=== PATIENT | female | born 1940 | race Caucasian/White ===

== ENCOUNTER → 2017-02-10 | Outpatient (CLI) | payer MEDICARE ==
--- NOTE | 2017-02-10 10:02 | ECHOF ---
Referral Reason:R53.83 MEASUREMENTS -------- HEIGHT: 160.0 cm WEIGHT: 108.9 kg BP: 130/50 RVIDd: 2.8 cm (< 3.3) IVSd: 1.3 cm (0.6 - 1.1) LVIDd: 4.1 cm (3.9 - 5.3) LVPWd: 1.6 cm (0.6 - 1.1) IVSs: 1.4 cm LVIDs: 4.5 cm LVPWs: 1.3 cm LA Diam: 4.2 cm (2.7 - 3.8) LAESV Index (A-L): 18.93 ml/m Ao Diam: 3.3 cm (2.0 - 3.7) AV Cusp: 1.7 cm (1.5 - 2.6) LA Diam: 3.9 cm (2.7 - 3.8) MV EXCURSION: 16.399 mm (> 18.000) MV EF SLOPE: 88 mm/s (70 - 150) EPSS: 0.5 cm MV E Jacobo: 0.39 m/s MV DecT: 232 ms MV A Jacobo: 0.96 m/s MV E/A Ratio: 0.41 RAP: 5.00 mmHg RVSP: 25.72 mmHg FINDINGS -------- Sinus rhythm. This was a technically adequate study. There is moderate concentric left ventricular hypertrophy. Overall left ventricular systolic function is low-normal with, an EF between 50 - 55 %. The right ventricle is normal in size. Normal LA size by volume 22+/-6 ml/m2. The right atrial size is normal. There is mild aortic valve sclerosis. There is no evidence of aortic regurgitation. Mild mitral annular calcification present. Mild mitral regurgitation is present. Mild tricuspid regurgitation present. There is no evidence of pulmonary hypertension. The right ventricular systolic pressure, as measured by Doppler, is 25.72mmHg. There is no pulmonic regurgitation present. The aortic root size is normal. Echo free space may represent effusion or a pericardial fat pad. CONCLUSIONS -------- 1. There is moderate concentric left ventricular hypertrophy. 2. Echo free space may represent effusion or a pericardial fat pad. 3. Overall left ventricular systolic function is low-normal with, an EF between 50 - 55 %. 4. There is mild aortic valve sclerosis. 5. Mild mitral annular calcification present. 6. Mild mitral regurgitation is present. 7. Mild tricuspid regurgitation present. 8. There is no evidence of pulmonary hypertension. 9. The right ventricular systolic pressure, as measured by Doppler, is 25.72mmHg. 10. There is no pulmonic regurgitation present. MARKETING PRODUCTION MANAGER: Keyanna Campbell RDCS
== END | disposition home or self-care (01) ==
LOC: RADECHMAIN 08:19
PROVIDERS: ATTEND Family Medicine
DX: I08.1 Rheumatic disorders of both mitral and tricuspid valves (principal)
CPT/HCPCS: 93306

== ENCOUNTER 2017-03-17 09:37 | Emergency (ER) | payer MEDICARE ==
[2017-03-17] MEDS ORDERED: methylPREDNISolone SOD SUCCI 125 MG/2 ML VIAL IV STA (09:59)
[2017-03-17] MEDS ORDERED: IPRATROPIUM-ALBUTEROL 3 ML NEB INHALATION STA ×2 (09:59→11:08)
--- NOTE | 2017-03-17 10:01 | ED ---
General Adult HPI - General Chief complaint: Shortness of Breath Stated complaint: Difficulty Breathing Time Seen by Provider: 03/17/17 09:40 Source: patient, RN notes reviewed Mode of arrival: wheelchair Limitations: no limitations - History of Present Illness Initial comments: This is a 76-year-old female with a past medical history significant for COPD. Patient states she started coughing approximate 4 days ago. Patient states the cough got significantly worse over the last 2 days. Patient states she's been taking her inhaler but has not been helping. Patient states she is coughing up some clear sputum and it with occasional slight color to it but mostly clear sputum. Patient denies any fever chills. Patient states her voice is now hoarse because of all the coughing. Patient denies any chest pain difficulty breathing shortness of breath. Patient states she had a clot in her lung in the past she does know why. Patient states she was on blood thinners but she no longer is. Patient denies any abdominal pain patient denies nausea vomiting diarrhea. Patient denies any headache patient denies numbness weakness. Patient denies lightheadedness dizziness or near syncopal episode. - Related Data Home Medications Medication Instructions Recorded Confirmed Citalopram Hydrobromide [CeleXA] 20 mg PO DAILY 02/10/14 03/17/17 Simvastatin [Zocor] 10 mg PO DAILY 02/10/14 03/17/17 Aspirin 81 mg PO BID 03/17/17 03/17/17 Levothyroxine Sodium [Synthroid] 75 mcg PO DAILY 03/17/17 03/17/17 Mirtazapine [Remeron] 15 mg PO HS 03/17/17 03/17/17 Previous Rx's Medication Instructions Recorded Levofloxacin [Levaquin] 750 mg PO DAILY #10 tab 03/17/17 predniSONE 40 mg PO DAILY #8 tab 03/17/17 Allergies Allergy/AdvReac Type Severity Reaction Status Date / Time Penicillins Allergy Rash/Hives Verified 03/17/17 10:44 Review of Systems ROS Statement: Those systems with pertinent positive or pertinent negative responses have been documented in the HPI. ROS Other: All systems not noted in ROS Statement are negative. Past Medical History Past Medical History: Coronary Artery Disease (CAD), COPD, Osteoarthritis (OA), Rheumatoid Arthritis (RA) Additional Past Medical History / Comment(s): EMPHYSEMA OSTEOPOROSIS HISTORY OF SHINGLES UPPER AND LOWER DENTURES History of Any Multi-Drug Resistant Organisms: None Reported Past Surgical History: Cholecystectomy, Heart Catheterization, Tonsillectomy Additional Past Surgical History / Comment(s): MANDIBULAR OSTEOTOMY BREAST BIOPSY RIGHT Past Anesthesia/Blood Transfusion Reactions: No Reported Reaction Past Psychological History: Depression Smoking Status: Never smoker Past Alcohol Use History: None Reported Past Drug Use History: None Reported General Exam - General Exam Comments Initial Comments: GENERAL: Patient is well-developed and well-nourished. Patient is nontoxic and well- hydrated and is in mild distress. ENT: Neck is soft and supple. No significant lymphadenopathy is noted. Oropharynx is clear. Moist mucous membranes. Neck has full range of motion without eliciting any pain. EYES: The sclera were anicteric and conjunctiva were pink and moist. Extraocular movements were intact and pupils were equal round and reactive to light. Eyelids were unremarkable. PULMONARY: Expiratory wheezing diffusely CARDIOVASCULAR: There is a regular rate and rhythm without any murmurs gallops or rubs. ABDOMEN: Soft and nontender with normal bowel sounds. No palpable organomegaly was noted. There is no palpable pulsatile mass. SKIN: Skin is clear with no lesions or rashes and otherwise unremarkable. NEUROLOGIC: Patient is alert and oriented x3. Cranial nerves II through XII are grossly intact. Motor and sensory are also intact. Normal speech, volume and content. Symmetrical smile. MUSCULOSKELETAL: Normal extremities with adequate strength and full range of motion. No lower extremity swelling or edema. No calf tenderness. LYMPHATICS: No significant lymphadenopathy is noted PSYCHIATRIC: Normal psychiatric evaluation. Normal interpersonal interactions appears functionally intact in deals appropriately with others. No signs of depression. No signs of anxiety. Limitations: no limitations Course Vital Signs 03/17/17 03/17/17 03/17/17 09:39 10:40 10:50 Temperature 97.3 F L Pulse Rate 92 90 90 Respiratory 22 Rate Blood Pressure 136/72 O2 Sat by Pulse 95 Oximetry Medical Decision Making - Medical Decision Making EKG shows normal sinus rhythm at 84 bpm OH interval is 152 QRS is 80 QT interval 372 QTC is 439 per patient's EKG shows no ST segment elevation or depression or T wave abnormalities are noted. Chest x-ray shows no acute abnormality. Patient was much improved after first breathing treatment but still continued to have a little bit of a wheeze slightly very second albuterol treatment. Patient also got Rocephin IV. - Lab Data Result diagrams: 03/17/17 09:57 03/17/17 09:57 Lab Results 03/17/17 03/17/17 03/17/17 Range/Units 09:57 09:57 09:57 WBC 8.4 (3.8-10.6) k/uL RBC 5.15 (3.80-5.40) m/uL Hgb 14.9 (11.4-16.0) gm/dL Hct 44.0 (34.0-46.0) % MCV 85.5 (80.0-100.0) fL MCH 29.0 (25.0-35.0) pg MCHC 33.9 (31.0-37.0) g/dL RDW 13.8 (11.5-15.5) % Plt Count 312 (150-450) k/uL Neutrophils % 65 % Lymphocytes % 19 % Monocytes % 7 % Eosinophils % 6 % Basophils % 1 % Neutrophils # 5.5 (1.3-7.7) k/uL Lymphocytes # 1.6 (1.0-4.8) k/uL Monocytes # 0.6 (0-1.0) k/uL Eosinophils # 0.5 (0-0.7) k/uL Basophils # 0.1 (0-0.2) k/uL PT (9.0-12.0) sec INR (<1.1) APTT (22.0-30.0) sec D-Dimer (<0.60) mg/L FEU Sodium 143 (137-145) mmol/L Potassium 5.0 (3.5-5.1) mmol/L Chloride 106 (98-107) mmol/L Carbon Dioxide 28 (22-30) mmol/L Anion Gap 9 mmol/L BUN 14 (7-17) mg/dL Creatinine 0.82 (0.52-1.04) mg/dL Est GFR (MDRD) Af Amer >60 (>60 ml/min/1.73 sqM) Est GFR (MDRD) Non-Af >60 (>60 ml/min/1.73 sqM) Glucose 102 H (74-99) mg/dL Calcium 8.8 (8.4-10.2) mg/dL Magnesium 2.0 (1.6-2.3) mg/dL Total Bilirubin 0.8 (0.2-1.3) mg/dL AST 20 (14-36) U/L ALT 30 (9-52) U/L Alkaline Phosphatase 72 (38-126) U/L Total Creatine Kinase 29 L (30-135) U/L CK-MB (CK-2) 0.5 (0.0-2.4) ng/mL CK-MB (CK-2) Rel Index 1.7 Troponin I <0.012 (0.000-0.034) ng/mL NT-Pro-B Natriuret Pep pg/mL Total Protein 6.7 (6.3-8.2) g/dL Albumin 3.8 (3.5-5.0) g/dL 03/17/17 03/17/17 Range/Units 09:57 09:57 WBC (3.8-10.6) k/uL RBC (3.80-5.40) m/uL Hgb (11.4-16.0) gm/dL Hct (34.0-46.0) % MCV (80.0-100.0) fL MCH (25.0-35.0) pg MCHC (31.0-37.0) g/dL RDW (11.5-15.5) % Plt Count (150-450) k/uL Neutrophils % % Lymphocytes % % Monocytes % % Eosinophils % % Basophils % % Neutrophils # (1.3-7.7) k/uL Lymphocytes # (1.0-4.8) k/uL Monocytes # (0-1.0) k/uL Eosinophils # (0-0.7) k/uL Basophils # (0-0.2) k/uL PT 10.0 (9.0-12.0) sec INR 1.0 (<1.1) APTT 23.1 (22.0-30.0) sec D-Dimer 0.55 (<0.60) mg/L FEU Sodium (137-145) mmol/L Potassium (3.5-5.1) mmol/L Chloride (98-107) mmol/L Carbon Dioxide (22-30) mmol/L Anion Gap mmol/L BUN (7-17) mg/dL Creatinine (0.52-1.04) mg/dL Est GFR (MDRD) Af Amer (>60 ml/min/1.73 sqM) Est GFR (MDRD) Non-Af (>60 ml/min/1.73 sqM) Glucose (74-99) mg/dL Calcium (8.4-10.2) mg/dL Magnesium (1.6-2.3) mg/dL Total Bilirubin (0.2-1.3) mg/dL AST (14-36) U/L ALT (9-52) U/L Alkaline Phosphatase (38-126) U/L Total Creatine Kinase (30-135) U/L CK-MB (CK-2) (0.0-2.4) ng/mL CK-MB (CK-2) Rel Index Troponin I (0.000-0.034) ng/mL NT-Pro-B Natriuret Pep 193 pg/mL Total Protein (6.3-8.2) g/dL Albumin (3.5-5.0) g/dL Disposition Clinical Impression: COPD with acute bronchitis Disposition: HOME SELF-CARE Instructions: Acute Bronchitis (ED) Prescriptions: Levofloxacin [Levaquin] 750 mg PO DAILY #10 tab predniSONE 40 mg PO DAILY #8 tab Referrals: Niko Dickson MD [Primary Care Provider] - 1-2 days Time of Disposition: 11:09
[2017-03-17 10:07] LABS: Basophils # (A) 0.1 k/uL (0-0.2); Basophils % (A) 1 %; CH 28.4; CHCM 33.5; Eosinophils # (A) 0.5 k/uL (0-0.7); Eosinophils % (A) 6 %; HDW 2.52; HGB 14.9 gm/dL (11.4-16.0); Luc # (Auto) 0.14; Luc % (Auto) 2; Lymphocytes # (A) 1.6 k/uL (1.0-4.8); Lymphocytes % (A) 19 %; MCHC 33.9 g/dL (31.0-37.0); MCV 85.5 fL (80.0-100.0); Mean Platelet Volume 7.6; Monocytes # (A) 0.6 k/uL (0-1.0); Monocytes % (A) 7 %; Neutrophils # (A) 5.5 k/uL (1.3-7.7); Neutrophils % (A) 65 %; RBC 5.15 m/uL (3.80-5.40); RDW 13.8 % (11.5-15.5); WBC 8.4 k/uL (3.8-10.6); WBC (Perox) 8.09
[2017-03-17 10:19] LABS: ALT 30 U/L (9-52); AST 20 U/L (14-36); Alkaline Phosphatase 72 U/L (38-126); Anion Gap 9 mmol/L; Blood Urea Nitrogen 14 mg/dL (7-17); Calcium 8.8 mg/dL (8.4-10.2); Carbon Dioxide 28 mmol/L (22-30); Chloride 106 mmol/L (98-107); Glucose 102 mg/dL (74-99); Non-African American GFR(MDRD) >60 (>60 ml/min/1.73 sqM); Sodium 143 mmol/L (137-145); Total Bilirubin 0.8 mg/dL (0.2-1.3); Total Protein 6.7 g/dL (6.3-8.2)
[2017-03-17 10:27] LABS: Creatine Kinase 29 U/L (30-135)
[2017-03-17 10:35] LABS: Partial Thromboplastin Time 23.1 sec (22.0-30.0)
[2017-03-17 10:40] LABS: Creatine Kinase MB 0.5 ng/mL (0.0-2.4); Troponin I <0.012 ng/mL (0.000-0.034)
--- NOTE | 2017-03-17 11:05 | XR ---
EXAMINATION TYPE: XR chest 2V DATE OF EXAM: 03/17/2017 COMPARISON: 12/25/2016 HISTORY: Short of breath TECHNIQUE: Frontal and lateral views of the chest are obtained. FINDINGS: There is coarsening of interstitial markings. There is no pleural effusion. There are ches t leads. Costophrenic angles are clear. There is a poor respiration. IMPRESSION: Pulmonary interstitial infiltrates are increased compared to last exam. No gross heart f ailure.
[2017-03-17] MEDS ORDERED: LEVOFLOXACIN 750 MG TAB PO STA (11:11)
[2017-03-17 11:58] VITALS: BP 120/57; PULSE 87; RESP 20; TEMP 98
== END 2017-03-17 11:57 | disposition home or self-care (01) ==
LOC: EC 09:37
DX: J44.0 Chronic obstructive pulmonary disease with (acute) lower respiratory infection (principal); J20.9 Acute bronchitis, unspecified; F32.9 Major depressive disorder, single episode, unspecified; I25.10 Atherosclerotic heart disease of native coronary artery without angina pectoris; Z79.82 Long term (current) use of aspirin; Z79.899 Other long term (current) drug therapy; Z88.0 Allergy status to penicillin; Z53.8 Procedure and treatment not carried out for other reasons
CPT/HCPCS: 36415; 94640 ×2; 93005; 85379; 83880; 80053; 82550; 82553; 83735; 84484; 85025; 85610; 85730; 87040; 71020; 99285; 96374; J2930

== ENCOUNTER 2018-06-30 12:08 | Inpatient (IN) | payer MEDICARE ==
--- NOTE | 2018-06-30 12:42 | ED ---
General Adult HPI - General Chief complaint: Neuro Symptoms/Deficit Stated complaint: lt arm tight, facial numbness Time Seen by Provider: 06/30/18 12:33 Source: patient, RN notes reviewed Mode of arrival: wheelchair Limitations: no limitations - History of Present Illness Initial comments: Patient is a pleasant 77-year-old female presenting to the emergency Department with complaints of her left side feeling funny. Patient went to bed around 11: 30 or 12 last night and that was last known well time. Patient woke up this morning with her left patient shoulder and arm feeling funny. Patient states her left arm does feel somewhat heavy. No difficulty with walking. No speech problem as per no confusion. Patient did have a mild amount of chest discomfort with lying down while in the emergency department that is essentially resolved at this point. No history of similar symptoms previously. - Related Data Home Medications Medication Instructions Recorded Confirmed Citalopram Hydrobromide [CeleXA] 20 mg PO DAILY 02/10/14 06/30/18 Simvastatin [Zocor] 10 mg PO DAILY 02/10/14 06/30/18 Aspirin 81 mg PO BID 03/17/17 06/30/18 Mirtazapine [Remeron] 15 mg PO HS 03/17/17 06/30/18 Albuterol Inhaler [Ventolin Hfa 1 puff INHALATION Q6HR 06/30/18 06/30/18 Inhaler] Allergies Allergy/AdvReac Type Severity Reaction Status Date / Time Penicillins Allergy Rash/Hives Verified 06/30/18 12:43 Review of Systems ROS Statement: Those systems with pertinent positive or pertinent negative responses have been documented in the HPI. ROS Other: All systems not noted in ROS Statement are negative. Constitutional: Denies: fever Eyes: Denies: eye pain ENT: Denies: ear pain Respiratory: Denies: cough, dyspnea Cardiovascular: Denies: palpitations Endocrine: Denies: fatigue Gastrointestinal: Denies: abdominal pain Genitourinary: Denies: dysuria Musculoskeletal: Denies: back pain Skin: Denies: rash Neurological: Reports: weakness. Denies: headache, confusion Past Medical History Past Medical History: Coronary Artery Disease (CAD), COPD, Osteoarthritis (OA), Rheumatoid Arthritis (RA) Additional Past Medical History / Comment(s): EMPHYSEMA OSTEOPOROSIS HISTORY OF SHINGLES UPPER AND LOWER DENTURES History of Any Multi-Drug Resistant Organisms: None Reported Past Surgical History: Cholecystectomy, Heart Catheterization, Tonsillectomy Additional Past Surgical History / Comment(s): MANDIBULAR OSTEOTOMY BREAST BIOPSY RIGHT Past Anesthesia/Blood Transfusion Reactions: No Reported Reaction Past Psychological History: Depression Smoking Status: Never smoker Past Alcohol Use History: None Reported Past Drug Use History: None Reported General Exam Limitations: no limitations General appearance: alert, in no apparent distress Head exam: Present: atraumatic Eye exam: Present: normal appearance, PERRL, EOMI. Absent: nystagmus ENT exam: Present: normal oropharynx Neck exam: Present: normal inspection Respiratory exam: Present: normal lung sounds bilaterally Cardiovascular Exam: Present: regular rate, normal rhythm Expanded Peripheral pulses: 2+: Radial (R), Radial (L), Dorsalis Pedis (R), Dorsalis Pedis (L) GI/Abdominal exam: Present: soft. Absent: distended, tenderness Extremities exam: Present: normal inspection. Absent: pedal edema, calf tenderness Neurological exam: Present: alert, oriented X3, CN II-XII intact Expanded Neurological exam: Present: protecting the airway Speech: Present: fluid speech, expressive aphasia, anomia Cranial nerves: EOM's Intact: Normal, Facial Sensation: Normal Sensory exam: Upper Extremity Light Touch: Normal, Lower Extremity Light Touch: Normal Motor strength exam: RUE: 5, LUE: 4, RLE: 5, LLE: 4 Eye Response: (4) open spontaneously Motor Response: (6) obeys commands Verbal Response: (5) oriented Psychiatric exam: Present: normal affect, normal mood Skin exam: Present: normal color Course Vital Signs 06/30/18 12:24 Temperature 97.7 F Pulse Rate 84 Respiratory 16 Rate Blood Pressure 150/88 O2 Sat by Pulse 98 Oximetry EKG Findings - EKG Comments: EKG Findings:: Normal sinus rhythm 79. DE 158. QRS 90. QT 386. QTc 442. Left axis. LVH criteria. Nonspecific T waves. Medical Decision Making - Medical Decision Making Patient reevaluated and resting comfortably in bed. Patient and family updated on results and plan. Case was discussed in detail with Dr. Briones, who will admit for Dr. huffman - Lab Data Result diagrams: 06/30/18 12:56 06/30/18 12:56 Lab Results 06/30/18 06/30/1818 Range/Units 12:56 12:56 12:56 WBC 7.5 (3.8-10.6) k/uL RBC 5.43 H (3.80-5.40) m/uL Hgb 14.9 (11.4-16.0) gm/dL Hct 47.3 H (34.0-46.0) % MCV 87.2 (80.0-100.0) fL MCH 27.5 (25.0-35.0) pg MCHC 31.5 (31.0-37.0) g/dL RDW 13.8 (11.5-15.5) % Plt Count 305 (150-450) k/uL Neutrophils % 65 % Lymphocytes % 22 % Monocytes % 8 % Eosinophils % 3 % Basophils % 0 % Neutrophils # 4.9 (1.3-7.7) k/uL Lymphocytes # 1.7 (1.0-4.8) k/uL Monocytes # 0.6 (0-1.0) k/uL Eosinophils # 0.3 (0-0.7) k/uL Basophils # 0.0 (0-0.2) k/uL PT (9.0-12.0) sec INR (<1.2) APTT (22.0-30.0) sec Sodium 143 (137-145) mmol/L Potassium 4.4 (3.5-5.1) mmol/L Chloride 111 H (98-107) mmol/L Carbon Dioxide 26 (22-30) mmol/L Anion Gap 6 mmol/L BUN 19 H (7-17) mg/dL Creatinine 0.71 (0.52-1.04) mg/dL Est GFR (CKD-EPI)AfAm >90 (>60 ml/min/1.73 sqM) Est GFR (CKD-EPI)NonAf 83 (>60 ml/min/1.73 sqM) Glucose 98 (74-99) mg/dL Calcium 8.7 (8.4-10.2) mg/dL Total Bilirubin 0.7 (0.2-1.3) mg/dL AST 29 (14-36) U/L ALT 31 (9-52) U/L Alkaline Phosphatase 50 (38-126) U/L Total Creatine Kinase 28 L (30-135) U/L CK-MB (CK-2) 0.8 (0.0-2.4) ng/mL CK-MB (CK-2) Rel Index 2.9 Troponin I <0.012 (0.000-0.034) ng/mL Total Protein 6.8 (6.3-8.2) g/dL Albumin 3.7 (3.5-5.0) g/dL 06/30/18 Range/Units 12:56 WBC (3.8-10.6) k/uL RBC (3.80-5.40) m/uL Hgb (11.4-16.0) gm/dL Hct (34.0-46.0) % MCV (80.0-100.0) fL MCH (25.0-35.0) pg MCHC (31.0-37.0) g/dL RDW (11.5-15.5) % Plt Count (150-450) k/uL Neutrophils % % Lymphocytes % % Monocytes % % Eosinophils % % Basophils % % Neutrophils # (1.3-7.7) k/uL Lymphocytes # (1.0-4.8) k/uL Monocytes # (0-1.0) k/uL Eosinophils # (0-0.7) k/uL Basophils # (0-0.2) k/uL PT 9.7 (9.0-12.0) sec INR 1.0 (<1.2) APTT 23.5 (22.0-30.0) sec Sodium (137-145) mmol/L Potassium (3.5-5.1) mmol/L Chloride (98-107) mmol/L Carbon Dioxide (22-30) mmol/L Anion Gap mmol/L BUN (7-17) mg/dL Creatinine (0.52-1.04) mg/dL Est GFR (CKD-EPI)AfAm (>60 ml/min/1.73 sqM) Est GFR (CKD-EPI)NonAf (>60 ml/min/1.73 sqM) Glucose (74-99) mg/dL Calcium (8.4-10.2) mg/dL Total Bilirubin (0.2-1.3) mg/dL AST (14-36) U/L ALT (9-52) U/L Alkaline Phosphatase (38-126) U/L Total Creatine Kinase (30-135) U/L CK-MB (CK-2) (0.0-2.4) ng/mL CK-MB (CK-2) Rel Index Troponin I (0.000-0.034) ng/mL Total Protein (6.3-8.2) g/dL Albumin (3.5-5.0) g/dL - Radiology Data Radiology results: report reviewed (CTA shows moderate stenosis right carotid bulb. Computed tomography scan of the brain shows atrophy.), image reviewed Disposition Clinical Impression: Cerebrovascular accident Disposition: ADMITTED IP TO THIS HOSP Is patient prescribed a controlled substance at d/c from ED?: No Referrals: Belinda Sorto MD [Primary Care Provider] - 1-2 days Decision Time: 14:18
[2018-06-30 13:09] LABS: Basophils % (A) 0 %; Eosinophils # (A) 0.3 k/uL (0-0.7); Eosinophils % (A) 3 %; HCT 47.3 % (34.0-46.0); HGB 14.9 gm/dL (11.4-16.0); Lymphocytes # (A) 1.7 k/uL (1.0-4.8); Lymphocytes % (A) 22 %; MCH 27.5 pg (25.0-35.0); MCHC 31.5 g/dL (31.0-37.0); MCV 87.2 fL (80.0-100.0); Mean Platelet Volume 7.6; Monocytes # (A) 0.6 k/uL (0-1.0); Monocytes % (A) 8 %; Neutrophils # (A) 4.9 k/uL (1.3-7.7); Neutrophils % (A) 65 %; Platelet Count 305 k/uL (150-450); RBC 5.43 m/uL (3.80-5.40); RDW 13.8 % (11.5-15.5); WBC 7.5 k/uL (3.8-10.6)
[2018-06-30 13:17] LABS: ALT 31 U/L (9-52); AST 29 U/L (14-36); Albumin 3.7 g/dL (3.5-5.0); Alkaline Phosphatase 50 U/L (38-126); Anion Gap 6 mmol/L; Blood Urea Nitrogen 19 mg/dL (7-17); Calcium 8.7 mg/dL (8.4-10.2); Carbon Dioxide 26 mmol/L (22-30); Chloride 111 mmol/L (98-107); Glucose 98 mg/dL (74-99); Potassium 4.4 mmol/L (3.5-5.1); Sodium 143 mmol/L (137-145); Total Bilirubin 0.7 mg/dL (0.2-1.3); Total Protein 6.8 g/dL (6.3-8.2)
[2018-06-30 13:19] LABS: Partial Thromboplastin Time 23.5 sec (22.0-30.0); Prothrombin Time 9.7 sec (9.0-12.0)
[2018-06-30 13:29] LABS: Creatine Kinase 28 U/L (30-135)
[2018-06-30 13:42] LABS: Creatine Kinase MB 0.8 ng/mL (0.0-2.4); Troponin I <0.012 ng/mL (0.000-0.034)
--- NOTE | 2018-06-30 13:45 | CT ---
EXAMINATION TYPE: CT brain wo con DATE OF EXAM: 06/30/2018 COMPARISON: None HISTORY: Left sided weakness. CT DLP: 1161.6 mGycm Automated exposure control for dose reduction was used. Helical acquisition through the brain. FINDINGS: Cerebral vascular calcifications are present. No hemorrhage or hydrocephalus. Periventricular white m atter shows patchy low attenuation. There is cortical atrophy. Calvarium is intact. Paranasal sinuses and mastoid air cells as visualized are normal. There is some artifact present. Cortical atrophy is noted. IMPRESSION: AGE-RELATED CHANGES OF ATROPHY AND PROBABLE CHRONIC SMALL VESSEL ISCHEMIA. FOLLOW-UP INDICATED.
--- NOTE | 2018-06-30 14:16 | CT ---
EXAMINATION TYPE: CT angio head neck DATE OF EXAM: 06/30/2018 COMPARISON: Correlation CT brain same day HISTORY: 77-year-old female Left sided weakness. TECHNIQUE: Contiguous axial scanning of the head and neck performed with IV Contrast, patient injecte d with 65 mL of Isovue 370. Coronal/sagittal MIP reconstructions performed. 3-D reconstructions gener ated on a dedicated independent workstation. CT DLP: 559.8 mGycm Automated exposure control for dose reduction was used. FINDINGS: Head: Mild atelectatic calcifications within the carotid siphons. No significant stenosis or arterial occlu marip[place] seen of the internal carotid, vertebral, or basilar arteries. The left vertebral artery is domin ant. No aneurysmal change identified. Dural venous sinuses are patent. 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 Motion artifact affecting the mid and lower right common carotid artery. The right common carotid art lashanda is tortuous with mild atherosclerotic calcifications at the bifurcation and borderline moderate, 50% stenosis at the carotid bulb. Refer to measurements on cross-sectional reconstructions of the rig ht internal carotid artery. Additional bovine configuration to the aortic arch. The left common carotid artery is mildly tortuous with mild active cardiac calcifications at the bifurcation. The left common and internal carotid art eries are otherwise widely patent. Left vertebral artery is dominant. Both vertebral arteries are patent throughout the course. IMPRESSION: 1. HEAD: NO LARGE VESSEL INTRACRANIAL ARTERIAL OCCLUSION OR SIGNIFICANT STENOSIS. 2. NECK: ATHEROSCLEROTIC CALCIFICATION RESULTING IN A BORDERLINE MODERATE (50%) STENOSIS AT THE RIGHT CAROTID BULB. 3. SOME VARIANT ANATOMY INCLUDES ABERRANT RIGHT SUBCLAVIAN ARTERY WHICH TAKES A RETROESOPHAGEAL COURS E AND DOMINANT LEFT VERTEBRAL ARTERY.
[2018-06-30] MEDS ORDERED: ASPIRIN 325 MG TAB PO STA (14:19)
--- NOTE | 2018-06-30 14:26 | XR ---
EXAMINATION TYPE: XR chest 2V DATE OF EXAM: 06/30/2018 COMPARISON: Chest x-ray March 17, 2017 HISTORY: Altered mental status and weakness. TECHNIQUE: Frontal and lateral views of the chest are obtained. FINDINGS: There is elevated right hemidiaphragm with eventration of the anterior aspect. There is no focal air space opacity, pleural effusion, or pneumothorax seen. The cardiac silhouette size is stab le and mildly enlarged. The osseous structures are intact. IMPRESSION: Mild cardiomegaly without acute pulmonary process currently.
--- NOTE | 2018-06-30 15:42 | P.HPIM ---
History of Present Illness H&P Date: 06/30/18 Chief Complaint: Left-sided weakness (77-year-old female patient of Dr. muñiz. Patient presents to the emergency room with complaints of left-sided weakness and numbness. Patient states she went to bed last night and felt moment and woke up this morning with left shoulder pain and the feeling of numbness and heaviness in her left face and left upper extremity. Patient denies confusion or problems with speech. Patient also complaining of chest heaviness. Patient has no past medical history of COPD, osteoporosis, rheumatoid arthritis, emphysema and pulmonary embolism and patient states she has completed treatment 2 years prior with Coumadin. Has not been on anticoagulation since. D-dimer and cardiac profile will be ordered. CT of the brain completed showing age-related changes of atrophy and probable chronic small vessel ischemia. Follow-up as indicated. CTA completed showing no large vessel intracranial arterial occlusion or significant stenosis. Atherosclerotic calcification resulting in borderline moderate 50% stenosis of the right carotid bulb. Some variant anatomy includes variant right subclavian artery which takes retroesophageal course in dominant left vertebral artery. Chest x-ray completed showing mild cardiomegaly without acute pulmonary process currently. EKG completed showing normal sinus rhythm. Left axis deviation moderate voltage criteria for LVH. Initial troponin negative. Patient currently has complaints of heaviness to left side of face. No signs of facial droop. Speech is clear. Memory intact. Strength 3/5 to upper and lower extremity on left side. Dr. Hahn consulted for neurology. 2 -D echo has been ordered. At this time patient denies chest pain or shortness breath. Patient denies nausea vomiting or diarrhea. Patient denies urinary burning or frequency Review of Systems Please refer to HPI otherwise unremarkable Past Medical History Past Medical History: Coronary Artery Disease (CAD), Chest Pain / Angina, COPD, CVA/TIA, Hyperlipidemia, Pulmonary Embolus (PE) Additional Past Medical History / Comment(s): Past shingelles History of Any Multi-Drug Resistant Organisms: None Reported Past Surgical History: Cholecystectomy, Heart Catheterization, Tonsillectomy Additional Past Surgical History / Comment(s): LOWER MANDIBULAR OSTEOTOMY BENIGN BREAST BIOPSY RIGHT, BILATERAL CATARACT REMOVAL/LENS IMPLANTS Past Anesthesia/Blood Transfusion Reactions: No Reported Reaction Past Psychological History: Depression Additional Psychological History / Comment(s): Pt resides with her daughter. She is independent. Smoking Status: Former smoker Past Alcohol Use History: None Reported Additional Past Alcohol Use History / Comment(s): Pt started smoking in 1958 and quit in 1982 Past Drug Use History: None Reported - Past Family History Father History Unknown: Yes Mother Family Medical History: Myocardial Infarction ([place]) Additional Family Medical History / Comment(s): Mother of a [place] in her 80s. Medications and Allergies Home Medications Medication Instructions Recorded Confirmed Type Citalopram Hydrobromide [CeleXA] 20 mg PO DAILY 02/10/14 06/30/18 History Simvastatin [Zocor] 10 mg PO DAILY 02/10/14 06/30/18 History Aspirin 81 mg PO BID 03/17/17 06/30/18 History Mirtazapine [Remeron] 15 mg PO HS 03/17/17 06/30/18 History Albuterol Inhaler [Ventolin Hfa 1 puff INHALATION Q6HR 06/30/18 06/30/18 History Inhaler] Allergies Allergy/AdvReac Type Severity Reaction Status Date / Time Penicillins Allergy Rash/Hives Verified 06/30/18 12:43 Physical Exam Vitals: Vital Signs Temp Pulse Resp BP Pulse Ox 06/30/18 15:06 75 18 139/73 95 06/30/18 12:24 97.7 F 84 16 150/88 98 Intake and Output 06/30/18 06/30/18 06/30/18 06:59 14:59 22:59 Other: Weight 108.862 kg Head normocephalic Neck supple Lungs diminished bilaterally Heart regular rate and rhythm S1-S2, no rub or gallop Abdomen is soft nontender nondistended positive bowel sounds no hepatosplenomegaly Extremities no edema Neuro alert and orientated to 3. No signs of facial droop memory appears intact. Strength 3/5 to left upper and lower extremity. Results CBC & Chem 7: 06/30/18 12:56 06/30/18 12:56 Labs: Abnormal Lab Results - Last 24 Hours (Table) 06/30/18 06/30/18 06/30/18 Range/Units 12:56 12:56 12:56 RBC 5.43 H (3.80-5.40) m/uL Hct 47.3 H (34.0-46.0) % Chloride 111 H (98-107) mmol/L BUN 19 H (7-17) mg/dL Total Creatine Kinase 28 L (30-135) U/L Thrombosis Risk Factor Assmnt - Choose All That Apply Any of the Below Risk Factors Present?: Yes Each Factor Represents 1 point: Abnormal pulmonary function (COPD), Obesity ( BMI >25) Other Risk Factors: Yes Each Risk Factor Represents 3 Points: Age 75 years or older Other congenital or acquired thrombophilia - If yes, enter type in comment: No Thrombosis Risk Factor Assessment Total Risk Factor Score: 5 Thrombosis Risk Factor Assessment Level: High Risk Assessment and Plan Assessment: 1. Left-sided weakness and numbness. CTA completed showing no large vessel intracranial arterial occlusion or significant stenosis. Atherosclerotic calcification resulting in borderline moderate 50% stenosis of the right carotid bulb. Some variant anatomy includes variant right subclavian artery which takes retroesophageal course in dominant left vertebral artery. CT of head completed showing age-related changes of atrophy and probable chronic small vessel ischemia. Dr. Juarez consulted for neurology. Patient started on aspirin 325 daily. 2-D echo has been ordered. PT and OT services consulted 2. Complaints of chest heaviness. D-dimer has been ordered. Cardiac profile ordered. EKG completed showing normal sinus rhythm left axis deviation. Initial troponin negative 3. History of pulmonary embolism. Patient states she completed treatment 2 years prior with Coumadin. Patient currently not on any anticoagulation 4. History of COPD 5. History of emphysema 6. History of osteoarthritis 7. History of rheumatoid arthritis DVT prophylaxis heparin. GI prophylaxis Pepcid Time with Patient: Greater than 30 (Greater than 60% of the total time spent in counseling and coordination of care. I performed an examination of the patient and discussed their management with the Nurse Practitioner. I have reviewed the Nurse Practitioner's notes and agree with the documented findings and plan of care)
[2018-06-30 19:46] LABS: Creatine Kinase MB 0.5 ng/mL (0.0-2.4)
[2018-06-30] MEDS ORDERED: ALBUTEROL NEBULIZED 2.5 MG/3 ML INHALATION SCH (20:00)
[2018-06-30] MEDS: SODIUM CHLORIDE 0.9% 1,000 ML IV SCH (20:41)
[2018-06-30] MEDS ORDERED: HEPARIN SODIUM,PORCINE 5,000 UNIT/ML 1 ML VIAL SQ SCH (21:00)
[2018-06-30] MEDS ORDERED: ALBUTEROL NEBULIZED 2.5 MG/3 ML INHALATION PRN (21:10)
[2018-06-30] MEDS: MIRTAZAPINE 15 MG TAB PO SCH (23:04)
[2018-07-01] MEDS: ENOXAPARIN 100 MG/ML SYRINGE SQ SCH ×3 (00:01→20:46)
[2018-07-01] MEDS: SODIUM CHLORIDE 0.9% 1,000 ML IV SCH ×2 (01:38→11:44)
[2018-07-01 02:04] LABS: Creatine Kinase 87 U/L (30-135)
[2018-07-01 02:18] LABS: Creatine Kinase MB 0.5 ng/mL (0.0-2.4); Troponin I <0.012 ng/mL (0.000-0.034)
[2018-07-01 06:31] LABS: Basophils # (A) 0.1 k/uL (0-0.2); Basophils % (A) 1 %; Eosinophils # (A) 0.3 k/uL (0-0.7); Eosinophils % (A) 4 %; HCT 42.3 % (34.0-46.0); HGB 13.5 gm/dL (11.4-16.0); Lymphocytes # (A) 1.6 k/uL (1.0-4.8); Lymphocytes % (A) 22 %; MCV 87.4 fL (80.0-100.0); Monocytes # (A) 0.7 k/uL (0-1.0); Monocytes % (A) 10 %; Neutrophils # (A) 4.4 k/uL (1.3-7.7); Neutrophils % (A) 62 %; Platelet Count 232 k/uL (150-450); RBC 4.84 m/uL (3.80-5.40); WBC 7.1 k/uL (3.8-10.6)
[2018-07-01 06:50] LABS: ALT 24 U/L (9-52); AST 27 U/L (14-36); Albumin 3.3 g/dL (3.5-5.0); Alkaline Phosphatase 47 U/L (38-126); Anion Gap 6 mmol/L; Blood Urea Nitrogen 17 mg/dL (7-17); Calcium 8.4 mg/dL (8.4-10.2); Carbon Dioxide 29 mmol/L (22-30); Chloride 109 mmol/L (98-107); Cholesterol 132 mg/dL (<200); Glucose 90 mg/dL (74-99); HDL Cholesterol 40 mg/dL (40-60); LDL Cholesterol,Calculated 75 mg/dL (0-99); Potassium 4.4 mmol/L (3.5-5.1); Sodium 144 mmol/L (137-145); Total Bilirubin 0.8 mg/dL (0.2-1.3); Total Protein 6.1 g/dL (6.3-8.2); Triglycerides 86 mg/dL (<150)
[2018-07-01] MEDS: ATORVASTATIN 10 MG TAB PO SCH (07:53)
[2018-07-01] MEDS: CLOPIDOGREL 75 MG TAB PO SCH (07:53)
[2018-07-01] MEDS: CITALOPRAM HYDROBROMIDE 20 MG TAB PO SCH (07:53)
[2018-07-01] MEDS: FAMOTIDINE 20 MG TAB PO SCH (07:53)
--- NOTE | 2018-07-01 08:30 | CONS ---
CONSULTATION DATE OF CONSULTATION: 06/30/2018 CHIEF COMPLAINT: Stroke. HISTORY OF PRESENT ILLNESS: Mrs. Mccord is a pleasant 77-year-old, female, who is being evaluated today on 06/30/2018 by the neurology service per the request of Dr. Briones for a stroke. The patient states that she woke up this morning with symptoms of deep aching pain involving the left arm and left face. She then developed numbness and tingling involving the left arm and face. She did not notice any symptoms in the left lower extremity. She then noticed that her left arm is slightly weaker than her right arm and was then brought into [facility] Emergency Room for further workup and management. The patient does take aspirin 81 mg daily at home. She was recently on Coumadin for history of pulmonary embolism, but this was discontinued earlier this year after appropriate treatment. A CT scan of the brain was done on this admission which showed generalized atrophy and small-vessel ischemic changes. Her CT angiogram of the brain was normal. CT angiogram of the neck showed 50% stenosis on the right bulb and was otherwise showing no significant stenosis. Her CBC, comprehensive metabolic profile, and cardiac enzymes were reviewed and were normal. At the time of my evaluation, the patient was lying in her bed and appears to be in no acute distress. She reports mild improvement in the intensity of her symptoms. PAST MEDICAL HISTORY: Pulmonary embolism, coronary artery disease, angina, chronic obstructive pulmonary disease, history of transient ischemic attack, dyslipidemia, history of shingles, depression, history of cholecystectomy, tonsillectomy, cataract surgery, lens implant. SOCIAL HISTORY: The patient is a former smoker. She denies any alcohol or drug use. FAMILY HISTORY: Positive for heart disease. HOME MEDICATIONS: Reviewed in the chart. ALLERGIES: PENICILLIN. REVIEW OF SYSTEMS: CONSTITUTIONAL: Negative. EYES: Negative. ENT: Negative. CARDIOVASCULAR: As mentioned above. RESPIRATORY: Negative. GASTROINTESTINAL: Positive for occasional heartburn. GENITOURINARY: Negative. PSYCHIATRIC: Positive for history of depression. NEUROLOGICAL: As mentioned above. DERMATOLOGICAL: Negative. MUSCULOSKELETAL: Positive for occasional joint pain and low back pain. PHYSICAL EXAM: Vital signs show a temperature of 97.7, pulse 75, respiration 18, blood pressure 139/73. GENERAL APPEARANCE: The patient is a mildly obese, elderly female who appears to be in no acute distress. HEENT: Normocephalic, atraumatic. No facial asymmetry is seen. Extraocular muscles are intact. Neck is supple with no masses felt. CARDIOVASCULAR: Regular rate and rhythm. ABDOMEN: Nontender, nondistended. Extremities showed no edema or clubbing. NEUROLOGICAL EXAM: The patient is awake and oriented x3. Speech and language are normal. Strength is 5 minus out of 5 in the left upper extremity and 5/5 elsewhere. Sensory exam showed slightly diminished light touch sensation on the left upper extremity compared to the right. Mild left pronator drift is seen. Mild dysdiadochokinesia is noticed on the left compared to the right. Cranial nerve testing showed slightly reduced light touch sensation on the left face compared to the right with no facial weakness noticed. IMPRESSION: 1. Acute ischemic stroke, likely right middle cerebral artery distribution. 2. Left-sided weakness. 3. Left-sided sensory deficit. 4. History of dyslipidemia. 5. Moderate right carotid stenosis. RECOMMENDATION: The patient does appear to have suffered an acute ischemic stroke. and continues to have mild left-sided weakness and sensory deficit. The patient was on aspirin at home. I will discontinue aspirin and start her on Plavix 75 mg daily. I will order a fasting lipid panel, EEG, and serum homocysteine level. I reviewed with her the results of her CT angiograms and CT scan of the brain and she was reassured from this standpoint. The patient will need further angiograms done on an annual basis given her moderate right sided stenosis. Continue neuro checks and IV hydration as tolerated. I will continue to follow with you. Further recommendations to follow. Thank you for allowing me to participate in the care of your patient. If you have any questions, please feel free to contact me. DON / RASHIDN: [id number] /
[2018-07-01] MEDS ORDERED: ASPIRIN 325 MG TAB PO SCH (09:00)
--- NOTE | 2018-07-01 09:45 | CONS ---
CONSULTATION Opal Mccord is a 77-year-old, pleasant female. Patient has been admitted to [facility] with history of left-sided weakness and numbness. She also noted some heaviness feeling in her left face and left upper extremity. No history of seizure. Patient had a CT of the brain which showed age-related changes and atrophy. No evidence of intracranial hemorrhage or bleed. The patient had a carotid CT of the both carotids, the right carotid 50%, left carotid is normal and patient has a right subclavian artery which takes esophageal course. SURGICAL HISTORY: Patient had a cholecystectomy, heart catheterization and tonsillectomy in the past. PERSONAL HISTORY: Former smoker. PHYSICAL EXAMINATION: Patient was seen in her room. Her vital signs were stable. Lying comfortably in bed. NECK: Supple. No bruit appreciated. CHEST: Clear to auscultation. ABDOMEN: Soft, brachial radial femoral pulses are present. Patient has a very strong hand ldr rn on the right side. Slight weakness on the left side, but she can move the arm up and she can squeeze my hand without any discomfort. Patient has normal motor function of the lower extremity. CTA showed 50% of the right carotid bulb. At this point, patient is scheduled to have a 2D echo with 50% stenosis. My recommendation is to be treated with antiplatelet therapy and if she she gets recurrent symptoms, we can discuss about surgical intervention. We will wait for 2D echo report and follow with you. DON / JUAN A: [id number] /
--- NOTE | 2018-07-01 10:03 | P.CRDCN ---
History of Present Illness Consult date: 07/01/18 Chief complaint: Chest pain History of present illness: This is a pleasant 77-year-old female patient with a past medical history significant for hypertension and dyslipidemia who was admitted to the hospital for possible TIA/stroke. The patient was in her usual state of health until yesterday morning when she woke up from sleep complaining of aching pain involving the left arm and left face and subsequently she developed numbness and tingling sensation in the left arm and left face. No symptoms of slurred speech. No dizziness or lightheadedness. No syncope. Beside that she developed some chest heaviness as well as. The patient underwent CT and CTA of the brain and neck. The computed tomography scan of the brain did not show any acute abnormalities beside atrophic changes. The CTA of the brain revealed intermediate disease about 50% involving the right carotid pulse. Subsequently Dr. Villanueva was consulted to see the patient. Also the patient was seen and evaluated by the neurologist. Currently the patient is on dual antiplatelet therapy with aspirin and Plavix. She is also on statin. The EKG revealed sinus rhythm with nonspecific changes in the inferior leads. 3 sets of cardiac enzymes were checked and came in to be unremarkable. Past Medical History Past Medical History: Coronary Artery Disease (CAD), Chest Pain / Angina, COPD, CVA/TIA, Hyperlipidemia, Pulmonary Embolus (PE) Additional Past Medical History / Comment(s): Past shingelles History of Any Multi-Drug Resistant Organisms: None Reported Past Surgical History: Cholecystectomy, Heart Catheterization, Tonsillectomy Additional Past Surgical History / Comment(s): LOWER MANDIBULAR OSTEOTOMY BENIGN BREAST BIOPSY RIGHT, BILATERAL CATARACT REMOVAL/LENS IMPLANTS Past Anesthesia/Blood Transfusion Reactions: No Reported Reaction Past Psychological History: Depression Additional Psychological History / Comment(s): Pt resides with her daughter. She is independent. Smoking Status: Former smoker Past Alcohol Use History: None Reported Additional Past Alcohol Use History / Comment(s): Pt started smoking in 1958 and quit in 1982 Past Drug Use History: None Reported - Past Family History Father History Unknown: Yes Mother Family Medical History: Myocardial Infarction ([place]) Additional Family Medical History / Comment(s): Mother of a [place] in her 80s. Medications and Allergies Home Medications Medication Instructions Recorded Confirmed Type Citalopram Hydrobromide [CeleXA] 20 mg PO DAILY 02/10/14 06/30/18 History Simvastatin [Zocor] 10 mg PO DAILY 02/10/14 06/30/18 History Aspirin 81 mg PO BID 03/17/17 06/30/18 History Mirtazapine [Remeron] 15 mg PO HS 03/17/17 06/30/18 History Albuterol Inhaler [Ventolin Hfa 1 puff INHALATION Q6HR 06/30/18 06/30/18 History Inhaler] Levothyroxine Sodium [Synthroid] 88 mcg PO DAILY 06/30/18 06/30/18 History Allergies Allergy/AdvReac Type Severity Reaction Status Date / Time Penicillins Allergy Rash/Hives Verified 06/30/18 12:43 Physical Exam Vitals: Vital Signs Temp Pulse Pulse Resp BP BP Pulse Ox 07/01/18 07:45 97.7 F 72 16 179/82 96 07/01/18 04:00 97.5 F L 81 16 149/70 95 07/01/18 00:00 85 17 161/71 93 L 06/30/18 21:15 84 06/30/18 21:07 84 06/30/18 20:00 97.8 F 71 15 182/79 96 06/30/18 15:06 75 18 139/73 95 06/30/18 12:24 97.7 F 84 16 150/88 98 Intake and Output 06/30/18 07/01/18 07/01/18 22:59 06:59 14:59 Intake Total 20 280 1230 Output Total 100 Balance 20 180 1230 Intake: IV 20 30 10 Invasive Line 1 20 30 10 Intake, IV Titration 250 Amount Sodium Chloride 0.9% 1, 250 000 ml @ 100 mls/hr IV . Q10H [facility] Rx#:[id number] Oral 1220 Output: Urine 100 Other: Voiding Method Toilet Toilet Toilet # Voids 2 Weight 104.4 kg - Constitutional General appearance: no acute distress - Respiratory Respiratory: bilateral: CTA - Cardiovascular Rhythm: regular Heart sounds: normal: S1, S2 Results 07/01/18 05:40 07/01/18 05:40 Cardiac Enzymes 06/30/18 06/30/18 06/30/18 Range/Units 12:56 12:56 18:49 AST 29 (14-36) U/L CK-MB (CK-2) 0.8 0.5 (0.0-2.4) ng/mL Troponin I <0.012 (0.000-0.034) ng/mL 07/01/18 07/01/18 Range/Units 01:26 05:40 AST 27 (14-36) U/L CK-MB (CK-2) 0.5 (0.0-2.4) ng/mL Troponin I <0.012 (0.000-0.034) ng/mL Coagulation 06/30/18 Range/Units 12:56 PT 9.7 (9.0-12.0) sec APTT 23.5 (22.0-30.0) sec Lipids 07/01/18 Range/Units 05:40 Triglycerides 86 (<150) mg/dL Cholesterol 132 (<200) mg/dL HDL Cholesterol 40 (40-60) mg/dL CBC 06/30/18 07/01/18 Range/Units 12:56 05:40 WBC 7.5 7.1 (3.8-10.6) k/uL RBC 5.43 H 4.84 (3.80-5.40) m/uL Hgb 14.9 13.5 (11.4-16.0) gm/dL Hct 47.3 H 42.3 (34.0-46.0) % Plt Count 305 232 (150-450) k/uL Comprehensive Metabolic Panel 06/30/18 07/01/18 Range/Units 12:56 05:40 Sodium 143 144 (137-145) mmol/L Potassium 4.4 4.4 (3.5-5.1) mmol/L Chloride 111 H 109 H (98-107) mmol/L Carbon Dioxide 26 29 (22-30) mmol/L BUN 19 H 17 (7-17) mg/dL Creatinine 0.71 0.74 (0.52-1.04) mg/dL Glucose 98 90 (74-99) mg/dL Calcium 8.7 8.4 (8.4-10.2) mg/dL AST 29 27 (14-36) U/L ALT 31 24 (9-52) U/L Alkaline Phosphatase 50 47 (38-126) U/L Total Protein 6.8 6.1 L (6.3-8.2) g/dL Albumin 3.7 3.3 L (3.5-5.0) g/dL Current Medications Generic Name Dose Route Start Last Admin Trade Name Freq PRN Reason Stop Dose Admin Albuterol Sulfate 2.5 mg 06/30/18 21:10 Ventolin Nebulized INHALATION RT-Q4H PRN Shortness Of Breath Or Wheezing Atorvastatin Calcium 10 mg 07/01/18 09:00 07/01/18 07:53 Lipitor PO 10 mg DAILY [facility] Administration Citalopram Hydrobromide 20 mg 07/01/18 09:00 07/01/18 07:53 Celexa PO 20 mg DAILY [facility] Administration Clopidogrel Bisulfate 75 mg 07/01/18 09:00 07/01/18 07:53 Plavix PO 75 mg DAILY [facility] Administration Enoxaparin Sodium 100 mg 06/30/18 21:00 07/01/18 00:01 Lovenox SQ 100 mg Q12HR [facility] Administration Famotidine 20 mg 07/01/18 09:00 07/01/18 07:53 Pepcid PO 20 mg DAILY [facility] Administration Sodium Chloride 1,000 mls @ 100 mls/hr 06/30/18 14:30 07/01/18 01:38 Saline 0.9% IV Not Given .Q10H [facility] Mirtazapine 15 mg 06/30/18 21:00 06/30/18 23:04 Remeron PO 15 mg HS [facility] Administration Intake and Output 06/30/18 07/01/18 07/01/18 22:59 06:59 14:59 Intake Total 20 280 1230 Output Total 100 Balance 20 180 1230 Intake: IV 20 30 10 Invasive Line 1 20 30 10 Intake, IV Titration 250 Amount Sodium Chloride 0.9% 1, 250 000 ml @ 100 mls/hr IV . Q10H [facility] Rx#:[id number] Oral 1220 Output: Urine 100 Other: Voiding Method Toilet Toilet Toilet # Voids 2 Weight 104.4 kg 07/01/18 05:40 07/01/18 05:40 Assessment and Plan Assessment: Assessment #1 TIA/CVA #2 chest heaviness #3 right carotid disease #4 hypertension #5 dyslipidemia Plan #1 the patient was ruled out for acute coronary event #2 severe underlying coronary artery disease to be ruled out, giving her risk factors including hypertension and dyslipidemia and the process of carotid disease #3 I would consider conservative approach at this point in view of the acute phase of the stroke and the absence of chest pain or discomfort #4 as an outpatient, she is to have a stress test to rule out any severe underlying coronary artery disease #5 continue dual antiplatelet therapy along with a statin #6 add a small dose of metoprolol once is okay from the neurology standpoint of view #7 obtain an echocardiogram was Doppler #8 follow-up with the patient
--- NOTE | 2018-07-01 10:47 | ECHOF ---
Referral Reason:Thrombus MEASUREMENTS -------- HEIGHT: 152.4 cm WEIGHT: 108.9 kg BP: RVIDd: 2.6 cm (< 3.3) IVSd: 1.4 cm (0.6 - 1.1) LVIDd: 4.3 cm (3.9 - 5.3) LVPWd: 1.4 cm (0.6 - 1.1) IVSs: 1.6 cm LVIDs: 4.1 cm LVPWs: 1.5 cm LA Diam: 3.9 cm (2.7 - 3.8) Ao Diam: 3.4 cm (2.0 - 3.7) AV Cusp: 1.6 cm (1.5 - 2.6) LA Diam: 3.2 cm (2.7 - 3.8) MV EXCURSION: 19.436 mm (> 18.000) MV EF SLOPE: 68 mm/s (70 - 150) EPSS: 0.4 cm MV E Jacobo: 0.47 m/s MV DecT: 330 ms MV A Jacobo: 0.74 m/s MV E/A Ratio: 0.64 RAP: 5.00 mmHg RVSP: 22.27 mmHg FINDINGS -------- Sinus rhythm. This was a technically adequate study. The left ventricular size is normal. There is moderate concentric left ventricular hypertrophy. O verall left ventricular systolic function is normal with, an EF between 55 - 60 %. The right ventricle is normal in size. The left atrial size is normal. The right atrial size is normal. The aortic valve is trileaflet, and appears structurally normal. No aortic stenosis or regurgitation. Mild mitral annular calcification present. Mild mitral regurgitation is present. Mild tricuspid regurgitation present. There is no evidence of pulmonary hypertension. The right v entricular systolic pressure, as measured by Doppler, is 22.27mmHg. The pulmonic valve was not well visualized. The aortic root size is normal. There is no pericardial effusion. CONCLUSIONS -------- 1. The left ventricular size is normal. 2. There is moderate concentric left ventricular hypertrophy. 3. Overall left ventricular systolic function is normal with, an EF between 55 - 60 %. 4. The right ventricle is normal in size. 5. The left atrial size is normal. 6. The right atrial size is normal. 7. The aortic valve is trileaflet, and appears structurally normal. No aortic stenosis or regurgitati on. 8. Mild mitral annular calcification present. 9. Mild mitral regurgitation is present. 10. Mild tricuspid regurgitation present. 11. There is no evidence of pulmonary hypertension. 12. The right ventricular systolic pressure, as measured by Doppler, is 22.27mmHg. 13. The pulmonic valve was not well visualized. 14. The aortic root size is normal. 15. There is no pericardial effusion. MAINTENANCE AND ENGINEERING MANAGER: Keyanna Campbell RDCS
[2018-07-01] MEDS ORDERED: INFLUENZA VACCINE (6 MOS+) 60 MCG/0.5 ML SYRINGE IM ONE (11:42)
--- NOTE | 2018-07-01 12:44 | P.PN ---
Subjective Progress Note Date: 07/01/18 This is a 77-year-old female patient of Dr. muñiz. Patient presents to the emergency room with complaints of left-sided weakness and numbness. Patient states she went to bed last night and felt moment and woke up this morning with left shoulder pain and the feeling of numbness and heaviness in her left face and left upper extremity. Patient denies confusion or problems with speech. Patient also complaining of chest heaviness. Patient has no past medical history of COPD, osteoporosis, rheumatoid arthritis, emphysema and pulmonary embolism and patient states she has completed treatment 2 years prior with Coumadin. Has not been on anticoagulation since. D-dimer and cardiac profile will be ordered. CT of the brain completed showing age-related changes of atrophy and probable chronic small vessel ischemia. Follow-up as indicated. CTA completed showing no large vessel intracranial arterial occlusion or significant stenosis. Atherosclerotic calcification resulting in borderline moderate 50% stenosis of the right carotid bulb. Some variant anatomy includes variant right subclavian artery which takes retroesophageal course in dominant left vertebral artery. Chest x-ray completed showing mild cardiomegaly without acute pulmonary process currently. EKG completed showing normal sinus rhythm. Left axis deviation moderate voltage criteria for LVH. Initial troponin negative. Patient currently has complaints of heaviness to left side of face. No signs of facial droop. Speech is clear. Memory intact. Strength 3/5 to upper and lower extremity on left side. Dr. Hahn consulted for neurology. 2 -D echo has been ordered. At this time patient denies chest pain or shortness breath. Patient denies nausea vomiting or diarrhea. Patient denies urinary burning or frequency 07/01/2018 patient still having some left-sided weakness and numbness on the left side of her body. She is able to work with physical therapy. Neurology has placed her on Plavix. CTA of the chest not able to be performed because of recent CTA of the head and neck concerned about patient receiving too much contrast. Patient did have elevated d-dimer 0.71. At this time she denies any chest pain. Troponins negative. Patient seen evaluated by cardiology. Objective - Vital Signs Vital signs: Vital Signs Temp 98.2 F 07/01/18 11:45 Pulse 79 07/01/18 11:46 Resp 18 07/01/18 11:46 BP 180/82 07/01/18 11:45 Pulse Ox 95 07/01/18 11:45 Intake & Output 06/30/18 07/01/18 07/01/18 18:59 06:59 18:59 Intake Total 300 1240 Output Total 100 Balance 200 1240 Weight 108.862 kg 104.4 kg Intake: IV 50 20 Invasive Line 1 50 20 Intake, IV Titration 250 Amount Sodium Chloride 0.9% 1, 250 000 ml @ 100 mls/hr IV . Q10H [facility] Rx#:[id number] Oral 1220 Output: Urine 100 Other: Voiding Method Toilet Toilet # Voids 2 # Bowel Movements 1 - Exam Head normocephalic Neck supple Lungs clear to auscultation bilaterally no wheezing or crackles Heart regular rate and rhythm S1-S2, no rub or gallop Abdomen is soft nontender nondistended positive bowel sounds no hepatosplenomegaly Extremities no edema Neuro alert and orientated to 3. Patient does have decreased handgrip on the left and lower extremity strength is decreased on the left. - Labs CBC & Chem 7: 07/01/18 05:40 07/01/18 05:40 Labs: Abnormal Lab Results - Last 24 Hours (Table) 06/30/18 06/30/18 06/30/18 Range/Units 12:56 12:56 12:56 RBC 5.43 H (3.80-5.40) m/uL Hct 47.3 H (34.0-46.0) % D-Dimer (<0.60) mg/L FEU Chloride 111 H (98-107) mmol/L BUN 19 H (7-17) mg/dL Total Creatine Kinase 28 L (30-135) U/L Total Protein (6.3-8.2) g/dL Albumin (3.5-5.0) g/dL 06/30/18 07/01/18 Range/Units 12:56 05:40 RBC (3.80-5.40) m/uL Hct (34.0-46.0) % D-Dimer 0.71 H (<0.60) mg/L FEU Chloride 109 H (98-107) mmol/L BUN (7-17) mg/dL Total Creatine Kinase (30-135) U/L Total Protein 6.1 L (6.3-8.2) g/dL Albumin 3.3 L (3.5-5.0) g/dL Assessment and Plan Assessment: 1. Acute ischemic stroke, likely right middle cerebral artery distribution. With Left-sided weakness and numbness. CTA completed showing no large vessel intracranial arterial occlusion or significant stenosis. Atherosclerotic calcification resulting in borderline moderate 50% stenosis of the right carotid bulb. Some variant anatomy includes variant right subclavian artery which takes retroesophageal course in dominant left vertebral artery. CT of head completed showing age-related changes of atrophy and probable chronic small vessel ischemia. Patient seen by neurology. They discontinue the aspirin and place patient on Plavix 75 mg daily. 2. Complaints of chest heaviness. Acute coronary syndrome ruled out. Patient seen by cardiology. EKG completed showing normal sinus rhythm left axis deviation. Troponins negative. Cardiology planning stress test outpatient 3. History of pulmonary embolism. Patient states she completed treatment 2 years prior with Coumadin. Patient currently not on any anticoagulation 4. History of COPD 5. History of emphysema 6. History of osteoarthritis 7. History of rheumatoid arthritis 8. Elevated d-dimer unable to have a CTA of the chest at this time due to recent CTA of the neck and head. We'll continue to cover for possible PE with Lovenox 100 mg subcu every 12 hours. Consult pulmonary service for further evaluation 9. 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 Patient evaluated by vascular surgery they're recommending to continue antiplatelet and treatment and if strokelike symptoms reoccur then possible surgical intervention will be needed. DVT prophylaxis Lovenox. GI prophylaxis Pepcid I performed an examination of the patient and discussed their management with the physician Chemist [employer]ation. I have reviewed the Physician Chemist [employer]'s notes and agree with the documented findings and plan of care
[2018-07-01] MEDS ORDERED: IPRATROPIUM-ALBUTEROL 3 ML NEB INHALATION PRN (13:28)
--- NOTE | 2018-07-01 14:14 | P.CNPUL ---
History of Present Illness Consult date: 07/01/18 Requesting physician: Michael Briones Reason for consult: dyspnea Chief complaint: Left arm heaviness, facial numbness History of present illness: This is a very pleasant 77-year-old female patient who follows with Dr. Sorto as her primary care physician. She has a history of hyperlipidemia, hypothyroidism, coronary artery disease, osteoarthritis, rheumatoid arthritis, chronic obstructive pulmonary disease. She follows with Dr. Dickson in our office. She is currently on Breo and Ventolin. She presented here to the emergency room yesterday with complaints of her left side feeling funny. She went to bed feeling normal in the local but had left shoulder pain and left arm was feeling heavy and weak. Some tingling on her left side of her face. CT angiogram of the head revealed no large vessel intracranial arterial occlusion or significant stenosis. There is 50% stenosis of the right carotid bulb. Some variant anatomy includes apparent right subclavian artery which takes retroesophageal course and dominant left vertebral artery. Computed tomography scan of the brain revealed age-related changes of atrophy and probable chronic small vessel ischemia. EKG revealed nonspecific T wave abnormalities. Echocardiogram revealed moderate LVH. Preserved left ventricular systolic function with ejection fraction 55-60%. No evidence of pulmonary hypertension. She has been seen by neurology who felt the patient had an acute ischemic stroke, likely right middle lobe cerebral artery distribution. Left-sided weakness and left-sided sensory deficit. She has been initiated on Plavix. She did have some symptoms of occasional shortness of breath with exertion. We' re consulted for the same. Chest x-ray shows no acute cardiopulmonary process. She is maintaining good O2 saturations in the 90s on room air. Afebrile. No leukocytosis. Hemoglobin 13.5. Creatinine 0.74. Review of Systems Constitutional: Reports weakness Eyes: denies blurred vision, denies decreased vision Ears: deny: decreased hearing Ears, nose, mouth and throat: Denies headache, Denies sore throat Cardiovascular: Reports dyspnea on exertion, Reports shortness of breath Respiratory: Reports dyspnea Gastrointestinal: Denies abdominal pain, Denies diarrhea, Denies nausea, Denies vomiting Genitourinary: Denies dysuria, Denies hematuria Musculoskeletal: Denies myalgias Musculoskeletal: left: hand stiffness, shoulder stiffness Integumentary: Denies pruritus, Denies rash Neurological: Reports sensory deficit, Reports tingling, Reports weakness Psychiatric: Denies anxiety, Denies depression Endocrine: Denies fatigue, Denies weight change Hematologic/Lymphatic: Reports as per HPI Allergic/Immunologic: Reports as per HPI Past Medical History Past Medical History: Coronary Artery Disease (CAD), Chest Pain / Angina, COPD, CVA/TIA, Hyperlipidemia, Pulmonary Embolus (PE) Additional Past Medical History / Comment(s): Past shingelles History of Any Multi-Drug Resistant Organisms: None Reported Past Surgical History: Cholecystectomy, Heart Catheterization, Tonsillectomy Additional Past Surgical History / Comment(s): LOWER MANDIBULAR OSTEOTOMY BENIGN BREAST BIOPSY RIGHT, BILATERAL CATARACT REMOVAL/LENS IMPLANTS Past Anesthesia/Blood Transfusion Reactions: No Reported Reaction Past Psychological History: Depression Additional Psychological History / Comment(s): Pt resides with her daughter. She is independent. Smoking Status: Former smoker Past Alcohol Use History: None Reported Additional Past Alcohol Use History / Comment(s): Pt started smoking in 1957 and quit in 1982 Past Drug Use History: None Reported - Past Family History Father History Unknown: Yes Mother Family Medical History: Myocardial Infarction ([place]) Additional Family Medical History / Comment(s): Mother of a [place] in her 80s. Medications and Allergies Home Medications Medication Instructions Recorded Confirmed Type Citalopram Hydrobromide [CeleXA] 20 mg PO DAILY 02/10/14 06/30/18 History Simvastatin [Zocor] 10 mg PO DAILY 02/10/14 06/30/18 History Aspirin 81 mg PO BID 03/17/17 06/30/18 History Mirtazapine [Remeron] 15 mg PO HS 03/17/17 06/30/18 History Albuterol Inhaler [Ventolin Hfa 1 puff INHALATION Q6HR 06/30/18 06/30/18 History Inhaler] Levothyroxine Sodium [Synthroid] 88 mcg PO DAILY 06/30/18 06/30/18 History Allergies Allergy/AdvReac Type Severity Reaction Status Date / Time Penicillins Allergy Rash/Hives Verified 06/30/18 12:43 Physical Exam Vitals: Vital Signs Temp Pulse Pulse Resp BP BP Pulse Ox 07/01/18 11:46 79 18 07/01/18 11:45 98.2 F 79 18 180/82 95 07/01/18 07:45 97.7 F 72 16 179/82 96 07/01/18 04:00 97.5 F L 81 16 149/70 95 07/01/18 00:00 85 17 161/71 93 L 06/30/18 21:15 84 06/30/18 21:07 84 06/30/18 20:00 97.8 F 71 15 182/79 96 06/30/18 15:06 75 18 139/73 95 Intake and Output 06/30/18 07/01/18 07/01/18 22:59 06:59 14:59 Intake Total 20 280 1240 Output Total 100 Balance 20 180 1240 Intake: IV 20 30 20 Invasive Line 1 20 30 20 Intake, IV Titration 250 Amount Sodium Chloride 0.9% 1, 250 000 ml @ 100 mls/hr IV . Q10H [facility] Rx#:[id number] Oral 1220 Output: Urine 100 Other: Voiding Method Toilet Toilet Toilet # Voids 2 # Bowel Movements 1 Weight 104.4 kg - Constitutional General appearance: morbidly obese - EENT Eyes: EOMI, PERRLA ENT: hearing grossly normal Ears: bilateral: normal - Neck Neck: normal ROM Carotids: bilateral: upstroke normal Thyroid: bilateral: normal size - Respiratory Respiratory: bilateral: CTA - Cardiovascular Rhythm: regular Heart sounds: normal: S1, S2 - Gastrointestinal General gastrointestinal: normal bowel sounds - Integumentary Integumentary: normal turgor - Neurologic Neurologic: focal deficits - Musculoskeletal Musculoskeletal: left sided weakness - Psychiatric Psychiatric: A&O x's 3, appropriate affect, intact judgment & insight Results - Laboratory Findings CBC and BMP: 07/01/18 05:40 07/01/18 05:40 PT/INR, D-dimer PT 9.7 sec (9.0-12.0) 06/30/18 12:56 INR 1.0 (<1.2) 06/30/18 12:56 D-Dimer 0.71 mg/L FEU (<0.60) H 06/30/18 12:56 Abnormal lab findings: Abnormal Labs 06/30/18 06/30/18 06/30/18 12:56 12:56 12:56 RBC 5.43 H Hct 47.3 H D-Dimer Chloride 111 H BUN 19 H Total Creatine Kinase 28 L Total Protein Albumin 06/30/18 07/01/18 12:56 05:40 RBC Hct D-Dimer 0.71 H Chloride 109 H BUN Total Creatine Kinase Total Protein 6.1 L Albumin 3.3 L - Diagnostic Findings Chest x-ray: image reviewed Assessment and Plan Assessment: Impression: #1 Acute ischemic stroke, likely right middle cerebral artery distribution with left-sided weakness and left-sided sensory deficit. #2 Moderate right-sided carotid stenosis. #3 Hyperlipidemia. #4 Hypothyroidism. #5 Obesity. #6 Chronic obstructive pulmonary disease, currently inactive and stable. #7 Arthritis. Plan: The patient was seen and evaluated by Dr. Todd. We'll go ahead and order her DuoNeb inhalations 3 times a day and when necessary. No current pulmonary complaints. Maintaining good O2 saturations in the 90s on room air. She's been seen by neurology who initiated Plavix. EEG pending. Currently on Lovenox. Pepcid. GI prophylaxis. We will continue to follow and make further recommendations based on her clinical status. I, the cosigning physician, performed a history & physical examination of the patient. Lungs sounds are clear. Maintaining good O2 saturations in the 90s on room air. I discussed the assessment and plan of care with my nurse practitioner, Margarita Harris. I attest to the above note as dictated by her. Time with Patient: Greater than 30
--- NOTE | 2018-07-01 15:11 | P.PN ---
Subjective Progress Note Date: 07/01/18 Principal diagnosis: Stroke Was a pleasant 77 female continuing be evaluated by the neurology service for stroke. She had woken up in the morning with symptoms of aching pain in the left arm and face. This progressed to numbness and tingling of the left arm and face. She was on a 1 mg of aspirin at home. This was discontinued and she has now been started on Plavix 75 mg daily. An EEG has just been performed. Her lipid profile shows a triglyceride of 86 total cholesterol 132 and LDL of 75 and HDL 40. She is on Lipitor 10 mg daily. She is being followed by cardiovascular for finding of 50% stenosis in the right carotid bulb. Since her admission her symptoms are resolving but she continues to have some left arm numbness and mild weakness. His goal therapy is working with her and she is up walking unassisted. She has no problems with speech or swallowing. At this time my exam she is resting comfortably in bed in no acute distress. Objective - Vital Signs Vital signs: Vital Signs Temp 98.2 F 07/01/18 11:45 Pulse 79 07/01/18 11:46 Resp 18 07/01/18 11:46 BP 180/82 07/01/18 11:45 Pulse Ox 95 07/01/18 11:45 Intake & Output 06/30/18 07/01/18 07/01/18 18:59 06:59 18:59 Intake Total 300 1240 Output Total 100 Balance 200 1240 Weight 108.862 kg 104.4 kg Intake: IV 50 20 Invasive Line 1 50 20 Intake, IV Titration 250 Amount Sodium Chloride 0.9% 1, 250 000 ml @ 100 mls/hr IV . Q10H [facility] Rx#:[id number] Oral 1220 Output: Urine 100 Other: Voiding Method Toilet Toilet # Voids 2 # Bowel Movements 1 - Constitutional General appearance: Present: cooperative, no acute distress - EENT Eyes: Present: EOMI, PERRLA. Absent: abnormal pupil, ptosis ENT: Present: hearing grossly normal - Neck Neck: Present: normal ROM. Absent: rigidity - Respiratory Respiratory: negative: prolonged expiration, prolonged inspiration - Cardiovascular Rhythm: regular - Gastrointestinal General gastrointestinal: Absent: distended, tenderness - Neurologic Neurologic Comment(s): She is awake alert and oriented 3. Speech-language are normal. Strength is 5 minus out of 5 and left upper extremity and 5 out of 5 in other extremities. She has slightly diminished sensation to light touch in the left upper extremity. There is no facial asymmetry. No tremors or seizure-like activities are seen. - Labs CBC & Chem 7: 07/01/18 05:40 07/01/18 05:40 Labs: Abnormal Lab Results - Last 24 Hours (Table) 06/30/18 07/01/18 Range/Units 12:56 05:40 D-Dimer 0.71 H (<0.60) mg/L FEU Chloride 109 H (98-107) mmol/L Total Protein 6.1 L (6.3-8.2) g/dL Albumin 3.3 L (3.5-5.0) g/dL Assessment and Plan (1) Left hand weakness Current Visit: Yes Status: Acute Code(s): R29.898 - OTH SYMPTOMS AND SIGNS INVOLVING THE MUSCULOSKELETAL SYSTEM SNOMED Code(s): 56530490525185273 (2) Left arm numbness Current Visit: Yes Status: Acute Code(s): R20.0 - ANESTHESIA OF SKIN SNOMED Code(s): 349450718 (3) Carotid stenosis, right Current Visit: Yes Status: Chronic Code(s): I65.21 - OCCLUSION AND STENOSIS OF RIGHT CAROTID ARTERY SNOMED Code(s): 072530456832921 (4) Dyslipidemia Current Visit: Yes Status: Chronic Code(s): E78.5 - HYPERLIPIDEMIA, UNSPECIFIED SNOMED Code(s): 933873309 (5) Cerebrovascular accident Current Visit: Yes Status: Acute Code(s): I63.9 - CEREBRAL INFARCTION, UNSPECIFIED SNOMED Code(s): 754569337 Plan: The patient is a. 13 suffered an acute ischemic stroke with residual left upper extremity weakness and sensory deficit. She will continue Plavix 75 mg daily and Lipitor at 10 mg daily. Continue to work with physical therapy. Continue to follow with cardiovascular for her carotid stenosis. Barring any of her seen abnormalities on her EEG she is cleared from a neurological standpoint. I have performed a history and physical on the above patient. I have reviewed the above note, and agree.
--- NOTE | 2018-07-01 15:21 | EEG ---
ELECTROENCEPHALOGRAM REPORT DATE OF SERVICE: 07/01/2018 REASON FOR TESTING: Stroke. DESCRIPTION OF THE PROCEDURE: This EEG was performed using a 21 channel digital electroencephalograph, following international 10-20 system. DESCRIPTION OF THE RECORDING: From the beginning of the tracing, and with patient's eyes closed, the background rhythm was mostly consisting of 9 Hz alpha frequency in the posterior occipital leads. No obvious asymmetry is seen. Occasional movement artifact and muscle artifacts are seen. Photic stimulation was performed with a minimal driving response seen. No pathological waves were elicited. Hyperventilation was not performed. The patient does reach stage II of sleep during the tracing and occasional sleep spindles are seen. No epileptiform discharges were seen. Her EKG lead showed a regular rate and rhythm. INTERPRETATION: This asleep and awake EEG can be considered within normal limits. There was no asymmetry seen. No epileptiform discharges were noticed. The absence of epileptiform discharges does not rule out the diagnosis of epilepsy; therefore clinical correlation is recommended. MMPRANAV / JUAN A: [id number] /
[2018-07-01] MEDS: LEVOTHYROXINE 88 MCG TAB PO SCH (15:37)
[2018-07-01] MEDS: amLODIPine 5 MG TAB PO SCH (15:37)
[2018-07-01] MEDS ORDERED: IPRATROPIUM-ALBUTEROL 3 ML NEB INHALATION SCH (16:00)
[2018-07-01] MEDS: MIRTAZAPINE 15 MG TAB PO SCH (20:46)
[2018-07-01] MEDS: IPRATROPIUM-ALBUTEROL 3 ML NEB INHALATION SCH (20:53)
[2018-07-02] MEDS: LEVOTHYROXINE 88 MCG TAB PO SCH (06:23)
[2018-07-02 06:41] LABS: Basophils # (A) 0.1 k/uL (0-0.2); Basophils % (A) 1 %; Eosinophils # (A) 0.3 k/uL (0-0.7); Eosinophils % (A) 5 %; HCT 41.2 % (34.0-46.0); Lymphocytes # (A) 1.7 k/uL (1.0-4.8); Lymphocytes % (A) 26 %; MCH 27.3 pg (25.0-35.0); MCHC 31.6 g/dL (31.0-37.0); MCV 86.5 fL (80.0-100.0); Monocytes # (A) 0.6 k/uL (0-1.0); Monocytes % (A) 10 %; Neutrophils # (A) 3.8 k/uL (1.3-7.7); Neutrophils % (A) 57 %; Platelet Count 230 k/uL (150-450); RBC 4.77 m/uL (3.80-5.40); RDW 13.9 % (11.5-15.5); WBC 6.6 k/uL (3.8-10.6)
[2018-07-02 06:48] LABS: Albumin 3.3 g/dL (3.5-5.0); Calcium 8.6 mg/dL (8.4-10.2); Potassium 4.3 mmol/L (3.5-5.1); Total Bilirubin 0.7 mg/dL (0.2-1.3); Total Protein 5.9 g/dL (6.3-8.2)
[2018-07-02] MEDS: ENOXAPARIN 100 MG/ML SYRINGE SQ SCH (07:36)
[2018-07-02] MEDS: ATORVASTATIN 10 MG TAB PO SCH (07:37)
[2018-07-02] MEDS: CLOPIDOGREL 75 MG TAB PO SCH (07:37)
[2018-07-02] MEDS: FAMOTIDINE 20 MG TAB PO SCH (07:37)
[2018-07-02] MEDS: CITALOPRAM HYDROBROMIDE 20 MG TAB PO SCH (07:37)
[2018-07-02] MEDS: amLODIPine 5 MG TAB PO SCH (07:37)
[2018-07-02] MEDS: IPRATROPIUM-ALBUTEROL 3 ML NEB INHALATION SCH ×2 (08:03→13:24)
[2018-07-02 08:04] VITALS: RESP 16
--- NOTE | 2018-07-02 08:58 | PN ---
PROGRESS NOTE This is a 77-year-old female. She came with history of TIA affecting left side with complete recovery. CTA showed 50% stenosis the right carotid artery. The patient has been stable during stay in the hospital. No evidence of further weakness of the left arm or leg and patient had a 2D echo of the heart, which was found to be normal. is normal. The patient is on Plavix, which will be continued. If the patient goes home, I will follow her in my office in 2 weeks. MMODL / IJN: [id number] /
--- NOTE | 2018-07-02 11:40 | P.PN ---
Subjective Progress Note Date: 07/02/18 Principal diagnosis: Acute ischemic stroke, likely right middle cerebral artery distribution with left-sided weakness and left-sided sensory deficit, recovered This is a very pleasant 77-year-old female patient who follows with Dr. Sorto as her primary care physician. She has a history of hyperlipidemia, hypothyroidism, coronary artery disease, osteoarthritis, rheumatoid arthritis, chronic obstructive pulmonary disease. She follows with Dr. Dickson in our office. She is currently on Breo and Ventolin. She presented here to the emergency room yesterday with complaints of her left side feeling funny. She went to bed feeling normal in the local but had left shoulder pain and left arm was feeling heavy and weak. Some tingling on her left side of her face. CT angiogram of the head revealed no large vessel intracranial arterial occlusion or significant stenosis. There is 50% stenosis of the right carotid bulb. Some variant anatomy includes apparent right subclavian artery which takes retroesophageal course and dominant left vertebral artery. Computed tomography scan of the brain revealed age-related changes of atrophy and probable chronic small vessel ischemia. EKG revealed nonspecific T wave abnormalities. Echocardiogram revealed moderate LVH. Preserved left ventricular systolic function with ejection fraction 55-60%. No evidence of pulmonary hypertension. She has been seen by neurology who felt the patient had an acute ischemic stroke, likely right middle lobe cerebral artery distribution. Left-sided weakness and left-sided sensory deficit. She has been initiated on Plavix. She did have some symptoms of occasional shortness of breath with exertion. We' re consulted for the same. Chest x-ray shows no acute cardiopulmonary process. She is maintaining good O2 saturations in the 90s on room air. Afebrile. No leukocytosis. Hemoglobin 13.5. Creatinine 0.74. The patient is seen again today 07/02/2018 in follow-up on the selective care unit. She is awake and alert in no acute distress. She's been up ambulating in the room without any distress. No residual left-sided weakness. Her EEG was considered within normal limits. She is maintaining good O2 saturations in the 90s on room air. She's been afebrile. Hemodynamically stable. White count 6.6. Hemoglobin 13.0. Creatinine 0.89. Objective - Vital Signs Vital signs: Vital Signs Temp 97.5 F L 07/02/18 07:29 Pulse 103 H 07/02/18 08:13 Resp 16 07/02/18 08:13 BP 150/71 07/02/18 07:29 Pulse Ox 94 L 07/02/18 07:29 Intake & Output 07/01/18 07/02/18 07/02/18 18:59 06:59 18:59 Intake Total 1770 246 Output Total 500 Balance 1270 246 Weight 104.6 kg Intake: IV 30 10 Invasive Line 1 30 10 Oral 1740 236 Output: Urine 500 Other: Voiding Method Toilet Toilet Toilet # Voids 2 1 500 # Bowel Movements 1 - Exam - Constitutional General appearance: morbidly obese - EENT Eyes: EOMI, PERRLA ENT: hearing grossly normal Ears: bilateral: normal - Neck Neck: normal ROM Carotids: bilateral: upstroke normal Thyroid: bilateral: normal size - Respiratory Respiratory: bilateral: CTA - Cardiovascular Rhythm: regular Heart sounds: normal: S1, S2 - Gastrointestinal General gastrointestinal: normal bowel sounds - Integumentary Integumentary: normal turgor - Neurologic Neurologic: focal deficits - Musculoskeletal Musculoskeletal: no left sided weakness - Psychiatric Psychiatric: A&O x's 3, appropriate affect, intact judgment & insight - Labs CBC & Chem 7: 07/02/18 06:06 07/02/18 06:06 Labs: Abnormal Lab Results - Last 24 Hours (Table) 07/02/18 Range/Units 06:06 Chloride 109 H (98-107) mmol/L Glucose 100 H (74-99) mg/dL Total Protein 5.9 L (6.3-8.2) g/dL Albumin 3.3 L (3.5-5.0) g/dL Assessment and Plan Assessment: Impression: #1 Acute ischemic stroke, likely right middle cerebral artery distribution with left-sided weakness and left-sided sensory deficit. Recovered. EEG showed no abnormalities. #2 Moderate right-sided 50% carotid stenosis. #3 Hyperlipidemia. #4 Hypothyroidism. #5 Obesity. #6 Chronic obstructive pulmonary disease, currently inactive and stable. #7 Arthritis. Plan: The patient was seen and evaluated by Dr. Todd. No current pulmonary complaints. Maintaining good O2 saturations in the 90s on room air. She is cleared for discharge from the pulmonary standpoint. I, the cosigning physician, performed a history & physical examination of the patient. Lungs sounds are clear. Maintaining good O2 saturations in the 90s on room air. I discussed the assessment and plan of care with my nurse practitioner, Margarita Harris. I attest to the above note as dictated by her.
--- NOTE | 2018-07-02 14:12 | P.DS ---
Providers Date of admission: 06/30/18 14:19 Expected date of discharge: 07/02/18 Attending physician: Michael Briones Consults: 06/30/18 14:19 Consult Physician Urgent Consulting Provider: Kasia Rivera Consult Reason/Comments: cva Do you want consulting provider notified?: Yes 06/30/18 16:11 Consult Physician Routine Consulting Provider: Juan Persaud Consult Reason/Comments: CTA result Do you want consulting provider notified?: Yes 06/30/18 16:12 Consult Physician Routine Consulting Provider: Suki Vivar Consult Reason/Comments: chest pain Do you want consulting provider notified?: Yes 07/01/18 12:06 Consult Physician Routine Consulting Provider: Migue Todd Consult Reason/Comments: elevated d-dimer Do you want consulting provider notified?: Yes Primary care physician: Belinda Sorto Hospital Course: Discharge diagnosis 1. Acute ischemic stroke, likely right middle cerebral artery distribution. With Left-sided weakness and numbness. CTA completed showing no large vessel intracranial arterial occlusion or significant stenosis. Atherosclerotic calcification resulting in borderline moderate 50% stenosis of the right carotid bulb. Some variant anatomy includes variant right subclavian artery which takes retroesophageal course in dominant left vertebral artery. CT of head completed showing age-related changes of atrophy and probable chronic small vessel ischemia. Patient seen by neurology. They discontinue the aspirin and place patient on Plavix 75 mg daily. 2. Complaints of chest heaviness. Acute coronary syndrome ruled out. Patient seen by cardiology. EKG completed showing normal sinus rhythm left axis deviation. Troponins negative. Cardiology planning stress test outpatient 3. History of pulmonary embolism. Patient states she completed treatment 2 years prior with Coumadin. Patient currently not on any anticoagulation 4. History of COPD 5. History of emphysema 6. History of osteoarthritis 7. History of rheumatoid arthritis 8. Elevated d-dimer unable to have a CTA of the chest at this time due to recent CTA of the neck and head. Patient was seen evaluated by pulmonary service. They felt that PE was unlikely and no further workup was required. Patient's symptoms resolved. 9. 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 Patient evaluated by vascular surgery they're recommending to continue antiplatelet. Patient will follow-up with Dr. Persaud in 2 weeks Hospital course This is a 77-year-old female patient of Dr. laming. Patient presents to the emergency room with complaints of left-sided weakness and numbness. Patient states she went to bed last night and felt moment and woke up this morning with left shoulder pain and the feeling of numbness and heaviness in her left face and left upper extremity. Patient denies confusion or problems with speech. Patient also complaining of chest heaviness. Patient has no past medical history of COPD, osteoporosis, rheumatoid arthritis, emphysema and pulmonary embolism and patient states she has completed treatment 2 years prior with Coumadin. Has not been on anticoagulation since. D-dimer and cardiac profile will be ordered. CT of the brain completed showing age-related changes of atrophy and probable chronic small vessel ischemia. Follow-up as indicated. CTA completed showing no large vessel intracranial arterial occlusion or significant stenosis. Atherosclerotic calcification resulting in borderline moderate 50% stenosis of the right carotid bulb. Some variant anatomy includes variant right subclavian artery which takes retroesophageal course in dominant left vertebral artery. Chest x-ray completed showing mild cardiomegaly without acute pulmonary process currently. EKG completed showing normal sinus rhythm. Left axis deviation moderate voltage criteria for LVH. Initial troponin negative. Patient currently has complaints of heaviness to left side of face. No signs of facial droop. Speech is clear. Memory intact. Strength 3/5 to upper and lower extremity on left side. Dr. Hahn consulted for neurology. 2 -D echo has been ordered. At this time patient denies chest pain or shortness breath. Patient denies nausea vomiting or diarrhea. Patient denies urinary burning or frequency 07/01/2018 patient still having some left-sided weakness and numbness on the left side of her body. She is able to work with physical therapy. Neurology has placed her on Plavix. CTA of the chest not able to be performed because of recent CTA of the head and neck concerned about patient receiving too much contrast. Patient did have elevated d-dimer 0.71. At this time she denies any chest pain. Troponins negative. Patient seen evaluated by cardiology. Patient is medically stable for discharge on 07/02/2018. Her left-sided weakness continues to improve. She has been up and ambulating in the hallway without difficulty. Neurology has discontinued aspirin during this admission and place her on Plavix 75 mg daily. She will be following up with Dr. Persaud and regards to the right carotid bulb stenosis. Patient is eager for discharge home. She was fine up with neurology and cardiology as well. Also note that during this admission patient's blood pressure was elevated. Norvasc was added. Blood pressures have shown better controlled. Will follow-up with her PCP for blood pressure check and further adjustment blood pressure medications if needed. Patient is medically stable for discharge. She has been cleared by consulting physicians for discharge. I performed an examination of the patient and discussed their management with the physician Foot Orthopedist. I have reviewed the Physician Foot Orthopedist's notes and agree with the documented findings and plan of care Patient Condition at Discharge: Stable Plan - Discharge Summary Discharge Rx Participant: No New Discharge Prescriptions: New amLODIPine [Norvasc] 5 mg PO DAILY #30 tab Clopidogrel [Plavix] 75 mg PO DAILY #30 tab Continue Citalopram Hydrobromide [CeleXA] 20 mg PO DAILY Simvastatin [Zocor] 10 mg PO DAILY Mirtazapine [Remeron] 15 mg PO HS Albuterol Inhaler [Ventolin Hfa Inhaler] 1 puff INHALATION Q6HR Levothyroxine Sodium [Synthroid] 88 mcg PO DAILY Discontinued Aspirin 81 mg PO BID Discharge Medication List Citalopram Hydrobromide [CeleXA] 20 mg PO DAILY 02/10/14 [History] Simvastatin [Zocor] 10 mg PO DAILY 02/10/14 [History] Mirtazapine [Remeron] 15 mg PO HS 03/17/17 [History] Albuterol Inhaler [Ventolin Hfa Inhaler] 1 puff INHALATION Q6HR 06/30/18 [ History] Levothyroxine Sodium [Synthroid] 88 mcg PO DAILY 06/30/18 [History] Clopidogrel [Plavix] 75 mg PO DAILY #30 tab 07/02/18 [Rx] amLODIPine [Norvasc] 5 mg PO DAILY #30 tab 07/02/18 [Rx] Follow up Appointment(s)/Referral(s): Kasia Rivera MD [STAFF PHYSICIAN] - 3 Weeks Juan Persaud MD [STAFF PHYSICIAN] - 2 Weeks Belinda Sorto MD [Primary Care Provider] - 1 Week Activity/Diet/Wound Care/Special Instructions: Diet: cardiac Activity: as tolerated Discharge Disposition: HOME WITH HOME HEALTH SERVICES
--- NOTE | 2018-07-02 14:42 | P.PN ---
Subjective Progress Note Date: 07/02/18 This is a pleasant 77-year-old female patient with a past medical history significant for hypertension and dyslipidemia who was admitted to the hospital for possible TIA/stroke.The patient underwent CT and CTA of the brain and neck. The computed tomography scan of the brain did not show any acute abnormalities beside atrophic changes. The CTA of the brain revealed intermediate disease about 50% involving the right carotid pulse. Subsequently Dr. Villanueva was consulted to see the patient. Also the patient was seen and evaluated by the neurologist.Currently the patient is on dual antiplatelet therapy with aspirin and Plavix. She is also on statin.The EKG revealed sinus rhythm with nonspecific changes in the inferior leads. 3 sets of cardiac enzymes were checked and came in to be unremarkable. echocardiogram with Doppler study was performed which revealed a normal left ventricular systolic function. was seen and examined this morning, she's been up ambulating in the hallway without any difficulty. Eager to be discharged home today. Objective - Vital Signs Vital signs: Vital Signs Temp 97.2 F L 07/02/18 12:00 Pulse 84 07/02/18 12:00 Resp 16 07/02/18 12:00 BP 159/76 07/02/18 12:00 Pulse Ox 96 07/02/18 12:00 Intake & Output 07/01/18 07/02/18 07/02/18 18:59 06:59 18:59 Intake Total 1770 506 Output Total 500 Balance 1270 506 Weight 104.6 kg Intake: IV 30 10 Invasive Line 1 30 10 Oral 1740 496 Output: Urine 500 Other: Voiding Method Toilet Toilet Toilet # Voids 2 1 500 # Bowel Movements 1 - Exam PHYSICAL EXAMINATION: GENERAL:77-year-old female in no acute distress at the time of my examination HEENT: Head is atraumatic, normocephalic. Pupils equal, round. Sclera anicteric. Conjunctiva are clear. Mucous membranes of the mouth are moist. Neck is supple. There is no elevated jugular venous pressure.no carotid bruit is heard. HEART EXAMINATION:heart S1 and S2 systolic murmur is heard. CHEST EXAMINATION:[ Lungs are clear to auscultation and precussion. No chest wall tenderness is noted on palpation or with deep breathing.] ABDOMEN: [ Soft, nontender. Bowel sounds are heard. No organomegaly noted]. EXTREMITIES:[ 2+ peripheral pulses with no evidence of peripheral edema and no calf tenderness noted]. NEUROLOGIC [patient is awake, alert and oriented X3.] . - Labs CBC & Chem 7: 07/02/18 06:06 07/02/18 06:06 Labs: Abnormal Lab Results - Last 24 Hours (Table) 07/02/18 Range/Units 06:06 Chloride 109 H (98-107) mmol/L Glucose 100 H (74-99) mg/dL Total Protein 5.9 L (6.3-8.2) g/dL Albumin 3.3 L (3.5-5.0) g/dL Assessment and Plan Plan: Assessment #1 TIA/CVA #2 chest heaviness #3 right carotid disease #4 hypertension #5 dyslipidemia Plan Echocardiogram with Doppler study revealed normal left ventricular systolic function. At this time we will continue current conservative approach. Continue dual antiplatelet therapy along with statin. Follow-up appointment in the office with Dr. Crawford post discharge. DNP note has been reviewed, I agree with a documented findings and plan of care. Patient was seen and examined.
[2018-07-02 15:25] VITALS: BP 129/73; PULSE 69; TEMP 97.7
== END 2018-07-02 16:50 | disposition home health service (06) | DRG 65 ==
LOC: EC 12:08 → 3SCARD 14:19
PROVIDERS: ADMIT Internal Medicine; ATTEND Internal Medicine
DX: I63.511 Cerebral infarction due to unspecified occlusion or stenosis of right middle cerebral artery (principal); Z68.41 Body mass index [BMI] 40.0-44.9, adult; G81.94 Hemiplegia, unspecified affecting left nondominant side; E03.9 Hypothyroidism, unspecified; E66.9 Obesity, unspecified; E78.5 Hyperlipidemia, unspecified; F32.9 Major depressive disorder, single episode, unspecified; I11.9 Hypertensive heart disease without heart failure; I25.10 Atherosclerotic heart disease of native coronary artery without angina pectoris; I65.21 Occlusion and stenosis of right carotid artery; J43.9 Emphysema, unspecified; M06.9 Rheumatoid arthritis, unspecified; M19.90 Unspecified osteoarthritis, unspecified site; M81.0 Age-related osteoporosis without current pathological fracture; R79.1 Abnormal coagulation profile; Z96.1 Presence of intraocular lens; R29.700 NIHSS score 0; Z79.02 Long term (current) use of antithrombotics/antiplatelets; Z79.82 Long term (current) use of aspirin; Z79.899 Other long term (current) drug therapy; Z82.49 Family history of ischemic heart disease and other diseases of the circulatory system; Z86.19 Personal history of other infectious and parasitic diseases; Z86.711 Personal history of pulmonary embolism; Z87.891 Personal history of nicotine dependence; Z90.49 Acquired absence of other specified parts of digestive tract; Z98.42 Cataract extraction status, left eye; Z98.41 Cataract extraction status, right eye; Z88.0 Allergy status to penicillin
CPT/HCPCS: 36415; 70450; 70496; 70498; 71046; 80053; 80061; 82550; 82553; 83090; 84484; 85025; 85379; 85610; 85730; 90686; 93005; 93306; 94640; 95819; 99285

== ENCOUNTER 2019-01-07 20:33 | Observation (INO) | payer MEDICARE ==
--- NOTE | 2019-01-07 21:14 | ED ---
General Adult HPI - General Chief complaint: Chest Pain Stated complaint: chest pain Time Seen by Provider: 01/07/19 20:44 Source: patient Mode of arrival: EMS - History of Present Illness Initial comments: Dictation was produced using [employer] dictation software. please excuse any grammatical, word or spelling errors. Chief Complaint: 78-year-old female past nuchal history of coronary artery disease and stroke presents with chest pain. History of Present Illness: 78-year-old female past medical history of coronary artery disease, multiple stents, COPD and stroke presents with chest pain. Patient states that she was shopping today when she got home and had a meal. While she was eating she began feeling some chest pressure. She denies any radiation to the shoulders however did radiate to the jaws. EMS was called she was given nitroglycerin and aspirin. She reports that after the nitro her chest symptoms improved. Patient is currently asymptomatic. Denies any cough, constitutional symptoms. Patient otherwise has been feeling well. She currently takes Plavix. Her customer support agent is Dr. Crawford The ROS documented in this emergency department record has been reviewed and confirmed by me. Those systems with pertinent positive or negative responses have been documented in the HPI. All other systems are other negative and/or noncontributory. PHYSICAL EXAM: General Impression: Alert and oriented x3, not in acute distress HEENT: Normocephalic atraumatic, extra-ocular movements intact, pupils equal and reactive to light bilaterally, mucous membranes moist. Cardiovascular: Heart regular rate and rhythm, S1&S2 audible, no murmurs, rubs or gallops Chest: Lungs clear to auscultation bilaterally, no rhonchi, no wheeze, no rales Abdomen: Bowel sounds present, abdomen soft, non-tender, non-distended, no organomegaly Musculoskeletal: Pulses present and equal in all extremities, no peripheral edema Motor: no focal deficits noted Neurological: CN II-XII grossly intact, no focal motor or sensory deficits noted Skin: Intact with no visualized rashes Psych: Normal affect and mood ED course: 78-year-old female presents with chest pain. Vital signs upon arrival are within acceptable limits. Patient is asymptomatic currently. CBC, coag panel, metabolic panel, cardiac enzymes are negative. Chest x-ray is nonacute. Patient was reevaluated after 2 hours in the emergency department with with no repeat chest symptoms. Given degree of symptoms, medical history and history of present illness we will place patient in observation for serial troponins. Cardiology consult it. Patient already received aspirin by EMS. EKG interpretation: Ventricular rate 75, AR interval 148, sinus rhythm, QS 88, QTc 439. No AR prolongation, no QTC prolongation, no ST or T-wave changes noted. EKG compared to 06/30/2018 showing no changes. Overall, this EKG is unremarkable - Related Data Home Medications Medication Instructions Recorded Confirmed Citalopram Hydrobromide [CeleXA] 20 mg PO DAILY 02/10/14 01/07/19 Simvastatin [Zocor] 10 mg PO DAILY 02/10/14 01/07/19 Mirtazapine [Remeron] 15 mg PO HS 03/17/17 01/07/19 Albuterol Inhaler [Ventolin Hfa 2 puff INHALATION RT-QID PRN 06/30/18 01/07/19 Inhaler] Levothyroxine Sodium [Synthroid] 88 mcg PO DAILY 06/30/18 01/07/19 Budesonide/Formoterol Fumarate 2 puff INHALATION RT-BID 01/07/19 01/07/19 [Symbicort 80-4.5 Mcg Inhaler] Previous Rx's Medication Instructions Recorded Clopidogrel [Plavix] 75 mg PO DAILY #30 tab 07/02/18 amLODIPine [Norvasc] 5 mg PO DAILY #30 tab 07/02/18 Allergies Allergy/AdvReac Type Severity Reaction Status Date / Time Penicillins Allergy Rash/Hives Verified 01/07/19 21:33 Review of Systems ROS Statement: Those systems with pertinent positive or pertinent negative responses have been documented in the HPI. ROS Other: All systems not noted in ROS Statement are negative. Past Medical History Past Medical History: Coronary Artery Disease (CAD), Chest Pain / Angina, COPD, CVA/TIA, Hyperlipidemia, Pulmonary Embolus (PE) Additional Past Medical History / Comment(s): Past shingelles History of Any Multi-Drug Resistant Organisms: None Reported Past Surgical History: Cholecystectomy, Heart Catheterization, Tonsillectomy Additional Past Surgical History / Comment(s): LOWER MANDIBULAR OSTEOTOMY BENIGN BREAST BIOPSY RIGHT, BILATERAL CATARACT REMOVAL/LENS IMPLANTS Past Anesthesia/Blood Transfusion Reactions: No Reported Reaction Past Psychological History: Depression Smoking Status: Former smoker Past Alcohol Use History: None Reported Past Drug Use History: None Reported - Past Family History Father History Unknown: Yes Mother Family Medical History: Myocardial Infarction (VT) Additional Family Medical History / Comment(s): Mother of a VT in her 80s. Course Vital Signs 01/07/19 20:42 Temperature 98.3 F Pulse Rate 79 Respiratory 16 Rate Blood Pressure 136/70 O2 Sat by Pulse 95 Oximetry Medical Decision Making - Lab Data Result diagrams: 01/07/19 21:11 01/07/19 21:11 Lab Results 01/07/19 01/07/19 01/07/19 Range/Units 21:11 21:11 21:11 WBC 8.0 (3.8-10.6) k/uL RBC 4.94 (3.80-5.40) m/uL Hgb 13.9 (11.4-16.0) gm/dL Hct 42.4 (34.0-46.0) % MCV 85.8 (80.0-100.0) fL MCH 28.1 (25.0-35.0) pg MCHC 32.7 (31.0-37.0) g/dL RDW 14.2 (11.5-15.5) % Plt Count 294 (150-450) k/uL Neutrophils % 69 % Lymphocytes % 16 % Monocytes % 8 % Eosinophils % 4 % Basophils % 1 % Neutrophils # 5.5 (1.3-7.7) k/uL Lymphocytes # 1.3 (1.0-4.8) k/uL Monocytes # 0.7 (0-1.0) k/uL Eosinophils # 0.3 (0-0.7) k/uL Basophils # 0.1 (0-0.2) k/uL PT (9.0-12.0) sec INR (<1.2) APTT (22.0-30.0) sec Sodium 141 (137-145) mmol/L Potassium 4.1 (3.5-5.1) mmol/L Chloride 107 (98-107) mmol/L Carbon Dioxide 28 (22-30) mmol/L Anion Gap 6 mmol/L BUN 16 (7-17) mg/dL Creatinine 0.79 (0.52-1.04) mg/dL Est GFR (CKD-EPI)AfAm 84 (>60 ml/min/1.73 sqM) Est GFR (CKD-EPI)NonAf 73 (>60 ml/min/1.73 sqM) Glucose 118 H (74-99) mg/dL Calcium 8.7 (8.4-10.2) mg/dL Magnesium 2.1 (1.6-2.3) mg/dL Total Bilirubin 0.4 (0.2-1.3) mg/dL AST 27 (14-36) U/L ALT 33 (9-52) U/L Alkaline Phosphatase 65 (38-126) U/L Troponin I (0.000-0.034) ng/mL NT-Pro-B Natriuret Pep 189 pg/mL Total Protein 6.2 L (6.3-8.2) g/dL Albumin 3.6 (3.5-5.0) g/dL 01/07/19 01/07/19 Range/Units 21:11 21:11 WBC (3.8-10.6) k/uL RBC (3.80-5.40) m/uL Hgb (11.4-16.0) gm/dL Hct (34.0-46.0) % MCV (80.0-100.0) fL MCH (25.0-35.0) pg MCHC (31.0-37.0) g/dL RDW (11.5-15.5) % Plt Count (150-450) k/uL Neutrophils % % Lymphocytes % % Monocytes % % Eosinophils % % Basophils % % Neutrophils # (1.3-7.7) k/uL Lymphocytes # (1.0-4.8) k/uL Monocytes # (0-1.0) k/uL Eosinophils # (0-0.7) k/uL Basophils # (0-0.2) k/uL PT 9.7 (9.0-12.0) sec INR 0.9 (<1.2) APTT 23.1 (22.0-30.0) sec Sodium (137-145) mmol/L Potassium (3.5-5.1) mmol/L Chloride (98-107) mmol/L Carbon Dioxide (22-30) mmol/L Anion Gap mmol/L BUN (7-17) mg/dL Creatinine (0.52-1.04) mg/dL Est GFR (CKD-EPI)AfAm (>60 ml/min/1.73 sqM) Est GFR (CKD-EPI)NonAf (>60 ml/min/1.73 sqM) Glucose (74-99) mg/dL Calcium (8.4-10.2) mg/dL Magnesium (1.6-2.3) mg/dL Total Bilirubin (0.2-1.3) mg/dL AST (14-36) U/L ALT (9-52) U/L Alkaline Phosphatase (38-126) U/L Troponin I <0.012 (0.000-0.034) ng/mL NT-Pro-B Natriuret Pep pg/mL Total Protein (6.3-8.2) g/dL Albumin (3.5-5.0) g/dL Disposition Clinical Impression: Chest pain Disposition: ADMITTED IP TO THIS HOSP Condition: Fair Referrals: Belinda Sorto MD [Primary Care Provider] - 1-2 days Decision Time: 22:45
[2019-01-07 21:24] LABS: Basophils # (A) 0.1 k/uL (0-0.2); Basophils % (A) 1 %; Eosinophils # (A) 0.3 k/uL (0-0.7); Eosinophils % (A) 4 %; HCT 42.4 % (34.0-46.0); HGB 13.9 gm/dL (11.4-16.0); Lymphocytes # (A) 1.3 k/uL (1.0-4.8); Lymphocytes % (A) 16 %; MCH 28.1 pg (25.0-35.0); MCHC 32.7 g/dL (31.0-37.0); MCV 85.8 fL (80.0-100.0); Mean Platelet Volume 7.2; Monocytes # (A) 0.7 k/uL (0-1.0); Monocytes % (A) 8 %; Neutrophils # (A) 5.5 k/uL (1.3-7.7); Neutrophils % (A) 69 %; Platelet Count 294 k/uL (150-450); RBC 4.94 m/uL (3.80-5.40); RDW 14.2 % (11.5-15.5)
[2019-01-07 21:34] LABS: Albumin 3.6 g/dL (3.5-5.0); Calcium 8.7 mg/dL (8.4-10.2); Magnesium 2.1 mg/dL (1.6-2.3); Potassium 4.1 mmol/L (3.5-5.1); Total Bilirubin 0.4 mg/dL (0.2-1.3); Total Protein 6.2 g/dL (6.3-8.2)
[2019-01-07 21:36] LABS: INR 0.9 (<1.2); Partial Thromboplastin Time 23.1 sec (22.0-30.0); Prothrombin Time 9.7 sec (9.0-12.0)
--- NOTE | 2019-01-07 21:55 | XR ---
EXAMINATION TYPE: XR chest 2V DATE OF EXAM: 01/07/2019 COMPARISON: 06/30/2018 HISTORY: Chest pain TECHNIQUE: Frontal and lateral views of the chest are obtained. FINDINGS: There is no heart failure nor confluent pneumonic infiltrate. Heart is normal. There is no pleural effusion. Bony thorax is intact. IMPRESSION: No active cardiopulmonary disease. No change.
[2019-01-07] MEDS ORDERED: NITROGLYCERIN SL TABS 0.4 MG TAB SUBLINGUAL PRN (22:39)
[2019-01-07] MEDS ORDERED: ALBUTEROL NEBULIZED 2.5 MG/3 ML INHALATION PRN (22:43)
[2019-01-08 03:28] LABS: Cholesterol 102 mg/dL (<200); HDL Cholesterol 40 mg/dL (40-60); LDL Cholesterol,Calculated 51 mg/dL (0-99); Triglycerides 56 mg/dL (<150)
[2019-01-08] MEDS ORDERED: LEVOTHYROXINE 88 MCG TAB PO SCH (06:30)
[2019-01-08] MEDS ORDERED: SYMBICORT 80-4.5 MCG INHALER INHALATION SCH (08:00)
--- NOTE | 2019-01-08 08:55 | CONS ---
CONSULTATION ATTENDING PHYSICIAN: Dr. Sorto and Dr. Briones HISTORY OF PRESENT ILLNESS: Mrs. Mccord is a 78-year-old female with known history of hypertension, hyperlipidemia, history of TIA and a remote history of smoking, who presented with an episode of chest discomfort. Her discomfort occurred after she finished dinner, lasted for about 4 minutes and not associated with any other symptoms. Because of that, she came into the emergency room and subsequently admitted. The patient is followed on a regular basis by Dr. Carrillo and has underwent according to her, a stress test recently that was unremarkable. She was admitted to the hospital in June with a TIA and at that time, her echocardiogram revealed a preserved ventricular size and systolic function. The patient denies any exertional chest pain. She has no history of PND, orthopnea, or peripheral edema. No syncope. No history of malignant arrhythmia. She has no prior similar symptoms. Her coronary risk factors are positive for hypertension, hyperlipidemia. She has stopped smoking over 30 years ago. MEDICATION: Include amlodipine 5 mg daily, simvastatin 20 mg daily, Remeron, levothyroxine, Plavix 75 mg daily, citalopram, Symbicort, and Ventolin. REVIEW OF SYSTEMS: RESPIRATORY SYSTEM: She has history of obstructive lung disease, but no recent wheezing or cough. GI SYSTEM: No recent GI bleeding. No peptic ulcer disease. SYSTEM: No dysuria or hematuria. NERVOUS SYSTEM: No stroke or seizure. PHYSICAL EXAMINATION: She is a 78-year-old female, alert, oriented, in no apparent distress. Blood pressure 103/60 with a heart rate in the 80s. HEAD: Normocephalic. Eyes sclerae anicteric. NECK: Good upstroke. No bruit. No jugular venous distention. LUNGS: Clear to auscultation. HEART: Regular rate and rhythm, S1, S2. No S3. No rub. ABDOMEN: Soft nontender. Positive bowel sounds. No organomegaly. EXTREMITIES: No edema. Intact distal pulses. LAB DATA: EKG revealed sinus mechanism, rate 75, left axis deviation, left ventricular hypertrophy with minor nonspecific ST-T wave changes. Troponin less than 0.012. Cholesterol 102, LDL of 51, BUN and creatinine 16 and 0.79. Potassium 3.9. IMPRESSION: 1. Chest discomfort, atypical for ischemic heart disease probably noncardiac. 2. Hypertension. 3. Hyperlipidemia. 4. History of transient ischemic attack. 5. History of chronic obstructive lung disease. RECOMMENDATIONS: From the cardiac standpoint, patient can be discharged home today and followed as an outpatient with Dr. Carrillo. Thank you for this consult. We will follow with you. DON / RASHIDN: [id number] /
[2019-01-08] MEDS ORDERED: ATORVASTATIN 10 MG TAB PO SCH (09:00)
[2019-01-08] MEDS ORDERED: CLOPIDOGREL 75 MG TAB PO SCH (09:00)
[2019-01-08] MEDS ORDERED: amLODIPine 5 MG TAB PO SCH (09:00)
[2019-01-08] MEDS ORDERED: ASPIRIN 325 MG TAB PO SCH (09:00)
--- NOTE | 2019-01-08 10:49 | P.HPIM ---
History of Present Illness H&P Date: 01/08/19 This is a 78-year-old female patient of Dr. Sorto. Patient presents with complaints of chest pain. Patient states she was out shopping when she experienced chest pressure that radiated to her jaw lasting possibly 5 minutes. Patient reports that she had 3 intermittent episodes yesterday. Patient has not had any episodes today. Patient does have a past medical history of CAD, angina, COPD, CVA, hyperlipidemia and pulmonary embolism approximate 4 years ago which was treated on Coumadin. Patient also reports she follows with Dr. Crawford per cardiology. Patient reports that she had recent stress test in June and was unremarkable. Troponins negative 3. Chest x-ray completed showing no active cardiopulmonary disease. No change. EKG showing sinus rhythm with fusion complexes left axis deviation. D-dimer 0.53. At this time patient is resting comfortably in bed. Patient denies chest pain or shortness of breath. Patient denies any recent illness. Patient denies nausea vomiting or diarrhea. Patient denies any urinary burning or frequency. Review of Systems Please refer to HPI otherwise unremarkable Past Medical History Past Medical History: Coronary Artery Disease (CAD), Chest Pain / Angina, COPD, CVA/TIA, Hyperlipidemia, Pulmonary Embolus (PE) Additional Past Medical History / Comment(s): Past shingelles, TIA 06/2018, [facility] History of Any Multi-Drug Resistant Organisms: None Reported Past Surgical History: Cholecystectomy, Heart Catheterization, Tonsillectomy Additional Past Surgical History / Comment(s): LOWER MANDIBULAR OSTEOTOMY BENIGN BREAST BIOPSY RIGHT, BILATERAL CATARACT REMOVAL/LENS IMPLANTS, THYROIDECTOMY AT AGE 18 Past Anesthesia/Blood Transfusion Reactions: No Reported Reaction Past Psychological History: Depression Additional Psychological History / Comment(s): Pt resides with her daughter. She is independent. Smoking Status: Former smoker Past Alcohol Use History: None Reported Past Drug Use History: None Reported - Past Family History Father History Unknown: Yes Mother Family Medical History: Myocardial Infarction ([place]) Additional Family Medical History / Comment(s): Mother of a [place] in her 80s. Medications and Allergies Home Medications Medication Instructions Recorded Confirmed Type Citalopram Hydrobromide [CeleXA] 20 mg PO DAILY 02/10/14 01/07/19 History Simvastatin [Zocor] 20 mg PO DAILY 02/10/14 01/07/19 History Mirtazapine [Remeron] 15 mg PO HS 07/04/17 04/26/19 History Albuterol Inhaler [Ventolin Hfa 2 puff INHALATION RT-QID PRN 06/30/18 01/07/19 History Inhaler] Levothyroxine Sodium [Synthroid] 88 mcg PO DAILY 06/30/18 01/07/19 History Clopidogrel [Plavix] 75 mg PO DAILY #30 tab 07/02/18 01/07/19 Rx amLODIPine [Norvasc] 5 mg PO DAILY #30 tab 07/02/18 01/07/19 Rx Budesonide/Formoterol Fumarate 2 puff INHALATION RT-BID 01/07/19 01/07/19 History [Symbicort 80-4.5 Mcg Inhaler] Allergies Allergy/AdvReac Type Severity Reaction Status Date / Time Penicillins Allergy Rash/Hives Verified 01/07/19 23:53 Physical Exam Vitals: Vital Signs Temp Pulse Pulse Resp BP BP Pulse Ox 01/08/19 06:17 98.2 F 74 17 90/53 92 L 01/08/19 04:00 16 01/08/19 03:31 97.8 F 80 16 103/64 95 01/08/19 00:00 17 01/07/19 23:44 97.9 F 69 17 129/76 94 L 01/07/19 23:21 98.7 F 01/07/19 23:01 71 5 L 139/72 92 L 01/07/19 22:50 75 139/72 93 L 01/07/19 22:40 74 134/75 93 L 01/07/19 22:20 71 18 129/73 96 01/07/19 22:10 72 16 126/66 93 L 01/07/19 21:50 72 9 L 110/65 95 01/07/19 21:40 73 14 119/67 93 L 01/07/19 21:20 73 16 127/63 93 L 01/07/19 21:10 75 34 H 130/67 93 L 01/07/19 20:50 75 15 140/64 92 L 01/07/19 20:42 98.3 F 79 16 136/70 95 01/07/19 20:40 20 136/70 94 L 01/07/19 20:37 95 Intake and Output 01/07/19 01/08/19 01/08/19 22:59 06:59 14:59 Other: Voiding Method Toilet Weight 200 kg Head normocephalic Neck supple Lungs clear to auscultation bilaterally no wheezing or crackles Heart regular rate and rhythm S1-S2, no rub or gallop Abdomen is soft nontender nondistended positive bowel sounds no hepatosple nomegaly Extremities no edema Neuro alert and orientated to 3 Results CBC & Chem 7: 01/07/19 21:11 01/07/19 21:11 Labs: Abnormal Lab Results - Last 24 Hours (Table) 01/07/19 Range/Units 21:11 Glucose 118 H (74-99) mg/dL Total Protein 6.2 L (6.3-8.2) g/dL Thrombosis Risk Factor Assmnt - Choose All That Apply Any of the Below Risk Factors Present?: Yes Each Factor Represents 1 point: Abnormal pulmonary function (COPD), Obesity (BMI >25) Other Risk Factors: Yes Each Risk Factor Represents 3 Points: Age 75 years or older, History of DVT/PE Other congenital or acquired thrombophilia - If yes, enter type in comment: No Thrombosis Risk Factor Assessment Total Risk Factor Score: 8 Thrombosis Risk Factor Assessment Level: High Risk Assessment and Plan Assessment: 1. Chest pain. Troponins negative 3. Chest x-ray negative. D-dimer 0.53. 2-D echo completed in June 2018 showing EF of 55-60%. Patient does follow with cardiology services. Per cardiology chest pain atypical for ischemic heart disease probably noncardiac. Patient can be discharged home today and followed as outpatient with Dr. Crawford. 2. History of TIA in June 2018. 3. 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 Patient currently on aspirin and Plavix. Follows with Dr. Persaud 4. History of PE back in 2016 which she was treated with Coumadin. Patient has completed treatment no further anticoagulation at this time. D-dimer negative 5. History of essential hypertension 6. History of COPD 7. History of emphysema 8. History of osteoporosis 9. History of rheumatoid arthritis 10. Hypothyroidism Time with Patient: Greater than 30 (Greater than 60% of the total time spent in counseling and coordination of care. I performed an examination of the patient and discussed their management with the Nurse Practitioner. I have reviewed the Nurse Practitioner's notes and agree with the documented findings and plan of care)
--- NOTE | 2019-01-08 11:52 | P.DS ---
Providers Date of admission: 01/07/19 22:39 Expected date of discharge: 01/08/19 Attending physician: Michael Briones Consults: 01/07/19 22:39 Consult Physician Urgent Consulting Provider: Wilman Carrillo Consult Reason/Comments: chest pain Do you want consulting provider notified?: Yes Primary care physician: Belinda Sorto Hospital Course: Discharge diag 1. Chest pain. Troponins negative 3. Chest x-ray negative. D-dimer 0.53. 2-D echo completed in June 2018 showing EF of 55-60%. Patient does follow with cardiology services. Per cardiology chest pain atypical for ischemic heart disease probably noncardiac. Patient can be discharged home today and followed as outpatient with Dr. Crawford. D-dimer 0.53. 2. History of TIA in June 2018. 3. 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 Patient currently on aspirin and Plavix. Follows with Dr. Persaud 4. History of PE back in 2015 which she was treated with Coumadin. Patient has completed treatment no further anticoagulation at this time. D-dimer negative 5. History of essential hypertension 6. History of COPD 7. History of emphysema 8. History of osteoporosis 9. History of rheumatoid arthritis 10. Hypothyroidism TSH 2.600. Hospital course This is a 78-year-old female patient of Dr. Sorto. Patient presents with complaints of chest pain. Patient states she was out shopping when she experienced chest pressure that radiated to her jaw lasting possibly 5 minutes. Patient reports that she had 3 intermittent episodes yesterday. Patient has not had any episodes today. Patient does have a past medical history of CAD, angina, COPD, CVA, hyperlipidemia and pulmonary embolism approximate 4 years ago which was treated on Coumadin. Patient also reports she follows with Dr. Crawford per cardiology. Patient reports that she had recent stress test in June and was unremarkable. Troponins negative 3. Chest x-ray completed showing no active cardiopulmonary disease. No change. EKG showing sinus rhythm with fusion complexes left axis deviation. D-dimer 0.53. At this time patient is resting comfortably in bed. Patient denies chest pain or shortness of breath. Patient denies any recent illness. Patient denies nausea vomiting or diarrhea. Patient denies any urinary burning or frequency. Patient has been cleared for discharge from cardiology standpoint. Patient follow-up with Dr. Crawford for further workup. D-dimer -0.53. TSH 2.60. Patient denies chest pain. Patient expresses that she feels ready and eager to go home. Patient advised to follow-up closely with her PCP along with cardiology services. Patient denies chest pain or shortness of breath. Patient denies nausea vomiting or diarrhea. Patient denies any urinary burning or frequency I performed an examination of the patient and discussed their management with the Nurse Practitioner. I have reviewed the Nurse Practitioner's notes and agree with the documented findings and plan of care Patient Condition at Discharge: Stable Plan - Discharge Summary Discharge Rx Participant: No New Discharge Prescriptions: Continue Citalopram Hydrobromide [CeleXA] 20 mg PO DAILY Simvastatin [Zocor] 20 mg PO DAILY Mirtazapine [Remeron] 15 mg PO HS Albuterol Inhaler [Ventolin Hfa Inhaler] 2 puff INHALATION RT-QID PRN PRN Reason: Shortness Of Breath Levothyroxine Sodium [Synthroid] 88 mcg PO DAILY amLODIPine [Norvasc] 5 mg PO DAILY #30 tab Clopidogrel [Plavix] 75 mg PO DAILY #30 tab Budesonide/Formoterol Fumarate [Symbicort 80-4.5 Mcg Inhaler] 2 puff INHALATION RT-BID Discharge Medication List Citalopram Hydrobromide [CeleXA] 20 mg PO DAILY 02/10/14 [History] Simvastatin [Zocor] 20 mg PO DAILY 02/10/14 [History] Mirtazapine [Remeron] 15 mg PO HS 03/17/17 [History] Albuterol Inhaler [Ventolin Hfa Inhaler] 2 puff INHALATION RT-QID PRN 06/30/18 [History] Levothyroxine Sodium [Synthroid] 88 mcg PO DAILY 06/30/18 [History] Clopidogrel [Plavix] 75 mg PO DAILY #30 tab 07/02/18 [Rx] amLODIPine [Norvasc] 5 mg PO DAILY #30 tab 07/02/18 [Rx] Budesonide/Formoterol Fumarate [Symbicort 80-4.5 Mcg Inhaler] 2 puff INHALATION RT-BID 01/07/19 [History] Follow up Appointment(s)/Referral(s): Belinda Sorto MD [Primary Care Provider] - 1-2 days Wilman Carrillo MD [STAFF PHYSICIAN] - 2 Weeks Activity/Diet/Wound Care/Special Instructions: Activity as tolerated Diet heart healthy Discharge Disposition: HOME SELF-CARE
[2019-01-08 12:47] VITALS: BP 147/50; PULSE 72; RESP 18; TEMP 97.9
== END 2019-01-08 13:02 | disposition home or self-care (01) ==
LOC: EC 20:33 → 1SOBS 22:39
PROVIDERS: ADMIT Internal Medicine; ATTEND Internal Medicine
DX: R07.89 Other chest pain (principal); I25.10 Atherosclerotic heart disease of native coronary artery without angina pectoris; I10 Essential (primary) hypertension; E78.5 Hyperlipidemia, unspecified; I65.21 Occlusion and stenosis of right carotid artery; F32.9 Major depressive disorder, single episode, unspecified; M81.0 Age-related osteoporosis without current pathological fracture; J43.9 Emphysema, unspecified; M06.9 Rheumatoid arthritis, unspecified; E03.9 Hypothyroidism, unspecified; E66.9 Obesity, unspecified; Z68.45 Body mass index [BMI] 70 or greater, adult; Z86.73 Personal history of transient ischemic attack (TIA), and cerebral infarction without residual deficits; Z86.711 Personal history of pulmonary embolism; Z87.891 Personal history of nicotine dependence; Z86.718 Personal history of other venous thrombosis and embolism; Z95.5 Presence of coronary angioplasty implant and graft; Z90.49 Acquired absence of other specified parts of digestive tract; Z79.02 Long term (current) use of antithrombotics/antiplatelets; Z79.82 Long term (current) use of aspirin; Z79.899 Other long term (current) drug therapy; Z79.51 Long term (current) use of inhaled steroids; Z79.890 Hormone replacement therapy; Z88.0 Allergy status to penicillin; Z82.49 Family history of ischemic heart disease and other diseases of the circulatory system
CPT/HCPCS: 99285; 36415; 94640 ×2; 93005; 85379; 83880; 80061; 80053; 84443; 83735; 84484 ×2; 85025; 85610; 85730; 71046; G0378 ×2

== ENCOUNTER 2019-08-19 13:35 | Emergency (ER) | payer MEDICARE ==
[2019-08-19] MEDS ORDERED: SODIUM CHLORIDE 0.9% 1,000 ML IV STA (14:18)
[2019-08-19] MEDS ORDERED: ONDANSETRON 4 MG/2 ML VIAL IVP STA (14:20)
--- NOTE | 2019-08-19 14:29 | ED ---
General Adult HPI - General Stated complaint: Sob Time Seen by Provider: 08/19/19 14:06 - History of Present Illness Initial comments: Patient is a 78-year-old female, Past medical history of heart disease, unstable angina, COPD, stroke, PE, presenting to the emergency department via EMS with complaints of shortness of breath and nausea since this morning. Patient states she woke up this morning feeling nauseous. Patient denies vomiting. Patient st ates she has been coughing lately and today she feels more short of breath. Patient did go to her doctor, Dr. Sorto, today around noon and they sent her to the ER for her symptoms. She denies any pain anywhere including chest pain or headache. She does not require oxygen at home. Patient denies any blurry vision. Patient denies any recent fever, chills, diarrhea, urinary complaints. Denies any recent travel or new prescriptions. Patient does admit to sleeping a lot more in the past few days. Patient has no other complaints at this time. Upon arrival to the ER, patient is satting 95% on 2 L, rest of vitals are normal. - Related Data Home Medications Medication Instructions Recorded Confirmed Citalopram Hydrobromide [CeleXA] 20 mg PO DAILY 02/10/14 01/07/19 Simvastatin [Zocor] 20 mg PO DAILY 02/10/14 01/07/19 Mirtazapine [Remeron] 15 mg PO HS 03/17/17 01/07/19 Albuterol Inhaler [Ventolin Hfa 2 puff INHALATION RT-QID PRN 06/30/18 01/07/19 Inhaler] Levothyroxine Sodium [Synthroid] 88 mcg PO DAILY 06/30/18 01/07/19 Budesonide/Formoterol Fumarate 2 puff INHALATION RT-BID 01/07/19 01/07/19 [Symbicort 80-4.5 Mcg Inhaler] Previous Rx's Medication Instructions Recorded Clopidogrel [Plavix] 75 mg PO DAILY #30 tab 07/02/18 amLODIPine [Norvasc] 5 mg PO DAILY #30 tab 07/02/18 predniSONE 10 mg PO BID 3 Days #6 tab 08/19/19 Allergies Allergy/AdvReac Type Severity Reaction Status Date / Time Penicillins Allergy Rash/Hives Verified 08/19/19 14:57 Review of Systems ROS Statement: Those systems with pertinent positive or pertinent negative responses have been documented in the HPI. ROS Other: All systems not noted in ROS Statement are negative. Past Medical History Past Medical History: Coronary Artery Disease (CAD), Chest Pain / Angina, COPD, CVA/TIA, Hyperlipidemia, Pulmonary Embolus (PE) Additional Past Medical History / Comment(s): Past shingelles, TIA 06/2018, [facility] History of Any Multi-Drug Resistant Organisms: None Reported Past Surgical History: Cholecystectomy, Heart Catheterization, Tonsillectomy Additional Past Surgical History / Comment(s): LOWER MANDIBULAR OSTEOTOMY BENIGN BREAST BIOPSY RIGHT, BILATERAL CATARACT REMOVAL/LENS IMPLANTS, THYROIDECTOMY AT AGE 18 Past Anesthesia/Blood Transfusion Reactions: No Reported Reaction Past Psychological History: Depression Additional Psychological History / Comment(s): Pt resides with her daughter. She is independent. Smoking Status: Former smoker Past Alcohol Use History: None Reported Past Drug Use History: None Reported - Past Family History Father History Unknown: Yes Mother Family Medical History: Myocardial Infarction ([place]) Additional Family Medical History / Comment(s): Mother of a [place] in her 80s. General Exam - General Exam Comments Initial Comments: GENERAL: Patient appears fatigued, slightly disheveled. HEAD: Atraumatic, normocephalic. EYES: Pupils equal round and reactive to light, extraocular movements intact, sclera anicteric, conjunctiva are normal. ENT: TMs normal, nares patent, oropharynx clear without exudates. Moist mucous membranes. NECK: Normal range of motion, supple without lymphadenopathy or JVD. LUNGS: Breath sounds clear to auscultation bilaterally and equal. No wheezes rales or rhonchi. HEART: Regular rate and rhythm without murmurs, rubs or gallops. ABDOMEN: Soft, nontender, normoactive bowel sounds. No guarding, no rebound. No masses appreciated. : Deferred EXTREMITIES: Normal range of motion, no pitting or edema. No clubbing or cyanosis. Strength is 5 out of 5 upper and lower extremities. Sensation is equal and bilateral. NEUROLOGICAL: Cranial nerves II through XII grossly intact. Normal speech, normal gait. No pronator drift PSYCH: Normal mood, normal affect. SKIN: Warm, Dry, normal turgor, no rashes or lesions noted. Course Vital Signs 08/19/19 08/19/19 08/19/19 13:50 14:57 15:59 Temperature 97.7 F Pulse Rate 78 73 79 Respiratory 18 18 Rate Blood Pressure 144/86 131/97 O2 Sat by Pulse 95 94 L Oximetry 08/19/19 16:05 Temperature Pulse Rate 81 Respiratory 18 Rate Blood Pressure 126/78 O2 Sat by Pulse 95 Oximetry EKG Findings - EKG Comments: EKG Findings:: Fidgeted rate 74, DE interval 150, QTC 428. Normal sinus rhythm, left axis deviation, minimal voltage criteria for LVH. Comparable to last EKG on 01/07/2019. Medical Decision Making - Medical Decision Making Patient is a 78-year-old female presenting with nausea and dyspnea since this morning. Patient is 95% on 2 L. Rest of vitals normal. Afebrile. Lab work shows no acute findings. Troponin is normal. BNP is normal. UA shows 13 wbc's, otherwise unremarkable. Urine will be cultured and is pending at this time. EKG shows no acute findings, comparable to her last EKG. Chest x-ray low lung volumes and mild cardiomegaly without suspicious acute pulmonary process. Patient was given fluids, Zofran, breathing treatment and reports improvement in her symptoms. I recommended to patient to be admitted for observation for serial troponin and possible additional breathing treatments however patient refused. Patient is requesting to go home. Patient will follow up with her doctor on Thursday for symptoms persist. Strict return parameters were discussed with the patient and she verbalized understanding. Case discussed with Dr. Rosales. - Lab Data Result diagrams: 08/19/19 14:30 08/19/19 14:30 Lab Results 08/19/19 08/19/19 08/19/19 Range/Units 14:30 14:30 14:30 WBC 10.1 (3.8-10.6) k/uL RBC 5.43 H (3.80-5.40) m/uL Hgb 15.2 (11.4-16.0) gm/dL Hct 46.8 H (34.0-46.0) % MCV 86.2 (80.0-100.0) fL MCH 27.9 (25.0-35.0) pg MCHC 32.4 (31.0-37.0) g/dL RDW 13.2 (11.5-15.5) % Plt Count 390 (150-450) k/uL Neutrophils % 80 % Lymphocytes % 10 % Monocytes % 6 % Eosinophils % 2 % Basophils % 1 % Neutrophils # 8.1 H (1.3-7.7) k/uL Lymphocytes # 1.0 (1.0-4.8) k/uL Monocytes # 0.6 (0-1.0) k/uL Eosinophils # 0.2 (0-0.7) k/uL Basophils # 0.1 (0-0.2) k/uL PT (9.0-12.0) sec INR (<1.2) APTT (22.0-30.0) sec Sodium 140 (137-145) mmol/L Potassium 4.9 (3.5-5.1) mmol/L Chloride 107 (98-107) mmol/L Carbon Dioxide 25 (22-30) mmol/L Anion Gap 8 mmol/L BUN 16 (7-17) mg/dL Creatinine 0.75 (0.52-1.04) mg/dL Est GFR (CKD-EPI)AfAm 89 (>60 ml/min/1.73 sqM) Est GFR (CKD-EPI)NonAf 77 (>60 ml/min/1.73 sqM) Glucose 129 H (74-99) mg/dL Calcium 9.0 (8.4-10.2) mg/dL Magnesium 2.1 (1.6-2.3) mg/dL Total Bilirubin 0.8 (0.2-1.3) mg/dL AST 26 (14-36) U/L ALT 24 (9-52) U/L Alkaline Phosphatase 61 (38-126) U/L Troponin I (0.000-0.034) ng/mL NT-Pro-B Natriuret Pep 129 pg/mL Total Protein 7.0 (6.3-8.2) g/dL Albumin 4.0 (3.5-5.0) g/dL Urine Color Urine Appearance (Clear) Urine pH (5.0-8.0) Ur Specific Colbert (1.001-1.035) Urine Protein (Negative) Urine Glucose (UA) (Negative) Urine Ketones (Negative) Urine Blood (Negative) Urine Nitrite (Negative) Urine Bilirubin (Negative) Urine Urobilinogen (<2.0) mg/dL Ur Leukocyte Esterase (Negative) Urine RBC (0-5) /hpf Urine WBC (0-5) /hpf Ur Squamous Epith Cells (0-4) /hpf Urine Bacteria (None) /hpf Urine Mucus (None) /hpf 08/19/19 08/19/19 08/19/19 Range/Units 14:30 14:30 15:30 WBC (3.8-10.6) k/uL RBC (3.80-5.40) m/uL Hgb (11.4-16.0) gm/dL Hct (34.0-46.0) % MCV (80.0-100.0) fL MCH (25.0-35.0) pg MCHC (31.0-37.0) g/dL RDW (11.5-15.5) % Plt Count (150-450) k/uL Neutrophils % % Lymphocytes % % Monocytes % % Eosinophils % % Basophils % % Neutrophils # (1.3-7.7) k/uL Lymphocytes # (1.0-4.8) k/uL Monocytes # (0-1.0) k/uL Eosinophils # (0-0.7) k/uL Basophils # (0-0.2) k/uL PT 9.6 (9.0-12.0) sec INR 0.9 (<1.2) APTT 23.3 (22.0-30.0) sec Sodium (137-145) mmol/L Potassium (3.5-5.1) mmol/L Chloride (98-107) mmol/L Carbon Dioxide (22-30) mmol/L Anion Gap mmol/L BUN (7-17) mg/dL Creatinine (0.52-1.04) mg/dL Est GFR (CKD-EPI)AfAm (>60 ml/min/1.73 sqM) Est GFR (CKD-EPI)NonAf (>60 ml/min/1.73 sqM) Glucose (74-99) mg/dL Calcium (8.4-10.2) mg/dL Magnesium (1.6-2.3) mg/dL Total Bilirubin (0.2-1.3) mg/dL AST (14-36) U/L ALT (9-52) U/L Alkaline Phosphatase (38-126) U/L Troponin I <0.012 (0.000-0.034) ng/mL NT-Pro-B Natriuret Pep pg/mL Total Protein (6.3-8.2) g/dL Albumin (3.5-5.0) g/dL Urine Color Yellow Urine Appearance Cloudy H (Clear) Urine pH 6.0 (5.0-8.0) Ur Specific Colbert 1.026 (1.001-1.035) Urine Protein Trace H (Negative) Urine Glucose (UA) Negative (Negative) Urine Ketones Negative (Negative) Urine Blood Negative (Negative) Urine Nitrite Negative (Negative) Urine Bilirubin Negative (Negative) Urine Urobilinogen <2.0 (<2.0) mg/dL Ur Leukocyte Esterase Large H (Negative) Urine RBC 6 H (0-5) /hpf Urine WBC 13 H (0-5) /hpf Ur Squamous Epith Cells 1 (0-4) /hpf Urine Bacteria Rare H (None) /hpf Urine Mucus Few H (None) /hpf Disposition Clinical Impression: COPD exacerbation, Nausea Disposition: HOME SELF-CARE Condition: Stable Instructions (If sedation given, give patient instructions): COPD (Chronic Obs tructive Pulmonary Disease) (ED) Additional Instructions: Please return to the Emergency Department if symptoms worsen or any other concerns. Follow-up with PCP in 1- 3 days. Prescriptions: predniSONE 10 mg PO BID 3 Days #6 tab Is patient prescribed a controlled substance at d/c from ED?: No Referrals: Belinda Sorto MD [Primary Care Provider] - 1-2 days
[2019-08-19 14:55] LABS: Basophils # (A) 0.1 k/uL (0-0.2); Basophils % (A) 1 %; Eosinophils # (A) 0.2 k/uL (0-0.7); Eosinophils % (A) 2 %; HCT 46.8 % (34.0-46.0); HGB 15.2 gm/dL (11.4-16.0); Lymphocytes % (A) 10 %; MCH 27.9 pg (25.0-35.0); MCHC 32.4 g/dL (31.0-37.0); MCV 86.2 fL (80.0-100.0); Mean Platelet Volume 7.5; Monocytes # (A) 0.6 k/uL (0-1.0); Monocytes % (A) 6 %; Neutrophils # (A) 8.1 k/uL (1.3-7.7); Neutrophils % (A) 80 %; Platelet Count 390 k/uL (150-450); RBC 5.43 m/uL (3.80-5.40); RDW 13.2 % (11.5-15.5); WBC 10.1 k/uL (3.8-10.6)
[2019-08-19 14:57] VITALS: RESP 18; TEMP 97.7
[2019-08-19 15:10] LABS: INR 0.9 (<1.2); Magnesium 2.1 mg/dL (1.6-2.3); Partial Thromboplastin Time 23.3 sec (22.0-30.0); Potassium 4.9 mmol/L (3.5-5.1); Prothrombin Time 9.6 sec (9.0-12.0); Total Bilirubin 0.8 mg/dL (0.2-1.3)
[2019-08-19] MEDS ORDERED: IPRATROPIUM-ALBUTEROL 3 ML NEB INHALATION STA (15:12)
--- NOTE | 2019-08-19 15:47 | XR ---
EXAMINATION TYPE: XR chest 2V DATE OF EXAM: 08/19/2019 COMPARISON: Chest x-ray 01/07/2019 HISTORY: Dizziness and weakness. Shortness of breath. TECHNIQUE: Frontal and lateral views of the chest are obtained. FINDINGS: Low lung volumes with elevation eventration anterior aspect right hemidiaphragm redemonstra sherman. There is no focal air space opacity, pleural effusion, or pneumothorax seen. The cardiac silhou ette size is stable and mildly enlarged with atherosclerotic aorta. The osseous structures are inta ct. IMPRESSION: Overall stable findings, low lung volumes and mild cardiomegaly without suspicious acute pulmonary process.
[2019-08-19 15:59] LABS: Appearance,Urine Cloudy (Clear); Bacteria,Urine Rare /hpf; Bilirubin,Urine Negative (Negative); Blood,Urine Negative (Negative); Color,Urine Yellow; Glucose,Urine (UA) Negative (Negative); Ketones,Urine Negative (Negative); Leukocyte Esterase,Urine Large (Negative); Mucus,Urine Few /hpf; Nitrite,Urine Negative (Negative); Protein,Urine Trace (Negative); RBC,Urine 6 /hpf (0-5); Specific Gravity,Urine 1.026 (1.001-1.035); Squamous Epithelial Cell,Urine 1 /hpf (0-4); Urobilinogen,Urine <2.0 mg/dL (<2.0)
[2019-08-19 16:06] VITALS: BP 126/78; PULSE 81
== END 2019-08-19 17:04 | disposition home or self-care (01) ==
LOC: EC 13:35
DX: J44.1 Chronic obstructive pulmonary disease with (acute) exacerbation (principal); R11.0 Nausea; I51.7 Cardiomegaly; I25.119 Atherosclerotic heart disease of native coronary artery with unspecified angina pectoris; E78.5 Hyperlipidemia, unspecified; F32.9 Major depressive disorder, single episode, unspecified; Z79.890 Hormone replacement therapy; Z79.51 Long term (current) use of inhaled steroids; Z79.899 Other long term (current) drug therapy; Z88.0 Allergy status to penicillin; Z87.891 Personal history of nicotine dependence; Z86.711 Personal history of pulmonary embolism; Z86.73 Personal history of transient ischemic attack (TIA), and cerebral infarction without residual deficits
CPT/HCPCS: 36415; 94640; 93005; 83880; 80053; 83735; 84484; 85025; 85610; 85730; 81001; 87086; 71046; 99285; 96374; 96361 ×2; J2405

== ENCOUNTER → 2021-05-24 | Outpatient (CLI) | payer MEDICARE ==
--- NOTE | 2021-05-24 10:36 | XR ---
EXAMINATION TYPE: XR Hip Complete RT DATE OF EXAM: 05/24/2021 CLINICAL HISTORY: pain TECHNIQUE: AP and frogleg views of the right hip are obtained. COMPARISON: None. FINDINGS: There is no acute fracture/dislocation evident. The joint space appears within normal li mits. The overlying soft tissue appears unremarkable. IMPRESSION: 1. There is no acute fracture or dislocation. ICD 10 NO FRACTURE, INITIAL EVALUATION
== END | disposition home or self-care (01) ==
LOC: RADXRMAIN 10:00
PROVIDERS: ATTEND Nurse Practitioner Family
DX: M25.551 Pain in right hip (principal)
CPT/HCPCS: 73502

== ENCOUNTER 2021-10-08 09:27 | Emergency (ER) | payer MEDICARE ==
[2021-10-08] MEDS ORDERED: SODIUM CHLORIDE 0.9% 500 ML 500 ML IV STA (10:06)
[2021-10-08] MEDS ORDERED: ACETAMINOPHEN TAB 500 MG TAB PO STA (10:07)
[2021-10-08] MEDS ORDERED: ALBUTEROL HFA INHALER INHALATION STA (10:07)
--- NOTE | 2021-10-08 10:12 | ED ---
General Adult HPI - General Chief complaint: Upper Respiratory Infection Stated complaint: Covid exposure/symptoms Time Seen by Provider: 10/08/21 09:41 Source: patient Mode of arrival: ambulatory Limitations: no limitations - History of Present Illness Initial comments: 81-year-old female with a past medical history of CAD, COPD, CVA, hyperlipidemia, PE presents to the emergency room for a chief complaint of cough. Patient states she was exposed to COVID-19 a couple days ago. States she has had a cough and felt feverish. Patient denies any significant shortness of breath. Denies any chest pain. Patient has no other complaints at this time including shortness of breath, chest pain, abdominal pain, nausea or vomiting, headache, or visual changes. - Related Data Home Medications Medication Instructions Recorded Confirmed Citalopram Hydrobromide [CeleXA] 20 mg PO DAILY 02/10/14 01/07/19 Simvastatin [Zocor] 20 mg PO DAILY 02/10/14 01/07/19 Mirtazapine [Remeron] 15 mg PO HS 03/17/17 01/07/19 Albuterol Inhaler (Mhu) [Ventolin 2 puff INHALATION RT-QID PRN 06/30/18 01/07/19 Hfa Inhaler (Mhu)] Levothyroxine Sodium [Synthroid] 88 mcg PO DAILY 06/30/18 01/07/19 Budesonide/Formoterol Fumarate 2 puff INHALATION RT-BID 01/07/19 01/07/19 [Symbicort 80-4.5 Mcg Inhaler] Previous Rx's Medication Instructions Recorded Clopidogrel [Plavix] 75 mg PO DAILY #30 tab 07/02/18 amLODIPine [Norvasc] 5 mg PO DAILY #30 tab 07/02/18 predniSONE 10 mg PO BID 3 Days #6 tab 08/19/19 Dexamethasone [Decadron] 6 mg PO DAILY #6 tablet 10/08/21 Allergies Allergy/AdvReac Type Severity Reaction Status Date / Time Penicillins Allergy Rash/Hives Verified 10/08/21 09:34 Review of Systems ROS Statement: Those systems with pertinent positive or pertinent negative responses have been documented in the HPI. ROS Other: All systems not noted in ROS Statement are negative. Past Medical History Past Medical History: Coronary Artery Disease (CAD), Chest Pain / Angina, COPD, CVA/TIA, Hyperlipidemia, Pulmonary Embolus (PE) Additional Past Medical History / Comment(s): Past shingelles, TIA 06/2018, [facility] History of Any Multi-Drug Resistant Organisms: None Reported Past Surgical History: Cholecystectomy, Heart Catheterization, Tonsillectomy Additional Past Surgical History / Comment(s): LOWER MANDIBULAR OSTEOTOMY BENIGN BREAST BIOPSY RIGHT, BILATERAL CATARACT REMOVAL/LENS IMPLANTS, THYROIDECTOMY AT AGE 18 Past Anesthesia/Blood Transfusion Reactions: No Reported Reaction Past Psychological History: Depression Smoking Status: Never smoker Past Alcohol Use History: None Reported Past Drug Use History: None Reported - Past Family History Father History Unknown: Yes Mother Family Medical History: Myocardial Infarction ([place]) Additional Family Medical History / Comment(s): Mother of a [place] in her 80s. General Exam Limitations: no limitations General appearance: alert, in no apparent distress Head exam: Present: atraumatic Eye exam: Present: normal appearance, PERRL, EOMI. Absent: scleral icterus, conjunctival injection ENT exam: Present: normal exam, mucous membranes moist Neck exam: Present: normal inspection, full ROM. Absent: tenderness Respiratory exam: Present: decreased breath sounds. Absent: respiratory distress, wheezes Cardiovascular Exam: Present: regular rate, normal rhythm, normal heart sounds GI/Abdominal exam: Present: soft, normal bowel sounds. Absent: distended, tenderness Neurological exam: Present: alert Course Vital Signs 10/08/21 10/08/21 09:34 11:35 Temperature 99.9 F H 98.9 F Pulse Rate 98 85 Respiratory 22 20 Rate Blood Pressure 124/75 117/58 O2 Sat by Pulse 94 L 94 L Oximetry Medical Decision Making - Medical Decision Making Vitals are stable. Patient is 94% on room air at the lowest. HPI and physical exam as documented. COVID-19 is positive. Chest x-ray showed interstitial prominence that could reflect vascular markings, bronchitis, asthma, atypical pneumonias, or mild vascular congestion. Recommended to correlate clinically. Clinically this is consistent with a COVID-19 pneumonia. Patient will be given Decadron. Patient given antibody infusion as she had not yet received her booster. She will be discharged home to follow up with primary care. Will return here for any worsening symptoms. - Lab Data Lab Results 10/08/21 Range/Units 09:39 Coronavirus (PCR) Detected A (Not Detectd) Disposition Clinical Impression: COVID-19, Pneumonia due to COVID-19 virus Disposition: HOME SELF-CARE Condition: Good Instructions (If sedation given, give patient instructions): Coronavirus Disease 2019 (COVID-19) Additional Instructions: You were prescribed steroid, it will be at the pharmacy. Start this tomorrow. Continue your breathing treatments for your COPD. Take [id number]-apbkssd vitamin C, D, and zinc. Please follow-up with your doctor in one to 2 days. Return to the emergency room for any worsening symptoms. Prescriptions: Dexamethasone [Decadron] 6 mg PO DAILY #6 tablet Is patient prescribed a controlled substance at d/c from ED?: No Referrals: Belinda Sorto MD [Primary Care Provider] - 1-2 days Time of Disposition: 12:00
[2021-10-08] MEDS ORDERED: SODIUM CHLORIDE 0.9% 50 ML IVPB ONE (11:15)
[2021-10-08] MEDS ORDERED: SOTROVIMAB (EUA) 500 MG in SODIUM CHLORIDE 0.9% 100 ML IVPB ONE (11:15)
--- NOTE | 2021-10-08 11:27 | XR ---
EXAMINATION TYPE: XR chest 1V portable DATE OF EXAM: 10/08/2021 Comparison: 08/19/2019 Clinical History: 81-year-old female with cough Findings: Very low lung volumes. Asymmetric elevation right hemidiaphragm. Heart upper limits of normal in size . Interstitial prominence could reflect crowded vascular markings. No sizable pleural effusion or fra nk consolidation. Impression: Limitations due to marked hypoventilatory changes. Interstitial prominence could reflect crowded vasc ular markings, bronchitis, asthma, atypical pneumonias, or mild pulmonary vascular congestion. Clinic ally correlate.
[2021-10-08 11:36] VITALS: RESP 20; TEMP 98.9
[2021-10-08] MEDS ORDERED: DEXAMETHASONE SOD PHOSPHATE 10 MG/ML 1 ML VIAL IVP STA (11:59)
[2021-10-08 14:30] VITALS: BP 120/61; PULSE 80
== END 2021-10-08 13:25 | disposition home or self-care (01) ==
LOC: EC 09:27
DX: U07.1 COVID-19 (principal); J12.82 Pneumonia due to coronavirus disease 2019; I25.10 Atherosclerotic heart disease of native coronary artery without angina pectoris; J44.9 Chronic obstructive pulmonary disease, unspecified; E78.5 Hyperlipidemia, unspecified; F32.A Depression, unspecified; Z79.890 Hormone replacement therapy; Z79.51 Long term (current) use of inhaled steroids; Z79.52 Long term (current) use of systemic steroids; Z79.02 Long term (current) use of antithrombotics/antiplatelets; Z79.899 Other long term (current) drug therapy; Z86.711 Personal history of pulmonary embolism
CPT/HCPCS: 94640; 87635; 71045; 99284; 96374; 96361; J1100; Q0247

== ENCOUNTER → 2022-09-09 | Outpatient (CLI) | payer MEDICARE ==
--- NOTE | 2022-09-09 17:48 | BD ---
EXAMINATION TYPE: Axial Bone Density DATE OF EXAM: 09/09/2022 CLINICAL HISTORY: 81 years year old Female. ICD-10 CODE: M89.9 DISORDER OF BONE Height: 5 FT 2 IN Weight: 222 FRAX RISK QUESTIONS: Alcohol (3 or more units per day): NO Family History (Parent hip fracture): NO Glucocorticoids (More than 3mos): NO (Ex: prednisone, prednisolone, methylprednisolone, dexamethasone, and hydrocortisone). History of Fracture in Adulthood: YES Secondary Osteoporosis: 1. Type 1 Diabetes: NO 2. Hyperthyroidism: NO 3. Menopause before 45: UNSURE 4. Malnutrition: NO 5. Chronic liver disease: NO Rheumatoid Arthritis: NO Current Tobacco Use: NO RISK FACTORS HISTORY OF: Surgery to Spine/Hip(right/left)/Wrist (right/left): NO Family History of Osteoporosis: NO Active: SOMEWHAT Diet low in dairy products/other sources of calcium: NO Postmenopausal woman: YES Take estrogen and/or progesterone medications: NO Lost more than 2 inches in height since high school: YES Frequent falls: NO Poor Health: FAIR Hyperparathyroidism: NO Adrenal Insufficiency: NO MEDICATIONS: Thyroid Medications: YES Which medication: UNSURE WHICH ONE How Long: CLOSE TO 60 YEARS Additional Medications: THYROID MEDS, VITAMINS, DOESN'T HAVE HER MED LIST Additional History: EXAM MEASUREMENTS: Bone mineral densitometry was performed using the [employer] System. Bone mineral density as measured about the Lumbar spine is: ----- L1-L4(G/cm2): 1.015 T Score Values are as follows: ----- L1: -2.7 ----- L2: -0.7 ----- L3: -0.6 ----- L4: -1.6 ----- L1-L4: -1.4 Bone mineral density has: INCREASED 2.9 % since study of: 2010 Bone mineral density about the R hip (g/cm2): 0.771 Bone mineral density about the L hip (g/cm2): 0.687 T Score values are as follows: -----R Neck: -1.9 -----L Neck: -2.5 -----R Total: -1.6 -----L Total: -2.0 Bone mineral density has: DECREASED -12.1 % since study of: 2010 FRAX%s: The graph provided illustrates a 24.3 % chance for a major osteoporotic fx and a 7.6 % chance for the hips probability for fx in 10 years time. IMPRESSION: Osteoporosis (T Score less than -2.5). There is increased fracture risk and therapy is usually indicated based on age. Re-Screen 1-2 years. NOTE: T-SCORE=SD OF THE YOUNG ADULT MEAN.
--- NOTE | 2022-09-10 10:57 | MM ---
Reason for Exam: Screening (asymptomatic). Last mammogram was performed 8 year(s) and 10 month(s) ago. Patient History: Menarche at age 13. First Full-Term at age 23. Postmenopausal. MG pre op needle loc RT on the Right side. Risk Values: Elizabeth 5 year model risk: 1.7%. NCI Lifetime model risk: 2.7%. Prior Study Comparison: 07/30/2011 Bilateral Screening Mammogram, [facility]. 10/31/2013 Bilateral Screening Mammogram, [facility]. Tissue Density: There are scattered fibroglandular densities. Findings: Analyzed By CAD. Scar marker is on the right breast. No suspicious groups of microcalcifications, spiculated or lobular masses, architectural distortion or other secondary signs of malignancy are mammographically apparent. Overall Assessment: Benign, BI-RAD 2 Management: Screening Mammogram of both breasts in 1 year. A negative mammogram report should not preclude additional follow up of suspicious palpable abnormalities. Patient should continue monthly self breast exam. A clinical breast exam by your physician is recommended on an annual basis and results should be correlated with mammographic findings. Electronically signed and approved by: Randy Lan D.O. Radiologis
== END | disposition home or self-care (01) ==
LOC: RADBDWWP 12:44
PROVIDERS: ATTEND Family Medicine
DX: Z12.31 Encounter for screening mammogram for malignant neoplasm of breast (principal); M81.0 Age-related osteoporosis without current pathological fracture; Z78.0 Asymptomatic menopausal state
CPT/HCPCS: 77063; 77067; 77080

== ENCOUNTER → 2023-01-23 | Outpatient (CLI) | payer MEDICARE ==
[~2023-01-23] MED LIST: SODIUM CHLORIDE 0.9% 500 ML 500 ML in EMPTY BAG 1 BAG IV PRN; ZOLEDRONIC ACID 5 MG in SODIUM CHLORIDE 0.9% 100 ML IV NR
[2023-01-23 09:11] VITALS: BP 125/79; PULSE 89; RESP 18; TEMP 97.6
== END ==
LOC: PROCWHC3 08:58
PROVIDERS: ATTEND Family Medicine
DX: M81.0 Age-related osteoporosis without current pathological fracture (principal)
CPT/HCPCS: 96365; J3489

== ENCOUNTER → 2023-08-20 | Outpatient (CLI) | payer MEDICARE ==
--- NOTE | 2023-08-20 11:48 | US ---
EXAMINATION TYPE: US carotid duplex BILAT DATE OF EXAM: 08/20/2023 COMPARISON: CTA 06/30/2018 CLINICAL INDICATION: Female, 82 years old with history of I65.21 OCCLUSION AND STENOSIS OF RIGHT [place] TID ART; stenosis rt bulb TECHNIQUE: Carotid duplex ultrasound examination. Indirect Doppler criteria was utilized. 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 Criteria for Assigning % of Stenosis / Diameter reduction (Estimation based on the indirect measurements of the internal carotid artery velocities (ICA PSV). 1. Normal (no stenosis)=ICA PSV < 125 cm/s: ratio < 2.0: ICA EDV<40 cm/s. 2. Less than 50% stenosis=ICA PSV < 125 cm/s: ratio < 2.0: ICA EDV<40 cm/s. 3. 50 to 69% stenosis=ICA PSV of 125 to 230 cm/s: ration 2.0 ? 4.0: ICA EDV 40-100 cm/s. 4. Greater than 70% stenosis to near occlusion= ICA PSV > 230 cm/s: ratio > 4.0: ICA EDV > 100 cm/s. 5. Near occlusion= ICA PSV velocities may be low or undetectable: variable ratio and ICA EDV. 6. Total occlusion=unable to detect flow.
== END | disposition home or self-care (01) ==
LOC: RADUSWWP 10:58
PROVIDERS: ATTEND Family Medicine
DX: I65.23 Occlusion and stenosis of bilateral carotid arteries (principal)
CPT/HCPCS: 93880

== ENCOUNTER 2023-09-24 12:52 | Emergency (ER) | payer MEDICARE ==
[2023-09-24] MEDS ORDERED: KETOROLAC 15 MG/ML 1 ML VIAL IM STA (13:38)
--- NOTE | 2023-09-24 13:41 | ED ---
Back Pain HPI - General Chief Complaint: Back Pain/Injury Stated Complaint: Rt hip pain Time Seen by Provider: 09/24/23 13:14 Source: patient, RN notes reviewed Limitations: no limitations - History of Present Illness Initial Comments: Patient is an 82-year-old female presented ER with chief complaint of back pain. Daughter is providing most of the HPI. Daughter reports that about 3-4 weeks ago patient had a fall. Patient reports that she was reaching and lost her balance. Patient denies any lightheadedness, dizziness, head injury, loss of consciousness or blood thinner use. Patient fell landing on her bottom. Patient now is endorsing lumbar back pain with radiation down the right thigh. Patient is able to walk but states that it is painful. Daughter reports that patient's lower back is extremely swollen. Patient was treated by PCP, Dr. Sorto, and prescribed lidocaine patches. Lidocaine patches has not been helping. Patient denies any bowel or bladder incontinence, fevers, IV drug use, saddle paresthesias, weakness. - Related Data Home Medications Medication Instructions Recorded Confirmed Citalopram Hydrobromide [CeleXA] 20 mg PO DAILY 02/10/14 01/23/23 Simvastatin [Zocor] 20 mg PO DAILY 02/10/14 01/23/23 Mirtazapine [Remeron] 15 mg PO HS 03/17/17 01/23/23 Albuterol Inhaler [Ventolin Hfa 2 puff INHALATION RT-QID PRN 06/30/18 01/23/23 Inhaler] Levothyroxine Sodium [Synthroid] 88 mcg PO DAILY 06/30/18 01/23/23 Budesonide/Formoterol Fumarate 2 puff INHALATION RT-BID 01/07/19 01/23/23 [Symbicort 80-4.5 Mcg Inhaler] Previous Rx's Medication Instructions Recorded Clopidogrel [Plavix] 75 mg PO DAILY #30 tab 07/02/18 amLODIPine [Norvasc] 5 mg PO DAILY #30 tab 07/02/18 predniSONE 10 mg PO BID 3 Days #6 tab 08/19/19 dexAMETHasone [Decadron] 6 mg PO DAILY #6 tablet 10/08/21 Cyclobenzaprine [Flexeril] 5 mg PO TID PRN #15 tablet 09/24/23 dexAMETHasone [Decadron] 4 mg PO DAILY #6 tablet 09/24/23 Allergies Allergy/AdvReac Type Severity Reaction Status Date / Time Penicillins Allergy Rash/Hives Verified 01/23/23 09:02 Review of Systems ROS Statement: Those systems with pertinent positive or pertinent negative responses have been documented in the HPI. ROS Other: All systems not noted in ROS Statement are negative. Past Medical History Past Medical History: Coronary Artery Disease (CAD), Chest Pain / Angina, COPD, CVA/TIA, Hyperlipidemia, Pulmonary Embolus (PE) Additional Past Medical History / Comment(s): Past shing[place] TIA 06/2018, [facility] History of Any Multi-Drug Resistant Organisms: None Reported Past Surgical History: Cholecystectomy, Heart Catheterization, Tonsillectomy Additional Past Surgical History / Comment(s): LOWER MANDIBULAR OSTEOTOMY BENIGN BREAST BIOPSY RIGHT, BILATERAL CATARACT REMOVAL/LENS IMPLANTS, THYROIDECTOMY AT AGE 18 Past Anesthesia/Blood Transfusion Reactions: No Reported Reaction Past Psychological History: Depression Smoking Status: Former smoker - Past Family History Father History Unknown: Yes Mother Family Medical History: Myocardial Infarction ([place]) Additional Family Medical History / Comment(s): Mother of a [place] in her 80s. General Exam Limitations: no limitations General appearance: alert, in no apparent distress Head exam: Present: atraumatic, normocephalic, normal inspection Respiratory exam: Present: normal lung sounds bilaterally. Absent: respiratory distress, wheezes, rales, rhonchi, stridor Cardiovascular Exam: Present: regular rate, normal rhythm, normal heart sounds. Absent: systolic murmur, diastolic murmur, rubs, gallop, clicks Extremities exam: Present: normal inspection, full ROM, normal capillary refill. Absent: tenderness, pedal edema, joint swelling, calf tenderness Back exam: Present: tenderness (Lumbar spine and right pelvic girdle. ), other (Minimal edema to mid lower back. Straight leg raisie right does elicit pain in the lumbar spine. 2+ dorsalis pedis pulse bilaterally. Sensation intact. Equal strength bilaterally) Neurological exam: Present: alert, oriented X3, CN II-XII intact Psychiatric exam: Present: normal affect, normal mood Skin exam: Present: warm, dry, intact, normal color. Absent: rash Course Vital Signs 09/24/23 09/24/23 09/24/23 12:56 15:15 16:39 Temperature 97.8 F 98 F 98 F Pulse Rate 80 82 65 Respiratory 16 18 16 Rate Blood Pressure 146/86 130/84 122/84 O2 Sat by Pulse 96 97 98 Oximetry Medical Decision Making - Medical Decision Making Was pt. sent in by a medical professional or institution (TIAN Hirsch, [employer], urgent care, hospital, or alf...) When possible be specific @ -No Did you speak to anyone other than the patient for history (EMS, parent, family, police, friend...)? What history was obtained from this source @ -Daughter providing most of the HPI Did you review nursing and triage notes (agree or disagree)? Why? @ -I reviewed and agree with nursing and triage notes Were old charts reviewed (outside hosp., previous admission, EMS record, old EKG, old radiological studies, urgent care reports/EKG's, alf records)? Report findings @ -No old charts were reviewed Differential Diagnosis (chest pain, altered mental status, abdominal pain women, abdominal pain men, vaginal bleeding, weakness, fever, dyspnea, syncope, headache, dizziness, GI bleed, back pain, seizure, CVA, palpatations, mental health, musculoskeletal)? @ -Differential Back Pain: Strain, zoster, cauda equina syndrome, epidural abscess, vertebral osteomyelitis, discitis, fracture, subluxation, disc herniation, DJD, spinal stenosis, dissection, AAA, pancreatitis, peptic ulcer disease, pyelonephritis, kidney stone, this is not meant to be an all-inclusive list. EKG interpreted by me (3pts min.). @ -None X-rays interpreted by me (1pt min.). @ -None done CT interpreted by me (1pt min.). @ -CT of lumbar spine shows no acute fractures or dislocations. There is chronic degenerative changes present. U/S interpreted by me (1pt. min.). @ -None done What testing was considered but not performed or refused? (CT, X-rays, U/S, labs)? Why? @ -None What meds were considered but not given or refused? Why? @ -None Did you discuss the management of the patient with other professionals (professionals i.e. TIAN Hirsch, [employer], lab, RT, psych nurse, 7th grade social studies teacher, air conditioning installer supervisor, teacher, radiation officer, case supervisor)? Give summary @ -No Was smoking cessation discussed for >3mins.? @ -No Was critical care preformed (if so, how long)? @ -No Were there social determinants of health that impacted care today? How? (Homelessness, low income, unemployed, alcoholism, drug addiction, transportation, low edu. Level, literacy, decrease access to med. care, long-term, rehab)? @ -No Was there de-escalation of care discussed even if they declined (Discuss DNR or withdrawal of care, Hospice)? DNR status @ -No What co-morbidities impacted this encounter? (DM, HTN, Smoking, COPD, CAD, Cancer, CVA, ARF, Chemo, Hep., AIDS, mental health diagnosis, sleep apnea, morbid obesity)? @ -Obese Was patient admitted / discharged? Hospital course, mention meds given and route, prescriptions, significant lab abnormalities, going to OR and other pertinent info. @ -Discharge. Patient is an 82 female presented ER with chief complaint back pain. Vitals stable. Physical exam and history was completed. Patient received IM Toradol and Zofran for symptom control. CT of lumbar spine shows no acute fractures or dislocations. There is chronic degenerative changes present. I discussed imaging findings with patient and daughter. All questions answered. Patient will be prescribed flexeril and steroids for symptoms control. I advised patient to follow-up with PCP in the next 1-2 days. Return parameters were discussed. Patient will be discharged in stable condition with follow-up to PCP. Patient and daughter expressed understanding and agreement with care plan. Undiagnosed new problem with uncertain prognosis? @ -No Drug Therapy requiring intensive monitoring for toxicity (Heparin, Nitro, Ins ulin, Cardizem)? @ -No Were any procedures done? @ -No Diagnosis/symptom? @ -Muscle spasm/back pain Acute, or Chronic, or Acute on Chronic? @ -Acute Uncomplicated (without systemic symptoms) or Complicated (systemic symptoms)? @ -Uncomplicated Side effects of treatment? @ -No Exacerbation, Progression, or Severe Exacerbation? @ -No Poses a threat to life or bodily function? How? (Chest pain, [place], [place], pneumonia, PE, COPD, DKA, ARF, appy, cholecystitis, CVA, Diverticulitis, Homicidal, Suicidal, threat to staff... and all critical care pts) @ -No - Radiology Data Radiology results: report reviewed, image reviewed Disposition Clinical Impression: Muscle spasm, Back pain Disposition: HOME SELF-CARE Condition: Stable Instructions (If sedation given, give patient instructions): Acute Low Back Pain (ED) Additional Instructions: Please use [id number] Tylenol for pain control. Be aware that Flexeril may make you drowsy. Follow-up with PCP in the next 1-2 days. Please return to the ER for any new or worsening symptoms. Prescriptions: dexAMETHasone [Decadron] 4 mg PO DAILY #6 tablet Cyclobenzaprine [Flexeril] 5 mg PO TID PRN #15 tablet PRN Reason: Muscle Spasm Is patient prescribed a controlled substance at d/c from ED?: No Referrals: Belinda Sorto MD [Primary Care Provider] - 1-2 days Time of Disposition: 16:24
[2023-09-24] MEDS ORDERED: ONDANSETRON ODT 4 MG TAB PO STA (13:43)
[2023-09-24 15:45] VITALS: TEMP 98
--- NOTE | 2023-09-24 15:52 | CT ---
EXAMINATION TYPE: CT lumbar spine wo con CT DLP: 1408.6 mGycm, Automated exposure control for dose reduction was used. DATE OF EXAM: 09/24/2023 2:19 PM COMPARISON: . CLINICAL INDICATION:Female, 82 years old with history of pain; PHH, Back pain, recent fall TECHNIQUE: Multiple axial images were obtained from the midportion of T11 through the sacroiliac kiley nts. Soft tissue and bone windows in coronal and sagittal planes were obtained and reviewed. 3-D ref ormats of the bones were created on a separate workstation and submitted for review. Contrast used: mL of , none. Oral contrast used: none. FINDINGS: Osseous mineralization appears mildly reduced.. No evidence of lytic/blastic lesion. There are 5 nonr ib-bearing lumbar-type vertebral bodies. No evidence of acute fracture. There is moderate multilevel degenerative disc changes and facet arthrosis with mild to moderate upper lumbar levoscoliosis and pr eserved AP alignment. Degenerative changes appear most significant at the L2-L3 level, where there is moderate to severe de generative disc disease with loss of disc space vacuum disc and marginal osteophytes, which along wit h facet arthrosis causes moderate to severe right and moderate left neural foraminal stenosis and mil d canal stenosis. Soft tissues demonstrate no immediate paraspinous soft tissue abnormality. There is moderate to heavy calcification of the abdominal aorta and branches, there are areas of ectasia of the aorta but no fr ank aneurysm. Low-density nodules partially seen in the right kidney are most suggestive of cysts. Mi ld thickening of the adrenals without visualized mass. IMPRESSIONS: 1. No acute bony abnormality of the lumbar spine. 2. Moderate multilevel spondylosis.
[2023-09-24 17:02] VITALS: BP 122/84; PULSE 65; RESP 16
== END 2023-09-24 16:41 | disposition home or self-care (01) ==
LOC: EC 12:52
DX: M62.830 Muscle spasm of back (principal); M48.36 Traumatic spondylopathy, lumbar region; E66.9 Obesity, unspecified; J44.9 Chronic obstructive pulmonary disease, unspecified; I25.10 Atherosclerotic heart disease of native coronary artery without angina pectoris; E78.5 Hyperlipidemia, unspecified; F32.A Depression, unspecified; Z79.51 Long term (current) use of inhaled steroids; Z79.899 Other long term (current) drug therapy; Z88.0 Allergy status to penicillin; Z68.34 Body mass index [BMI] 34.0-34.9, adult; Z86.73 Personal history of transient ischemic attack (TIA), and cerebral infarction without residual deficits; Z87.891 Personal history of nicotine dependence; Z86.711 Personal history of pulmonary embolism; W01.0XXA Fall on same level from slipping, tripping and stumbling without subsequent striking against object, initial encounter
CPT/HCPCS: 99284 ×2; 96372 ×2; 72131; J1885

== ENCOUNTER 2024-02-20 15:19 | Emergency (ER) | payer MEDICARE ==
[2024-02-20 15:40] VITALS: TEMP 97.7
[2024-02-20] MEDS: LIDOCAINE 4% PATCH TOPICAL ONE (16:12)
[2024-02-20] MEDS: ACETAMINOPHEN TAB 500 MG TAB PO STA (16:12)
--- NOTE | 2024-02-20 16:42 | ED ---
General Adult HPI - General Chief complaint: Fall Stated complaint: fell L rib pain and R hand injury Time Seen by Provider: 02/20/24 15:55 Source: patient, family, RN notes reviewed, old records reviewed Mode of arrival: ambulatory Limitations: no limitations - History of Present Illness Initial comments: Patient is an 83-year-old female with past medical history remarkable for CAD, COPD, hyperlipidemia on Plavix who presents emergency department with mechanical fall. Mechanical fall occurred 2 days ago. She was lifting up something when she tripped or lost her balance and fell onto her left side inside of her house striking something with her left ribs. Complaining of right thumb pain anteriorly as well as left rib pain. States rib pain is worse with deep inspiration. Has point tenderness. Denies any other injuries. Did not lose consciousness. Did not hit her head. Has no back pain. Able to ambulate without difficulty. Fall occurred 2 days ago. Presents for further evaluation at this time. Denies abdominal pain, chest pain, shortness of breath. - Related Data Home Medications Medication Instructions Recorded Confirmed Citalopram Hydrobromide [CeleXA] 20 mg PO DAILY 02/10/14 01/23/23 Simvastatin [Zocor] 20 mg PO DAILY 02/10/14 01/23/23 Mirtazapine [Remeron] 15 mg PO HS 03/17/17 01/23/23 Albuterol Inhaler [Ventolin Hfa 2 puff INHALATION RT-QID PRN 06/30/18 01/23/23 Inhaler] Levothyroxine Sodium [Synthroid] 88 mcg PO DAILY 06/30/18 01/23/23 Budesonide/Formoterol Fumarate 2 puff INHALATION RT-BID 01/07/19 01/23/23 [Symbicort 80-4.5 Mcg Inhaler] Previous Rx's Medication Instructions Recorded Clopidogrel [Plavix] 75 mg PO DAILY #30 tab 07/02/18 amLODIPine [Norvasc] 5 mg PO DAILY #30 tab 07/02/18 predniSONE 10 mg PO BID 3 Days #6 tab 08/19/19 dexAMETHasone [Decadron] 6 mg PO DAILY #6 tablet 10/08/21 Cyclobenzaprine [Flexeril] 5 mg PO TID PRN #15 tablet 09/24/23 dexAMETHasone [Decadron] 4 mg PO DAILY #6 tablet 09/24/23 Cyclobenzaprine [Flexeril] 5 mg PO BID 5 Days #10 tablet 02/20/24 Allergies Allergy/AdvReac Type Severity Reaction Status Date / Time Penicillins Allergy Rash/Hives Verified 01/23/23 09:02 Review of Systems ROS Statement: Those systems with pertinent positive or pertinent negative responses have been documented in the HPI. Review of Systems: CONST: Denies fever EYES: Denies blurry vision ENT: Denies nasal congestion C/V: Denies Chest pain RESP: Denies shortness of breath GI: Denies abdominal pain : Denies dysuria SKIN: Denies rash. MSK: Endorses rib pain on the left, right thumb pain NEURO: Denies headache ROS Other: All systems not noted in ROS Statement are negative. Past Medical History Past Medical History: Coronary Artery Disease (CAD), Chest Pain / Angina, COPD, CVA/TIA, Hyperlipidemia, Pulmonary Embolus (PE) Additional Past Medical History / Comment(s): Past [place], TIA 06/2018, [facility] History of Any Multi-Drug Resistant Organisms: None Reported Past Surgical History: Cholecystectomy, Heart Catheterization, Tonsillectomy Additional Past Surgical History / Comment(s): LOWER MANDIBULAR OSTEOTOMY BENIGN BREAST BIOPSY RIGHT, BILATERAL CATARACT REMOVAL/LENS IMPLANTS, THYROIDECTOMY AT AGE 18 Past Anesthesia/Blood Transfusion Reactions: No Reported Reaction Past Psychological History: Depression Smoking Status: Former smoker - Past Family History Father History Unknown: Yes Mother Family Medical History: Myocardial Infarction (MO) Additional Family Medical History / Comment(s): Mother of a MO in her 80s. General Exam - General Exam Comments Initial Comments: General: Appears in no acute distress. HEAD: Normal with no signs of head trauma. Negative Pelayo sign. Negative raccoon eyes. EYES: PERRLA, EOMI, conjunctiva normal, no discharge. ENT: Hearing grossly intact, normal oropharynx. RESPIRATORY: Clear breath sounds bilaterally. No wheezes, rales, or rhonchi. No evidence of flail chest. Hypoxia. No increased work of breathing. C/V: Regular rate and rhythm. S1 and S2 auscultated, peripheral pulses 2+ and intact throughout ABD: Abd is soft, nontender, nondistended EXT: Normal range of motion of all 4 extremities without any obvious deformity. Normal range of motion of the right thumb with tenderness to palpation at the base on the palmar aspect of the right thumb. No snuffbox tenderness. Normal approximation of the thumb with all fingers. No sensory deficits distally. No midline cervical, lumbar, thoracic spine tenderness to palpation. Pelvis is stable. Patient does have point tenderness over the left anterior axillary line of the inferior to ribs. No evidence of obvious low chest. No obvious of obvious deformity. SKIN: No rashes or lesions observed on exposed skin. NEURO: Alert and oriented x 4. GCS of 15. Limitations: no limitations Course Vital Signs 02/20/24 02/20/24 02/20/24 15:36 15:40 18:08 Temperature 97.7 F Pulse Rate 84 82 79 Respiratory 16 17 18 Rate Blood Pressure 122/74 117/65 143/79 O2 Sat by Pulse 96 98 97 Oximetry Medical Decision Making - Medical Decision Making Was pt. sent in by a medical professional or institution (, PA, PRECISION OPTICS TECHNICIAN, urgent care, hospital, or penitentiary...) When possible be specific @ -No Did you speak to anyone other than the patient for history (EMS, parent, family, police, friend...)? What history was obtained from this source @ -No Did you review nursing and triage notes (agree or disagree)? Why? @ -I reviewed and agree with nursing and triage notes Were old charts reviewed (outside hosp., previous admission, EMS record, old EKG, old radiological studies, urgent care reports/EKG's, penitentiary records)? Report findings @ -No old charts were reviewed Differential Diagnosis (chest pain, altered mental status, abdominal pain women, abdominal pain men, vaginal bleeding, weakness, fever, dyspnea, syncope, headache, dizziness, GI bleed, back pain, seizure, CVA, palpatations, mental health, musculoskeletal)? @ -Differential Musculoskeletal Muscular strain, contusion, ligament sprain, fracture, arthritis, septic arthritis, bursitis, cellulitis, muscle spasm, nerve compression, DVT, arterial occlusion, herpes zoster, electrolyte abnormality, tumor.... This is not meant to be in all inclusive list EKG interpreted by me (3pts min.). @ -None done X-rays interpreted by me (1pt min.). @ -Right hand x-ray showed no evidence of acute thumb injury or fracture. Chest x-ray revealed no evidence of rib fracture or injury. No pneumothorax. CT interpreted by me (1pt min.). @ -None done U/S interpreted by me (1pt. min.). @ -None done What testing was considered but not performed or refused? (CT, X-rays, U/S, labs)? Why? @ -None What meds were considered but not given or refused? Why? @ -None Did you discuss the management of the patient with other professionals (professionals i.e. , PA, PRECISION OPTICS TECHNICIAN, lab, RT, psych nurse, social work case manager, louver mortiser operator, teacher, geological technical officer, correctional case manager)? Give summary @ -No Was smoking cessation discussed for >3mins.? @ -No Was critical care preformed (if so, how long)? @ -No Were there social determinants of health that impacted care today? How? (Homelessness, low income, unemployed, alcoholism, drug addiction, transportation, low edu. Level, literacy, decrease access to med. care, senior living, rehab)? @ -No Was there de-escalation of care discussed even if they declined (Discuss DNR or withdrawal of care, Hospice)? DNR status @ -No What co-morbidities impacted this encounter? (DM, HTN, Smoking, COPD, CAD, Cancer, CVA, ARF, Chemo, Hep., AIDS, mental health diagnosis, sleep apnea, morbi d obesity)? @ -None Was patient admitted / discharged? Hospital course, mention meds given and route, prescriptions, significant lab abnormalities, going to OR and other pertinent info. @ -Patient presents emergency department with a mechanical fall. Appears to have rib contusion versus isolated fracture as as well as possible right thumb injury. No evidence of flail chest on exam. Will obtain x-rays of the right thumb as well as left ribs. Patient be given lidocaine patch, as well as Tylenol for analgesia. Patient was in agreement this plan. Vital signs within acceptable limits. Does not meet trauma activation criteria. Vital signs are within acceptable limits. Imaging returned unremarkable. I discussed results with the patient. Discussed she likely has a thumb sprain as well as a rib contusion. Patient will be placed on analgesia medications. I did offer lidocaine patch prescription but patient declines that she does have these at home already. I will send a prescription for a muscle relaxer. She also received an incentive spirometer. She expressed understanding of her diagnosis. Strict return precautions discussed. I will provide the patient with a prescription for Flexeril. I instructed the patient to follow up with their PCP in the next 1-3 days.. I explained that the patient should return to the emergency department if they experience any worsening symptoms. Strict return precautions were discussed with the patient. The patient expressed understanding of these instructions. I answered all questions that the patient had. The patient was discharged home in good condition with their prescriptions and follow up information. Undiagnosed new problem with uncertain prognosis? @ -No Drug Therapy requiring intensive monitoring for toxicity (Heparin, Nitro, Insulin, Cardizem)? @ -No Were any procedures done? @ -No Diagnosis/symptom? @ -Fall, thumb sprain, contusion of rib Acute, or Chronic, or Acute on Chronic? @ -Acute Uncomplicated (without systemic symptoms) or Complicated (systemic symptoms)? @ -Uncomplicated Side effects of treatment? @ -None Exacerbation, Progression, or Severe Exacerbation] @ -No Poses a threat to life or bodily function? @ -Unlikely Disposition Clinical Impression: Fall, Thumb sprain, Contusion of rib Disposition: HOME SELF-CARE Condition: Good Instructions (If sedation given, give patient instructions): How to Use an Incentive Spirometer (ED), Fall Prevention for Older Adults (ED), Finger Sprain (ED), Rib Contusion (ED) Prescriptions: Cyclobenzaprine [Flexeril] 5 mg PO BID 5 Days #10 tablet Is patient prescribed a controlled substance at d/c from ED?: No Referrals: Belinda Sorto MD [Primary Care Provider] - 1-2 days Time of Disposition: 18:04
--- NOTE | 2024-02-20 17:42 | XR ---
EXAMINATION TYPE: XR hand complete RT DATE OF EXAM: 02/20/2024 5:01 PM CLINICAL INDICATION:Female, 83 years old with history of thumb pain; [facility] COMPARISON: None TECHNIQUE: 3 views FINDINGS: There is generalized osteopenia. Mild diffuse osteoarthritic changes. No acute fracture or dislocatio n. Unremarkable soft tissues without radiopaque foreign body seen. IMPRESSION: No acute fracture or dislocation seen.
--- NOTE | 2024-02-20 17:52 | XR ---
EXAMINATION TYPE: XR ribs LT w pa chest xray DATE OF EXAM: 02/20/2024 5:02 PM CLINICAL INDICATION:Female, 83 years old with history of left rib pain, fall; [facility] COMPARISON: TECHNIQUE: Frontal chest x-ray with multiple views left ribs. FINDINGS: Generalized osteopenia. There are cartilaginous calcifications of the rib cage. There is no clearly a cute displaced or deforming rib fracture identified. Cardiomediastinal silhouette appears within normal limits. Heart size upper normal. Mildly tortuous p artially calcified aorta. Mildly coarsened appearance of the lung markings likely chronic changes. There is no focal consolidat ion, pleural effusion, or pneumothorax demonstrated. Mild degenerative changes in the shoulders and spine. Surgical clips right upper quadrant likely from cholecystectomy. If there is persistent concern, CT may be obtained for greater sensitivity. IMPRESSION: 1. No definite displaced or deforming rib fracture. 2. No acute intrathoracic abnormality.
[2024-02-20 18:12] VITALS: BP 143/79; PULSE 79; RESP 18
== END 2024-02-20 18:12 | disposition home or self-care (01) ==
LOC: EC 15:19
DX: S63.601A Unspecified sprain of right thumb, initial encounter (principal); S20.212A Contusion of left front wall of thorax, initial encounter; Z87.891 Personal history of nicotine dependence; Z88.0 Allergy status to penicillin; W01.198A Fall on same level from slipping, tripping and stumbling with subsequent striking against other object, initial encounter
CPT/HCPCS: 99283; 99284; 99285

== ENCOUNTER 2025-02-19 23:49 | Inpatient (IN) | payer MEDICARE ==
[2025-02-20] MEDS: HEPARIN SODIUM 1,000 UN/ML (10ML VL) IV ONE ×2 (00:10→00:54)
[2025-02-20] MEDS: MORPHINE SULFATE 2 MG/ML SYRINGE IVP STA (00:12)
[2025-02-20] MEDS: ONDANSETRON 4 MG/2 ML VIAL IVP STA (00:13)
[2025-02-20] MEDS: NITROGLYCERIN OINT 1 INCH/GM PACKET TOPICAL STA (00:13)
[2025-02-20] MEDS: SODIUM CHLORIDE 0.9% 500 ML 500 ML IV STA (00:15)
[2025-02-20 00:17] LABS: Basophils % (A) 0.8 %; Eosinophils # (A) 0.49 10*3/uL (0.04-0.35); HCT 42.1 % (37.2-46.3); HGB 13.7 g/dL (12.0-15.0); Lymphocytes # (A) 3.01 10*3/uL (0.90-5.00); Lymphocytes % (A) 24.4 %; MCH 27.8 pg (27.0-32.0); MCHC 32.5 g/dL (32.0-37.0); MCV 85.6 fL (80.0-97.0); Monocytes # (A) 1.48 10*3/uL (0.20-1.00); Neutrophils # (A) 7.22 10*3/uL (1.80-7.70); Neutrophils % (A) 58.5 %; Platelet Count 359 10*3/uL (140-440); RBC 4.92 10*6/uL (4.10-5.20); RDW 13.8 % (11.5-14.5); WBC 12.34 10*3/uL (4.50-10.00)
--- NOTE | 2025-02-20 00:19 | ED ---
General Adult HPI - General Chief complaint: Chest Pain Stated complaint: chest pain Time Seen by Provider: 02/19/25 23:55 Source: patient, EMS Mode of arrival: EMS - History of Present Illness Initial comments: Patient is an 84-year-old female past medical history of CAD, prior CVA, hyperlipidemia, PE presenting today for chest pressure. History is limited by acuity of condition. Patient reports chest discomfort throughout the day but this evening worsening chest pressure like someone "hit her in the chest with a hammer". Denies radiation to the back, jaw or down her arms. EMS provided patient with sublingual nitro, 324 aspirin and Zofran was 50 mcg fentanyl. Patient endorsed improvement of pain with nitro however states pain is currently 9 out of 10. Of note paramedics report that patient's pulse ox did decrease into the 80s after providing her with nitro so they placed her on 2 L oxygen nasal cannula. Patient herself denies known medical history and states has not had heart attack in the past. She is a non-smoker. Denies history of diabetes, hypertension or hyperlipidemia. - Related Data Home Medications Medication Instructions Recorded Confirmed Citalopram Hydrobromide [CeleXA] 20 mg PO DAILY 02/10/14 02/20/25 Mirtazapine [Remeron] 15 mg PO HS 03/17/17 02/20/25 Previous Rx's Medication Instructions Recorded Ticagrelor [Brilinta] 90 mg PO BID 90 Days #180 tablet 02/20/25 Aspirin 81 mg PO DAILY tab 02/22/25 Isosorbide Mononitrate ER [Imdur] 30 mg PO DAILY 2 Days #90 tab 02/22/25 Levothyroxine Sodium [Synthroid] 100 mcg PO DAILY@30 30 Days #30 02/22/25 tab Metoprolol Tartrate [Lopressor] 25 mg PO BID #180 tab 02/22/25 Nitroglycerin Sl Tabs [Nitrostat] 0.4 mg SUBLINGUAL Q5M PRN 30 Days 02/22/25 #25 tab Nystatin 100,000 Unit/gm Powd 1 applic TOPICAL BID 10 Days #100 02/22/25 [Mycostatin Powder] each amLODIPine [Norvasc] 5 mg PO DAILY 30 Days #30 tab 02/22/25 Apixaban [Eliquis] 5 mg PO BID 30 Days #60 tab 02/23/25 Ciprofloxacin HCl [Cipro] 500 mg PO BID 7 Days #14 tab 02/23/25 Allergies Allergy/AdvReac Type Severity Reaction Status Date / Time Penicillins Allergy Rash/Hives Verified 02/19/25 23:57 Review of Systems ROS Statement: Those systems with pertinent positive or pertinent negative responses have been documented in the HPI. ROS Other: All systems not noted in ROS Statement are negative. Past Medical History Past Medical History: Coronary Artery Disease (CAD), Chest Pain / Angina, COPD, CVA/TIA, Hyperlipidemia, Pulmonary Embolus (PE) Additional Past Medical History / Comment(s): Past shing[place] TIA 06/2018, [facility] History of Any Multi-Drug Resistant Organisms: None Reported Past Surgical History: Cholecystectomy, Heart Catheterization, Tonsillectomy Additional Past Surgical History / Comment(s): LOWER MANDIBULAR OSTEOTOMY BENIGN BREAST BIOPSY RIGHT, BILATERAL CATARACT REMOVAL/LENS IMPLANTS, THYROIDECTOMY AT AGE 18 Past Anesthesia/Blood Transfusion Reactions: No Reported Reaction Past Psychological History: Depression Smoking Status: Former smoker - Past Family History Father History Unknown: Yes Mother Family Medical History: Myocardial Infarction ([place]) Additional Family Medical History / Comment(s): Mother of a MA in her 80s. General Exam - General Exam Comments Initial Comments: PE: CONSTITUTIONAL: Ill-appearing, mildly tachypneic SKIN: Cool, dry, no jaundice, hives or petechiae EYES: Pupils are equally round, extraocular movements intact without nystagmus, clear conjunctiva, non-icteric sclera HENT: Normocephalic, atraumatic, moist mucus membranes, oropharynx clear without exudates NECK: , Full range of motion, normal appearance PULMONARY: Clear to auscultation without wheezes, rhonchi, or rales, decreased excursion, no accessory muscle use and no stridor CARDIOVASCULAR: Regular rate, rhythm, normal S1 and S2. +S3, No appreciated murmurs, or rubs Strong and equal 2+ radial and DP pulses with intact distal perfusion. No lower extremity edema GASTROINTESTINAL: Soft, active bowel sounds throughout, non-tender, non- distended, no palpable masses, no rebound or guarding. No hepatosplenomegaly MUSCULOSKELETAL: Extremities have no gross deformity, no edema, redness, or swelling. No calf swelling NEUROLOGIC:_a/o x 3, GCS 15, normal mentation and speech. Moves all extremities x 4 without motor or sensory deficit PSYCHIATRIC:_normal mood and affect, thought process is clear and linear Course Vital Signs 02/19/25 02/20/25 02/20/25 23:51 00:00 00:05 Temperature 98.2 F Pulse Rate 67 81 80 Respiratory 18 18 18 Rate Blood Pressure 106/77 96/83 114/74 O2 Sat by Pulse 95 96 Oximetry 02/20/25 02/20/25 02/20/25 00:10 00:15 00:20 Temperature Pulse Rate 81 78 79 Respiratory 16 16 18 Rate Blood Pressure 103/66 108/73 103/73 O2 Sat by Pulse 92 L 94 L 94 L Oximetry 02/20/25 02/20/25 02/20/25 00:25 00:30 00:35 Temperature Pulse Rate 80 78 79 Respiratory 16 16 18 Rate Blood Pressure 108/72 105/70 119/71 O2 Sat by Pulse 95 94 L 95 Oximetry EKG Findings - EKG Comments: EKG Findings:: Sinus rhythm, rate 82 bpm HI interval 138 ms QT/QTc 367/405, left axis deviation, [address] elevation in lead III, questionable half millimeter lead aVF, T wave inversions lead I and aVL Medical Decision Making - Medical Decision Making Was pt. sent in by a medical professional or institution (, PA, ELECT[employer] BEAM WELDER, urgent care, hospital, or long term...) When possible be specific @ -No Did you speak to anyone other than the patient for history (EMS, parent, family, police, friend...)? What history was obtained from this source Spoke with paramedics, state they noted possible STEMI on their rhythm strip in the field, ST elevation in lead III, provided patient with sublingual nitro, 324 mg aspirin and Zofran as well as 50 mcg of fentanyl Did you review nursing and triage notes (agree or disagree)? Why? @ -I reviewed nursing and triage notes Were old charts reviewed (outside hosp., previous admission, EMS record, old EKG, old radiological studies, urgent care reports/EKG's, long term records)? Report findings @ -Medical records reviewed-reviewed patient's prior EKG from 2019, patient's ST elevations and T wave inversions are new from prior EKG Differential Diagnosis (chest pain, altered mental status, abdominal pain women, abdominal pain men, vaginal bleeding, weakness, fever, dyspnea, syncope, headache, dizziness, GI bleed, back pain, seizure, CVA, palpatations, mental health, musculoskeletal)? Differential Chest Pain: Stable Angina, Unstable Angina, STEMI, NSTEMI Aortic Dissection, pericarditis, pleurisy, chostochondirits, Pneumothorax, Musculoskeletal, Esophageal Spasm GERD, Cholecystitis, Pancreatitis, Zoster, this is not meant to be an all- inclusive list. EKG interpreted by me (3pts min.). @ -As above X-rays interpreted by me (1pt min.). @ -Personally reviewed chest x-ray, significant for cardiomegaly, no widened mediastinum, elevated right-sided diaphragm CT interpreted by me (1pt min.). @ -None done U/S interpreted by me (1pt. min.). @ -None done What testing was considered but not performed or refused? (CT, X-rays, U/S, labs)? Why? @ -None What meds were considered but not given or refused? Why? @Additional sublingual nitro was ordered however patient's blood pressure was borderline on arrival, so additional sublingual nitroglycerin was avoided in order to avoid precipitating hypotension Did you discuss the management of the patient with other professionals (professionals i.e. , PA, ELECT[employer] BE[employer] WELDER, lab, RT, psych nurse, social service liaison, waiter/waitress tavern, teacher, chairman & chief executive officer, field nurse case manager)? Give summary @Case was discussed with Dr. Chiang, cardiology, agreed with Needle Grinder activation Was smoking cessation discussed for >3mins.? @ -No Was critical care preformed (if so, how long)? Yes 30 minutes Were there social determinants of health that impacted care today? How? (Homelessness, low income, unemployed, alcoholism, drug addiction, transportation, low edu. Level, literacy, decrease access to med. care, alf, rehab)? @ -No Was there de-escalation of care discussed even if they declined (Discuss DNR or withdrawal of care, Hospice)? @ -No What co-morbidities impacted this encounter? (DM, HTN, Smoking, COPD, CAD, Ca ncer, CVA, ARF, Chemo, Hep., AIDS, mental health diagnosis, sleep apnea, morbid obesity)? Hyperlipidemia, CAD, prior CVA Was patient admitted / discharged? Hospital course, mention meds given and rout e, prescriptions, significant lab abnormalities, going to OR and other pertinent info. @Admission- this is an 84-year-old female presenting today for chest pressure- like chest pain. Patient evaluated on arrival. STEMI alert was activated due to ST elevation in lead III with reciprocal T wave inversions. Patient having ongoing chest pain that is concerning for anginal symptoms. Case was discussed with Dr. Chiang who reviewed patient's EKG and agreed with plan for activation of Needle Grinder. Heparin, Nitropaste, morphine and IV fluids were ordered. I updated patient to plan of care, to which she is agreeable. Case discussed with Dr. Briones who kindly accepted pt for admission. Undiagnosed new problem with uncertain prognosis? @ -No Drug Therapy requiring intensive monitoring for toxicity (Heparin, Nitro, Insulin, Cardizem)? @ -No Were any procedures done? @ -No Diagnosis/symptom? @STEMI Acute, or Chronic, or Acute on Chronic? Acute Uncomplicated (without systemic symptoms) or Complicated (systemic symptoms)? @ complicated Side effects of treatment? @ -No Exacerbation, Progression, or Severe Exacerbation? @ -No Poses a threat to life or bodily function? How? (Chest pain, [place], [place], pneumonia, PE, COPD, DKA, ARF, appy, cholecystitis, CVA, Diverticulitis, Homicidal, Suicidal, threat to staff... and all critical care pts) @yes - Lab Data Result diagrams: 02/22/25 05:37 02/22/25 05:37 Lab Results 02/20/25 02/20/25 02/20/25 Range/Units 00:01 00:01 00:01 WBC 12.34 H (4.50-10.00) 10*3/uL RBC 4.92 (4.10-5.20) 10*6/uL Hgb 13.7 (12.0-15.0) g/dL Hct 42.1 (37.2-46.3) % MCV 85.6 (80.0-97.0) fL MCH 27.8 (27.0-32.0) pg MCHC 32.5 (32.0-37.0) g/dL Plt Count 359 (140-440) 10*3/uL MPV 10.0 (9.5-12.2) fL Immature Gran % (Auto) 0.3 % Neutrophils % 58.5 % Lymphocytes % 24.4 % Monocytes % 12.0 % Eosinophils % 4.0 % Basophils % 0.8 % Immature Gran # 0.04 (0.00-0.04) 10*3/uL Neutrophils # 7.22 (1.80-7.70) 10*3/uL Lymphocytes # 3.01 (0.90-5.00) 10*3/uL Monocytes # 1.48 H (0.20-1.00) 10*3/uL Eosinophils # 0.49 H (0.04-0.35) 10*3/uL Basophils # 0.10 (0.00-0.10) 10*3/uL PT 10.6 (10.0-12.5) sec INR 1.0 (<1.2) APTT 22.3 (22.0-30.0) sec D-Dimer 0.40 (<0.60) mg/L FEU Sodium 137 (137-145) mmol/L Potassium 4.0 (3.5-5.1) mmol/L Chloride 104 (98-107) mmol/L Carbon Dioxide 23 (22-30) mmol/L Anion Gap 10 mmol/L BUN 18 H (7-17) mg/dL Creatinine 0.78 (0.52-1.04) mg/dL Est GFR (CKD-EPI)AfAm 82 (>60 ml/min/1.73 sqM) Est GFR (CKD-EPI)NonAf 71 (>60 ml/min/1.73 sqM) Glucose 139 H (74-99) mg/dL Calcium 8.6 (8.4-10.2) mg/dL Magnesium (1.6-2.3) mg/dL Total Bilirubin 0.7 (0.2-1.3) mg/dL AST 23 (14-36) U/L ALT 11 (4-34) U/L Alkaline Phosphatase 58 (38-126) U/L Troponin I (0.000-0.034) ng/mL NT-Pro-B Natriuret Pep pg/mL Total Protein 6.1 L (6.3-8.2) g/dL Albumin 3.5 (3.5-5.0) g/dL Triglycerides (0.00-149.00) mg/dL Cholesterol (0.00-200.00) mg/dL LDL Cholesterol, Calc (0.0-131.0) mg/dL VLDL Cholesterol, Calc (5.00-40.00) mg/dL HDL Cholesterol (40.00-60.00) mg/dL Cholesterol/HDL Ratio Ratio TSH (0.465-4.680) mIU/L Free T4 02/20/25 02/20/25 02/20/25 Range/Units 00:01 00:01 00:01 WBC (4.50-10.00) 10*3/uL RBC (4.10-5.20) 10*6/uL Hgb (12.0-15.0) g/dL Hct (37.2-46.3) % MCV (80.0-97.0) fL MCH (27.0-32.0) pg MCHC (32.0-37.0) g/dL Plt Count (140-440) 10*3/uL MPV (9.5-12.2) fL Immature Gran % (Auto) % Neutrophils % % Lymphocytes % % Monocytes % % Eosinophils % % Basophils % % Immature Gran # (0.00-0.04) 10*3/uL Neutrophils # (1.80-7.70) 10*3/uL Lymphocytes # (0.90-5.00) 10*3/uL Monocytes # (0.20-1.00) 10*3/uL Eosinophils # (0.04-0.35) 10*3/uL Basophils # (0.00-0.10) 10*3/uL PT (10.0-12.5) sec INR (<1.2) APTT (22.0-30.0) sec D-Dimer (<0.60) mg/L FEU Sodium (137-145) mmol/L Potassium (3.5-5.1) mmol/L Chloride (98-107) mmol/L Carbon Dioxide (22-30) mmol/L Anion Gap mmol/L BUN (7-17) mg/dL Creatinine (0.52-1.04) mg/dL Est GFR (CKD-EPI)AfAm (>60 ml/min/1.73 sqM) Est GFR (CKD-EPI)NonAf (>60 ml/min/1.73 sqM) Glucose (74-99) mg/dL Calcium (8.4-10.2) mg/dL Magnesium 1.9 (1.6-2.3) mg/dL Total Bilirubin (0.2-1.3) mg/dL AST (14-36) U/L ALT (4-34) U/L Alkaline Phosphatase (38-126) U/L Troponin I 0.046 H* (0.000-0.034) ng/mL NT-Pro-B Natriuret Pep 496 pg/mL Total Protein (6.3-8.2) g/dL Albumin (3.5-5.0) g/dL Triglycerides 111.00 (0.00-149.00) mg/dL Cholesterol 159.00 (0.00-200.00) mg/dL LDL Cholesterol, Calc 99.3 (0.0-131.0) mg/dL VLDL Cholesterol, Calc 22.20 (5.00-40.00) mg/dL HDL Cholesterol 37.50 L (40.00-60.00) mg/dL Cholesterol/HDL Ratio 4.24 Ratio TSH 6.880 H (0.465-4.680) mIU/L Free T4 Cancelled 1.60 Disposition Clinical Impression: ST elevation myocardial infarction (STEMI) Disposition: ADMITTED IP TO THIS HOSP Condition: Stable
[2025-02-20] MEDS ORDERED: Potassium Replacement Protocol 1 EACH MISC MISCELLANE PRN (00:23)
[2025-02-20] MEDS ORDERED: Phosphorus Replacement Protoco 1 EACH MISC MISCELLANE PRN (00:23)
[2025-02-20] MEDS ORDERED: NALOXONE 0.4 MG/ML 1 ML VIAL IV PRN (00:23)
[2025-02-20] MEDS ORDERED: Magnesium Replacement Protocol 1 EACH MISC MISCELLANE PRN (00:23)
[2025-02-20] MEDS ORDERED: MORPHINE SULFATE 4 MG/ML SYRINGE IV PRN (00:23)
[2025-02-20] MEDS ORDERED: NITROGLYCERIN SL TABS 0.4 MG TAB SUBLINGUAL PRN (00:26)
[2025-02-20] MEDS: ATORVASTATIN 80 MG TAB PO STA (00:28)
[2025-02-20 00:33] LABS: ALT 11 U/L (4-34); AST 23 U/L (14-36); African American GFR (CKD) 82 (>60 ml/min/1.73 sqM); Albumin 3.5 g/dL (3.5-5.0); Alkaline Phosphatase 58 U/L (38-126); Anion Gap 10 mmol/L; Blood Urea Nitrogen 18 mg/dL (7-17); Calcium 8.6 mg/dL (8.4-10.2); Carbon Dioxide 23 mmol/L (22-30); Chloride 104 mmol/L (98-107); Glucose 139 mg/dL (74-99); Non-African American GFR(CKD) 71 (>60 ml/min/1.73 sqM); Sodium 137 mmol/L (137-145); Total Bilirubin 0.7 mg/dL (0.2-1.3); Total Protein 6.1 g/dL (6.3-8.2)
[2025-02-20] MEDS: IV FLUID CONTINUATION 1,000 ML IV ONE (00:37)
[2025-02-20 00:39] LABS: Partial Thromboplastin Time 22.3 sec (22.0-30.0); Prothrombin Time 10.6 sec (10.0-12.5)
--- NOTE | 2025-02-20 00:42 | P.CRDCN ---
History of Present Illness Consult date: 02/20/25 History of present illness: HISTORY OF PRESENTING ILLNESS: 84-year-old female presented to the [facility] because of substernal chest pressure that started at the rest. This started around 10 PM today. She took some aspirin at home but had upset stomach and with no resolution of chest pain symptoms therefore they presented to the ER. On admission to the ER there was concern of possible ST elevations inferior lead involving 2 3 aVF with some reciprocal changes in 1 and aVL. For the STEMI was activated Patient denies any cancers bleeding diathesis She does have a prior history of TIA/CVA She does have history of emphysema Denies any prior cardiovascular history Denies any smoking drug use recreational use or worn use at this time. Vitals are stable No signs of cardiogenic shock at this time Bedside echo showed preserved LVEF of around 50 to 55% moderate LVH REVIEW OF SYSTEMS: 14 point review of system is negative except what is mentioned above in HPI. PHYSICAL EXAMINATION: Neck: Brisk carotid upstroke, no jugular venous distention. Lungs: Clear to auscultation. Heart: Regular rate and rhythm, S1-S2, , no murmur or rub. Abdomen: Soft nontender, positive bowel sounds. Extremities: No edema, intact distal pulses. Neuro: Alert, oritented, no focal deficits. Detailed neuro exam was not performed. ASSESSMENT: # Inferior STEMI # Morbid obesity # History of TIA/ CVA # COPD with emphysema PLAN: Plan for emergent cardiac catheterization Further recommendations to follow Mahad Chiang MD, FACC, RPVI Thank you for allowing [facility] to participate in this patient's care. Feel free to reach out in case of any followup questions. Past Medical History Past Medical History: Coronary Artery Disease (CAD), Chest Pain / Angina, COPD, CVA/TIA, Hyperlipidemia, Pulmonary Embolus (PE) Additional Past Medical History / Comment(s): Past shingelles, TIA 06/2018, [place] History of Any Multi-Drug Resistant Organisms: None Reported Past Surgical History: Cholecystectomy, Heart Catheterization, Tonsillectomy Additional Past Surgical History / Comment(s): LOWER MANDIBULAR OSTEOTOMY BE NIGN BREAST BIOPSY RIGHT, BILATERAL CATARACT REMOVAL/LENS IMPLANTS, THYROIDECTOMY AT AGE 18 Past Anesthesia/Blood Transfusion Reactions: No Reported Reaction Past Psychological History: Depression Smoking Status: Former smoker - Past Family History Father History Unknown: Yes Mother Family Medical History: Myocardial Infarction ([place]) Additional Family Medical History / Comment(s): Mother of a [place] in her 80s. Medications and Allergies Home Medications Medication Instructions Recorded Confirmed Type Citalopram Hydrobromide [CeleXA] 20 mg PO DAILY 02/10/14 01/23/23 History Simvastatin [Zocor] 20 mg PO DAILY 02/10/14 01/23/23 History Mirtazapine [Remeron] 15 mg PO HS 03/17/17 01/23/23 History Albuterol Inhaler [Ventolin Hfa 2 puff INHALATION RT-QID PRN 06/30/18 01/23/23 History Inhaler] Levothyroxine Sodium [Synthroid] 88 mcg PO DAILY 06/30/18 01/23/23 History Clopidogrel [Plavix] 75 mg PO DAILY #30 tab 07/02/18 01/23/23 Rx amLODIPine [Norvasc] 5 mg PO DAILY #30 tab 07/02/18 01/23/23 Rx Budesonide/Formoterol Fumarate 2 puff INHALATION RT-BID 01/07/19 01/23/23 History [Symbicort 80-4.5 Mcg Inhaler] predniSONE 10 mg PO BID 3 Days #6 tab 08/19/19 01/23/23 Rx dexAMETHasone [Decadron] 6 mg PO DAILY #6 tablet 10/08/21 01/23/23 Rx Cyclobenzaprine [Flexeril] 5 mg PO TID PRN #15 tablet 09/24/23 Rx dexAMETHasone [Decadron] 4 mg PO DAILY #6 tablet 09/24/23 Rx Cyclobenzaprine [Flexeril] 5 mg PO BID 5 Days #10 tablet 02/20/24 Rx Allergies Allergy/AdvReac Type Severity Reaction Status Date / Time Penicillins Allergy Rash/Hives Verified 02/19/25 23:57 Physical Exam Vitals: Vital Signs Temp Pulse Resp BP Pulse Ox 02/20/25 00:15 78 16 108/73 94 L 02/20/25 00:10 81 16 103/66 92 L 02/20/25 00:05 80 18 114/74 02/20/25 00:00 81 18 96/83 96 02/19/25 23:51 98.2 F 67 18 106/77 95 Intake and Output 02/19/25 02/19/25 02/20/25 14:59 22:59 06:59 Other: Weight 99.291 kg Results 02/20/25 00:01 02/20/25 00:01 Cardiac Enzymes 02/20/25 Range/Units 00:01 AST 23 (14-36) U/L CBC 02/20/25 Range/Units 00:01 WBC 12.34 H (4.50-10.00) 10*3/uL RBC 4.92 (4.10-5.20) 10*6/uL Hgb 13.7 (12.0-15.0) g/dL Hct 42.1 (37.2-46.3) % Plt Count 359 (140-440) 10*3/uL Comprehensive Metabolic Panel 02/20/25 Range/Units 00:01 Sodium 137 (137-145) mmol/L Potassium 4.0 (3.5-5.1) mmol/L Chloride 104 (98-107) mmol/L Carbon Dioxide 23 (22-30) mmol/L BUN 18 H (7-17) mg/dL Creatinine 0.78 (0.52-1.04) mg/dL Glucose 139 H (74-99) mg/dL Calcium 8.6 (8.4-10.2) mg/dL AST 23 (14-36) U/L ALT 11 (4-34) U/L Alkaline Phosphatase 58 (38-126) U/L Total Protein 6.1 L (6.3-8.2) g/dL Albumin 3.5 (3.5-5.0) g/dL Current Medications Generic Name Dose Route Start Last Admin Trade Name Freq PRN Reason Stop Dose Admin Acetaminophen 650 mg 02/20/25 00:23 Acetaminophen Tab 325 Mg Tab PO Q6HR PRN Fever and/or Mild Pain Alprazolam 0.25 mg 02/20/25 00:23 Alprazolam 0.25 Mg Tab PO Q8HR PRN Anxiety Aspirin 325 mg 02/21/25 09:00 Aspirin 325 Mg Tab PO DAILY [facility] Atorvastatin Calcium 80 mg 02/20/25 09:00 Atorvastatin 80 Mg Tab PO DAILY [facility] Docusate Sodium 100 mg 02/20/25 09:00 Docusate 100 Mg Cap PO BID [facility] Famotidine 20 mg 02/20/25 09:00 Famotidine 20 Mg Tab PO BID [facility] Heparin Sodium/Sodium Chloride 250 mls @ 9.929 mls/hr 02/20/25 00:15 25,000 unit/ Sodium Chloride IV .Q24H [facility] Protocol 10 UNITS/KG/HR Miscellaneous Information 1 each 02/20/25 00:23 Potassium Replacement Protocol 1 Each [facility] [place] DAILY PRN Per Protocol Miscellaneous Information 1 each 02/20/25 00:23 Magnesium Replacement Protocol 1 Each [facility] [place] DAILY PRN Per Protocol Protocol Miscellaneous Information 1 each 02/20/25 00:23 Phosphorus Replacement Protoco 1 Each [facility] [place] DAILY PRN Per Protocol Protocol Morphine Sulfate 2 mg 02/20/25 00:23 Morphine Sulfate 2 Mg/Ml Syringe IV Q2HR PRN Moderate Pain (Scale 4 to 6) Morphine Sulfate 4 mg 02/20/25 00:23 Morphine Sulfate 4 Mg/Ml Syringe IV Q3HR PRN Severe Pain (Scale 7 to 10) Naloxone HCl 0.2 mg 02/20/25 00:23 Naloxone 0.4 Mg/Ml 1 Ml Vial IV Q2M PRN Opioid Reversal Nitroglycerin 0.4 mg 02/20/25 00:26 Nitroglycerin Sl Tabs 0.4 Mg Tab SUBLINGUAL Q5M PRN Chest Pain Intake and Output 02/19/25 02/19/25 02/20/25 14:59 22:59 06:59 Other: Weight 99.291 kg Patient Weight 02/20/25 06:59 Weight 99.291 kg 02/20/25 00:01 02/20/25 00:01
[2025-02-20] MEDS: MIDAZOLAM HCL 10 MG/10 ML VIAL IVP ONE (00:45)
[2025-02-20] MEDS: fentaNYL (PF) 50 MCG/1 ML VIAL IVP ONE (00:45)
[2025-02-20] MEDS: LIDOCAINE 1% INJ 10MG/ML (20 ML MDV) SQ ONE (00:46)
[2025-02-20] MEDS: VERAPAMIL SYRINGE (5 MG/10 ML) INTRAARTER ONE (00:48)
[2025-02-20] MEDS: TICAGRELOR 90 MG TAB PO ONE (01:08)
--- NOTE | 2025-02-20 01:10 | P.CARDCATH ---
Date of Procedure: 02/20/25 Description of Procedure: DIAGNOSTIC CORONARY ANGIOGRAPHY and LEFT HEART CATH REPORT PROCEDURES PERFORMED: Left heart catheterization Selective coronary angiography Moderate conscious sedation 18 mins Right radial access INDICATION: Inferior STEMI BRIEF HPI: 84-year-old female present with report of substernal chest pressure. Admission EKG showed possible subtle ST elevations in inferior lead to 3 and aVF with reciprocal changes in 1 and aVL. For this she was taken to the [facility]. Her admission troponin was 0.04, BUN 18, creatinine 0.7, CONSENT: I have explained the procedural steps of above-mentioned procedures in layman's terms to the patient. I discussed the risks (including but not limited to stroke, emergent vascular or cardiac surgery or ), benefits and alternative therapies for the above-mentioned procedure. I discussed the risks of sedation/analgesia and blood product administration (if indicated). The patient has indicated understanding and acceptance of these risks. Conscious Sedation: Patient's ECG, heart rate, blood pressure, pulse oximetry were monitored throughout the duration of procedure under my direct supervision. [2] mg Versed and [50] mcg Fentanyl were used for induction of moderate conscious sedation. Total duration of moderate concious sedation [25] minutes. PROCEDURAL DETAILS: Patient was prepped and draped in sterile fashion. 1% lidocaine was infiltrated over the right radial artery. Right radial access was obtained via modified seldinger technique. [Ultrasound was used for radial access]. Medications: 5mg of verapamil was administed in the radial sheet. [ ] Units of Heparin was administed once the catheter reached the aortic root Wires and Catheter used: J wire was advanced under fluroscopy to get to aortic root. 5 saudi arabian JR 4 diagnostic catheter was utilized obtain left ventricular pressure and pressure gradint across aortic valve. 5 [place] JR 4 diagnostic catheter was used to selectively engage the right coronary ostium. 5 [place] JL 3.5 diagnostic catheter was utilized to selectively engage the left coronary ostium. Angiographic images were reviewed in detail. Catheter and wire were removed. Radial sheet was flushed. The right radial sheath plan for PCI of RCA TECHNICAL DETAILS Total radiation to 220 mGy Total fluoroscopy time 3.3 minutes Total contrast used: Isovue [60 ml] Complications: [none] Estimated Blood loss: less than 15 ml HEMODYNAMICS: Aortic Pressure: 115/60 mmHg. LV pressure: 118/5 mmHg. LVEDP 14 mmHg. There was no significant gradient across the aortic valve. SELECTIVE CORONARY ARTERIOGRAPHY: LEFT MAIN: The left main is short and large caliber vessel. It bifurcates into the LAD and circumflex. Left main appears angiographically normal. LEFT ANTERIOR DESCENDING CORONARY ARTERY: LAD is large caliber. Proximal LAD is patent with mild luminal regularities. Distal portion of proximal LAD gives rise to a large caliber diagonal branch which appears patent. LAD just at the bifurcation of diagonal 1 appears to have 50 to 60% bifurcation disease in Aguilar 0, 1, 1 fashion. Mid LAD appears angiographically patent with mild luminal irregularities. Mid LAD gives rise to small diagonal 2 branch. Diagonal 2 is patent. Distal LAD appears angiographically patent. LEFT CIRCUMFLEX CORONARY ARTERY: Codominant vessel. Large caliber. Proximal LCx has mild luminal irregularities. Mid LCx has 20 to 30% luminal disease. It gives rise to a large caliber OM 2 branch. Proximal portion of OM 2 has 30% central disease. It appears angiographically patent otherwise. After giving OM 2 mid LCx continues to become a large-caliber AV groove vessel which has mild luminal disease. Distal LCx gives small OM [address] They appear patent RIGHT CORONARY ARTERY: RCA appears to be the co-dominant vessel. Proximal RCA has mild luminal irregularities. Distal portion of proximal RCA has 100% thrombotic occlusion. RICARDO 0 flow IMPRESSION: 100% proximal RCA stenosis. RICARDO 0 flow 50% mid LAD artery diagonal 1 bifurcation, Aguilar 0, 1, 1 30% mid LCx and proximal OM 2 Normal LVEDP PLAN: PCI of RCA Further recommendations to follow Performing Physician Mahad Chiang MD, FACC, RPVI Thank you for allowing [facility] to participate in this patient's care. Feel free to reach out in case of any followup questions.
[2025-02-20] MEDS: PHENYLEPHRINE-0.9% NACL SYG 1,000 MCG/10 ML SYRINGE IVP ONE (01:22)
[2025-02-20] MEDS: DOPamine DRIP 800 MG in DEXTROSE/WATER 1 250ML.BAG IV ONE (01:22)
[2025-02-20] MEDS: ATROPINE SULFATE 0.1 MG/ML 10ML SYRINGE IV ONE (01:25)
[2025-02-20] MEDS: MORPHINE SULFATE 4 MG/ML SYRINGE IVP ONE (01:30)
[2025-02-20] MEDS: HYDROmorphone 0.5 MG/0.5 ML SYRINGE IVP ONE (01:34)
--- NOTE | 2025-02-20 01:34 | XR ---
EXAM: XR Chest, 1 View CLINICAL HISTORY: ITS.REASON XR Reason: STEMI TECHNIQUE: Frontal view of the chest. COMPARISON: 10/08/2021 FINDINGS: Lungs: Low lung volumes. No consolidation. Pleural space: No significant pleural effusion. No pneumothorax. Heart: No cardiomegaly or pulmonary vascular congestion. Bones/joints: No acute fracture. No dislocation. IMPRESSION: No acute findings in the chest.
[2025-02-20] MEDS ORDERED: RX INFO: IV CONTRAST WAS GIVEN 1 EACH MISC MISCELLANE PRN (01:40)
[2025-02-20] MEDS: NOREPINEPHRINE 4 MG in SODIUM CHLORIDE 0.9% 250 ML IV ONE (01:40)
[2025-02-20] MEDS ORDERED: ATROPINE SULFATE 0.1 MG/ML 10ML SYRINGE IV PRN (01:40)
[2025-02-20] MEDS ORDERED: MAG HYDROX/AL HYDROX/SIMETH 30 ML CUP PO PRN (01:40)
[2025-02-20] MEDS ORDERED: ZOLPIDEM 5 MG TAB PO PRN (01:40)
--- NOTE | 2025-02-20 01:46 | P.PCN ---
Date of Procedure: 02/20/25 Operative Findings: PERCUTANEOUS CORONARY INTERVENTION Performing physician Wilman Carrillo M.D. Procedure Performed: 1. Successful stenting of the mid RCA using 3.0 x 28 mm Xience drug-eluting stent which was postdilated using 4.0 mm NC balloon with an excellent angiographic results. 2. Adjunctive use of IVUS Indication: Acute inferior ST elevation myocardial infarction Approach: Right radial artery Complications: None Level of Sedation: Moderate with a sedation length of 33 minutes Procedure Discussion: Please refer to diagnostic heart catheterization was performed earlier today by Dr. Chiang. Anticoagulation was initiated using heparin with continuous ACT monitoring. Subsequently I did engage the RCA using JR4 guiding catheter. I did wired using a run-through wire. Predilatation was performed using 2.5 mm balloon before I did IVUS which showed a diameter in the mid RCA about 3 mm and proximally around 4 mm. I did deploy a 3.0 x 28 mm stent which was postdilated using 4 mm NC balloon with IVUS after that was performed showed good results. The procedure was completed with no complication technically but the patient was hypotensive. Fluid was open. After the stent we pinched an animal adventist of conus branch and the stent was across an acute marginal branch. The patient did not respond to dopamine but she response to norepinephrine and [place]- Synephrine. The procedure was performed and completed with no complication. The patient was having some discomfort during the procedure and she was given morphine and Dilaudid with improvement in the chest pain Postprocedure Management: 1. Dual antiplatelet therapy using aspirin and Brilinta for at least 12-month 2. Aggressive cholesterol control 3. Risk factors modification
[2025-02-20] MEDS: IOPAMIDOL-370 100ML BTL INJ ONE ×2 (01:49)
[2025-02-20] MEDS: SODIUM CHLORIDE 0.9% 1,000 ML IV ONE (01:50)
[2025-02-20] MEDS: NOREPINEPHRINE 4 MG in SODIUM CHLORIDE 0.9% 250 ML IV SCH (02:11)
[2025-02-20] MEDS: SODIUM CHLORIDE 0.9% 1,000 ML in EMPTY BAG 1 BAG IV SCH (02:14)
[2025-02-20 02:17] LABS: Glucose,Whole Blood 172 mg/dL (70-110)
[2025-02-20 03:02] LABS: Magnesium 1.9 mg/dL (1.6-2.3)
[2025-02-20 03:12] LABS: NT-Pro-B-Type Natriuretic Pept 496 pg/mL
[2025-02-20] MEDS: HEPARIN SOD,PORK IN 0.45% NACL 25,000 UNIT in 0.45% NACL 1 250ML.BAG IV SCH (03:54)
[2025-02-20 08:08] LABS: Chol/HDL Ratio 4.24 Ratio; LDL Cholesterol,Calculated 99.3 mg/dL (0.0-131.0)
[2025-02-20] MEDS: DOCUSATE 100 MG CAP PO SCH (09:22)
[2025-02-20] MEDS: TICAGRELOR 90 MG TAB PO SCH (09:23)
[2025-02-20] MEDS: FAMOTIDINE 20 MG TAB PO SCH (09:23)
[2025-02-20] MEDS: ATORVASTATIN 80 MG TAB PO SCH (09:23)
[2025-02-20] MEDS: METOPROLOL TARTRATE 12.5 MG TAB PO SCH (09:24)
[2025-02-20 10:58] VITALS: BMI 37.5
--- NOTE | 2025-02-20 11:46 | CA ---
Transthoracic Echo Report Name: Opal Mccord Age: 84 Gender: F : 1940 Exam Date: 02/20/2025 07:49 Exam Location: [facility] Ht (in): 64 Wt (lb): 218 Ordering Physician: Wilman Carrillo MD ([id number]) Attending/Referring Phys: Vascular Physician BRITTNI Procedure CPT: Indications: stemi Cardiac Hx: Stent placed to RCA Technical Quality: Good, Technically difficult study Contrast 1: Definity Total Dose (mL): 3 Contrast 2: Total Dose (mL): MEASUREMENTS (Male / Female) Normal Values 2D ECHO LV Diastolic Diameter PLAX 4.0 cm 4.2 - 5.9 / 3.9 - 5.3 cm LV Systolic Diameter PLAX 2.9 cm IVS Diastolic Thickness 1.1 cm 0.6 - 1.0 / 0.6 - 0.9 cm LVPW Diastolic Thickness 0.7 cm 0.6 - 1.0 / 0.6 - 0.9 cm LV Relative Wall Thickness 0.5 LVOT Diameter 2.1 cm LV Diastolic Volume MOD BP 70.9 cm??? 67 - 155 / 56 - 104 cm??? LV Systolic Volume MOD BP 25.0 cm??? 22 - 58 / 19 - 49 cm??? LV Ejection Fraction MOD BP 64.8 % >= 55 % LV Cardiac Index MOD BP 1574.8 cm???/min???m??? LV Diastolic Volume MOD 4C 62.8 cm??? LV Systolic Volume MOD 4C 22.9 cm??? LV Ejection Fraction MOD 4C 63.5 % LV Cardiac Index MOD 4C 1365.8 cm???/min???m??? LV Diastolic Length 4C 6.8 cm LV Systolic Length 4C 5.4 cm LV Diastolic Volume MOD 2C 78.5 cm??? LV Systolic Volume MOD 2C 27.9 cm??? LV Ejection Fraction MOD 2C 64.4 % LV Cardiac Index MOD 2C 1733.0 cm???/min???m??? LV Diastolic Length 2C 7.0 cm LV Systolic Length 2C 5.4 cm LA Volume 45.3 cm??? 18 - 58 / 22 - 52 cm??? LA Volume Index 21.0 cm???/m??? 16 - 28 cm???/m??? DOPPLER AV Peak Velocity 130.0 cm/s AV Peak Gradient 6.8 mmHg AV Mean Velocity 91.3 cm/s AV Mean Gradient 3.6 mmHg AV Velocity Time Integral 22.6 cm LVOT Peak Velocity 101.7 cm/s LVOT Peak Gradient 4.1 mmHg LVOT Velocity Time Integral 17.4 cm LVOT Stroke Volume 61.2 cm??? LVOT Stroke Volume Index 30.1 ml/m??? LVOT Cardiac Index 2095.3 cm???/min???m??? AV Area Cont Eq vti 2.7 cm??? AV Area Cont Eq pk 2.7 cm??? MV Area PHT 3.6 cm??? Mitral E Point Velocity 73.3 cm/s Mitral A Point Velocity 98.1 cm/s Mitral E to A Ratio 0.7 MV Deceleration Time 211.3 ms TR Peak Velocity 204.6 cm/s TR Peak Gradient 16.7 mmHg Right Atrial Pressure 5.0 mmHg Pulmonary Artery Systolic Pressu 21.7 mmHg Right Ventricular Systolic Press 21.7 mmHg PV Peak Velocity 83.9 cm/s PV Peak Gradient 2.8 mmHg FINDINGS Left Ventricle Left ventricular ejection fraction is estimated at 50-55 %. Mildly increased septal wall thickness. Mild inferior and inferoseptal hypokinesis.left ventricular cavity size normal. Right Ventricle Right ventricle not well visualized. Right ventricular systolic pressure within normal limits. Right Atrium Right atrium not well visualized. Left Atrium Normal left atrial size. Mitral Valve Structurally normal mitral valve. No mitral stenosis. No evidence for mitral valve prolapse. Mild mitral regurgitation. Aortic Valve Trileaflet aortic valve. Aortic valve sclerosis. No aortic stenosis. No aortic regurgitation. Tricuspid Valve Structurally normal tricuspid valve. No tricuspid stenosis. Mild tricuspid regurgitation. Pulmonic Valve Structurally normal pulmonic valve. No pulmonic regurgitation. No pulmonic stenosis. Pericardium No pericardial effusion. Prominent epicardial fat. Aorta Normal size aortic root and proximal ascending aorta. CONCLUSIONS Technically difficult study. Definity ECHO contrast used for improved visualization of the endocardial borders (inadequate visualization of two or more contiguous segments). Left ventricular systolic function borderline normal with mild inferior wall hypokinesis Mild mitral and tricuspid regurgitation. Previewed by: Dr. Suki Vivar MD (Electronically Signed) Final Date: 20 February 2025 11:46
[2025-02-20 14:57] LABS: ALT 71 U/L (4-34); AST 112 U/L (14-36); African American GFR (CKD) >90 (>60 ml/min/1.73 sqM); Albumin 3.6 g/dL (3.5-5.0); Alkaline Phosphatase 70 U/L (38-126); Anion Gap 9 mmol/L; Blood Urea Nitrogen 19 mg/dL (7-17); Calcium 8.5 mg/dL (8.4-10.2); Carbon Dioxide 23 mmol/L (22-30); Chloride 105 mmol/L (98-107); Glucose 87 mg/dL (74-99); Non-African American GFR(CKD) 80 (>60 ml/min/1.73 sqM); Potassium 4.2 mmol/L (3.5-5.1); Sodium 137 mmol/L (137-145); Total Protein 6.3 g/dL (6.3-8.2)
--- NOTE | 2025-02-20 16:53 | P.PN ---
Subjective Progress Note Date: 02/20/25 HPI: This lady early this morning presented with chest pain inferior ST elevation underwent stenting of RCA by Dr. Carrillo. She was seen by Dr. Chiang who performed coronary angiogram, RCA was stented result was good patient feels well there is also 50% mid LAD disease and normal LVEDP echo revealed fair systolic function with inferoseptal hypokinesia plan is to continue current medications and I will add a small dose of beta-zachariah and see how she does. Cath site is clean and dry with good pulse.. PHYSICIAL EXAM: Vitals are stable no JVD S1-S2 heard normally distant heart sounds no significant murmurs lungs reveal decent air entry abdomen is soft lower extremities reveal diminished pulses right radial site is clean and dry. IMPRESSION: 1. Status post inferior ST elevation MN with PCI of RCA doing well. 2. Benign hypertension. 3. Hypercholesterolemia. 4. Hypothyroidism. 5.. RECOMMENDATIONS: Continue current medications add small dose of metoprolol and see how she does. Possible transfer to telemetry tomorrow. Objective - Vital Signs Vital signs: Vital Signs Temp 97.7 F 02/20/25 16:00 Pulse 56 L 02/20/25 16:00 Resp 18 02/20/25 16:00 BP 122/60 02/20/25 16:00 Pulse Ox 92 L 02/20/25 16:00 FiO2 Intake & Output 02/19/25 02/20/25 02/20/25 18:59 06:59 18:59 Intake Total 1157.503 750 Output Total 0 150 Balance 1157.503 600 Weight 99.291 kg 99.291 kg Intake: IV 1150 750 Sodium Chloride 0.9% 1, 300 750 000 ml In Empty Bag 1 bag @ 75 mls/hr IV .[id number] [facility] Rx#:[id number] Intake, IV Titration 7.503 Amount Norepinephrine 4 mg In 7.503 Sodium Chloride 0.9% 250 ml @ 0.03 MCG/KG/MIN 11. 349 mls/hr IV .[id number] [facility] Rx#:[id number] Output: Urine 0 150 Other: Voiding Method External Catheter Bedside Commode # Bowel Movements 1 - Labs CBC & Chem 7: 02/20/25 00:01 02/20/25 14:22 Labs: Abnormal Lab Results - Last 24 Hours (Table) 06/06/0802/20/25 02/20/25 Range/Units 00:01 00:01 00:01 WBC 12.34 H (4.50-10.00) 10*3/uL Monocytes # 1.48 H (0.20-1.00) 10*3/uL Eosinophils # 0.49 H (0.04-0.35) 10*3/uL BUN 18 H (7-17) mg/dL Glucose 139 H (74-99) mg/dL POC Glucose (mg/dL) (70-110) mg/dL AST (14-36) U/L ALT (4-34) U/L Troponin I 0.046 H* (0.000-0.034) ng/mL Total Protein 6.1 L (6.3-8.2) g/dL HDL Cholesterol (40.00-60.00) mg/dL TSH (0.465-4.680) mIU/L 02/20/25 02/20/25 02/20/25 Range/Units 00:01 02:15 05:12 WBC (4.50-10.00) 10*3/uL Monocytes # (0.20-1.00) 10*3/uL Eosinophils # (0.04-0.35) 10*3/uL BUN (7-17) mg/dL Glucose (74-99) mg/dL POC Glucose (mg/dL) 172 H (70-110) mg/dL AST (14-36) U/L ALT (4-34) U/L Troponin I 1.530 H* (0.000-0.034) ng/mL Total Protein (6.3-8.2) g/dL HDL Cholesterol 37.50 L (40.00-60.00) mg/dL TSH 6.880 H (0.465-4.680) mIU/L 02/20/25 Range/Units 14:22 WBC (4.50-10.00) 10*3/uL Monocytes # (0.20-1.00) 10*3/uL Eosinophils # (0.04-0.35) 10*3/uL BUN 19 H (7-17) mg/dL Glucose (74-99) mg/dL POC Glucose (mg/dL) (70-110) mg/dL AST 112 H (14-36) U/L ALT 71 H (4-34) U/L Troponin I (0.000-0.034) ng/mL Total Protein (6.3-8.2) g/dL HDL Cholesterol (40.00-60.00) mg/dL TSH (0.465-4.680) mIU/L
--- NOTE | 2025-02-20 18:19 | P.HPIM ---
History of Present Illness H&P Date: 02/20/25 Opal Mccord, is an 84-year-old female, presented to [facility] emergency room with a chief complaint of chest pain She was evaluated in the emergency room vital examination on presentation revealed temperature of 98.2 pulse 67 respiration 18 blood pressure 106/77 pulse ox 95% on 2 L nasal cannula Laboratory data revealed white blood count 12.34 hemoglobin 13.7 platelet count 359 BUN 18 creatinine 0.78 troponin level 0.046 Testing in the emergency room revealed EKG revealed sinus rhythm with ST elevation in lead III. Patient was evaluated by cardiology and taken immediate ly from the emergency room to the [facility], she underwent cardiac catheterization with angioplasty and stent placement to the RCA. Patient was admitted to intensive care unit for further evaluation and treatment Past Medical History Past Medical History: Coronary Artery Disease (CAD), Chest Pain / Angina, COPD, CVA/TIA, Hyperlipidemia, Myocardial Infarction ([place]), Pulmonary Embolus (PE) Additional Past Medical History / Comment(s): Hx shingles, TIA 06/2018, hx PE Last Myocardial Infarction Date:: 02/19/2025 History of Any Multi-Drug Resistant Organisms: None Reported Past Surgical History: Cholecystectomy, Heart Catheterization, Heart Catheterization With Stent, Tonsillectomy Additional Past Surgical History / Comment(s): LOWER MANDIBULAR OSTEOTOMY, BENIGN BREAST BIOPSY RIGHT, BILATERAL CATARACT REMOVAL/LENS IMPLANTS, THYROID ECTOMY AT AGE 18 Past Anesthesia/Blood Transfusion Reactions: No Reported Reaction Date of Last Stent Placement:: 02/20/2025 Past Psychological History: Depression Additional Psychological History / Comment(s): Pt resides with her daughter. She is independent. Smoking Status: Former smoker Past Alcohol Use History: None Reported Additional Past Alcohol Use History / Comment(s): Pt started smoking in 9 and quit in 1982 Past Drug Use History: None Reported - Past Family History Father History Unknown: Yes Mother Family Medical History: Myocardial Infarction (WA) Additional Family Medical History / Comment(s): Mother of a [place] in her 80s. Medications and Allergies Home Medications Medication Instructions Recorded Confirmed Type Citalopram Hydrobromide [CeleXA] 20 mg PO DAILY 02/10/14 02/20/25 History Simvastatin [Zocor] 20 mg PO DAILY 02/10/14 02/20/25 History Mirtazapine [Remeron] 15 mg PO HS 03/17/17 02/20/25 History Levothyroxine Sodium [Synthroid] 88 mcg PO DAILY 06/30/18 02/20/25 History Clopidogrel [Plavix] 75 mg PO DAILY #30 tab 07/02/18 02/20/25 Rx Ticagrelor [Brilinta] 90 mg PO BID 90 Days #180 tablet 02/20/25 Rx amLODIPine [Norvasc] 7.5 mg PO DAILY 02/20/25 02/20/25 History Allergies Allergy/AdvReac Type Severity Reaction Status Date / Time Penicillins Allergy Rash/Hives Verified 02/19/25 23:57 Physical Exam Vitals: Vital Signs Temp Pulse Resp BP Pulse Ox 02/20/25 17:00 71 20 100/57 94 L 02/20/25 16:00 97.7 F 56 L 18 122/60 92 L 02/20/25 15:00 62 22 123/90 94 L 02/20/25 14:00 65 19 109/66 94 L 02/20/25 13:00 56 L 17 98/60 96 02/20/25 12:00 97.5 F L 64 28 H 119/68 95 02/20/25 11:00 64 24 102/73 96 02/20/25 10:00 67 18 101/63 96 02/20/25 09:00 71 20 117/76 96 02/20/25 08:13 96 02/20/25 08:00 97.7 F 75 16 119/74 96 02/20/25 07:00 70 10 L 109/57 95 02/20/25 06:00 73 12 106/80 95 02/20/25 05:00 73 13 112/71 95 02/20/25 04:00 98.0 F 79 13 112/62 96 02/20/25 03:40 76 18 112/62 88 L 02/20/25 03:30 79 10 L 129/74 91 L 02/20/25 03:20 74 16 129/74 92 L 02/20/25 03:10 75 10 L 129/74 84 L 02/20/25 03:00 78 27 H 123/90 89 L 02/20/25 02:50 78 16 123/69 88 L 02/20/25 02:40 81 16 141/72 90 L 02/20/25 02:30 88 23 149/84 87 L 02/20/25 02:20 104 H 7 L 90 L 02/20/25 02:13 97.7 F 88 27 H 86 L 02/20/25 00:35 79 18 119/71 95 02/20/25 00:30 78 16 105/70 94 L 02/20/25 00:25 80 16 108/72 95 02/20/25 00:20 79 18 103/73 94 L 02/20/25 00:15 78 16 108/73 94 L 02/20/25 00:10 81 16 103/66 92 L 02/20/25 00:05 80 18 114/74 02/20/25 00:00 81 18 96/83 96 02/19/25 23:51 98.2 F 67 18 106/77 95 Intake and Output 02/20/25 02/20/25 02/20/25 06:59 14:59 22:59 Intake Total 1157.503 600 225 Output Total 0 150 0 Balance 1157.503 450 225 Intake: IV 1150 600 225 Sodium Chloride 0.9% 1, 300 600 225 000 ml In Empty Bag 1 bag @ 75 mls/hr IV .[id number] [facility] Rx#:[id number] Intake, IV Titration 7.503 Amount Norepinephrine 4 mg In 7.503 Sodium Chloride 0.9% 250 ml @ 0.03 MCG/KG/MIN 11. 349 mls/hr IV .[id number] [facility] Rx#:[id number] Output: Urine 0 150 0 Other: Voiding Method External Catheter Bedside Commode Bedside Commode # Bowel Movements 1 Weight 99.291 kg 99.291 kg In general patient is alert and oriented x 3 in no distress HEENT head normocephalic and atraumatic Neck is supple no JVD no goiter no lymphadenopathy no carotid bruit Chest examination is clear to auscultation no crackles no wheezing Cardiac exam reveals regular heart sounds S1 and S2 no gallops no murmurs Abdomen is soft nontender no organomegaly with normal bowel sounds Extremity exam reveals no edema no cyanosis or clubbing Neurological examination reveals no gross focal deficits Results CBC & Chem 7: 02/20/25 00:01 02/20/25 14:22 Labs: Abnormal Lab Results - Last 24 Hours (Table) 02/20/25 02/20/25 02/20/25 Range/Units 00:01 00:01 00:01 WBC 12.34 H (4.50-10.00) 10*3/uL Monocytes # 1.48 H (0.20-1.00) 10*3/uL Eosinophils # 0.49 H (0.04-0.35) 10*3/uL BUN 18 H (7-17) mg/dL Glucose 139 H (74-99) mg/dL POC Glucose (mg/dL) (70-110) mg/dL AST (14-36) U/L ALT (4-34) U/L Troponin I 0.046 H* (0.000-0.034) ng/mL Total Protein 6.1 L (6.3-8.2) g/dL HDL Cholesterol (40.00-60.00) mg/dL TSH (0.465-4.680) mIU/L 02/20/25 02/20/25 02/20/25 Range/Units 00:01 02:15 05:12 WBC (4.50-10.00) 10*3/uL Monocytes # (0.20-1.00) 10*3/uL Eosinophils # (0.04-0.35) 10*3/uL BUN (7-17) mg/dL Glucose (74-99) mg/dL POC Glucose (mg/dL) 172 H (70-110) mg/dL AST (14-36) U/L ALT (4-34) U/L Troponin I 1.530 H* (0.000-0.034) ng/mL Total Protein (6.3-8.2) g/dL HDL Cholesterol 37.50 L (40.00-60.00) mg/dL TSH 6.880 H (0.465-4.680) mIU/L 02/20/25 Range/Units 14:22 WBC (4.50-10.00) 10*3/uL Monocytes # (0.20-1.00) 10*3/uL Eosinophils # (0.04-0.35) 10*3/uL BUN 19 H (7-17) mg/dL Glucose (74-99) mg/dL POC Glucose (mg/dL) (70-110) mg/dL AST 112 H (14-36) U/L ALT 71 H (4-34) U/L Troponin I (0.000-0.034) ng/mL Total Protein (6.3-8.2) g/dL HDL Cholesterol (40.00-60.00) mg/dL TSH (0.465-4.680) mIU/L Thrombosis Risk Factor Assmnt - Choose All That Apply Any of the Below Risk Factors Present?: Yes Each Factor Represents 1 point: Abnormal pulmonary function (COPD), Acute [place] Other Risk Factors: Yes Each Risk Factor Represents 3 Points: Age 75 years or older, History of DVT/PE Other congenital or acquired thrombophilia - If yes, enter type in comment: No Thrombosis Risk Factor Assessment Total Risk Factor Score: 8 Thrombosis Risk Factor Assessment Level: High Risk Assessment and Plan Plan: Acute inferior ST elevation myocardial infarction Underlying history of hypertension Underlying history of hyperlipidemia Evidence of hypothyroidism with elevated TSH on presentation At this time patient was seen and examined Home medications reviewed and reordered Intervention by cardiology reviewed and discussed with the patient Will add low-dose of Synthroid Will follow closely
[2025-02-20] MEDS: SODIUM CHLORIDE 0.9% 1,000 ML IV SCH (18:54)
[2025-02-20] MEDS: MIRTAZAPINE 15 MG TAB PO SCH (20:38)
[2025-02-21] MEDS: HALOPERIDOL LACTATE 5 MG/ML 1 ML VIAL IM STA (02:38)
[2025-02-21 05:16] LABS: Appearance,Urine Clear (Clear); Bacteria,Urine Occasional /hpf; Bilirubin,Urine Negative (Negative); Blood,Urine Negative (Negative); Color,Urine Colorless; Glucose,Urine (UA) Negative (Negative); Ketones,Urine Negative (Negative); Leukocyte Esterase,Urine Small (Negative); Mucus,Urine Rare /hpf; Nitrite,Urine Positive (Negative); Protein,Urine Negative (Negative); RBC,Urine <1 /hpf (0-5); Specific Gravity,Urine 1.008 (1.001-1.035); Squamous Epithelial Cell,Urine <1 /hpf (0-4); Urobilinogen,Urine <2.0 mg/dL (<2.0); WBC,Urine 5 /hpf (0-5)
[2025-02-21 06:04] LABS: Basophils # (A) 0.09 10*3/uL (0.00-0.10); Basophils % (A) 0.7 %; Eosinophils # (A) 0.33 10*3/uL (0.04-0.35); Eosinophils % (A) 2.4 %; HCT 39.9 % (37.2-46.3); HGB 13.1 g/dL (12.0-15.0); Lymphocytes # (A) 0.93 10*3/uL (0.90-5.00); Lymphocytes % (A) 6.7 %; MCH 28.7 pg (27.0-32.0); MCHC 32.8 g/dL (32.0-37.0); MCV 87.5 fL (80.0-97.0); Mean Platelet Volume 10.3 fL (9.5-12.2); Monocytes # (A) 1.11 10*3/uL (0.20-1.00); Neutrophils # (A) 11.26 10*3/uL (1.80-7.70); Neutrophils % (A) 81.6 %; Platelet Count 334 10*3/uL (140-440); RBC 4.56 10*6/uL (4.10-5.20); RDW 14.1 % (11.5-14.5)
[2025-02-21] MEDS: LEVOTHYROXINE 100 MCG TAB PO SCH (06:12)
[2025-02-21 06:26] LABS: ALT 53 U/L (4-34); AST 65 U/L (14-36); African American GFR (CKD) 87 (>60 ml/min/1.73 sqM); Albumin 3.5 g/dL (3.5-5.0); Alkaline Phosphatase 72 U/L (38-126); Anion Gap 6 mmol/L; Blood Urea Nitrogen 16 mg/dL (7-17); Calcium 8.2 mg/dL (8.4-10.2); Carbon Dioxide 26 mmol/L (22-30); Chloride 108 mmol/L (98-107); Glucose 106 mg/dL (74-99); Magnesium 1.8 mg/dL (1.6-2.3); Non-African American GFR(CKD) 76 (>60 ml/min/1.73 sqM); Potassium 3.9 mmol/L (3.5-5.1); Sodium 140 mmol/L (137-145); Total Bilirubin 1.2 mg/dL (0.2-1.3); Total Protein 6.1 g/dL (6.3-8.2)
[2025-02-21] MEDS ORDERED: LEVOTHYROXINE 25 MCG TAB PO SCH (06:30)
[2025-02-21] MEDS ORDERED: Potassium Replacement Protocol 1 EACH MISC MISCELLANE PRN (06:33)
[2025-02-21] MEDS ORDERED: Magnesium Replacement Protocol 1 EACH MISC MISCELLANE PRN (06:34)
[2025-02-21] MEDS: MAGNESIUM SULFATE-D5W PMX 1 GM in DEXTROSE/WATER 1 100ML.BAG IVPB ONE (06:44)
[2025-02-21] MEDS: POTASSIUM CHLORIDE ER 20 MEQ TAB.ER PO SCH (06:51)
[2025-02-21] MEDS ORDERED: ASPIRIN 325 MG TAB PO SCH (09:00)
[2025-02-21] MEDS: CITALOPRAM HYDROBROMIDE 20 MG TAB PO SCH (09:32)
[2025-02-21] MEDS: ASPIRIN 81 MG PO SCH (09:35)
[2025-02-21] MEDS: amLODIPine 5 MG TAB PO SCH (09:35)
--- NOTE | 2025-02-21 10:29 | P.PN ---
Subjective Progress Note Date: 02/21/25 Principal diagnosis: HPI: This lady suffered from inferior [place] underwent stenting of RCA. She had a spell of confusion yesterday but this morning she is perfectly lucid no chest pain hemodynamically stable echo revealed fairly well-preserved ejection fraction with inferior inferoseptal hypokinesia. Doing well overall plan is to continue current medical regimen increase activity moving to telemetry possible discharge tomorrow. PHYSICIAL EXAM: Vitals are stable no JVD S1-S2 heard normally short systolic murmur lungs are clear abdomen and lower EXTR exam is unremarkable. IMPRESSION: 1. S/p inferior [place] and PCI of RCA. 2. Hypertension. 3. Hypercholesterolemia. 4.. 5.. RECOMMENDATIONS: Continue current therapy increase activity transfer to telemetry and discharge in a.m.. HPI: This lady early this morning presented with chest pain inferior ST elevation underwent stenting of RCA by Dr. Carrillo. She was seen by Dr. Chiang who performed coronary angiogram, RCA was stented result was good patient feels well there is also 50% mid LAD disease and normal LVEDP echo revealed fair systolic function with inferoseptal hypokinesia plan is to continue current medications and I will add a small dose of beta-zachariah and see how she does. Cath site is clean and dry with good pulse.. PHYSICIAL EXAM: Vitals are stable no JVD S1-S2 heard normally distant heart sounds no significant murmurs lungs reveal decent air entry abdomen is soft lower extremities reveal diminished pulses right radial site is clean and dry. IMPRESSION: 1. Status post inferior ST elevation [place] with PCI of RCA doing well. 2. Benign hypertension. 3. Hypercholesterolemia. 4. Hypothyroidism. 5.. RECOMMENDATIONS: Continue current medications add small dose of metoprolol and see how she does. Possible transfer to telemetry tomorrow. Objective - Vital Signs Vital signs: Vital Signs Temp 97.9 F 02/21/25 08:00 Pulse 65 02/21/25 10:00 Resp 24 02/21/25 10:00 BP 139/109 02/21/25 10:00 Pulse Ox 97 02/21/25 10:00 FiO2 Intake & Output 02/20/25 02/21/25 02/21/25 18:59 06:59 18:59 Intake Total 975 950 425 Output Total 250 330 100 Balance 725 620 325 Weight 99.291 kg 97.8 kg Intake: IV 975 150 Sodium Chloride 0.9% 1, 150 000 ml @ 75 mls/hr IV . [id number] [facility] Rx#:[id number] Sodium Chloride 0.9% 1, 975 000 ml In Empty Bag 1 bag @ 75 mls/hr IV .[id number] [facility] Rx#:[id number] Intake, IV Titration 750 175 Amount Magnesium Sulfate-D5w Pmx 100 1 gm In Dextrose/Water 1 100ml.bag @ 100 mls/hr IVPB ONCE ONE Rx#: [id number] Sodium Chloride 0.9% 1, 750 75 000 ml @ 75 mls/hr IV . [id number] [facility] Rx#:[id number] Oral 200 100 Output: Urine 250 330 100 Other: Voiding Method Bedside Commode Toilet Toilet # Voids 1 1 # Bowel Movements 1 1 - Labs CBC & Chem 7: 02/21/25 05:34 02/21/25 05:34 Labs: Abnormal Lab Results - Last 24 Hours (Table) 02/20/25 02/21/25 02/21/25 Range/Units 14:22 03:27 05:34 WBC (4.50-10.00) 10*3/uL Immature Gran # (0.00-0.04) 10*3/uL Neutrophils # (1.80-7.70) 10*3/uL Monocytes # (0.20-1.00) 10*3/uL Chloride 108 H (98-107) mmol/L BUN 19 H (7-17) mg/dL Glucose 106 H (74-99) mg/dL Calcium 8.2 L (8.4-10.2) mg/dL AST 112 H 65 H (14-36) U/L ALT 71 H 53 H (4-34) U/L Total Protein 6.1 L (6.3-8.2) g/dL Urine Nitrite Positive H (Negative) Ur Leukocyte Esterase Small H (Negative) Urine Bacteria Occasional H (None) /hpf Urine Mucus Rare H (None) /hpf 02/21/25 Range/Units 05:34 WBC 13.80 H (4.50-10.00) 10*3/uL Immature Gran # 0.08 H (0.00-0.04) 10*3/uL Neutrophils # 11.26 H (1.80-7.70) 10*3/uL Monocytes # 1.11 H (0.20-1.00) 10*3/uL Chloride (98-107) mmol/L BUN (7-17) mg/dL Glucose (74-99) mg/dL Calcium (8.4-10.2) mg/dL AST (14-36) U/L ALT (4-34) U/L Total Protein (6.3-8.2) g/dL Urine Nitrite (Negative) Ur Leukocyte Esterase (Negative) Urine Bacteria (None) /hpf Urine Mucus (None) /hpf
--- NOTE | 2025-02-21 10:30 | P.PN ---
Subjective Progress Note Date: 02/21/25 Opal Mccord, is an 84-year-old female, presented to [facility] emergency room with a chief complaint of chest pain She was evaluated in the emergency room vital examination on presentation revealed temperature of 98.2 pulse 67 respiration 18 blood pressure 106/77 pulse ox 95% on 2 L nasal cannula Laboratory data revealed white blood count 12.34 hemoglobin 13.7 platelet count 359 BUN 18 creatinine 0.78 troponin level 0.046 Testing in the emergency room revealed EKG revealed sinus rhythm with ST elevation in lead III. Patient was evaluated by cardiology and taken immediately from the emergency room to the [employer], she underwent cardiac catheterization with angioplasty and stent placement to the RCA. Patient was admitted to intensive care unit for further evaluation and treatment On 02/21/2025 patient remains in the intensive care unit. Patient had episode of increased confusion and agitation throughout the night requiring Haldol. Patient still is confused this a.m. Will order head CT. Per cardiology will continue to monitor patient for the next 24 hours. Will also order urine culture. Patient denies shortness of breath. Patient is reporting occasional chest pain. Patient denies nausea vomiting or diarrhea. Patient denies any urinary burning or frequency Objective - Vital Signs Vital signs: Vital Signs Temp 97.9 F 02/21/25 08:00 Pulse 65 02/21/25 10:00 Resp 24 02/21/25 10:00 BP 139/109 02/21/25 10:00 Pulse Ox 97 02/21/25 10:00 FiO2 Intake & Output 02/20/25 02/21/25 02/21/25 18:59 06:59 18:59 Intake Total 975 950 425 Output Total 250 330 100 Balance 725 620 325 Weight 99.291 kg 97.8 kg Intake: IV 975 150 Sodium Chloride 0.9% 1, 150 000 ml @ 75 mls/hr IV . [id number] [facility] Rx#:[id number] Sodium Chloride 0.9% 1, 975 000 ml In Empty Bag 1 bag @ 75 mls/hr IV .[id number] [facility] Rx#:[id number] Intake, IV Titration 750 175 Amount Magnesium Sulfate-D5w Pmx 100 1 gm In Dextrose/Water 1 100ml.bag @ 100 mls/hr IVPB ONCE ONE Rx#: [id number] Sodium Chloride 0.9% 1, 750 75 000 ml @ 75 mls/hr IV . [id number] [facility] Rx#:[id number] Oral 200 100 Output: Urine 250 330 100 Other: Voiding Method Bedside Commode Toilet Toilet # Voids 1 1 # Bowel Movements 1 1 - Exam In general patient is alert and oriented x 3 in no distress HEENT head normocephalic and atraumatic Neck is supple no JVD no goiter no lymphadenopathy no carotid bruit Chest examination is clear to auscultation no crackles no wheezing Cardiac exam reveals regular heart sounds S1 and S2 no gallops no murmurs Abdomen is soft nontender no organomegaly with normal bowel sounds Extremity exam reveals no edema no cyanosis or clubbing Neurological examination reveals no gross focal deficits - Labs CBC & Chem 7: 02/21/25 05:34 02/21/25 05:34 Labs: Abnormal Lab Results - Last 24 Hours (Table) 02/20/25 02/21/25 02/21/25 Range/Units 14:22 03:27 05:34 WBC (4.50-10.00) 10*3/uL Immature Gran # (0.00-0.04) 10*3/uL Neutrophils # (1.80-7.70) 10*3/uL Monocytes # (0.20-1.00) 10*3/uL Chloride 108 H (98-107) mmol/L BUN 19 H (7-17) mg/dL Glucose 106 H (74-99) mg/dL Calcium 8.2 L (8.4-10.2) mg/dL AST 112 H 65 H (14-36) U/L ALT 71 H 53 H (4-34) U/L Total Protein 6.1 L (6.3-8.2) g/dL Urine Nitrite Positive H (Negative) Ur Leukocyte Esterase Small H (Negative) Urine Bacteria Occasional H (None) /hpf Urine Mucus Rare H (None) /hpf 02/21/25 Range/Units 05:34 WBC 13.80 H (4.50-10.00) 10*3/uL Immature Gran # 0.08 H (0.00-0.04) 10*3/uL Neutrophils # 11.26 H (1.80-7.70) 10*3/uL Monocytes # 1.11 H (0.20-1.00) 10*3/uL Chloride (98-107) mmol/L BUN (7-17) mg/dL Glucose (74-99) mg/dL Calcium (8.4-10.2) mg/dL AST (14-36) U/L ALT (4-34) U/L Total Protein (6.3-8.2) g/dL Urine Nitrite (Negative) Ur Leukocyte Esterase (Negative) Urine Bacteria (None) /hpf Urine Mucus (None) /hpf Assessment and Plan Plan: Acute inferior ST elevation myocardial infarction status post stent to the RCA Underlying history of hypertension Underlying history of hyperlipidemia Evidence of hypothyroidism with elevated TSH on presentation Altered mental status changes and increased confusion and agitation will order head CT and urine culture At this time patient was seen and examined Home medications reviewed and reordered Intervention by cardiology reviewed and discussed with the patient Will add low-dose of Synthroid Will follow closely
[2025-02-21 10:41] LABS: Chol/HDL Ratio 3.62 Ratio; LDL Cholesterol,Calculated 88.8 mg/dL (0.0-131.0)
[2025-02-21] MEDS: ACETAMINOPHEN TAB 325 MG TAB PO PRN (13:16)
--- NOTE | 2025-02-21 15:51 | CT ---
EXAMINATION TYPE: CT brain wo con DATE OF EXAM: 02/21/2025 COMPARISON: 06/30/2018 CLINICAL INDICATION: Female, 84 years old with history of AMS; PHH, AMS, early dementia CT DLP: 1141.4 mGycm Automated exposure control for dose reduction was used. Findings: The ventricles, basal cisterns and sulci over the convexities are mildly enlarged. There is moderate decreased density in the periventricular white matter consistent with chronic ischemic white matter d emyelination. There is no mass effect or shift of the midline structures. There is no acute intra or extra-axial hemorrhage. The posterior fossa including the brainstem, fourth ventricle and cerebellar pontine angles appear no rmal. Intraorbital contents appear normal and symmetric. Visualized paranasal sinuses and mastoid air cells are well aerated. The calvarium is intact. IMPRESSION: 1. No acute bleed or mass effect. 2. Stable mild senescent atrophy and mild to moderate chronic ischemic white matter changes as descri bed above. [facility], , 02/21/2025 3:49 PM
[2025-02-21] MEDS: NYSTATIN 100,000 UNIT/GM POWD 15 GM TOPICAL SCH (18:59)
[2025-02-21] MEDS ORDERED: NYSTATIN 100,000 UNIT/GM POWD 15 GM TOPICAL SCH (21:00)
[2025-02-21] MEDS: NITROGLYCERIN SL TABS 0.4 MG TAB SUBLINGUAL PRN (21:11)
[2025-02-21] MEDS: MORPHINE SULFATE 2 MG/ML SYRINGE IV PRN (21:41)
[2025-02-21] MEDS: QUEtiapine 25 MG TAB PO SCH (21:43)
[2025-02-21] MEDS: ALPRAZolam 0.25 MG TAB PO PRN (21:43)
[2025-02-22 06:54] LABS: Basophils # (A) 0.07 10*3/uL (0.00-0.10); Basophils % (A) 0.6 %; Eosinophils # (A) 0.35 10*3/uL (0.04-0.35); Eosinophils % (A) 3.2 %; HCT 41.4 % (37.2-46.3); HGB 13.9 g/dL (12.0-15.0); Lymphocytes # (A) 1.13 10*3/uL (0.90-5.00); Lymphocytes % (A) 10.4 %; MCH 28.5 pg (27.0-32.0); MCHC 33.6 g/dL (32.0-37.0); Mean Platelet Volume 10.4 fL (9.5-12.2); Monocytes # (A) 1.41 10*3/uL (0.20-1.00); Neutrophils # (A) 7.79 10*3/uL (1.80-7.70); Neutrophils % (A) 72.2 %; Platelet Count 187 10*3/uL (140-440); RBC 4.87 10*6/uL (4.10-5.20); RDW 14.2 % (11.5-14.5); WBC 10.82 10*3/uL (4.50-10.00)
[2025-02-22 07:07] LABS: ALT 38 U/L (4-34); AST 53 U/L (14-36); African American GFR (CKD) >90 (>60 ml/min/1.73 sqM); Albumin 3.3 g/dL (3.5-5.0); Albumin/Globulin Ratio 1.3; Alkaline Phosphatase 67 U/L (38-126); Anion Gap 6 mmol/L; Blood Urea Nitrogen 10 mg/dL (7-17); Calcium 8.3 mg/dL (8.4-10.2); Carbon Dioxide 22 mmol/L (22-30); Chloride 110 mmol/L (98-107); Globulin 2.5 g/dL; Glucose 85 mg/dL (74-99); Non-African American GFR(CKD) 81 (>60 ml/min/1.73 sqM); Potassium 3.7 mmol/L (3.5-5.1); Sodium 138 mmol/L (137-145); Total Bilirubin 1.5 mg/dL (0.2-1.3); Total Protein 5.8 g/dL (6.3-8.2)
[2025-02-22] MEDS: amLODIPine 5 MG TAB PO SCH (10:24)
[2025-02-22] MEDS: METOPROLOL TARTRATE 25 MG TAB PO SCH (10:24)
[2025-02-22] MEDS: ISOSORBIDE MONONITRATE ER 30 MG TAB.ER.24H PO SCH (10:35)
--- NOTE | 2025-02-22 11:47 | P.PN ---
Subjective Progress Note Date: 02/22/25 INTERVAL HISTORY: The patient is a 84-year-old female who presented with acute inferior wall TN. She underwent stenting of the RCA. Echocardiogram revealed borderline normal LV systolic function with an ejection fraction of 50 to 55% with mild MR and mild TR. Overall she is feeling fairly well. She has been having episodes of confusion primarily at night. Currently denies any chest discomfort has had mild brief episodes according to nursing staff. On my exam patient is resting comfortably in bed with family at bedside PHYSICAL EXAMINATION: HEART: Regular rate and rhythm S1, S2 normal. Systolic murmur LUNGS: Clear to auscultation. NECK: Supple. ABDOMEN: Soft, nontender nondistended EXTREMITIES: 1+ peripheral pulses. Right radial puncture site soft without hematoma, positive ecchymosis FINAL IMPRESSION: 1. STEMI status post stenting of the RCA. 2. Hypertension. 3. Hyperlipidemia. PLAN: From cardiology's perspective patient may be discharged home continue beta-zachariah, aspirin, Brilinta. Discontinue home dose of simvastatin and discharged home on atorvastatin 80 mg p.o. nightly. Will add isosorbide. She will follow-up in the office in about a week with Dr. Chiang. PRINTING AGENT note has been reviewed, I agree with a documented findings and plan of care. Patient was seen and examined. Objective - Vital Signs Vital signs: Vital Signs Temp 98.3 F 02/22/25 07:22 Pulse 67 02/22/25 07:22 Resp 16 02/22/25 08:00 BP 130/73 02/22/25 07:22 Pulse Ox 95 02/22/25 07:22 FiO2 Intake & Output 02/21/25 02/22/25 02/22/25 18:59 06:59 18:59 Intake Total 783 240 Output Total 100 Balance 683 240 Weight 95.8 kg Intake: IV 150 Sodium Chloride 0.9% 1, 150 000 ml @ 75 mls/hr IV . [id number] [facility] Rx#:[id number] Intake, IV Titration 175 Amount Magnesium Sulfate-D5w Pmx 100 1 gm In Dextrose/Water 1 100ml.bag @ 100 mls/hr IVPB ONCE ONE Rx#: [id number] Sodium Chloride 0.9% 1, 75 000 ml @ 75 mls/hr IV . [id number] [facility] Rx#:[id number] Oral 458 240 Output: Urine 100 Other: Voiding Method Toilet Toilet Toilet # Voids 2 3 1 # Bowel Movements 1 - Labs CBC & Chem 7: 02/22/25 05:37 02/22/25 05:37 Labs: Abnormal Lab Results - Last 24 Hours (Table) 02/22/25 02/22/25 Range/Units 05:37 05:37 WBC 10.82 H (4.50-10.00) 10*3/uL Immature Gran # 0.07 H (0.00-0.04) 10*3/uL Neutrophils # 7.79 H (1.80-7.70) 10*3/uL Monocytes # 1.41 H (0.20-1.00) 10*3/uL Chloride 110 H (98-107) mmol/L Calcium 8.3 L (8.4-10.2) mg/dL Total Bilirubin 1.5 H (0.2-1.3) mg/dL AST 53 H (14-36) U/L ALT 38 H (4-34) U/L Total Protein 5.8 L (6.3-8.2) g/dL Albumin 3.3 L (3.5-5.0) g/dL
--- NOTE | 2025-02-22 14:29 | P.DS ---
Providers Date of admission: 02/20/25 00:23 Expected date of discharge: 02/22/25 Attending physician: Michael Briones Consults: 02/20/25 00:23 Consult Physician Urgent Consulting Provider: Mahad Chiang Consult Reason/Comments: STEMI Do you want consulting provider notified?: Already Contacted 02/20/25 01:40 Consult Physician Routine Consulting Provider: [facility] Consult Reason/Comments: Post Interventional patient Do you want consulting provider notified?: Already Contacted Primary care physician: Belinda Sorto Hospital Course: Diagnosis on discharge: Acute inferior ST elevation myocardial infarction status post stent to the RCA Underlying history of hypertension Underlying history of hyperlipidemia Evidence of hypothyroidism with elevated TSH on presentation Altered mental status changes and increased confusion and agitation will order head CT and urine culture Hospital course: Opal Mccord, is an 84-year-old female, presented to [facility] emergency room with a chief complaint of chest pain She was evaluated in the emergency room vital examination on presentation revealed temperature of 98.2 pulse 67 respiration 18 blood pressure 106/77 pulse ox 95% on 2 L nasal cannula Laboratory data revealed white blood count 12.34 hemoglobin 13.7 platelet count 359 BUN 18 creatinine 0.78 troponin level 0.046 Testing in the emergency room revealed EKG revealed sinus rhythm with ST elevation in lead III. Patient was evaluated by cardiology and taken immediately from the emergency room to the [employer], she underwent cardiac catheterization with angioplasty and stent placement to the RCA. Patient was admitted to intensive care unit for further evaluation and treatment On 02/21/2025 patient remains in the intensive care unit. Patient had episode of increased confusion and agitation throughout the night requiring Haldol. Patient still is confused this a.m. Will order head CT. Per cardiology will continue to monitor patient for the next 24 hours. Will also order urine culture. Patient denies shortness of breath. Patient is reporting occasional chest pain. Patient denies nausea vomiting or diarrhea. Patient denies any urinary burning or frequency 02/22/2025 patient was seen and examined on the telemetry floor she is alert and oriented x 3 in no apparent distress there is no fever or chills no headache or dizziness no new episodes of chest pain no shortness of breath no cough no nausea or vomiting no abdominal pain no diarrhea no urinary symptoms. Was evaluated by cardiology and was cleared for discharge. Will be discharged to home today follow-up with Dr. Chambers within 1 week Patient Condition at Discharge: Stable Plan - Discharge Summary Discharge Rx Participant: No New Discharge Prescriptions: New Ticagrelor [Brilinta] 90 mg PO BID 90 Days #180 tablet Aspirin 81 mg PO DAILY tab Metoprolol Tartrate [Lopressor] 25 mg PO BID #180 tab Levothyroxine Sodium [Synthroid] 100 mcg PO DAILY@0630 30 Days #30 tab Isosorbide Mononitrate ER [Imdur] 30 mg PO DAILY 2 Days #90 tab Atorvastatin [Lipitor] 80 mg PO DAILY #90 tab Nystatin 100,000 Unit/gm Powd [Mycostatin Powder] 1 applic TOPICAL BID 10 Days #100 each Nitroglycerin Sl Tabs [Nitrostat] 0.4 mg SUBLINGUAL Q5M PRN 30 Days #25 tab PRN Reason: Chest Pain amLODIPine [Norvasc] 5 mg PO DAILY 30 Days #30 tab Continue Citalopram Hydrobromide [CeleXA] 20 mg PO DAILY Mirtazapine [Remeron] 15 mg PO HS Discontinued Simvastatin [Zocor] 20 mg PO DAILY Levothyroxine Sodium [Synthroid] 88 mcg PO DAILY Clopidogrel [Plavix] 75 mg PO DAILY #30 tab amLODIPine [Norvasc] 7.5 mg PO DAILY Discharge Medication List Citalopram Hydrobromide [CeleXA] 20 mg PO DAILY 02/10/14 [History] Mirtazapine [Remeron] 15 mg PO HS 03/17/17 [History] Ticagrelor [Brilinta] 90 mg PO BID 90 Days #180 tablet 02/20/25 [Rx] Aspirin 81 mg PO DAILY tab 02/22/25 [Rx] Atorvastatin [Lipitor] 80 mg PO DAILY #90 tab 02/22/25 [Rx] Isosorbide Mononitrate ER [Imdur] 30 mg PO DAILY 2 Days #90 tab 02/22/25 [Rx] Levothyroxine Sodium [Synthroid] 100 mcg PO DAILY@30 30 Days #30 tab 02/22/25 [Rx] Metoprolol Tartrate [Lopressor] 25 mg PO BID #180 tab 02/22/25 [Rx] Nitroglycerin Sl Tabs [Nitrostat] 0.4 mg SUBLINGUAL Q5M PRN 30 Days #25 tab 02/22/25 [Rx] Nystatin 100,000 Unit/gm Powd [Mycostatin Powder] 1 applic TOPICAL BID 10 Days #100 each 02/22/25 [Rx] amLODIPine [Norvasc] 5 mg PO DAILY 30 Days #30 tab 02/22/25 [Rx] Follow up Appointment(s)/Referral(s): Mahad Chiang MD [Medical Doctor] - 1 Week Belinda Sorto MD [Primary Care Provider] - 1-2 days Patient Instructions/Handouts: Heart Catheterization (DC)
[2025-02-23] MEDS: APIXABAN 5 MG TAB PO SCH (01:34)
[2025-02-23 07:56] VITALS: BP 121/75; PULSE 79; RESP 16; TEMP 98.9
--- NOTE | 2025-02-23 08:03 | US ---
EXAMINATION TYPE: US abdomen limited DATE OF EXAM: 02/23/2025 COMPARISON: NONE CLINICAL INDICATION: Female, 84 years old with history of Fever, elevated liver enzyme; no symptom, c holecystectomy TECHNIQUE: Grayscale and color Doppler imaging of the right upper quadrant was performed. FINDINGS: EXAM MEASUREMENTS: Liver Length: 15.3 cm Gallbladder Wall: Surgically absent CBD: 0.7 cm Right Kidney: not seen SCHOOL BUS DRIVER/TEACHER ASSISTANT NOTES:bowel gas, habitus and lack of patient cooperation effected exam Pancreas: obscured by bowel gas Liver: very limited views Gallbladder: Surgically absent Evidence for sonographic Noble's sign: no CBD: wnl Right Kidney: not seen due to reasons stated above IMPRESSION: No evidence for acute process. [facility], , 02/23/2025 8:00 AM
[2025-02-23] MEDS ORDERED: ENOXAPARIN 40 MG/0.4 ML SYRINGE SQ SCH (09:00)
--- NOTE | 2025-02-23 10:27 | P.DS ---
Providers Date of admission: 02/20/25 00:23 Expected date of discharge: 02/23/25 Attending physician: Michael Briones Consults: 02/20/25 00:23 Consult Physician Urgent Consulting Provider: Mahad Chiang Consult Reason/Comments: STEMI Do you want consulting provider notified?: Already Contacted 02/20/25 01:40 Consult Physician Routine Consulting Provider: [facility] Consult Reason/Comments: Post Interventional patient Do you want consulting provider notified?: Already Contacted Primary care physician: Belinda Sorto [facility] Course: Discharge diagnosis Acute inferior ST elevation myocardial infarction status post stent to the RCA Underlying history of hypertension Underlying history of hyperlipidemia Evidence of hypothyroidism with elevated TSH on presentation Altered mental status changes and increased confusion and agitation will order head CT and urine culture Urinary tract infection positive for gram-negative bacilli patient will be DC'd on Cipro New onset atrial fibrillation patient started on Eliquis per cardiology services Hospital course Opal Mccord, is an 84-year-old female, presented to [facility] emergency room with a chief complaint of chest pain She was evaluated in the emergency room vital examination on presentation revealed temperature of 98.2 pulse 67 respiration 18 blood pressure 106/77 pulse ox 95% on 2 L nasal cannula Laboratory data revealed white blood count 12.34 hemoglobin 13.7 platelet count 359 BUN 18 creatinine 0.78 troponin level 0.046 Testing in the emergency room revealed EKG revealed sinus rhythm with ST elevation in lead III. Patient was evaluated by cardiology and taken immediately from the emergency room to the [facility], she underwent cardiac catheterization with angioplasty and stent placement to the RCA. Patient was admitted to intensive care unit for further evaluation and treatment On 02/21/2025 patient remains in the intensive care unit. Patient had episode of increased confusion and agitation throughout the night requiring Haldol. Patient still is confused this a.m. Will order head CT. Per cardiology will continue to monitor patient for the next 24 hours. Will also order urine culture. Patient denies shortness of breath. Patient is reporting occasional chest pain. Patient denies nausea vomiting or diarrhea. Patient denies any urinary burning or frequency 02/22/2025 patient was seen and examined on the telemetry floor she is alert and oriented x 3 in no apparent distress there is no fever or chills no headache or dizziness no new episodes of chest pain no shortness of breath no cough no nausea or vomiting no abdominal pain no diarrhea no urinary symptoms. Was evaluated by cardiology and was cleared for discharge. Will be discharged to home today follow-up with Dr. Chambers within 1 week On 02/23/2025 patient is alert and oriented x 3. Patient is eager to be DC'd home. Urine culture was positive for gram-negative bacilli patient will be DC'd on Cipro for 1 week. Patient also had controlled rate of atrial fibrillation for 6 hours last night patient was started on Eliquis per cardiology patient to follow-up with cardiology services and PCP for further management. Patient Condition at Discharge: Stable Plan - Discharge Summary Discharge Rx Participant: No New Discharge Prescriptions: New Ticagrelor [Brilinta] 90 mg PO BID 90 Days #180 tablet Aspirin 81 mg PO DAILY tab Metoprolol Tartrate [Lopressor] 25 mg PO BID #180 tab Levothyroxine Sodium [Synthroid] 100 mcg PO DAILY@0630 30 Days #30 tab Ciprofloxacin HCl [Cipro] 500 mg PO BID 7 Days #14 tab Apixaban [Eliquis] 5 mg PO BID 30 Days #60 tab Isosorbide Mononitrate ER [Imdur] 30 mg PO DAILY 2 Days #90 tab Nystatin 100,000 Unit/gm Powd [Mycostatin Powder] 1 applic TOPICAL BID 10 Days #100 each Nitroglycerin Sl Tabs [Nitrostat] 0.4 mg SUBLINGUAL Q5M PRN 30 Days #25 tab PRN Reason: Chest Pain amLODIPine [Norvasc] 5 mg PO DAILY 30 Days #30 tab Continue Citalopram Hydrobromide [CeleXA] 20 mg PO DAILY Mirtazapine [Remeron] 15 mg PO HS Discontinued Simvastatin [Zocor] 20 mg PO DAILY Levothyroxine Sodium [Synthroid] 88 mcg PO DAILY Clopidogrel [Plavix] 75 mg PO DAILY #30 tab amLODIPine [Norvasc] 7.5 mg PO DAILY Discharge Medication List Citalopram Hydrobromide [CeleXA] 20 mg PO DAILY 02/10/14 [History] Mirtazapine [Remeron] 15 mg PO HS 03/17/17 [History] Ticagrelor [Brilinta] 90 mg PO BID 90 Days #180 tablet 02/20/25 [Rx] Aspirin 81 mg PO DAILY tab 02/22/25 [Rx] Isosorbide Mononitrate ER [Imdur] 30 mg PO DAILY 2 Days #90 tab 02/22/25 [Rx] Levothyroxine Sodium [Synthroid] 100 mcg PO DAILY@0630 30 Days #30 tab 02/22/25 [Rx] Metoprolol Tartrate [Lopressor] 25 mg PO BID #180 tab 02/22/25 [Rx] Nitroglycerin Sl Tabs [Nitrostat] 0.4 mg SUBLINGUAL Q5M PRN 30 Days #25 tab 02/22/25 [Rx] Nystatin 100,000 Unit/gm Powd [Mycostatin Powder] 1 applic TOPICAL BID 10 Days #100 each 02/22/25 [Rx] amLODIPine [Norvasc] 5 mg PO DAILY 30 Days #30 tab 02/22/25 [Rx] Apixaban [Eliquis] 5 mg PO BID 30 Days #60 tab 02/23/25 [Rx] Ciprofloxacin HCl [Cipro] 500 mg PO BID 7 Days #14 tab 02/23/25 [Rx] Follow up Appointment(s)/Referral(s): Mahad Chiang MD [Medical Doctor] - 1 Week Belinda Sorto MD [Primary Care Provider] - 1-2 days Patient Instructions/Handouts: Heart Catheterization (DC) Discharge Disposition: HOME SELF-CARE
--- NOTE | 2025-02-23 13:34 | P.PN ---
Subjective Progress Note Date: 02/23/25 INTERVAL HISTORY: The patient is a 84-year-old female who presented with acute inferior wall KS. She underwent stenting of the RCA. Echocardiogram revealed borderline normal LV systolic function with an ejection fraction of 50 to 55% with mild MR and mild TR. Overall she is feeling fairly well. She has been having episodes of confusion primarily at night. Currently denies any chest discomfort has had mild brief episodes according to nursing staff. On my exam patient is resting comfortably in bed with family at bedside 02/23/2025 Patient seen and examined. Last evening, patient went into atrial fibrillation with a controlled rate. She was started on Eliquis. She has no previous history of atrial fibrillation. Patient will be on triple therapy until her follow-up appointment with Dr. Chiang. Blood pressure 121/75, heart rate 79, pulse ox 96% on room air. Patient denies chest pain chest pressure no chest tightness. No shortness of breath. PHYSICAL EXAMINATION: HEART: Regular rate and rhythm S1, S2 normal. Systolic murmur LUNGS: Clear to auscultation. NECK: Supple. ABDOMEN: Soft, nontender nondistended EXTREMITIES: 1+ peripheral pulses. Right radial puncture site soft without hematoma, positive ecchymosis FINAL IMPRESSION: 1. STEMI status post stenting of the RCA. 2. Hypertension. 3. Hyperlipidemia. PLAN: From cardiology's perspective patient may be discharged home continue beta- zachariah, aspirin, Brilinta and the addition of Eliquis. Continue patient on atorvastatin 80 mg p.o. nightly. Continue isosorbide. She will follow-up in the office in about a week with Dr. Chiang. Nurse practitioner note has been reviewed, I agree with documented findings and plan of care. Patient was seen and examined. Objective - Vital Signs Vital signs: Vital Signs Temp 98.9 F 02/23/25 07:30 Pulse 79 02/23/25 07:30 Resp 16 02/23/25 07:30 BP 121/75 02/23/25 07:30 Pulse Ox 96 02/23/25 07:30 FiO2 Intake & Output 02/22/25 02/23/25 02/23/25 18:59 06:59 18:59 Intake Total 358 240 Balance 358 240 Weight 95.8 kg 94.3 kg Intake: Oral 358 240 Other: Voiding Method Toilet Toilet # Voids 3 2 1 # Bowel Movements 1 - Labs CBC & Chem 7: 02/22/25 05:37 02/22/25 05:37 Labs: Microbiology - Last 24 Hours (Table) 02/21/25 13:06 Urine Culture - Preliminary Urine,Catheterized Gram Neg Bacilli
[2025-02-23] MEDS ORDERED: CIPROFLOXACIN HCL 500 MG TAB PO SCH (21:00)
== END 2025-02-23 11:40 | disposition home or self-care (01) | DRG 322 ==
LOC: EC 23:49 → 2SICU 02-20 00:23 → 6NMEDSUR 02-21 18:36
PROVIDERS: ADMIT Internal Medicine; ATTEND Internal Medicine
PROC: B2111ZZ Fluoroscopy of Multiple Coronary Arteries using Low Osmolar Contrast (ICD-10-PCS; 2025-02-20)
PROC: 027034Z Dilation of Coronary Artery, One Artery with Drug-eluting Intraluminal Device, Percutaneous Approach (ICD-10-PCS; principal; 2025-02-20 00:32)
PROC: B240ZZ3 Ultrasonography of Single Coronary Artery, Intravascular (ICD-10-PCS; 2025-02-20 00:32)
PROC: 4A023N7 Measurement of Cardiac Sampling and Pressure, Left Heart, Percutaneous Approach (ICD-10-PCS; 2025-02-20 00:32)
DX: I21.19 ST elevation (STEMI) myocardial infarction involving other coronary artery of inferior wall (principal); B96.89 Other specified bacterial agents as the cause of diseases classified elsewhere; J43.9 Emphysema, unspecified; E66.01 Morbid (severe) obesity due to excess calories; E89.0 Postprocedural hypothyroidism; I10 Essential (primary) hypertension; N39.0 Urinary tract infection, site not specified; I48.91 Unspecified atrial fibrillation; I25.10 Atherosclerotic heart disease of native coronary artery without angina pectoris; I95.9 Hypotension, unspecified; E78.00 Pure hypercholesterolemia, unspecified; Z68.35 Body mass index [BMI] 35.0-35.9, adult; Z86.711 Personal history of pulmonary embolism; I25.2 Old myocardial infarction; Z86.73 Personal history of transient ischemic attack (TIA), and cerebral infarction without residual deficits; Z87.891 Personal history of nicotine dependence; Z82.49 Family history of ischemic heart disease and other diseases of the circulatory system; Z79.02 Long term (current) use of antithrombotics/antiplatelets; Z79.890 Hormone replacement therapy; Z79.899 Other long term (current) drug therapy
CPT/HCPCS: 36415; 70450; 71045; 76705; 80053; 80061; 81001; 83036; 83735; 83880; 84439; 84443; 84484; 85025; 85379; 85610; 85730; 87040; 87077; 87086; 87186; 92978; 93005; 93306; 93458; 96361; 96374; 96375; 99285

== ENCOUNTER 2025-02-28 16:36 | Emergency (ER) | payer MEDICARE ==
--- NOTE | 2025-02-28 17:26 | XR ---
EXAMINATION TYPE: XR hand complete RT DATE OF EXAM: 02/28/2025 5:12 PM COMPARISON: 02/20/2024 CLINICAL INDICATION: Female, 84 years old with history of dog bite right hand, pain TECHNIQUE: 3 view(s) obtained. FINDINGS: No acute fracture evident. Joint spaces are preserved. Soft tissues appear normal. No radiopaque fore ign body is evident. Follow up exams can be performed 7-10 days from acute trauma for continued pain. IMPRESSION: 1. No acute osseous abnormality right hand [facility] Nomi Stoner, , 02/28/2025 5:24 PM
--- NOTE | 2025-02-28 17:40 | ED ---
Animal Bite HPI - General Chief Complaint: Animal Bite Stated Complaint: R hand issue Time Seen by Provider: 02/28/25 16:52 Source: patient, family, RN notes reviewed Mode of arrival: wheelchair Limitations: no limitations - History of Present Illness Initial Comments: This is an 84-year-old female presenting for dog bite to right hand x 24 hours ago. Patient states she was bitten by her medium size dog who was being hyperactive/playful at the time. Patient states dog is up-to-date with all rabies and other animal vaccinations. Endorses some pain with movement of her right thumb with a noted skin tear. Patient endorses use of blood thinners. Patient denies any other injuries at this time. MD Complaint: animal bite Onset/Timin -: days(s) Right: Hand Animal: dog Mechanism: bite Context: playing with animal Treatments Prior to Arrival: wound dressing(s) - Related Data Home Medications Medication Instructions Recorded Confirmed Citalopram Hydrobromide [CeleXA] 20 mg PO DAILY 02/10/14 03/02/25 Mirtazapine [Remeron] 15 mg PO HS 03/17/17 03/02/25 Previous Rx's Medication Instructions Recorded Ticagrelor [Brilinta] 90 mg PO BID 90 Days #180 tablet 02/20/25 Isosorbide Mononitrate ER [Imdur] 30 mg PO DAILY 2 Days #90 tab 02/22/25 Levothyroxine Sodium [Synthroid] 100 mcg PO DAILY@0630 30 Days #30 02/22/25 tab Metoprolol Tartrate [Lopressor] 25 mg PO BID #180 tab 02/22/25 Nitroglycerin Sl Tabs [Nitrostat] 0.4 mg SUBLINGUAL Q5M PRN 30 Days 02/22/25 #25 tab Nystatin 100,000 Unit/gm Powd 1 applic TOPICAL BID 10 Days #100 02/22/25 [Mycostatin Powder] each Bacitracin/Polymyx Oint 1 applic TOPICAL BID #22 gm 02/28/25 [Polysporin Oint] Apixaban [Eliquis] 2.5 mg PO BID 90 Days #180 tab 03/05/25 Atorvastatin [Lipitor] 80 mg PO HS 30 Days #30 tab 03/07/25 Cefuroxime [Ceftin] 250 mg PO BID 7 Days #14 tab 03/07/25 Sodium Bicarbonate Tab 650 mg PO DAILY 30 Days #30 tab 03/07/25 metroNIDAZOLE [Flagyl] 500 mg PO TID 7 Days #14 tab 03/07/25 Allergies Allergy/AdvReac Type Severity Reaction Status Date / Time Penicillins Allergy Rash/Hives Verified 03/02/25 14:20 Review of Systems ROS Statement: Those systems with pertinent positive or pertinent negative responses have been documented in the HPI. ROS Other: All systems not noted in ROS Statement are negative. Past Medical History Past Medical History: Coronary Artery Disease (CAD), Chest Pain / Angina, COPD, CVA/TIA, Hyperlipidemia, Pulmonary Embolus (PE) Additional Past Medical History / Comment(s): Past shingelles, TIA 06/2018, [facility] Last Myocardial Infarction Date:: 02/19/2025 History of Any Multi-Drug Resistant Organisms: None Reported Past Surgical History: Cholecystectomy, Heart Catheterization, Tonsillectomy Additional Past Surgical History / Comment(s): LOWER MANDIBULAR OSTEOTOMY BENIGN BREAST BIOPSY RIGHT, BILATERAL CATARACT REMOVAL/LENS IMPLANTS, THYROIDECTOMY AT AGE 18 Past Anesthesia/Blood Transfusion Reactions: No Reported Reaction Date of Last Stent Placement:: 02/20/2025 Past Psychological History: Depression Smoking Status: Former smoker - Past Family History Father History Unknown: Yes Mother Family Medical History: Myocardial Infarction ([place]) Additional Family Medical History / Comment(s): Mother of a [place] in her 80s. General Exam Limitations: no limitations General appearance: alert, in no apparent distress Head exam: Present: atraumatic, normocephalic, normal inspection Eye exam: Present: normal appearance, PERRL, EOMI. Absent: scleral icterus, conjunctival injection, periorbital swelling ENT exam: Present: normal exam, mucous membranes moist Neck exam: Present: normal inspection. Absent: tenderness, meningismus, lymphadenopathy Respiratory exam: Present: normal lung sounds bilaterally. Absent: respiratory distress, wheezes, rales, rhonchi, stridor Cardiovascular Exam: Present: regular rate, normal rhythm, normal heart sounds. Absent: systolic murmur, diastolic murmur, rubs, gallop, clicks GI/Abdominal exam: Present: soft, normal bowel sounds. Absent: distended, tenderness, guarding, rebound, rigid Extremities exam: Present: full ROM, tenderness, normal capillary refill, other (4 cm crescent-shaped skin tear noted on right thenar prominence with capillary bleeding. Negative obvious foreign body, deep laceration. Distal neurovascular and motor function intact. Radial pulse +2.). Absent: pedal edema, joint swelling, calf tenderness Back exam: Present: normal inspection Neurological exam: Present: alert, oriented X3, CN II-XII intact Psychiatric exam: Present: normal affect, normal mood Skin exam: Present: warm, dry, intact, normal color. Absent: rash Course Vital Signs 02/28/25 02/28/25 16:49 19:47 Temperature 97.6 F 98.0 F Pulse Rate 60 62 Respiratory 16 18 Rate Blood Pressure 110/66 110/65 O2 Sat by Pulse 94 L 99 Oximetry Medical Decision Making - Medical Decision Making Was pt. sent in by a medical professional or institution (TIAN Hirsch, CYTOMETRY TECHNOLOGIST, urgent care, hospital, or skilled nursing...) When possible be specific @ -No Did you speak to anyone other than the patient for history (EMS, parent, family, police, friend...)? What history was obtained from this source @ -No Did you review nursing and triage notes (agree or disagree)? Why? @ -I reviewed and agree with nursing and triage notes Were old charts reviewed (outside hosp., previous admission, EMS record, old EKG, old radiological studies, urgent care reports/EKG's, skilled nursing records)? Report findings @ -No old charts were reviewed Differential Diagnosis (chest pain, altered mental status, abdominal pain women, abdominal pain men, vaginal bleeding, weakness, fever, dyspnea, syncope, headache, dizziness, GI bleed, back pain, seizure, CVA, palpatations, mental health, musculoskeletal)? @ -Differential Musculoskeletal Muscular strain, contusion, ligament sprain, fracture, arthritis, septic arthritis, bursitis, cellulitis, muscle spasm, nerve compression, DVT, arterial occlusion, herpes zoster, electrolyte abnormality, tumor.... This is not meant to be in all inclusive list EKG interpreted by me (3pts min.). @ -Not done X-rays interpreted by me (1pt min.). @ -Right hand x-ray shows no acute fracture or obvious foreign body. CT interpreted by me (1pt min.). @ -None done U/S interpreted by me (1pt. min.). @ -None done What testing was considered but not performed or refused? (CT, X-rays, U/S, labs)? Why? @ -None What meds were considered but not given or refused? Why? @ -None Did you discuss the management of the patient with other professionals (professionals i.e. , PA, CYTOMETRY TECHNOLOGIST, lab, RT, psych nurse, rn social services, log loader, teacher, chief business officer, case hardener)? Give summary @ -No Was smoking cessation discussed for >3mins.? @ -No Was critical care preformed (if so, how long)? @ -No Were there social determinants of health that impacted care today? How? (Homelessness, low income, unemployed, alcoholism, drug addiction, transportation, low edu. Level, literacy, decrease access to med. care, [facility], rehab)? @ -No Was there de-escalation of care discussed even if they declined (Discuss DNR or withdrawal of care, Hospice)? DNR status @ -No What co-morbidities impacted this encounter? (DM, HTN, Smoking, COPD, CAD, Cancer, CVA, ARF, Chemo, Hep., AIDS, mental health diagnosis, sleep apnea, morbid obesity)? @ -None Was patient admitted / discharged? Hospital course, mention meds given and route, prescriptions, significant lab abnormalities, going to OR and other pertinent info. @ -Right hand x-ray shows no acute fracture or obvious foreign body. Patient provided IM tetanus. Wound flushed copiously with normal saline and bandaged. Advised clean wound with antibacterial soap and water at least twice daily along with dressing change. Follow-up with PCP in the next 24-48 hours. Discussed patient with Dr. Renae. Undiagnosed new problem with uncertain prognosis? @ -No Drug Therapy requiring intensive monitoring for toxicity (Heparin, Nitro, Insulin, Cardizem)? @ -No Were any procedures done? @ -Wound cleaned copiously with normal saline and bandaged with nonadhesive gauze and Kerlix roll. Diagnosis/symptom? @ -Dog bite, hand skin tear Acute, or Chronic, or Acute on Chronic? @ -Acute Uncomplicated (without systemic symptoms) or Complicated (systemic symptoms)? @ -Uncomplicated Side effects of treatment? @ -No Exacerbation, Progression, or Severe Exacerbation? @ -No Poses a threat to life or bodily function? How? (Chest pain, [place], [place], pneumonia, PE, COPD, DKA, ARF, appy, cholecystitis, CVA, Diverticulitis, Homicidal, Suicidal, threat to staff... and all critical care pts) @ -No Disposition Clinical Impression: Dog bite, Laceration of right hand Disposition: HOME SELF-CARE Condition: Fair Instructions (If sedation given, give patient instructions): Animal Bite (ED), Acute Wound Care (ED) Additional Instructions: Keep wound clean with antibacterial soap and water at least twice daily along with antibiotic ointment application and dressing change. Apply firm pressure and elevate extremity above heart for 10-15 minutes for any uncontrollable bleeding. Return to ER if bleeding still remains uncontrolled. Prescriptions: Bacitracin/Polymyx Oint [Polysporin Oint] 1 applic TOPICAL BID #22 gm Is patient prescribed a controlled substance at d/c from ED?: No Referrals: Belinda Sorto MD [Primary Care Provider] - 1-2 days Time of Disposition: 19:34
[2025-02-28] MEDS: DIPH,PERTUS(ACELL)TETVAC-LF 0.5 ML VIAL IM ONE (19:22)
[2025-02-28] MEDS: CLINDAMYCIN 150 MG CAP PO STA (19:22)
[2025-02-28 19:48] VITALS: BP 110/65; PULSE 62; RESP 18; TEMP 98
== END 2025-02-28 19:48 | disposition home or self-care (01) ==
LOC: EC 16:36
DX: S61.011A Laceration without foreign body of right thumb without damage to nail, initial encounter (principal); Z87.891 Personal history of nicotine dependence; Z88.0 Allergy status to penicillin; Z23 Encounter for immunization; W54.0XXA Bitten by dog, initial encounter
CPT/HCPCS: 90471; 90715; 99283

== ENCOUNTER 2025-03-02 11:45 | Inpatient (IN) | payer MEDICARE ==
--- NOTE | 2025-03-02 12:30 | ED ---
General Adult HPI - General Chief complaint: Recheck/Abnormal Lab/Rx Stated complaint: Lower Back Pain Time Seen by Provider: 03/02/25 12:03 Source: patient, family, RN notes reviewed Mode of arrival: wheelchair Limitations: no limitations - History of Present Illness Initial comments: This is an 84-year-old female with history including CAD, COPD, CVA, PE presenting for ongoing right hand bleeding from dog bite. Patient endorses ongoing bleeding from back of right hand despite use of compression. Endorses use of Eliquis and Brilinta. Patient otherwise denies any other concerning symptoms. Denies fever, chills, chest pain, dyspnea, dizziness, abdominal pain, N/V/D, urinary symptoms. Onset/Timin -: days(s) - Related Data Home Medications Medication Instructions Recorded Confirmed Citalopram Hydrobromide [CeleXA] 20 mg PO DAILY 02/10/14 03/02/25 Mirtazapine [Remeron] 15 mg PO HS 03/17/17 03/02/25 Previous Rx's Medication Instructions Recorded Ticagrelor [Brilinta] 90 mg PO BID 90 Days #180 tablet 02/20/25 Aspirin 81 mg PO DAILY tab 02/22/25 Isosorbide Mononitrate ER [Imdur] 30 mg PO DAILY 2 Days #90 tab 02/22/25 Levothyroxine Sodium [Synthroid] 100 mcg PO DAILY@0630 30 Days #30 02/22/25 tab Metoprolol Tartrate [Lopressor] 25 mg PO BID #180 tab 02/22/25 Nitroglycerin Sl Tabs [Nitrostat] 0.4 mg SUBLINGUAL Q5M PRN 30 Days 02/22/25 #25 tab Nystatin 100,000 Unit/gm Powd 1 applic TOPICAL BID 10 Days #100 02/22/25 [Mycostatin Powder] each amLODIPine [Norvasc] 5 mg PO DAILY 30 Days #30 tab 02/22/25 Apixaban [Eliquis] 5 mg PO BID 30 Days #60 tab 02/23/25 Bacitracin/Polymyx Oint 1 applic TOPICAL BID #22 gm 02/28/25 [Polysporin Oint] clindamycin HCL 300 mg PO TID #15 cap 02/28/25 Allergies Allergy/AdvReac Type Severity Reaction Status Date / Time Penicillins Allergy Rash/Hives Verified 03/02/25 14:20 Review of Systems ROS Statement: Those systems with pertinent positive or pertinent negative responses have been documented in the HPI. ROS Other: All systems not noted in ROS Statement are negative. Past Medical History Past Medical History: Coronary Artery Disease (CAD), Chest Pain / Angina, COPD, CVA/TIA, Hyperlipidemia, Pulmonary Embolus (PE) Additional Past Medical History / Comment(s): Past shingelles, TIA 06/2018, [facility] Last Myocardial Infarction Date:: 02/19/2025 History of Any Multi-Drug Resistant Organisms: None Reported Past Surgical History: Cholecystectomy, Heart Catheterization, Tonsillectomy Additional Past Surgical History / Comment(s): LOWER MANDIBULAR OSTEOTOMY BENIGN BREAST BIOPSY RIGHT, BILATERAL CATARACT REMOVAL/LENS IMPLANTS, THYROIDECTOMY AT AGE 18 Past Anesthesia/Blood Transfusion Reactions: No Reported Reaction Date of Last Stent Placement:: 02/20/2025 Past Psychological History: Depression Smoking Status: Former smoker Past Alcohol Use History: None Reported Past Drug Use History: None Reported - Past Family History Father History Unknown: Yes Mother Family Medical History: Myocardial Infarction ([place]) Additional Family Medical History / Comment(s): Mother of a [place] in her 80s. General Exam Limitations: no limitations General appearance: alert, in no apparent distress, obese Head exam: Present: atraumatic, normocephalic, normal inspection Eye exam: Present: normal appearance, PERRL, EOMI. Absent: scleral icterus, conjunctival injection, periorbital swelling ENT exam: Present: mucous membranes dry Neck exam: Present: normal inspection. Absent: tenderness, meningismus, lymphadenopathy Respiratory exam: Present: decreased breath sounds. Absent: respiratory distress, wheezes, rales, rhonchi, stridor, accessory muscle use, prolonged expiratory Cardiovascular Exam: Present: regular rate, normal rhythm, normal heart sounds. Absent: systolic murmur, diastolic murmur, rubs, gallop, clicks GI/Abdominal exam: Present: soft, normal bowel sounds. Absent: distended, tenderness, guarding, rebound, rigid Extremities exam: Present: full ROM, normal capillary refill, other (+2 x 1 cm skin tear noted at base of right dorsal thumb with oozing bleeding and no surrounding erythema, discharge. Radial pulse +2, capillary refill less than 2 seconds.). Absent: tenderness, pedal edema, joint swelling, calf tenderness Back exam: Present: normal inspection Neurological exam: Present: alert, oriented X3, CN II-XII intact Psychiatric exam: Present: normal affect, normal mood Skin exam: Present: warm, dry, intact, normal color. Absent: rash Course Vital Signs 03/02/25 03/02/25 03/02/25 11:47 11:52 12:00 Temperature 97.6 F Pulse Rate 72 61 Respiratory 20 17 Rate Blood Pressure 87/52 96/51 82/57 O2 Sat by Pulse 97 97 Oximetry 03/02/25 03/02/25 03/02/25 12:30 13:32 14:34 Temperature Pulse Rate 63 64 Respiratory 17 17 Rate Blood Pressure 81/42 77/41 77/41 O2 Sat by Pulse 93 L 95 Oximetry 03/02/25 03/02/25 03/02/25 14:55 15:31 17:08 Temperature Pulse Rate Respiratory Rate Blood Pressure 106/56 101/60 108/49 O2 Sat by Pulse Oximetry 03/02/25 18:00 Temperature Pulse Rate Respiratory Rate Blood Pressure 99/46 O2 Sat by Pulse Oximetry Medical Decision Making - Medical Decision Making Was pt. sent in by a medical professional or institution (, PA, FIELD PRODUCER, urgent care, hospital, or fci...) When possible be specific @ -No Did you speak to anyone other than the patient for history (EMS, parent, family, police, friend...)? What history was obtained from this source @ -No Did you review nursing and triage notes (agree or disagree)? Why? @ -I reviewed and agree with nursing and triage notes Were old charts reviewed (outside hosp., previous admission, EMS record, old EKG, old radiological studies, urgent care reports/EKG's, fci records)? Report findings @ -Chart on ER visit from 02/28/2025 reviewed, indicating patient receiving clindamycin following dog bite along with tetanus. Differential Diagnosis (chest pain, altered mental status, abdominal pain women, abdominal pain men, vaginal bleeding, weakness, fever, dyspnea, syncope, headache, dizziness, GI bleed, back pain, seizure, CVA, palpatations, mental health, musculoskeletal)? @ -Cellulitis, abscess, capillary bleeding, venous bleeding, arterial bleeding EKG interpreted by me (3pts min.). @ -Sinus rhythm with LAD and inferior, anteriolateral T wave inversion without ST deviation. Similar T wave inversion noted from EKG on 02/28/2025. Ventricular rate 61 bpm, TING 157 ms, QRS 90 ms, QTc 457 ms. X-rays interpreted by me (1pt min.). @ -None done CT interpreted by me (1pt min.). @ -None done U/S interpreted by me (1pt. min.). @ -None done What testing was considered but not performed or refused? (CT, X-rays, U/S, labs)? Why? @ -None What meds were considered but not given or refused? Why? @ -None Did you discuss the management of the patient with other professionals (nory watts i.e. , PA, FIELD PRODUCER, lab, RT, psych nurse, social staff worker, analysis or research safety inspector, teacher, police officer, case maker)? Give summary @ -Spoke to Dr. Briones regarding patient admission. Was smoking cessation discussed for >3mins.? @ -No Was critical care preformed (if so, how long)? @ -No Were there social determinants of health that impacted care today? How? (Homelessness, low income, unemployed, alcoholism, drug addiction, transportation, low edu. Level, literacy, decrease access to med. care, custodial, rehab)? @ -No Was there de-escalation of care discussed even if they declined (Discuss DNR or withdrawal of care, Hospice)? DNR status @ -No What co-morbidities impacted this encounter? (DM, HTN, Smoking, COPD, CAD, Cancer, CVA, ARF, Chemo, Hep., AIDS, mental health diagnosis, sleep apnea, morbid obesity)? @ -None Was patient admitted / discharged? Hospital course, mention meds given and route, prescriptions, significant lab abnormalities, going to OR and other pertinent info. @ -Bleeding controlled with nonadhesive gauze and Coban wrapped around patient's hand. Patient noted to be hypotensive with SBP dropping into the 80s. Patient initially provided IV normal saline. Initial lab work shows WBC 14.08, thrombocytosis 518 and VALERIA with BUN 39 and creatinine 3.18 from 0.68 on 02/22/2025. Lactic acid 1.9. Blood culture obtained and patient provided IV Rocephin. Spoke to Dr. Briones regarding patient admission. UA still pending upon patient admission. Discussed patient with Dr. Grewal. Undiagnosed new problem with uncertain prognosis? @ -VALERIA Drug Therapy requiring intensive monitoring for toxicity (Heparin, Nitro, Insulin, Cardizem)? @ -No Were any procedures done? @ -No Diagnosis/symptom? @ -VALERIA Acute, or Chronic, or Acute on Chronic? @ -Acute Uncomplicated (without systemic symptoms) or Complicated (systemic symptoms)? @ -Uncomplicated Side effects of treatment? @ -No Exacerbation, Progression, or Severe Exacerbation? @ -No Poses a threat to life or bodily function? How? (Chest pain, [place], [place], pneumonia, PE, COPD, DKA, ARF, appy, cholecystitis, CVA, Diverticulitis, Homicidal, Suicidal, threat to staff... and all critical care pts) @ -VALERIA - Lab Data Result diagrams: 03/02/25 13:01 03/02/25 13:01 Lab Results 03/02/25 03/02/25 03/02/25 Range/Units 13:01 13:01 13:01 WBC 14.08 H (4.50-10.00) 10*3/uL RBC 4.82 (4.10-5.20) 10*6/uL Hgb 13.6 (12.0-15.0) g/dL Hct 40.5 (37.2-46.3) % MCV 84.0 (80.0-97.0) fL MCH 28.2 (27.0-32.0) pg MCHC 33.6 (32.0-37.0) g/dL Plt Count 518 H D (140-440) 10*3/uL MPV 10.7 (9.5-12.2) fL Immature Gran % (Auto) 1.1 % Neutrophils % 77.6 % Lymphocytes % 7.1 % Monocytes % 9.7 % Eosinophils % 3.4 % Basophils % 1.1 % Immature Gran # 0.16 H (0.00-0.04) 10*3/uL Neutrophils # 10.92 H (1.80-7.70) 10*3/uL Lymphocytes # 1.00 (0.90-5.00) 10*3/uL Monocytes # 1.36 H (0.20-1.00) 10*3/uL Eosinophils # 0.48 H (0.04-0.35) 10*3/uL Basophils # 0.16 H (0.00-0.10) 10*3/uL PT 13.3 H (10.0-12.5) sec INR 1.3 H (<1.2) APTT 27.8 (22.0-30.0) sec Sodium 141 (137-145) mmol/L Potassium 4.1 (3.5-5.1) mmol/L Chloride 105 (98-107) mmol/L Carbon Dioxide 22 (22-30) mmol/L Anion Gap 14 mmol/L BUN 39 H (7-17) mg/dL Creatinine 3.18 H (0.52-1.04) mg/dL Est GFR (CKD-EPI)AfAm 15 (>60 ml/min/1.73 sqM) Est GFR (CKD-EPI)NonAf 13 (>60 ml/min/1.73 sqM) Glucose 125 H (74-99) mg/dL Calcium 9.1 (8.4-10.2) mg/dL Total Bilirubin 0.9 (0.2-1.3) mg/dL AST 23 (14-36) U/L ALT 12 (4-34) U/L Alkaline Phosphatase 54 (38-126) U/L Total Protein 6.3 (6.3-8.2) g/dL Albumin 3.6 (3.5-5.0) g/dL Disposition Clinical Impression: Bleeding from wound, VALERIA (acute kidney injury), Hypotension Disposition: ADMITTED IP TO THIS [facility] Condition: Fair Is patient prescribed a controlled substance at d/c from ED?: No Time of Disposition: 13:30 Decision Date: 03/02/25 Decision Time: 13:30
[2025-03-02 13:12] LABS: Basophils # (A) 0.16 10*3/uL (0.00-0.10); Basophils % (A) 1.1 %; Eosinophils # (A) 0.48 10*3/uL (0.04-0.35); Eosinophils % (A) 3.4 %; HCT 40.5 % (37.2-46.3); HGB 13.6 g/dL (12.0-15.0); Lymphocytes % (A) 7.1 %; MCH 28.2 pg (27.0-32.0); MCHC 33.6 g/dL (32.0-37.0); Mean Platelet Volume 10.7 fL (9.5-12.2); Monocytes # (A) 1.36 10*3/uL (0.20-1.00); Monocytes % (A) 9.7 %; Neutrophils # (A) 10.92 10*3/uL (1.80-7.70); Neutrophils % (A) 77.6 %; RBC 4.82 10*6/uL (4.10-5.20); RDW 13.7 % (11.5-14.5); WBC 14.08 10*3/uL (4.50-10.00)
[2025-03-02 13:13] LABS: Platelet Count 518 10*3/uL (140-440)
[2025-03-02 13:23] LABS: INR 1.3 (<1.2); Partial Thromboplastin Time 27.8 sec (22.0-30.0); Prothrombin Time 13.3 sec (10.0-12.5)
[2025-03-02 13:30] LABS: ALT 12 U/L (4-34); AST 23 U/L (14-36); African American GFR (CKD) 15 (>60 ml/min/1.73 sqM); Albumin 3.6 g/dL (3.5-5.0); Alkaline Phosphatase 54 U/L (38-126); Anion Gap 14 mmol/L; Blood Urea Nitrogen 39 mg/dL (7-17); Calcium 9.1 mg/dL (8.4-10.2); Carbon Dioxide 22 mmol/L (22-30); Chloride 105 mmol/L (98-107); Glucose 125 mg/dL (74-99); Non-African American GFR(CKD) 13 (>60 ml/min/1.73 sqM); Potassium 4.1 mmol/L (3.5-5.1); Sodium 141 mmol/L (137-145); Total Bilirubin 0.9 mg/dL (0.2-1.3); Total Protein 6.3 g/dL (6.3-8.2)
[2025-03-02] MEDS: cefTRIAXone IN SWFI 1,000 MG/10 ML SYRINGE IVP STA (14:27)
[2025-03-02] MEDS: SODIUM CHLORIDE 0.9% 1,000 ML IV STA (14:27)
[2025-03-02] MEDS: LACTATED RINGERS 1,000 ML IV ONE (14:29)
[2025-03-02] MEDS ORDERED: ONDANSETRON 4 MG/2 ML VIAL IVP PRN (14:37)
[2025-03-02] MEDS ORDERED: NALOXONE 0.4 MG/ML 1 ML VIAL IV PRN (14:37)
[2025-03-02] MEDS ORDERED: ACETAMINOPHEN TAB 325 MG TAB PO PRN (14:37)
[2025-03-02] MEDS ORDERED: NITROGLYCERIN SL TABS 0.4 MG TAB SUBLINGUAL PRN (15:17)
--- NOTE | 2025-03-02 15:27 | XR ---
EXAMINATION TYPE: XR chest 2V DATE OF EXAM: 03/02/2025 2:48 PM COMPARISON: Chest radiographs from 02/20/2025. CLINICAL INDICATION: Female, 84 years old with history of Hypotension; [facility] TECHNIQUE: XR chest 2V Frontal and lateral views of the chest. FINDINGS: Lungs/Pleura: No evidence of focal consolidation or pneumothorax. Blunting of the costophrenic angles is present. Pulmonary vascularity: Pulmonary vascular congestion. Heart/mediastinum: Cardiomediastinal silhouette is enlarged. Musculoskeletal: No acute osseous pathology. IMPRESSION: Cardiomegaly, pulmonary vascular congestion and bilateral pleural effusions. Correlate with BNP for c ongestive heart failure. [facility], , 03/02/2025 3:24 PM
[2025-03-02] MEDS: CLINDAMYCIN 150 MG CAP PO SCH (15:51)
[2025-03-02] MEDS: LACTATED RINGERS 1,000 ML IV SCH (15:55)
[2025-03-02] MEDS: TICAGRELOR 90 MG TAB PO SCH (20:41)
[2025-03-02] MEDS: MIRTAZAPINE 15 MG TAB PO SCH (20:41)
[2025-03-02] MEDS: APIXABAN 2.5 MG TABLET PO SCH (20:41)
[2025-03-02] MEDS: METOPROLOL TARTRATE 25 MG TAB PO SCH (20:42)
[2025-03-03] MEDS: LEVOTHYROXINE 100 MCG TAB PO SCH (06:53)
[2025-03-03 08:56] LABS: African American GFR (CKD) 16 (>60 ml/min/1.73 sqM); Anion Gap 11 mmol/L; Blood Urea Nitrogen 37 mg/dL (7-17); Calcium 8.2 mg/dL (8.4-10.2); Carbon Dioxide 18 mmol/L (22-30); Chloride 113 mmol/L (98-107); Glucose 110 mg/dL (74-99); Magnesium 2.1 mg/dL (1.6-2.3); Non-African American GFR(CKD) 13 (>60 ml/min/1.73 sqM); Potassium 3.6 mmol/L (3.5-5.1); Sodium 142 mmol/L (137-145)
[2025-03-03] MEDS: ISOSORBIDE MONONITRATE ER 30 MG TAB.ER.24H PO SCH (08:56)
[2025-03-03] MEDS: CITALOPRAM HYDROBROMIDE 20 MG TAB PO SCH (08:57)
[2025-03-03] MEDS: ASPIRIN 81 MG PO SCH (08:57)
--- NOTE | 2025-03-03 10:38 | P.NPCON ---
History of Present Illness - Reason for Consult acute renal failure - History of Present Illness Reason for consultation: Acute kidney injury History of present illness: Patient is a 84-year-old female seen in renal consultation for acute kidney injury. Patient's baseline creatinine is near 0.7 and elevated at 3.18 this admission. Fairly stable at 3.07 today. Patient came to the hospital due to a bleeding wound. Patient states a little over a week ago she had a cardiac stent placed. Subsequently after that she was playing with her dog and got bit. She has a wound on her right hand which is currently wrapped. Patient states she has been on antibiotics but the wound continued to bleed so she came to the hospital for further evaluation. Patient has been quite hypotensive with blood pressure in the systolic 70s to 80s on admission. It was improved to 102/49 this morning. According to the daughter, her oral intake has been poor. She denies use of nonsteroidals. Denies history of diabetes. No vomiting or diarrhea. Denies gross hematuria or dysuria. Vital signs are stable. General: No acute distress. HEENT: Head exam is unremarkable. LUNGS: No audible rhonchi or wheezes. HEART: Rate and Rhythm are regular. ABDOMEN: Nontender. EXTREMITITES: No edema. Right hand wrapped. Past Medical History Past Medical History: Coronary Artery Disease (CAD), Chest Pain / Angina, COPD, CVA/TIA, Hyperlipidemia, Pulmonary Embolus (PE) Additional Past Medical History / Comment(s): Past shingeldahiana, TIA 06/2018, [facility] Last Myocardial Infarction Date:: 02/19/2025 History of Any Multi-Drug Resistant Organisms: None Reported Past Surgical History: Cholecystectomy, Heart Catheterization, Tonsillectomy Additional Past Surgical History / Comment(s): LOWER MANDIBULAR OSTEOTOMY BENIGN BREAST BIOPSY RIGHT, BILATERAL CATARACT REMOVAL/LENS IMPLANTS, THYROIDECTOMY AT AGE 18 Past Anesthesia/Blood Transfusion Reactions: No Reported Reaction Date of Last Stent Placement:: 02/20/2025 Past Psychological History: Depression Smoking Status: Former smoker Past Alcohol Use History: None Reported Past Drug Use History: None Reported - Past Family History Father History Unknown: Yes Mother Family Medical History: Myocardial Infarction (MS) Additional Family Medical History / Comment(s): Mother of a MS in her 80s. Medications and Allergies Home Medications Medication Instructions Recorded Confirmed Type Citalopram Hydrobromide [CeleXA] 20 mg PO DAILY 02/10/14 03/02/25 History Mirtazapine [Remeron] 15 mg PO HS 03/17/17 03/02/25 History Ticagrelor [Brilinta] 90 mg PO BID 90 Days #180 tablet 02/20/25 03/02/25 Rx Aspirin 81 mg PO DAILY tab 02/22/25 03/02/25 Rx Isosorbide Mononitrate ER [Imdur] 30 mg PO DAILY 2 Days #90 tab 02/22/25 03/02/25 Rx Levothyroxine Sodium [Synthroid] 100 mcg PO DAILY@0630 30 Days #30 02/22/25 03/02/25 Rx tab Metoprolol Tartrate [Lopressor] 25 mg PO BID #180 tab 02/22/25 03/02/25 Rx Nitroglycerin Sl Tabs [Nitrostat] 0.4 mg SUBLINGUAL Q5M PRN 30 Days 02/22/25 03/02/25 Rx #25 tab Nystatin 100,000 Unit/gm Powd 1 applic TOPICAL BID 10 Days #100 02/22/25 03/02/25 Rx [Mycostatin Powder] each amLODIPine [Norvasc] 5 mg PO DAILY 30 Days #30 tab 02/22/25 03/02/25 Rx Apixaban [Eliquis] 5 mg PO BID 30 Days #60 tab 02/23/25 03/02/25 Rx Bacitracin/Polymyx Oint 1 applic TOPICAL BID #22 gm 02/28/25 03/02/25 Rx [Polysporin Oint] clindamycin HCL 300 mg PO TID #15 cap 02/28/25 03/02/25 Rx Allergies Allergy/AdvReac Type Severity Reaction Status Date / Time Penicillins Allergy Rash/Hives Verified 03/02/25 14:20 Physical Exam Vitals: Vital Signs Temp Pulse Resp BP Pulse Ox 03/03/25 04:50 97.7 F 75 22 102/49 97 03/02/25 23:49 74 22 116/66 96 03/02/25 21:51 76 22 134/69 96 03/02/25 20:40 98.6 F 71 18 109/70 96 03/02/25 18:00 99/46 03/02/25 17:08 108/49 03/02/25 15:31 101/60 03/02/25 14:55 106/56 03/02/25 14:34 64 17 77/41 95 03/02/25 13:32 63 17 77/41 93 L 03/02/25 12:30 81/42 03/02/25 12:00 82/57 03/02/25 11:52 61 17 96/51 97 03/02/25 11:47 97.6 F 72 20 87/52 97 Results - Lab Results Most recent lab results Calcium 8.2 mg/dL (8.4-10.2) L 03/03/25 07:24 Magnesium 2.1 mg/dL (1.6-2.3) 03/03/25 07:24 03/02/25 13:01 03/03/25 07:24 Assessment and Plan Plan: Assessment: 1. Acute kidney injury secondary to ATN secondary to hypotension. Creatinine 3.18 on admission and is stable at 3.07 today. Baseline creatinine 0.7-0.8. 2. Right hand wound on antibiotics. 3. Metabolic acidosis secondary to acute kidney injury and IV fluids. 4. Coronary disease with RCA stent placed February 20, 2025. Plan: Maintain IV fluids. Check renal ultrasound. Check UA. Avoid nephrotoxins. Continue to monitor renal function and urine output. Thank you for the consultation. I will continue to follow the patient with you during her hospital stay.
--- NOTE | 2025-03-03 11:20 | US ---
EXAMINATION TYPE: US kidneys/renal and bladder DATE OF EXAM: 03/03/2025 COMPARISON: NONE CLINICAL INDICATION: Female, 84 years old with history of valeria; VALERIA TECHNIQUE: Grayscale imaging of the bilateral kidneys and urinary bladder: FINDINGS: EXAM MEASUREMENTS: Right Kidney: 9.7 x 5.8 x 5.7 cm Left Kidney: 10.7 x 5.5 x 5.5 cm *Exam is limited due to gas. Right Kidney: Complex/septated area seen upper pole: 3.8 x 4.1 x 4.4 cm. *Hyperechoic focus seen upper pole: 0.5 x 0.5 x 0.4 cm. No evidence for hydronephrosis. Left Kidney: No hydronephrosis or masses seen Bladder: *Not fully distended. *Appears anechoic. Bilateral Jets seen: Yes IMPRESSION: 1. Complex right upper pole renal cyst. Further evaluation with MRI renal mass protocol recommended. 2. Nonobstructing right renal calculus suggested. 3. No evidence for hydronephrosis. [facility], , 03/03/2025 11:18 AM
--- NOTE | 2025-03-03 11:30 | P.HPIM ---
History of Present Illness H&P Date: 03/02/25 Opal Mccord, is an 84-year-old female who presented to [facility] emergency room with a chief complaint of bleeding on hand from dog bite site. Patient is on anticoagulation and reports that she is having trouble stopping the bleeding from bite He was evaluated in the emergency room vital examination on presentation revealed temp 98.6, heart rate 71, respiratory rate 18, blood pressure 109/70 with a pulse ox of 96% on room air Laboratory data reveals white blood cell 14.08, hemoglobin 13.6 creatinine 3.18 bun 39 Testing in the emergency room revealed chest x-ray showing cardiomegaly pulmonary vascular congestion and bilateral pleural effusions correlate with BNP for CHF Patient was admitted to medical floor for further evaluation and treatment for VALERIA and dog bite. Patient is on clindamycin. Dr. Reece for infectious disease and nephrology services have been consulted ultrasound of kidney bladder ordered patient started on IV fluid. Blood and urine cultures ordered Past medical history is significant for CAD, COPD, CVA, hyperlipidemia, pulmonary embolism, shingles and TIA On review of systems patient is alert and oriented x 3. Patient's dressing in place on right hand. Patient denies chest pain or shortness of breath. Patient denies nausea vomiting or diarrhea. Patient denies any urinary burning or frequency Review of Systems Please refer to HPI otherwise unremarkable Past Medical History Past Medical History: Coronary Artery Disease (CAD), Chest Pain / Angina, COPD, CVA/TIA, Hyperlipidemia, Pulmonary Embolus (PE) Additional Past Medical History / Comment(s): Past shingelles, TIA 06/2018, [facility] Last Myocardial Infarction Date:: 02/19/2025 History of Any Multi-Drug Resistant Organisms: None Reported Past Surgical History: Cholecystectomy, Heart Catheterization, Tonsillectomy Additional Past Surgical History / Comment(s): LOWER MANDIBULAR OSTEOTOMY BENIGN BREAST BIOPSY RIGHT, BILATERAL CATARACT REMOVAL/LENS IMPLANTS, THYROIDECTOMY AT AGE 18 Past Anesthesia/Blood Transfusion Reactions: No Reported Reaction Date of Last Stent Placement:: 02/20/2025 Past Psychological History: Depression Smoking Status: Former smoker Past Alcohol Use History: None Reported Past Drug Use History: None Reported - Past Family History Father History Unknown: Yes Mother Family Medical History: Myocardial Infarction (CT) Additional Family Medical History / Comment(s): Mother of a CT in her 80s. Medications and Allergies Home Medications Medication Instructions Recorded Confirmed Type Citalopram Hydrobromide [CeleXA] 20 mg PO DAILY 02/10/14 03/02/25 History Mirtazapine [Remeron] 15 mg PO HS 03/17/17 03/02/25 History Ticagrelor [Brilinta] 90 mg PO BID 90 Days #180 tablet 02/20/25 03/02/25 Rx Aspirin 81 mg PO DAILY tab 02/22/25 03/02/25 Rx Isosorbide Mononitrate ER [Imdur] 30 mg PO DAILY 2 Days #90 tab 02/22/25 03/02/25 Rx Levothyroxine Sodium [Synthroid] 100 mcg PO DAILY@0630 30 Days #30 02/22/25 03/02/25 Rx tab Metoprolol Tartrate [Lopressor] 25 mg PO BID #180 tab 02/22/25 03/02/25 Rx Nitroglycerin Sl Tabs [Nitrostat] 0.4 mg SUBLINGUAL Q5M PRN 30 Days 02/22/25 03/02/25 Rx #25 tab Nystatin 100,000 Unit/gm Powd 1 applic TOPICAL BID 10 Days #100 02/22/25 03/02/25 Rx [Mycostatin Powder] each amLODIPine [Norvasc] 5 mg PO DAILY 30 Days #30 tab 02/22/25 03/02/25 Rx Apixaban [Eliquis] 5 mg PO BID 30 Days #60 tab 02/23/25 03/02/25 Rx Bacitracin/Polymyx Oint 1 applic TOPICAL BID #22 gm 02/28/25 03/02/25 Rx [Polysporin Oint] clindamycin HCL 300 mg PO TID #15 cap 02/28/25 03/02/25 Rx Allergies Allergy/AdvReac Type Severity Reaction Status Date / Time Penicillins Allergy Rash/Hives Verified 03/02/25 14:20 Physical Exam Vitals: Vital Signs Temp Pulse Resp BP Pulse Ox 03/02/25 14:55 106/56 03/02/25 14:34 64 17 77/41 95 03/02/25 13:32 63 17 77/41 93 L 03/02/25 12:30 81/42 03/02/25 12:00 82/57 03/02/25 11:52 61 17 96/51 97 03/02/25 11:47 97.6 F 72 20 87/52 97 Intake and Output 03/02/25 03/02/25 03/02/25 06:59 14:59 22:59 Other: Weight 95.708 kg In general patient is alert and oriented Ã-3 in no distress HEENT head normocephalic and atraumatic Neck is supple no JVD no goiter no lymphadenopathy no carotid bruit Chest examination is clear to auscultation no crackles no wheezing Cardiac exam reveals regular heart sounds S1 and S2 no gallops no murmurs Abdomen is soft nontender no organomegaly with normal bowel sounds Extremity exam reveals no edema no cyanosis or clubbing Neurological examination reveals no gross focal deficits Results CBC & Chem 7: 03/02/25 13:01 03/03/25 07:24 Labs: Abnormal Lab Results - Last 24 Hours (Table) 03/02/25 03/02/25 03/02/25 Range/Units 13:01 13:01 13:01 WBC 14.08 H (4.50-10.00) 10*3/uL Plt Count 518 H D (140-440) 10*3/uL Immature Gran # 0.16 H (0.00-0.04) 10*3/uL Neutrophils # 10.92 H (1.80-7.70) 10*3/uL Monocytes # 1.36 H (0.20-1.00) 10*3/uL Eosinophils # 0.48 H (0.04-0.35) 10*3/uL Basophils # 0.16 H (0.00-0.10) 10*3/uL PT 13.3 H (10.0-12.5) sec INR 1.3 H (<1.2) BUN 39 H (7-17) mg/dL Creatinine 3.18 H (0.52-1.04) mg/dL Glucose 125 H (74-99) mg/dL Assessment and Plan Assessment: 1. Acute kidney injury 2. Dog bite to right hand patient currently on clindamycin pressure dressing in place 3. Episodes of diarrhea and poor oral intake. C. difficile negative 4. History of CVA 5. History of COPD 6. History of hyperlipidemia 7. History of pulmonary embolism 8. History of depression DVT prophylaxis Eliquis. GI prophylaxis Protonix Patient started p.o. clindamycin Infectious disease and nephrology services consulted Repeat labs ordered Blood and urine cultures ordered Ultrasound of kidney bladder and renal Time with Patient: Greater than 30 (Greater than 60% of the total time spent in counseling and coordination of care)
--- NOTE | 2025-03-03 11:33 | P.PN ---
Subjective Progress Note Date: 03/03/25 Opal Mccodr, is an 84-year-old female who presented to [facility] emergency room with a chief complaint of bleeding on hand from dog bite site. Patient is on anticoagulation and reports that she is having trouble stopping the bleeding from bite He was evaluated in the emergency room vital examination on presentation revealed temp 98.6, heart rate 71, respiratory rate 18, blood pressure 109/70 with a pulse ox of 96% on room air Laboratory data reveals white blood cell 14.08, hemoglobin 13.6 creatinine 3.18 bun 39 Testing in the emergency room revealed chest x-ray showing cardiomegaly pulmonary vascular congestion and bilateral pleural effusions correlate with BNP for CHF Patient was admitted to medical floor for further evaluation and treatment for VALERIA and dog bite. Patient is on clindamycin. Dr. Reece for infectious disease and nephrology services have been consulted ultrasound of kidney bladder ordered patient started on IV fluid. Blood and urine cultures ordered Past medical history is significant for CAD, COPD, CVA, hyperlipidemia, pulmonary embolism, shingles and TIA On review of systems patient is alert and oriented x 3. Patient's dressing in place on right hand. Patient denies chest pain or shortness of breath. Patient denies nausea vomiting or diarrhea. Patient denies any urinary burning or frequency On 03/03/2025 patient is alert and oriented x 3. Renal ultrasound has been ordered UA ordered per nephrology services creatinine trending down to 3.07. Current vital signs temp 97.7, heart rate 75, respiratory rate 22, blood pressure 102/49 with pulse ox 97% on room air. Patient denies chest pain or shortness of breath. Patient denies nausea vomiting or diarrhea. Patient denies any urinary burning or frequency Objective - Vital Signs Vital signs: Vital Signs Temp 97.7 F 03/03/25 04:50 Pulse 75 03/03/25 04:50 Resp 22 03/03/25 04:50 BP 102/49 03/03/25 04:50 Pulse Ox 97 03/03/25 04:50 FiO2 Intake & Output 03/02/25 03/03/25 03/03/25 18:59 06:59 18:59 Weight 95.708 kg - Exam In general patient is alert and oriented Ã-3 in no distress HEENT head normocephalic and atraumatic Neck is supple no JVD no goiter no lymphadenopathy no carotid bruit Chest examination is clear to auscultation no crackles no wheezing Cardiac exam reveals regular heart sounds S1 and S2 no gallops no murmurs Abdomen is soft nontender no organomegaly with normal bowel sounds Extremity exam reveals no edema no cyanosis or clubbing Neurological examination reveals no gross focal deficits - Labs CBC & Chem 7: 03/02/25 13:01 03/03/25 07:24 Labs: Abnormal Lab Results - Last 24 Hours (Table) 03/02/25 03/02/25 03/02/25 Range/Units 13:01 13:01 13:01 WBC 14.08 H (4.50-10.00) 10*3/uL Plt Count 518 H D (140-440) 10*3/uL Immature Gran # 0.16 H (0.00-0.04) 10*3/uL Neutrophils # 10.92 H (1.80-7.70) 10*3/uL Monocytes # 1.36 H (0.20-1.00) 10*3/uL Eosinophils # 0.48 H (0.04-0.35) 10*3/uL Basophils # 0.16 H (0.00-0.10) 10*3/uL PT 13.3 H (10.0-12.5) sec INR 1.3 H (<1.2) Chloride (98-107) mmol/L Carbon Dioxide (22-30) mmol/L BUN 39 H (7-17) mg/dL Creatinine 3.18 H (0.52-1.04) mg/dL Glucose 125 H (74-99) mg/dL Calcium (8.4-10.2) mg/dL 03/03/25 Range/Units 07:24 WBC (4.50-10.00) 10*3/uL Plt Count (140-440) 10*3/uL Immature Gran # (0.00-0.04) 10*3/uL Neutrophils # (1.80-7.70) 10*3/uL Monocytes # (0.20-1.00) 10*3/uL Eosinophils # (0.04-0.35) 10*3/uL Basophils # (0.00-0.10) 10*3/uL PT (10.0-12.5) sec INR (<1.2) Chloride 113 H (98-107) mmol/L Carbon Dioxide 18 L (22-30) mmol/L BUN 37 H (7-17) mg/dL Creatinine 3.07 H (0.52-1.04) mg/dL Glucose 110 H (74-99) mg/dL Calcium 8.2 L (8.4-10.2) mg/dL Assessment and Plan Assessment: 1. Acute kidney injury 2. Dog bite to right hand patient currently on clindamycin pressure dressing in place 3. Episodes of diarrhea and poor oral intake. C. difficile negative 4. History of CVA 5. History of COPD 6. History of hyperlipidemia 7. History of pulmonary embolism 8. History of depression DVT prophylaxis Eliquis. GI prophylaxis Protonix Patient started p.o. clindamycin Infectious disease and nephrology services consulted Repeat labs ordered Blood and urine cultures ordered Ultrasound of kidney bladder and renal
[2025-03-03] MEDS: SODIUM BICARBONATE TAB 650 MG TAB PO SCH (13:29)
[2025-03-03] MEDS: SODIUM CHLORIDE 0.9% 1,000 ML IV SCH (13:42)
[2025-03-03 14:57] LABS: Appearance,Urine Clear (Clear); Bilirubin,Urine Negative (Negative); Blood,Urine Negative (Negative); Color,Urine Colorless; Glucose,Urine (UA) Negative (Negative); Ketones,Urine Negative (Negative); Leukocyte Esterase,Urine Negative (Negative); Nitrite,Urine Negative (Negative); Protein,Urine Negative (Negative); Specific Gravity,Urine 1.009 (1.001-1.035); Urobilinogen,Urine <2.0 mg/dL (<2.0)
[2025-03-03] MEDS: ATORVASTATIN 80 MG TAB PO SCH (21:57)
--- NOTE | 2025-03-03 22:35 | P.CONS ---
History of Present Illness - Reason for Consult Consult date: 03/03/25 Leukocytosis Requesting physician: Michael Briones - Chief Complaint Right hand dog bite and bleeding x 1 day - History of Present Illness Patient is a 84-year-old female with a past medical history significant for coronary artery disease COPD CVA TIA hyperlipidemia PE recently discharged from this facility brought back to the hospital after the patient did have a dog bite on the right hand wrist area from her pet dog patient noted to have significant bleeding and has been on Eliquis and Brilinta on presentation to the hospital patient was afebrile and no fever have been recorded subsequently patient was nontachycardic hypotensive or hypoxic patient did have elevated white count 14.08 with a left shift BUN 8 creatinine has been elevated liver enzymes are normal urine has been negative patient did have negative stool for C. difficile as he was complaining of some diarrhea he has been complaining of pain to the right hand describing it to be dull aching to sharp moderate intensity radiation with associated bleeding patient denies having any headache or URI symptoms no chest pain some shortness of breath exertion but no significant cough or sputum production no abdominal pain and no urinary symptoms patient did have a chest x-ray on admission cardiomegaly pulmonary vascular congestion correlate with BNP for congestive heart failure abdominal pain bladder ultrasound complex right upper pole renal cyst infectious was consulted concerning for possible sepsis/leukocytosis Review of Systems Positive point and negatives has been mentioned in the HPI, complete review of systems was performed and all other systems are negative Past Medical History Past Medical History: Coronary Artery Disease (CAD), Chest Pain / Angina, COPD, CVA/TIA, Hyperlipidemia, Pulmonary Embolus (PE) Additional Past Medical History / Comment(s): Past shingeldahiana TIA 06/2018, [facility] [place] Last Myocardial Infarction Date:: 02/19/2025 History of Any Multi-Drug Resistant Organisms: None Reported Past Surgical History: Cholecystectomy, Heart Catheterization, Tonsillectomy Additional Past Surgical History / Comment(s): LOWER MANDIBULAR OSTEOTOMY BENIGN BREAST BIOPSY RIGHT, BILATERAL CATARACT REMOVAL/LENS IMPLANTS, THYROIDECTOMY AT AGE 18 Past Anesthesia/Blood Transfusion Reactions: No Reported Reaction Date of Last Stent Placement:: 02/20/2025 Past Psychological History: Depression Smoking Status: Former smoker Past Alcohol Use History: None Reported Past Drug Use History: None Reported - Past Family History Father History Unknown: Yes Mother Family Medical History: Myocardial Infarction (ME) Additional Family Medical History / Comment(s): Mother of a ME in her 80s. Medications and Allergies Home Medications Medication Instructions Recorded Confirmed Type Citalopram Hydrobromide [CeleXA] 20 mg PO DAILY 02/10/14 03/02/25 History Mirtazapine [Remeron] 15 mg PO HS 03/17/17 03/02/25 History Ticagrelor [Brilinta] 90 mg PO BID 90 Days #180 tablet 02/20/25 03/02/25 Rx Aspirin 81 mg PO DAILY tab 02/22/25 03/02/25 Rx Isosorbide Mononitrate ER [Imdur] 30 mg PO DAILY 2 Days #90 tab 02/22/25 03/02/25 Rx Levothyroxine Sodium [Synthroid] 100 mcg PO DAILY@0630 30 Days #30 02/22/25 03/02/25 Rx tab Metoprolol Tartrate [Lopressor] 25 mg PO BID #180 tab 02/22/25 03/02/25 Rx Nitroglycerin Sl Tabs [Nitrostat] 0.4 mg SUBLINGUAL Q5M PRN 30 Days 02/22/25 03/02/25 Rx #25 tab Nystatin 100,000 Unit/gm Powd 1 applic TOPICAL BID 10 Days #100 02/22/25 03/02/25 Rx [Mycostatin Powder] each amLODIPine [Norvasc] 5 mg PO DAILY 30 Days #30 tab 02/22/25 03/02/25 Rx Apixaban [Eliquis] 5 mg PO BID 30 Days #60 tab 02/23/25 03/02/25 Rx Bacitracin/Polymyx Oint 1 applic TOPICAL BID #22 gm 02/28/25 03/02/25 Rx [Polysporin Oint] clindamycin HCL 300 mg PO TID #15 cap 02/28/25 03/02/25 Rx Allergies Allergy/AdvReac Type Severity Reaction Status Date / Time Penicillins Allergy Rash/Hives Verified 03/02/25 14:20 Physical Exam Vitals: Vital Signs Temp Pulse Resp BP Pulse Ox 03/03/25 04:50 97.7 F 75 22 102/49 97 03/02/25 23:49 74 22 116/66 96 03/02/25 21:51 76 22 134/69 96 03/02/25 20:40 98.6 F 71 18 109/70 96 03/02/25 18:00 99/46 03/02/25 17:08 108/49 03/02/25 15:31 101/60 03/02/25 14:55 106/56 03/02/25 14:34 64 17 77/41 95 03/02/25 13:32 63 17 77/41 93 L 03/02/25 12:30 81/42 GENERAL DESCRIPTION: Elderly female up in bed, no distress. No tachypnea or accessory muscle of respiration use. HEENT: Shows Pallor , no scleral icterus. Oral mucous membrane is dry. NECK: Trachea central, no thyromegaly. LUNGS: Unlabored breathing. Clear to auscultation anteriorly. No wheeze or crackle. HEART: S1, S2, regular rate and rhythm. No loud murmur ABDOMEN: Soft, no tenderness , guarding or rigidity, no organomegaly EXTREMITIES: Right hand with significant bruising and laceration no drainage was noticed SKIN: No rash, no masses palpable. NEUROLOGICAL: The patient is awake, alert, oriented x3, mood and affect normal. Results CBC & Chem 7: 03/04/25 06:43 03/04/25 06:43 Labs: Abnormal Lab Results - Last 24 Hours (Table) 03/02/25 03/02/25 03/02/25 Range/Units 13:01 13:01 13:01 WBC 14.08 H (4.50-10.00) 10*3/uL Plt Count 518 H D (140-440) 10*3/uL Immature Gran # 0.16 H (0.00-0.04) 10*3/uL Neutrophils # 10.92 H (1.80-7.70) 10*3/uL Monocytes # 1.36 H (0.20-1.00) 10*3/uL Eosinophils # 0.48 H (0.04-0.35) 10*3/uL Basophils # 0.16 H (0.00-0.10) 10*3/uL PT 13.3 H (10.0-12.5) sec INR 1.3 H (<1.2) Chloride (98-107) mmol/L Carbon Dioxide (22-30) mmol/L BUN 39 H (7-17) mg/dL Creatinine 3.18 H (0.52-1.04) mg/dL Glucose 125 H (74-99) mg/dL Calcium (8.4-10.2) mg/dL 03/03/25 Range/Units 07:24 WBC (4.50-10.00) 10*3/uL Plt Count (140-440) 10*3/uL Immature Gran # (0.00-0.04) 10*3/uL Neutrophils # (1.80-7.70) 10*3/uL Monocytes # (0.20-1.00) 10*3/uL Eosinophils # (0.04-0.35) 10*3/uL Basophils # (0.00-0.10) 10*3/uL PT (10.0-12.5) sec INR (<1.2) Chloride 113 H (98-107) mmol/L Carbon Dioxide 18 L (22-30) mmol/L BUN 37 H (7-17) mg/dL Creatinine 3.07 H (0.52-1.04) mg/dL Glucose 110 H (74-99) mg/dL Calcium 8.2 L (8.4-10.2) mg/dL Assessment and Plan (1) Laceration of right hand Current Visit: Yes Status: Acute Code(s): S61.411A - LACERATION WITHOUT FOREIGN BODY OF RIGHT HAND, INIT ENCNTR SNOMED Code(s): 08092772681878171 (2) Penicillin allergy Current Visit: Yes Status: Acute Code(s): Z88.0 - ALLERGY STATUS TO PENICILLIN SNOMED Code(s): 97645917 (3) Leukocytosis Current Visit: Yes Status: Acute Code(s): D72.829 - ELEVATED WHITE BLOOD CE LL COUNT, UNSPECIFIED SNOMED Code(s): 572063318 (4) Dog bite Current Visit: No Status: Acute Code(s): W54.0XXA - BITTEN BY DOG, INITIAL ENCOUNTER SNOMED Code(s): 091721704 Plan: 1patient with elevated white count which is likely multifactorial in this patient who did have right hand significant dog bite with laceration and bleeding and will empirically cover for dog bite cellulitis as current no other obvious focus of infection chest x-ray was no acute CHF urine has been negative no evidence of any abdominal tenderness 2-penicillin allergy that would limit the number of antibiotics safe to use 3-we will empirically treat with Rocephin 2 g daily and Flagyl while waiting for the workup to be completed Question concern answered We will follow on clinical condition and cultures to further adjust medication if needed Thank you for this consultation we will follow the patient along with you Dictation was produced using [employer] dictation software. please excuse any grammatical, word or spelling errors. Time with Patient: Greater than 30
[2025-03-04] MEDS: PANTOPRAZOLE 40 MG TABLET PO SCH (06:43)
[2025-03-04 07:47] LABS: Basophils # (A) 0.15 10*3/uL (0.00-0.10); Basophils % (A) 1.4 %; Eosinophils # (A) 0.54 10*3/uL (0.04-0.35); Eosinophils % (A) 5.1 %; HCT 32.3 % (37.2-46.3); HGB 10.7 g/dL (12.0-15.0); Lymphocytes # (A) 1.03 10*3/uL (0.90-5.00); Lymphocytes % (A) 9.8 %; MCHC 33.1 g/dL (32.0-37.0); MCV 84.6 fL (80.0-97.0); Mean Platelet Volume 10.8 fL (9.5-12.2); Monocytes # (A) 0.91 10*3/uL (0.20-1.00); Monocytes % (A) 8.6 %; Neutrophils # (A) 7.86 10*3/uL (1.80-7.70); Neutrophils % (A) 74.5 %; Platelet Count 417 10*3/uL (140-440); RBC 3.82 10*6/uL (4.10-5.20); WBC 10.55 10*3/uL (4.50-10.00)
[2025-03-04 08:03] LABS: ALT 10 U/L (4-34); AST 18 U/L (14-36); African American GFR (CKD) 15 (>60 ml/min/1.73 sqM); Albumin 2.9 g/dL (3.5-5.0); Alkaline Phosphatase 48 U/L (38-126); Anion Gap 10 mmol/L; Blood Urea Nitrogen 33 mg/dL (7-17); Calcium 8.3 mg/dL (8.4-10.2); Carbon Dioxide 21 mmol/L (22-30); Chloride 112 mmol/L (98-107); Glucose 95 mg/dL (74-99); Magnesium 2.2 mg/dL (1.6-2.3); Non-African American GFR(CKD) 13 (>60 ml/min/1.73 sqM); Potassium 3.4 mmol/L (3.5-5.1); Sodium 143 mmol/L (137-145); Total Bilirubin 0.5 mg/dL (0.2-1.3); Total Protein 5.2 g/dL (6.3-8.2)
[2025-03-04] MEDS: metroNIDAZOLE 500 MG TAB PO SCH (09:48)
--- NOTE | 2025-03-04 10:02 | P.PN ---
Subjective Patient is seen in follow-up for acute kidney injury. No improvement in renal function despite IV fluids. Blood cultures positive for gram-positive cocci. Has been waiting. Oral intake is poor. Vital signs are stable. General: No acute distress. HEENT: Head exam is unremarkable. LUNGS: No audible rhonchi or wheezes. HEART: Rate and Rhythm are regular. ABDOMEN: Nontender. EXTREMITITES: No edema. Nontender. Objective - Vital Signs Vital signs: Vital Signs Temp 97.5 F L 03/04/25 09:20 Pulse 62 03/04/25 09:20 Resp 20 03/04/25 09:20 BP 149/79 03/04/25 09:20 Pulse Ox 96 03/04/25 09:20 FiO2 Intake & Output 03/03/25 03/04/25 03/04/25 18:59 06:59 18:59 Intake Total 540 260 Balance 540 260 Weight 59.5 kg Intake: IV 20 Invasive Line 2 20 Oral 540 240 Other: Voiding Method Toilet # Voids 1 - Labs CBC & Chem 7: 03/04/25 06:43 03/04/25 06:43 Labs: Abnormal Lab Results - Last 24 Hours (Table) 03/04/25 03/04/25 Range/Units 06:43 06:43 WBC 10.55 H (4.50-10.00) 10*3/uL RBC 3.82 L (4.10-5.20) 10*6/uL Hgb 10.7 L (12.0-15.0) g/dL Hct 32.3 L (37.2-46.3) % Immature Gran # 0.06 H (0.00-0.04) 10*3/uL Neutrophils # 7.86 H (1.80-7.70) 10*3/uL Eosinophils # 0.54 H (0.04-0.35) 10*3/uL Basophils # 0.15 H (0.00-0.10) 10*3/uL Potassium 3.4 L (3.5-5.1) mmol/L Chloride 112 H (98-107) mmol/L Carbon Dioxide 21 L (22-30) mmol/L BUN 33 H (7-17) mg/dL Creatinine 3.22 H (0.52-1.04) mg/dL Calcium 8.3 L (8.4-10.2) mg/dL Total Protein 5.2 L (6.3-8.2) g/dL Albumin 2.9 L (3.5-5.0) g/dL Microbiology - Last 24 Hours (Table) 03/02/25 14:06 Blood Culture Gram Stain - Preliminary Blood Blood Culture - Preliminary Molecular ID Assessment and Plan Plan: Assessment: 1. Acute kidney injury secondary to ATN secondary to hypotension/severe sepsis. Creatinine 3.18 on admission and is stable at 3.22 today. Baseline creatinine 0.7-0.8. UA benign. No hydronephrosis noted on ultrasound. 2. Right hand wound from dog bite on antibiotics. Blood cultures also positive for gram-positive cocci. Infectious disease following. 3. Metabolic acidosis secondary to acute kidney injury and IV fluids. Better. On oral bicarb. 4. Coronary disease with RCA stent placed February 20, 2025. 5. Complex right renal cyst. Patient will need to see urology outpatient. 6. Hypokalemia from poor intake. Plan: Maintain IV fluids. Replace potassium. Avoid nephrotoxins. Continue to monitor renal function and urine output.
--- NOTE | 2025-03-04 10:04 | P.CNOR ---
History of Present Illness - HPI Consult date: 03/04/25 Consult reason: other (Right hand dog bite/laceration) History of present illness: Opal is a an 84-year-old female who presented to the emergency department with back pain and was found to have an acute kidney injury. She recently had a injury to her right hand that was caused by her dog. The patient's family at the bedside states that she was going after a dog toy when the dog's tooth caught her right hand on . The area was bleeding quite a bit for a few days. The patient was admitted for further evaluation by internal medicine and orthopedic hand surgery was consulted for the right hand. This morning, she denies any pain to the right hand. She denies any fever or chills. Review of Systems Constitutional: Denies chills, Denies fatigue, Denies fever Cardiovascular: Denies chest pain, Denies shortness of breath Musculoskeletal: right: hand swelling (and bruising) Past Medical History Past Medical History: Coronary Artery Disease (CAD), Chest Pain / Angina, COPD, CVA/TIA, Hyperlipidemia, Pulmonary Embolus (PE) Additional Past Medical History / Comment(s): Past ena TIA 06/2018, [facility] Last Myocardial Infarction Date:: 02/19/2025 History of Any Multi-Drug Resistant Organisms: None Reported Past Surgical History: Cholecystectomy, Heart Catheterization, Tonsillectomy Additional Past Surgical History / Comment(s): LOWER MANDIBULAR OSTEOTOMY BENIGN BREAST BIOPSY RIGHT, BILATERAL CATARACT REMOVAL/LENS IMPLANTS, THYROIDECTOMY AT AGE 18 Past Anesthesia/Blood Transfusion Reactions: No Reported Reaction Date of Last Stent Placement:: 02/20/2025 Past Psychological History: Depression Smoking Status: Former smoker Past Alcohol Use History: None Reported Past Drug Use History: None Reported - Past Family History Father History Unknown: Yes Mother Family Medical History: Myocardial Infarction (SC) Additional Family Medical History / Comment(s): Mother of a SC in her 80s. Medications and Allergies Home Medications Medication Instructions Recorded Confirmed Type Citalopram Hydrobromide [CeleXA] 20 mg PO DAILY 02/10/14 03/02/25 History Mirtazapine [Remeron] 15 mg PO HS 03/17/17 03/02/25 History Ticagrelor [Brilinta] 90 mg PO BID 90 Days #180 tablet 02/20/25 03/02/25 Rx Aspirin 81 mg PO DAILY tab 02/22/25 03/02/25 Rx Isosorbide Mononitrate ER [Imdur] 30 mg PO DAILY 2 Days #90 tab 02/22/25 0 03/02/25 Rx Levothyroxine Sodium [Synthroid] 100 mcg PO DAILY@0630 30 Days #30 02/22/25 03/02/25 Rx tab Metoprolol Tartrate [Lopressor] 25 mg PO BID #180 tab 02/22/25 03/02/25 Rx Nitroglycerin Sl Tabs [Nitrostat] 0.4 mg SUBLINGUAL Q5M PRN 30 Days 02/22/25 03/02/25 Rx #25 tab Nystatin 100,000 Unit/gm Powd 1 applic TOPICAL BID 10 Days #100 02/22/25 03/02/25 Rx [Mycostatin Powder] each amLODIPine [Norvasc] 5 mg PO DAILY 30 Days #30 tab 02/22/25 03/02/25 Rx Apixaban [Eliquis] 5 mg PO BID 30 Days #60 tab 02/23/25 03/02/25 Rx Bacitracin/Polymyx Oint 1 applic TOPICAL BID #22 gm 02/28/25 03/02/25 Rx [Polysporin Oint] clindamycin HCL 300 mg PO TID #15 cap 02/28/25 03/02/25 Rx Allergies Allergy/AdvReac Type Severity Reaction Status Date / Time Penicillins Allergy Rash/Hives Verified 03/02/25 14:20 Physical Examination The patient is an 84-year-old female in no acute distress. She is alert and oriented x 3. Exam of the right hand reveals a inch and a half laceration to the dorsal aspect of the hand, near the base of the right thumb and 2nd metacarpal. There is an area of bruising around the laceration but no active bleeding today. No signs or symptoms of infection. No active drainage at this time. The laceration is open with stable granulation tissue starting to fill in. Extensor tendons are intact to the right thumb and index finger. Neurological and circulatory status is intact. Results No previous imaging. - Labs Labs: Abnormal Lab Results - Last 24 Hours (Table) 03/04/25 03/04/25 Range/Units 06:43 06:43 WBC 10.55 H (4.50-10.00) 10*3/uL RBC 3.82 L (4.10-5.20) 10*6/uL Hgb 10.7 L (12.0-15.0) g/dL Hct 32.3 L (37.2-46.3) % Immature Gran # 0.06 H (0.00-0.04) 10*3/uL Neutrophils # 7.86 H (1.80-7.70) 10*3/uL Eosinophils # 0.54 H (0.04-0.35) 10*3/uL Basophils # 0.15 H (0.00-0.10) 10*3/uL Potassium 3.4 L (3.5-5.1) mmol/L Chloride 112 H (98-107) mmol/L Carbon Dioxide 21 L (22-30) mmol/L BUN 33 H (7-17) mg/dL Creatinine 3.22 H (0.52-1.04) mg/dL Calcium 8.3 L (8.4-10.2) mg/dL Total Protein 5.2 L (6.3-8.2) g/dL Albumin 2.9 L (3.5-5.0) g/dL Microbiology - Last 24 Hours (Table) 03/02/25 14:06 Blood Culture Gram Stain - Preliminary Blood Blood Culture - Preliminary Molecular ID H & H 03/02/25 03/04/25 Range/Units 13:01 06:43 Hgb 13.6 10.7 L (12.0-15.0) g/dL Hct 40.5 32.3 L (37.2-46.3) % Coagulation 03/02/25 Range/Units 13:01 INR 1.3 H (<1.2) Result Diagrams: 03/04/25 06:43 03/04/25 06:43 Assessment and Plan (1) Laceration of right hand Current Visit: Yes Status: Acute Code(s): S61.411A - LACERATION WITHOUT FOREIGN BODY OF RIGHT HAND, INIT ENCNTR SNOMED Code(s): 60070732711267415 (2) Dog bite Current Visit: No Status: Acute Code(s): W54.0XXA - BITTEN BY DOG, INITIAL ENCOUNTER SNOMED Code(s): 140878468 Plan: The clinical findings were discussed with the patient and family at the bedside. The case was discussed with Dr. Whitlock. The laceration to the right hand is superficial and does not involve deeper structures. Local wound care was discu ssed with Vaseline or Neosporin and cleansing the wound at least daily. A Band- Aid was applied today. The patient may follow-up in our office if she develops any issues otherwise she can recheck with us as needed.
[2025-03-04] MEDS: POTASSIUM CHLORIDE ER 20 MEQ TAB.ER PO STA (10:19)
--- NOTE | 2025-03-04 11:59 | P.PN ---
Subjective Progress Note Date: 03/04/25 Opal Mccord, is an 84-year-old female who presented to [facility] emergency room with a chief complaint of bleeding on hand from dog bite site. Patient is on anticoagulation and reports that she is having trouble stopping the bleeding from bite He was evaluated in the emergency room vital examination on presentation revealed temp 98.6, heart rate 71, respiratory rate 18, blood pressure 109/70 with a pulse ox of 96% on room air Laboratory data reveals white blood cell 14.08, hemoglobin 13.6 creatinine 3.18 bun 39 Testing in the emergency room revealed chest x-ray showing cardiomegaly pulmonary vascular congestion and bilateral pleural effusions correlate with BNP for CHF Patient was admitted to medical floor for further evaluation and treatment for VALERIA and dog bite. Patient is on clindamycin. Dr. Reece for infectious disease and nephrology services have been consulted ultrasound of kidney bladder ordered patient started on IV fluid. Blood and urine cultures ordered Past medical history is significant for CAD, COPD, CVA, hyperlipidemia, pulmonary embolism, shingles and TIA On review of systems patient is alert and oriented x 3. Patient's dressing in place on right hand. Patient denies chest pain or shortness of breath. Patient denies nausea vomiting or diarrhea. Patient denies any urinary burning or frequency On 03/03/2025 patient is alert and oriented x 3. Renal ultrasound has been ordered UA ordered per nephrology services creatinine trending down to 3.07. Current vital signs temp 97.7, heart rate 75, respiratory rate 22, blood pressure 102/49 with pulse ox 97% on room air. Patient denies chest pain or shortness of breath. Patient denies nausea vomiting or diarrhea. Patient denies any urinary burning or frequency. On 03/04/2025 patient was seen and examined on the medical floor she is alert and oriented x 3 in no apparent distress, there is no fever or chills no headache or dizziness no chest pain no shortness of breath no cough no nausea or vomiting no abdominal pain no diarrhea no urinary symptoms. Bleeding has stopped from the right hand site of dog bite. Kidney function remains impaired, BUN at 33 creatinine 3.22 and GFR at 13 infectious disease and nephrology are following will continue to monitor closely Objective - Vital Signs Vital signs: Vital Signs Temp 97.3 F L 03/04/25 11:27 Pulse 54 L 03/04/25 11:27 Resp 14 03/04/25 11:27 BP 129/71 03/04/25 11:27 Pulse Ox 93 L 03/04/25 11:27 FiO2 Intake & Output 03/03/25 03/04/25 03/04/25 18:59 06:59 18:59 Intake Total 540 260 Balance 540 260 Weight 59.5 kg Intake: IV 20 Invasive Line 2 20 Oral 540 240 Other: Voiding Method Toilet Toilet # Voids 1 1 # Bowel Movements 1 - Exam In general patient is alert and oriented Ã-3 in no distress HEENT head normocephalic and atraumatic Neck is supple no JVD no goiter no lymphadenopathy no carotid bruit Chest examination is clear to auscultation no crackles no wheezing Cardiac exam reveals regular heart sounds S1 and S2 no gallops no murmurs Abdomen is soft nontender no organomegaly with normal bowel sounds Extremity exam reveals no edema no cyanosis or clubbing Neurological examination reveals no gross focal deficits - Labs CBC & Chem 7: 03/04/25 06:43 03/04/25 06:43 Labs: Abnormal Lab Results - Last 24 Hours (Table) 03/04/25 03/04/25 Range/Units 06:43 06:43 WBC 10.55 H (4.50-10.00) 10*3/uL RBC 3.82 L (4.10-5.20) 10*6/uL Hgb 10.7 L (12.0-15.0) g/dL Hct 32.3 L (37.2-46.3) % Immature Gran # 0.06 H (0.00-0.04) 10*3/uL Neutrophils # 7.86 H (1.80-7.70) 10*3/uL Eosinophils # 0.54 H (0.04-0.35) 10*3/uL Basophils # 0.15 H (0.00-0.10) 10*3/uL Potassium 3.4 L (3.5-5.1) mmol/L Chloride 112 H (98-107) mmol/L Carbon Dioxide 21 L (22-30) mmol/L BUN 33 H (7-17) mg/dL Creatinine 3.22 H (0.52-1.04) mg/dL Calcium 8.3 L (8.4-10.2) mg/dL Total Protein 5.2 L (6.3-8.2) g/dL Albumin 2.9 L (3.5-5.0) g/dL Microbiology - Last 24 Hours (Table) 03/02/25 14:06 Blood Culture Gram Stain - Preliminary Blood Blood Culture - Preliminary Molecular ID Assessment and Plan Assessment: 1. Acute kidney injury 2. Dog bite to right hand patient currently on clindamycin pressure dressing in place 3. Episodes of diarrhea and poor oral intake. C. difficile negative 4. History of CVA 5. History of COPD 6. History of hyperlipidemia 7. History of pulmonary embolism 8. History of depression DVT prophylaxis Eliquis. GI prophylaxis Protonix Patient started p.o. clindamycin Infectious disease and nephrology services consulted Repeat labs ordered Blood and urine cultures ordered Ultrasound of kidney bladder and renal
--- NOTE | 2025-03-04 15:33 | P.PN ---
Subjective Progress Note Date: 03/04/25 Principal diagnosis: Reason for follow-up is right hand dog bite/cellulitis and positive blood culture Patient is a 84-year-old female with a past medical history signif icant for coronary artery disease COPD CVA TIA hyperlipidemia PE recently discharged from this facility brought back to the hospital after the patient did have a dog bite on the right hand wrist area with significant bleeding she did have elevated white count positive blood culture prompted this consultation. On today's evaluation that is 03/04/2024, patient did have a temperature of 97.3 F this morning and denies having any chills, patient is on room air and breathing comfortably no chest pain or cough, the patient did not have any nausea vomiting abdominal pain or any diarrhea denies any worsening pain to the right hand area. Patient white count is down to 10.55, creatinine 3.22 UA is negative blood culture with staph epi Objective - Vital Signs Vital signs: Vital Signs Temp 97.3 F L 03/04/25 11:27 Pulse 54 L 03/04/25 11:27 Resp 14 03/04/25 11:27 BP 129/71 03/04/25 11:27 Pulse Ox 93 L 03/04/25 11:27 FiO2 Intake & Output 03/03/25 03/04/25 03/04/25 18:59 06:59 18:59 Intake Total 540 260 Balance 540 260 Weight 59.5 kg Intake: IV 20 Invasive Line 2 20 Oral 540 240 Other: Voiding Method Toilet Toilet # Voids 1 1 # Bowel Movements 1 - Exam GENERAL DESCRIPTION: An elderly male up in the room in no distress RESPIRATORY SYSTEM: Unlabored breathing , decreased breath sounds at bases HEART: S1 S2 regular rate and rhythm , ABDOMEN: Soft , no tenderness EXTREMITIES: Right hand with a bruise no purulent drainage - Labs CBC & Chem 7: 03/04/25 06:43 03/04/25 06:43 Labs: Abnormal Lab Results - Last 24 Hours (Table) 03/04/25 03/04/25 Range/Units 06:43 06:43 WBC 10.55 H (4.50-10.00) 10*3/uL RBC 3.82 L (4.10-5.20) 10*6/uL Hgb 10.7 L (12.0-15.0) g/dL Hct 32.3 L (37.2-46.3) % Immature Gran # 0.06 H (0.00-0.04) 10*3/uL Neutrophils # 7.86 H (1.80-7.70) 10*3/uL Eosinophils # 0.54 H (0.04-0.35) 10*3/uL Basophils # 0.15 H (0.00-0.10) 10*3/uL Potassium 3.4 L (3.5-5.1) mmol/L Chloride 112 H (98-107) mmol/L Carbon Dioxide 21 L (22-30) mmol/L BUN 33 H (7-17) mg/dL Creatinine 3.22 H (0.52-1.04) mg/dL Calcium 8.3 L (8.4-10.2) mg/dL Total Protein 5.2 L (6.3-8.2) g/dL Albumin 2.9 L (3.5-5.0) g/dL Microbiology - Last 24 Hours (Table) 03/02/25 14:06 Blood Culture Gram Stain - Preliminary Blood Blood Culture - Preliminary Molecular ID Assessment and Plan (1) Laceration of right hand Current Visit: Yes Status: Acute Code(s): S61.411A - LACERATION WITHOUT FOREIGN BODY OF RIGHT HAND, INIT ENCNTR SNOMED Code(s): 70103343284479706 (2) Penicillin allergy Current Visit: Yes Status: Acute Code(s): Z88.0 - ALLERGY STATUS TO PENICILLIN SNOMED Code(s): 01952349 (3) Leukocytosis Current Visit: Yes Status: Acute Code(s): D72.829 - ELEVATED WHITE BLOOD CELL COUNT, UNSPECIFIED SNOMED Code(s): 679234569 (4) Dog bite Current Visit: No Status: Acute Code(s): W54.0XXA - BITTEN BY DOG, INITIAL ENCOUNTER SNOMED Code(s): 423268125 (5) Positive blood culture Current Visit: Yes Status: Acute Code(s): R78.81 - BACTEREMIA SNOMED Code(s): 458578679 Plan: 1patient with elevated white count which is likely multifactorial in this pat ient who did have right hand significant dog bite with laceration and bleeding and will empirically cover for dog bite cellulitis as current no other obvious focus of infection chest x-ray was no acute CHF urine has been negative no evidence of any abdominal tenderness 2-penicillin allergy that we will limit number of antibiotic safe to use 3positive blood culture staph is more likely skin contamination blood culture has been repeated 4patient to continue Rocephin 2 g daily and Flagyl while waiting for the workup to be completed Dictation was produced using [employer] dictation software. please excuse any grammatical, word or spelling errors. Time with Patient: Less than 30
--- NOTE | 2025-03-04 20:56 | P.CRDCN ---
History of Present Illness Consult date: 03/04/25 History of present illness: HISTORY OF PRESENTING ILLNESS: 84-year-old female presented to [facility] 02/19/2025 at 10 PM because of substernal chest pressure. On admission she had ST elevations in 2 3 aVF with reciprocal changes in 1 and aVL. For this she was taken to [facility]. Cath showed 100% proximal RCA stenosis. Also showed residual 50% disease in mid LAD at diagonal 1 bifurcation site and Aguilar 0, 1, 1 fashion, 30% mid LCx and proximal OM 2 disease This time she presented to the hospital because of bleeding from the hand after a dog bite. She was on antiplatelets for her recent PCI and she had difficulty stopping her bleeding. On admission she was noticed to have WBC 14, Hb 13, creatinine 3.18, BUN 39. Her baseline creatinine is around 0.7. Nephrology was consulted and they did fluid challenge which did not improve her kidney function. She also had blood cultures done which were positive for gram- positive cocci in clusters. Orthopedic were consulted for hand injury after dog bite. As per their assessment it is superficial and does not need surgical intervention. Cardiology was consulted for concerns of CHF, VALERIA and recent heart cath. Admission Vitals: 123/67, currently 116/72, heart rate 71 on admission, currently 58 Admission Labs: WBC 14, Hb 13, BUN 39, creatinine 3.18, potassium 4.1, NT-proBNP 3690. LDL 88, TSH 6, A1c 5.8. Baseline creatinine 0.7 Admission EKG: Normal sinus rhythm, Q waves inferior lead with T wave inversions Imaging: Chest x-ray shows cardiomegaly with poor inspiratory effort, mild increased interstitial marking. Abdominal ultrasound showed complex right renal cyst recommending further MRI. No concerns of hydronephrosis. Echo from 02/2025 LVEF 50-55, mild inferior wall hypokinesia, mild MR, mild TR REVIEW OF SYSTEMS: 14 point review of system is negative except what is mentioned above in HPI. PHYSICAL EXAMINATION: Neck: Brisk carotid upstroke, no jugular venous distention. Lungs: Clear to auscultation. Heart: Regular rate and rhythm, S1-S2, , no murmur or rub. Abdomen: Soft nontender, positive bowel sounds. Extremities: No edema, intact distal pulses. Neuro: Alert, oritented, no focal deficits. Detailed neuro exam was not performed. ASSESSMENT: # VALERIA secondary to ATN, likely from hypotension/sepsis. Creatinine 3.18 on admission, baseline at 0.7. No concerns of postobstructive uropathy. Right renal complex cyst noticed on abdominal ultrasound # Paroxysmal atrial fibrillation currently in sinus rhythm # CAD status post PCI to proximal RCA for STEMI 02/2025. Residual 50% mid RCA, 30% mid LCx and OM 2 disease. # Dog bite # Metabolic acidosis and hypokalemia likely from poor oral intake PLAN: Aspirin, Brilinta, Eliquis, Lipitor Imdur 30, metoprolol 25 twice daily, Her home amlodipine is held as blood pressure is low normal. Continue monitoring renal function and electrolytes. Mahad Chiang MD, FACC, RPVI Thank you for allowing [facility] to participate in this patient's care. Feel free to reach out in case of any followup questions. Past Medical History Past Medical History: Coronary Artery Disease (CAD), Chest Pain / Angina, COPD, CVA/TIA, Hyperlipidemia, Pulmonary Embolus (PE) Additional Past Medical History / Comment(s): Past shingelles, TIA 06/2018, [facility] Last Myocardial Infarction Date:: 02/19/2025 History of Any Multi-Drug Resistant Organisms: None Reported Past Surgical History: Cholecystectomy, Heart Catheterization, Tonsillectomy Additional Past Surgical History / Comment(s): LOWER MANDIBULAR OSTEOTOMY BENIGN BREAST BIOPSY RIGHT, BILATERAL CATARACT REMOVAL/LENS IMPLANTS, THYROIDECTOMY AT AGE 18 Past Anesthesia/Blood Transfusion Reactions: No Reported Reaction Date of Last Stent Placement:: 02/20/2025 Past Psychological History: Depression Smoking Status: Former smoker Past Alcohol Use History: None Reported Past Drug Use History: None Reported - Past Family History Father History Unknown: Yes Mother Family Medical History: Myocardial Infarction ([place]) Additional Family Medical History / Comment(s): Mother of a MO in her 80s. Medications and Allergies Home Medications Medication Instructions Recorded Confirmed Type Citalopram Hydrobromide [CeleXA] 20 mg PO DAILY 02/10/14 03/02/25 History Mirtazapine [Remeron] 15 mg PO HS 03/17/17 03/02/25 History Ticagrelor [Brilinta] 90 mg PO BID 90 Days #180 tablet 06/09/25 06/19/25 Rx Aspirin 81 mg PO DAILY tab 02/22/25 03/02/25 Rx Isosorbide Mononitrate ER [Imdur] 30 mg PO DAILY 2 Days #90 tab 02/22/25 03/02/25 Rx Levothyroxine Sodium [Synthroid] 100 mcg PO DAILY@0630 30 Days #30 02/22/25 03/02/25 Rx tab Metoprolol Tartrate [Lopressor] 25 mg PO BID #180 tab 02/22/25 03/02/25 Rx Nitroglycerin Sl Tabs [Nitrostat] 0.4 mg SUBLINGUAL Q5M PRN 30 Days 02/22/25 Rx #25 tab Nystatin 100,000 Unit/gm Powd 1 applic TOPICAL BID 10 Days #100 02/22/25 Rx [Mycostatin Powder] each amLODIPine [Norvasc] 5 mg PO DAILY 30 Days #30 tab 02/22/25 03/02/25 Rx Apixaban [Eliquis] 5 mg PO BID 30 Days #60 tab 02/23/25 03/02/25 Rx Bacitracin/Polymyx Oint 1 applic TOPICAL BID #22 gm 02/28/25 03/02/25 Rx [Polysporin Oint] clindamycin HCL 300 mg PO TID #15 cap 02/28/25 03/02/25 Rx Allergies Allergy/AdvReac Type Severity Reaction Status Date / Time Penicillins Allergy Rash/Hives Verified 03/02/25 14:20 Physical Exam Vitals: Vital Signs Temp Pulse Resp BP Pulse Ox 03/04/25 17:07 97.2 F L 58 L 8 L 116/72 96 03/04/25 11:27 97.3 F L 54 L 14 129/71 93 L 03/04/25 09:20 97.5 F L 62 20 149/79 96 03/04/25 03:19 97.3 F L 63 18 124/77 93 L 03/04/25 01:22 66 18 03/03/25 23:14 97.5 F L 66 18 115/73 93 L 03/03/25 20:00 97.8 F 71 18 123/67 92 L Intake and Output 03/04/25 03/04/25 03/04/25 06:59 14:59 22:59 Intake Total 540 500 118 Balance 540 500 118 Intake: IV 20 Invasive Line 2 20 Oral 540 480 118 Other: Voiding Method Toilet Toilet # Voids 1 2 # Bowel Movements 1 1 Weight 59.5 kg Results 03/04/25 06:43 03/04/25 06:43 Cardiac Enzymes 03/04/25 Range/Units 06:43 AST 18 (14-36) U/L CBC 03/04/25 Range/Units 06:43 WBC 10.55 H (4.50-10.00) 10*3/uL RBC 3.82 L (4.10-5.20) 10*6/uL Hgb 10.7 L (12.0-15.0) g/dL Hct 32.3 L (37.2-46.3) % Plt Count 417 (140-440) 10*3/uL Comprehensive Metabolic Panel 03/04/25 Range/Units 06:43 Sodium 143 (137-145) mmol/L Potassium 3.4 L (3.5-5.1) mmol/L Chloride 112 H (98-107) mmol/L Carbon Dioxide 21 L (22-30) mmol/L BUN 33 H (7-17) mg/dL Creatinine 3.22 H (0.52-1.04) mg/dL Glucose 95 (74-99) mg/dL Calcium 8.3 L (8.4-10.2) mg/dL AST 18 (14-36) U/L ALT 10 (4-34) U/L Alkaline Phosphatase 48 (38-126) U/L Total Protein 5.2 L (6.3-8.2) g/dL Albumin 2.9 L (3.5-5.0) g/dL Current Medications Generic Name Dose Route Start Last Admin Trade Name Freq PRN Reason Stop Dose Admin Acetaminophen 650 mg 03/02/25 14:37 Acetaminophen Tab 325 Mg Tab PO Q6HR PRN Mild Pain or Fever > 100.5 Apixaban 2.5 mg 03/02/25 21:00 03/04/25 09:48 Apixaban 2.5 Mg Tablet PO 2.5 mg BID ISSAC Administration Protocol Aspirin 81 mg 03/03/25 09:00 03/04/25 09:48 Aspirin 81 Mg PO 81 mg DAILY ISSAC Administration Atorvastatin Calcium 80 mg 03/03/25 21:00 03/03/25 21:57 Atorvastatin 80 Mg Tab PO 80 mg HS ISSAC Administration Citalopram Hydrobromide 20 mg 03/03/25 09:00 03/04/25 09:48 Citalopram Hydrobromide 20 Mg Tab PO 20 mg DAILY ISSAC Administration Lactated Ringer's 1,000 mls @ 75 mls/hr 03/02/25 14:45 03/04/25 14:12 Lactated Ringers IV Not Given .[id number] [facility] Ceftriaxone Sodium 2 gm/ 50 mls @ 100 mls/hr 03/03/25 22:45 03/04/25 09:47 Sodium Chloride IVPB 100 mls/hr Q24HR ISSAC Administration Protocol Isosorbide Mononitrate 30 mg 03/03/25 09:00 03/04/25 09:48 Isosorbide Mononitrate Er 30 Mg Tab.Er.24h PO 30 mg DAILY ISSAC Administration Levothyroxine Sodium 100 mcg 03/03/25 06:30 03/04/25 06:43 Levothyroxine 100 Mcg Tab PO 100 mcg DAILY@0630 ISSAC Administration Metoprolol Tartrate 25 mg 03/02/25 21:00 03/04/25 09:48 Metoprolol Tartrate 25 Mg Tab PO 25 mg BID ISSAC Administration Metronidazole 500 mg 03/04/25 09:00 03/04/25 17:07 Metronidazole 500 Mg Tab PO 500 mg TID [facility] Administration Protocol Mirtazapine 15 mg 03/02/25 21:00 03/03/25 21:48 Mirtazapine 15 Mg Tab PO 15 mg HS ISSAC Administration Naloxone HCl 0.2 mg 03/02/25 14:37 Naloxone 0.4 Mg/Ml 1 Ml Vial IV Q2M PRN Opioid Reversal Nitroglycerin 0.4 mg 03/02/25 15:17 Nitroglycerin Sl Tabs 0.4 Mg Tab SUBLINGUAL Q5M PRN Chest Pain Nystatin 1 applic 03/04/25 21:00 Nystatin 100,000 Unit/Gm Powd 15 Gm TOPICAL BID [facility] Protocol Ondansetron HCl 4 mg 03/02/25 14:37 Ondansetron 4 Mg/2 Ml Vial IVP Q8HR PRN Nausea And Vomiting Pantoprazole Sodium 40 mg 03/04/25 07:30 03/04/25 06:43 Pantoprazole 40 Mg Tablet PO 40 mg [id number] [facility] Administration Sodium Bicarbonate 650 mg 03/03/25 10:45 03/04/25 09:48 Sodium Bicarbonate Tab 650 Mg Tab PO 650 mg BID ISSAC Administration Ticagrelor 90 mg 03/02/25 21:00 03/04/25 09:48 Ticagrelor 90 Mg Tab PO 90 mg BID ISSAC Administration Intake and Output 03/04/25 03/04/25 03/04/25 06:59 14:59 22:59 Intake Total 540 500 118 Balance 540 500 118 Intake: IV 20 Invasive Line 2 20 Oral 540 480 118 Other: Voiding Method Toilet Toilet # Voids 1 2 # Bowel Movements 1 1 Weight 59.5 kg 03/04/25 06:43 03/04/25 06:43
[2025-03-04] MEDS: NYSTATIN 100,000 UNIT/GM POWD 15 GM TOPICAL SCH (21:15)
[2025-03-05 07:22] LABS: Basophils # (A) 0.13 10*3/uL (0.00-0.10); Basophils % (A) 1.6 %; Eosinophils # (A) 0.63 10*3/uL (0.04-0.35); Eosinophils % (A) 7.5 %; HCT 31.9 % (37.2-46.3); HGB 10.4 g/dL (12.0-15.0); Lymphocytes # (A) 0.86 10*3/uL (0.90-5.00); Lymphocytes % (A) 10.3 %; MCHC 32.6 g/dL (32.0-37.0); Mean Platelet Volume 10.5 fL (9.5-12.2); Monocytes # (A) 0.95 10*3/uL (0.20-1.00); Monocytes % (A) 11.4 %; Neutrophils # (A) 5.73 10*3/uL (1.80-7.70); Neutrophils % (A) 68.4 %; Platelet Count 409 10*3/uL (140-440); RBC 3.71 10*6/uL (4.10-5.20); RDW 14.4 % (11.5-14.5); WBC 8.37 10*3/uL (4.50-10.00)
[2025-03-05 07:41] LABS: ALT 10 U/L (4-34); AST 19 U/L (14-36); African American GFR (CKD) 16 (>60 ml/min/1.73 sqM); Albumin 2.7 g/dL (3.5-5.0); Alkaline Phosphatase 44 U/L (38-126); Anion Gap 6 mmol/L; Blood Urea Nitrogen 30 mg/dL (7-17); Calcium 8.2 mg/dL (8.4-10.2); Carbon Dioxide 25 mmol/L (22-30); Chloride 112 mmol/L (98-107); Glucose 89 mg/dL (74-99); Magnesium 2.1 mg/dL (1.6-2.3); Non-African American GFR(CKD) 14 (>60 ml/min/1.73 sqM); Potassium 3.7 mmol/L (3.5-5.1); Sodium 143 mmol/L (137-145); Total Bilirubin 0.5 mg/dL (0.2-1.3)
--- NOTE | 2025-03-05 09:44 | P.PN ---
Subjective Progress Note Date: 03/05/25 Opal Mccord, is an 84-year-old female who presented to [facility] emergency room with a chief complaint of bleeding on hand from dog bite site. Patient is on anticoagulation and reports that she is having trouble stopping the bleeding from bite He was evaluated in the emergency room vital examination on presentation revealed temp 98.6, heart rate 71, respiratory rate 18, blood pressure 109/70 with a pulse ox of 96% on room air Laboratory data reveals white blood cell 14.08, hemoglobin 13.6 creatinine 3.18 bun 39 Testing in the emergency room revealed chest x-ray showing cardiomegaly pulmonary vascular congestion and bilateral pleural effusions correlate with BNP for CHF Patient was admitted to medical floor for further evaluation and treatment for VALERIA and dog bite. Patient is on clindamycin. Dr. Reece for infectious disease and nephrology services have been consulted ultrasound of kidney bladder ordered patient started on IV fluid. Blood and urine cultures ordered Past medical history is significant for CAD, COPD, CVA, hyperlipidemia, pulmonary embolism, shingles and TIA On review of systems patient is alert and oriented x 3. Patient's dressing in place on right hand. Patient denies chest pain or shortness of breath. Patient denies nausea vomiting or diarrhea. Patient denies any urinary burning or frequency On 03/03/2025 patient is alert and oriented x 3. Renal ultrasound has been ordered UA ordered per nephrology services creatinine trending down to 3.07. Current vital signs temp 97.7, heart rate 75, respiratory rate 22, blood pressure 102/49 with pulse ox 97% on room air. Patient denies chest pain or shortness of breath. Patient denies nausea vomiting or diarrhea. Patient denies any urinary burning or frequency. On 03/04/2025 patient was seen and examined on the medical floor she is alert and oriented x 3 in no apparent distress, there is no fever or chills no headache or dizziness no chest pain no shortness of breath no cough no nausea or vomiting no abdominal pain no diarrhea no urinary symptoms. Bleeding has stopped from the right hand site of dog bite. Kidney function remains impaired, BUN at 33 creatinine 3.22 and GFR at 13 infectious disease and nephrology are following will continue to monitor closely On 03/05/2025 patient is alert and oriented x 3 patient denies chest pain or shortness of breath. Patient denies nausea vomiting or diarrhea. Patient denies any urinary burning or frequency. Creatinine improved slightly improving to 3.05. Patient remains on Rocephin and Flagyl and Flagyl per ID. Current vital signs temp 97.3, heart rate 65, respiratory rate 18, blood pressure 159/74 with pulse ox of 92% on room air Objective - Vital Signs Vital signs: Vital Signs Temp 97.3 F L 03/05/25 07:33 Pulse 65 03/05/25 07:33 Resp 18 03/05/25 07:33 BP 159/74 03/05/25 07:33 Pulse Ox 92 L 03/05/25 07:33 FiO2 Intake & Output 03/04/25 03/05/25 03/05/25 18:59 06:59 18:59 Intake Total 618 222 Balance 618 222 Weight 59 kg Intake: IV 20 Invasive Line 2 20 Oral 598 222 Other: Voiding Method Toilet Toilet # Voids 2 1 # Bowel Movements 1 - Exam In general patient is alert and oriented Ã-3 in no distress HEENT head normocephalic and atraumatic Neck is supple no JVD no goiter no lymphadenopathy no carotid bruit Chest examination is clear to auscultation no crackles no wheezing Cardiac exam reveals regular heart sounds S1 and S2 no gallops no murmurs Abdomen is soft nontender no organomegaly with normal bowel sounds Extremity exam reveals no edema no cyanosis or clubbing Neurological examination reveals no gross focal deficits - Labs CBC & Chem 7: 03/05/25 06:49 03/05/25 06:49 Labs: Abnormal Lab Results - Last 24 Hours (Table) 03/05/25 03/05/25 Range/Units 06:49 06:49 RBC 3.71 L (4.10-5.20) 10*6/uL Hgb 10.4 L (12.0-15.0) g/dL Hct 31.9 L (37.2-46.3) % Immature Gran # 0.07 H (0.00-0.04) 10*3/uL Lymphocytes # 0.86 L (0.90-5.00) 10*3/uL Eosinophils # 0.63 H (0.04-0.35) 10*3/uL Basophils # 0.13 H (0.00-0.10) 10*3/uL Chloride 112 H (98-107) mmol/L BUN 30 H (7-17) mg/dL Creatinine 3.05 H (0.52-1.04) mg/dL Calcium 8.2 L (8.4-10.2) mg/dL Total Protein 5.0 L (6.3-8.2) g/dL Albumin 2.7 L (3.5-5.0) g/dL Assessment and Plan Assessment: 1. Acute kidney injury 2. Dog bite to right hand patient currently on clindamycin pressure dressing in place 3. Episodes of diarrhea and poor oral intake. C. difficile negative 4. History of CVA 5. History of COPD 6. History of hyperlipidemia 7. History of pulmonary embolism 8. History of depression DVT prophylaxis Eliquis. GI prophylaxis Protonix Patient started p.o. clindamycin Infectious disease and nephrology services consulted Repeat labs ordered Blood and urine cultures ordered Ultrasound of kidney bladder and renal
--- NOTE | 2025-03-05 10:53 | P.PN ---
Subjective Patient is seen in follow-up for acute kidney injury. Renal function fairly stable. Blood cultures positive for staph epi.. Has been voiding. Oral intake is poor. Vital signs are stable. General: No acute distress. HEENT: Head exam is unremarkable. LUNGS: No audible rhonchi or wheezes. HEART: Rate and Rhythm are regular. ABDOMEN: Nontender. EXTREMITITES: No edema. . Objective - Vital Signs Vital signs: Vital Signs Temp 97.3 F L 03/05/25 07:33 Pulse 65 03/05/25 07:33 Resp 18 03/05/25 07:33 BP 159/74 03/05/25 07:33 Pulse Ox 92 L 03/05/25 07:33 FiO2 Intake & Output 03/04/25 03/05/25 03/05/25 18:59 06:59 18:59 Intake Total 618 222 Balance 618 222 Weight 59 kg Intake: IV 20 Invasive Line 2 20 Oral 598 222 Other: Voiding Method Toilet Toilet Toilet # Voids 2 1 # Bowel Movements 1 - Labs CBC & Chem 7: 03/05/25 06:49 03/05/25 06:49 Labs: Abnormal Lab Results - Last 24 Hours (Table) 03/05/25 03/05/25 Range/Units 06:49 06:49 RBC 3.71 L (4.10-5.20) 10*6/uL Hgb 10.4 L (12.0-15.0) g/dL Hct 31.9 L (37.2-46.3) % Immature Gran # 0.07 H (0.00-0.04) 10*3/uL Lymphocytes # 0.86 L (0.90-5.00) 10*3/uL Eosinophils # 0.63 H (0.04-0.35) 10*3/uL Basophils # 0.13 H (0.00-0.10) 10*3/uL Chloride 112 H (98-107) mmol/L BUN 30 H (7-17) mg/dL Creatinine 3.05 H (0.52-1.04) mg/dL Calcium 8.2 L (8.4-10.2) mg/dL Total Protein 5.0 L (6.3-8.2) g/dL Albumin 2.7 L (3.5-5.0) g/dL Microbiology - Last 24 Hours (Table) 03/02/25 14:06 Blood Culture Gram Stain - Preliminary Blood Blood Culture - Preliminary Staphylococcus epidermidis Molecular ID Assessment and Plan Plan: Assessment: 1. Acute kidney injury secondary to ATN secondary to hypotension/severe sepsis. Creatinine 3.18 on admission and is stable at 3.05 today. Baseline creatinine 0.7-0.8. UA benign. No hydronephrosis noted on ultrasound. 2. Right hand wound from dog bite on antibiotics. Blood cultures also positive for gram-positive cocci. Infectious disease following. 3. Metabolic acidosis secondary to acute kidney injury and IV fluids. Better. On oral bicarb. 4. Coronary disease with RCA stent placed February 20, 2025. 5. Complex right renal cyst. Patient will need to see urology outpatient. 6. Hypokalemia from poor intake. Replaced. Better. Plan: Maintain IV fluids. Avoid nephrotoxins. Continue to monitor renal function and urine output.
--- NOTE | 2025-03-05 16:17 | P.PN ---
Subjective Progress Note Date: 03/05/25 Principal diagnosis: Reason for follow-up is right hand dog bite/cellulitis and positive blood culture Patient is a 84-year-old female with a past medical history signif icant for coronary artery disease COPD CVA TIA hyperlipidemia PE recently discharged from this facility brought back to the hospital after the patient did have a dog bite on the right hand wrist area with significant bleeding she did have elevated white count positive blood culture prompted this consultation. On today's evaluation that is 03/05/2025, Patient is afebrile patient is currently on room air and denies having any shortness of breath, the patient denies any chest pain or cough, the patient denies any nausea vomiting did not have any abdominal pain and no diarrhea denies pain to the right hand. Patient white count normalized to 8.37, creatinine 3.05 blood culture with staph epi Objective - Vital Signs Vital signs: Vital Signs Temp 97.4 F L 03/05/25 15:41 Pulse 58 L 03/05/25 15:41 Resp 18 03/05/25 15:41 BP 128/69 03/05/25 15:41 Pulse Ox 96 03/05/25 15:41 FiO2 Intake & Output 03/04/25 03/05/25 03/05/25 18:59 06:59 18:59 Intake Total 618 562 Balance 618 562 Weight 59 kg Intake: IV 20 Invasive Line 2 20 Oral 598 562 Other: Voiding Method Toilet Toilet Toilet # Voids 2 1 1 # Bowel Movements 1 - Exam GENERAL DESCRIPTION: An elderly male up in the room in no distress RESPIRATORY SYSTEM: Unlabored breathing , decreased breath sounds at bases HEART: S1 S2 regular rate and rhythm , ABDOMEN: Soft , no tenderness EXTREMITIES: Right hand with a bruise no purulent drainage - Labs CBC & Chem 7: 03/05/25 06:49 03/05/25 06:49 Labs: Abnormal Lab Results - Last 24 Hours (Table) 03/05/25 03/05/25 Range/Units 06:49 06:49 RBC 3.71 L (4.10-5.20) 10*6/uL Hgb 10.4 L (12.0-15.0) g/dL Hct 31.9 L (37.2-46.3) % Immature Gran # 0.07 H (0.00-0.04) 10*3/uL Lymphocytes # 0.86 L (0.90-5.00) 10*3/uL Eosinophils # 0.63 H (0.04-0.35) 10*3/uL Basophils # 0.13 H (0.00-0.10) 10*3/uL Chloride 112 H (98-107) mmol/L BUN 30 H (7-17) mg/dL Creatinine 3.05 H (0.52-1.04) mg/dL Calcium 8.2 L (8.4-10.2) mg/dL Total Protein 5.0 L (6.3-8.2) g/dL Albumin 2.7 L (3.5-5.0) g/dL Microbiology - Last 24 Hours (Table) 03/02/25 14:06 Blood Culture Gram Stain - Preliminary Blood Blood Culture - Preliminary Staphylococcus epidermidis Molecular ID Assessment and Plan (1) Laceration of right hand Current Visit: Yes Status: Acute Code(s): S61.411A - LACERATION WITHOUT FOREIGN BODY OF RIGHT HAND, INIT ENCNTR SNOMED Code(s): 23218791433620932 (2) Penicillin allergy Current Visit: Yes Status: Acute Code(s): Z88.0 - ALLERGY STATUS TO PENICILLIN SNOMED Code(s): 96572529 (3) Leukocytosis Current Visit: Yes Status: Acute Code(s): D72.829 - ELEVATED WHITE BLOOD C ELL COUNT, UNSPECIFIED SNOMED Code(s): 503423799 (4) Dog bite Current Visit: No Status: Acute Code(s): W54.0XXA - BITTEN BY DOG, INITIAL ENCOUNTER SNOMED Code(s): 548234234 (5) Positive blood culture Current Visit: Yes Status: Acute Code(s): R78.81 - BACTEREMIA SNOMED Code(s): 629960067 Plan: 1patient with elevated white count which is likely multifactorial in this patient who did have right hand significant dog bite with laceration and bleeding and will empirically cover for dog bite cellulitis as current no other obvious focus of infection chest x-ray was no acute CHF urine has been negative no evidence of any abdominal tenderness 2-penicillin allergy that we will limit number of antibiotic safe to use 3positive blood culture staph is more likely skin contamination blood culture has been repeated so far negative 4patient is afebrile white count has normalized patient to continue Rocephin 2 g daily and Flagyl transition to oral antibiotic on discharge Dictation was produced using [employer] dictation software. please excuse any grammatical, word or spelling errors. Time with Patient: Less than 30
--- NOTE | 2025-03-05 16:59 | P.PN ---
Subjective Progress Note Date: 03/05/25 HISTORY OF PRESENTING ILLNESS: 84-year-old female presented to [facility] 02/19/2025 at 10 PM because of substernal chest pressure. On admission she had ST elevations in 2 3 aVF with reciprocal changes in 1 and aVL. For this she was taken to [facility]. Cath showed 100% proximal RCA stenosis. Also showed residual 50% disease in mid LAD at diagonal 1 bifurcation site and Aguilar 0, 1, 1 fashion, 30% mid LCx and proximal OM 2 disease This time she presented to the hospital because of bleeding from the hand after a dog bite. She was on antiplatelets for her recent PCI and she had difficulty stopping her bleeding. On admission she was noticed to have WBC 14, Hb 13, creatinine 3.18, BUN 39. Her baseline creatinine is around 0.7. Nephrology was consulted and they did fluid challenge which did not improve her kidney function. She also had blood cultures done which were positive for gram-po sitive cocci in clusters. Orthopedic were consulted for hand injury after dog bite. As per their assessment it is superficial and does not need surgical intervention. Cardiology was consulted for concerns of CHF, VALERIA and recent heart cath. Admission Vitals: 123/67, currently 116/72, heart rate 71 on admission, currently 58 Admission Labs: WBC 14, Hb 13, BUN 39, creatinine 3.18, potassium 4.1, NT-proBNP 3690. LDL 88, TSH 6, A1c 5.8. Baseline creatinine 0.7 Admission EKG: Normal sinus rhythm, Q waves inferior lead with T wave inversions Imaging: Chest x-ray shows cardiomegaly with poor inspiratory effort, mild increased interstitial marking. Abdominal ultrasound showed complex right renal cyst recommending further MRI. No concerns of hydronephrosis. Echo from 02/2025 LVEF 50-55, mild inferior wall hypokinesia, mild MR, mild TR Progress note 03/05/2025 Patient seen and examined at bedside this a.m. Denies any chest pain chest pressure shortness of breath Kidney function is slightly better creatinine is 3.05, yesterday's creatinine was 3.22 PHYSICAL EXAMINATION: Neck: Brisk carotid upstroke, no jugular venous distention. Lungs: Clear to auscultation. Heart: Regular rate and rhythm, S1-S2, , no murmur or rub. Abdomen: Soft nontender, positive bowel sounds. Extremities: No edema, intact distal pulses. Neuro: Alert, oritented, no focal deficits. Detailed neuro exam was not performed. ASSESSMENT: # VALERIA secondary to ATN, likely from hypotension/sepsis. Creatinine 3.18 on admission, baseline at 0.7. No concerns of postobstructive uropathy. Right renal complex cyst noticed on abdominal ultrasound # Paroxysmal atrial fibrillation currently in sinus rhythm # CAD status post PCI to proximal RCA for STEMI 02/2025. Residual 50% mid RCA, 30% mid LCx and OM 2 disease. # Dog bite # Metabolic acidosis and hypokalemia likely from poor oral intake PLAN: Consider rechecking urine eosinophil to rule out allergic interstitial nephritis. Stop aspirin, Continue Brilinta, Eliquis, Lipitor Imdur 30, metoprolol 25 twice daily, Her home amlodipine is held as blood pressure is low normal. Continue monitoring renal function and electrolytes. Consider outpatient MRI for renal cyst No clinical indication for diuretics at this time. Patient is cleared from cardiovascular standpoint. Cardiology will sign off. Outpatient follow-up with Dr. Chiang Objective - Vital Signs Vital signs: Vital Signs Temp 97.4 F L 03/05/25 15:41 Pulse 58 L 03/05/25 15:41 Resp 18 03/05/25 15:41 BP 128/69 03/05/25 15:41 Pulse Ox 96 03/05/25 15:41 FiO2 Intake & Output 03/04/25 03/05/25 03/05/25 18:59 06:59 18:59 Intake Total 618 562 Balance 618 562 Weight 59 kg Intake: IV 20 Invasive Line 2 20 Oral 598 562 Other: Voiding Method Toilet Toilet Toilet # Voids 2 1 1 # Bowel Movements 1 - Labs CBC & Chem 7: 03/05/25 06:49 03/05/25 06:49 Labs: Abnormal Lab Results - Last 24 Hours (Table) 03/05/25 03/05/25 Range/Units 06:49 06:49 RBC 3.71 L (4.10-5.20) 10*6/uL Hgb 10.4 L (12.0-15.0) g/dL Hct 31.9 L (37.2-46.3) % Immature Gran # 0.07 H (0.00-0.04) 10*3/uL Lymphocytes # 0.86 L (0.90-5.00) 10*3/uL Eosinophils # 0.63 H (0.04-0.35) 10*3/uL Basophils # 0.13 H (0.00-0.10) 10*3/uL Chloride 112 H (98-107) mmol/L BUN 30 H (7-17) mg/dL Creatinine 3.05 H (0.52-1.04) mg/dL Calcium 8.2 L (8.4-10.2) mg/dL Total Protein 5.0 L (6.3-8.2) g/dL Albumin 2.7 L (3.5-5.0) g/dL Microbiology - Last 24 Hours (Table) 03/02/25 14:06 Blood Culture Gram Stain - Preliminary Blood Blood Culture - Preliminary Staphylococcus epidermidis Molecular ID
[2025-03-06 06:09] LABS: Basophils # (A) 0.13 10*3/uL (0.00-0.10); Basophils % (A) 1.6 %; Eosinophils # (A) 0.74 10*3/uL (0.04-0.35); Eosinophils % (A) 9.2 %; HCT 31.5 % (37.2-46.3); HGB 10.2 g/dL (12.0-15.0); Lymphocytes # (A) 1.02 10*3/uL (0.90-5.00); Lymphocytes % (A) 12.6 %; MCH 28.3 pg (27.0-32.0); MCHC 32.4 g/dL (32.0-37.0); MCV 87.3 fL (80.0-97.0); Mean Platelet Volume 10.8 fL (9.5-12.2); Monocytes # (A) 0.89 10*3/uL (0.20-1.00); Neutrophils # (A) 5.23 10*3/uL (1.80-7.70); Neutrophils % (A) 64.9 %; Platelet Count 399 10*3/uL (140-440); RBC 3.61 10*6/uL (4.10-5.20); RDW 14.6 % (11.5-14.5); WBC 8.07 10*3/uL (4.50-10.00)
[2025-03-06 06:22] LABS: ALT 9 U/L (4-34); AST 18 U/L (14-36); African American GFR (CKD) 16 (>60 ml/min/1.73 sqM); Albumin 2.7 g/dL (3.5-5.0); Alkaline Phosphatase 41 U/L (38-126); Anion Gap 6 mmol/L; Blood Urea Nitrogen 25 mg/dL (7-17); Calcium 8.4 mg/dL (8.4-10.2); Carbon Dioxide 26 mmol/L (22-30); Chloride 110 mmol/L (98-107); Glucose 82 mg/dL (74-99); Non-African American GFR(CKD) 14 (>60 ml/min/1.73 sqM); Potassium 3.9 mmol/L (3.5-5.1); Sodium 142 mmol/L (137-145); Total Bilirubin 0.5 mg/dL (0.2-1.3); Total Protein 4.9 g/dL (6.3-8.2)
--- NOTE | 2025-03-06 16:55 | P.PN ---
Subjective Progress Note Date: 03/06/25 Opal Mccord, is an 84-year-old female who presented to [facility] emergency room with a chief complaint of bleeding on hand from dog bite site. Patient is on anticoagulation and reports that she is having trouble stopping the bleeding from bite He was evaluated in the emergency room vital examination on presentation revealed temp 98.6, heart rate 71, respiratory rate 18, blood pressure 109/70 with a pulse ox of 96% on room air Laboratory data reveals white blood cell 14.08, hemoglobin 13.6 creatinine 3.18 bun 39 Testing in the emergency room revealed chest x-ray showing cardiomegaly pulmonary vascular congestion and bilateral pleural effusions correlate with BNP for CHF Patient was admitted to medical floor for further evaluation and treatment for VALERIA and dog bite. Patient is on clindamycin. Dr. Reece for infectious disease and nephrology services have been consulted ultrasound of kidney bladder ordered patient started on IV fluid. Blood and urine cultures ordered Past medical history is significant for CAD, COPD, CVA, hyperlipidemia, pulmonary embolism, shingles and TIA On review of systems patient is alert and oriented x 3. Patient's dressing in place on right hand. Patient denies chest pain or shortness of breath. Patient denies nausea vomiting or diarrhea. Patient denies any urinary burning or frequency On 03/03/2025 patient is alert and oriented x 3. Renal ultrasound has been ordered UA ordered per nephrology services creatinine trending down to 3.07. Current vital signs temp 97.7, heart rate 75, respiratory rate 22, blood pressure 102/49 with pulse ox 97% on room air. Patient denies chest pain or shortness of breath. Patient denies nausea vomiting or diarrhea. Patient denies any urinary burning or frequency. On 03/04/2025 patient was seen and examined on the medical floor she is alert and oriented x 3 in no apparent distress, there is no fever or chills no headache or dizziness no chest pain no shortness of breath no cough no nausea or vomiting no abdominal pain no diarrhea no urinary symptoms. Bleeding has stopped from the right hand site of dog bite. Kidney function remains impaired, BUN at 33 creatinine 3.22 and GFR at 13 infectious disease and nephrology are following will continue to monitor closely On 03/05/2025 patient is alert and oriented x 3 patient denies chest pain or shortness of breath. Patient denies nausea vomiting or diarrhea. Patient denies any urinary burning or frequency. Creatinine improved slightly improving to 3.05. Patient remains on Rocephin and Flagyl and Flagyl per ID. Current vital signs temp 97.3, heart rate 65, respiratory rate 18, blood pressure 159/74 with pulse ox of 92% on room air On 03/06/2025 patient was seen and examined on the medical floor she is alert and oriented x 3 in no apparent distress there is no fever or chills no headache or dizziness no chest pain no shortness of breath no cough no nausea or vomiting no abdominal pain no diarrhea and no urinary symptoms. Kidney function is improving slowly. Creatinine down to 2.9 we will continue to monitor closely. Objective - Vital Signs Vital signs: Vital Signs Temp 97.4 F L 03/06/25 04:00 Pulse 57 L 03/06/25 04:00 Resp 20 03/06/25 04:00 BP 149/80 03/06/25 04:00 Pulse Ox 98 03/06/25 04:00 FiO2 Intake & Output 03/05/25 03/06/25 03/06/25 18:59 06:59 18:59 Intake Total 562 Output Total 150 Balance 562 -150 Weight 93.5 kg Intake: Oral 562 Output: Urine 150 Other: Voiding Method Toilet Toilet # Voids 1 1 # Bowel Movements 1 - Exam In general patient is alert and oriented Ã-3 in no distress HEENT head normocephalic and atraumatic Neck is supple no JVD no goiter no lymphadenopathy no carotid bruit Chest examination is clear to auscultation no crackles no wheezing Cardiac exam reveals regular heart sounds S1 and S2 no gallops no murmurs Abdomen is soft nontender no organomegaly with normal bowel sounds Extremity exam reveals no edema no cyanosis or clubbing Neurological examination reveals no gross focal deficits - Labs CBC & Chem 7: 03/06/25 05:27 03/06/25 05:27 Labs: Abnormal Lab Results - Last 24 Hours (Table) 03/06/25 03/06/25 Range/Units 05:27 05:27 RBC 3.61 L (4.10-5.20) 10*6/uL Hgb 10.2 L (12.0-15.0) g/dL Hct 31.5 L (37.2-46.3) % Immature Gran # 0.06 H (0.00-0.04) 10*3/uL Eosinophils # 0.74 H (0.04-0.35) 10*3/uL Basophils # 0.13 H (0.00-0.10) 10*3/uL Chloride 110 H (98-107) mmol/L BUN 25 H (7-17) mg/dL Creatinine 2.93 H (0.52-1.04) mg/dL Total Protein 4.9 L (6.3-8.2) g/dL Albumin 2.7 L (3.5-5.0) g/dL Microbiology - Last 24 Hours (Table) 03/04/25 06:43 Blood Culture - Preliminary Blood 03/02/25 14:06 Blood Culture Gram Stain - Preliminary Blood Blood Culture - Preliminary Staphylococcus epidermidis Molecular ID Assessment and Plan Assessment: 1. Acute kidney injury 2. Dog bite to right hand patient currently on clindamycin pressure dressing in place 3. Episodes of diarrhea and poor oral intake. C. difficile negative 4. History of CVA 5. History of COPD 6. History of hyperlipidemia 7. History of pulmonary embolism 8. History of depression DVT prophylaxis Eliquis. GI prophylaxis Protonix Patient started p.o. clindamycin Infectious disease and nephrology services consulted Repeat labs ordered Blood and urine cultures ordered Ultrasound of kidney bladder and renal
--- NOTE | 2025-03-06 17:26 | P.PN ---
Subjective Patient is seen for follow-up for acute kidney injury. Renal function fairly stable with serum creatinine at 2.9 mg/dL today. Maintained on IV fluids No significant complaints. Objective - Vital Signs Vital signs: Vital Signs Temp 98.0 F 03/06/25 16:12 Pulse 59 L 03/06/25 16:12 Resp 16 03/06/25 16:12 BP 134/64 03/06/25 16:12 Pulse Ox 94 L 03/06/25 16:12 FiO2 Intake & Output 03/05/25 03/06/25 03/06/25 18:59 06:59 18:59 Intake Total 562 Output Total 150 Balance 562 -150 Weight 93.5 kg Intake: Oral 562 Output: Urine 150 Other: Voiding Method Toilet Toilet Toilet # Voids 1 1 2 # Bowel Movements 1 2 - Exam Patient is awake, comfortable, no acute distress. Examination of the heart S1 and S2 Examination of the lungs bilateral breath sounds are heard Abdomen soft nontender Examination lower extremity shows no significant edema - Labs CBC & Chem 7: 03/06/25 05:27 03/06/25 05:27 Labs: Abnormal Lab Results - Last 24 Hours (Table) 03/06/25 03/06/25 Range/Units 05:27 05:27 RBC 3.61 L (4.10-5.20) 10*6/uL Hgb 10.2 L (12.0-15.0) g/dL Hct 31.5 L (37.2-46.3) % Immature Gran # 0.06 H (0.00-0.04) 10*3/uL Eosinophils # 0.74 H (0.04-0.35) 10*3/uL Basophils # 0.13 H (0.00-0.10) 10*3/uL Chloride 110 H (98-107) mmol/L BUN 25 H (7-17) mg/dL Creatinine 2.93 H (0.52-1.04) mg/dL Total Protein 4.9 L (6.3-8.2) g/dL Albumin 2.7 L (3.5-5.0) g/dL Microbiology - Last 24 Hours (Table) 03/04/25 06:43 Blood Culture - Preliminary Blood 03/02/25 14:06 Blood Culture Gram Stain - Final Blood Blood Culture - Final Staphylococcus epidermidis Molecular ID Assessment and Plan Assessment: 1. Acute kidney injury secondary to ATN secondary to hypotension/severe sepsis. Creatinine 3.18 on admission and is stable at 2.9 today. Baseline creatinine 0.7-0.8. UA benign. No hydronephrosis noted on ultrasound. 2. Right hand wound from dog bite on antibiotics. Blood cultures also positive for gram-positive cocci. Infectious disease following. 3. Metabolic acidosis secondary to acute kidney injury and IV fluids. Better. On oral bicarb. 4. Coronary disease with RCA stent placed February 20, 2025. 5. Complex right renal cyst. Patient will need to see urology outpatient. 6. Hypokalemia from poor intake. Replaced. Better. Plan: Continue with IV fluids Encourage increased oral intake Continue with antibiotics Decrease sodium bicarb. Repeat labs in a.m.
[2025-03-06 22:21] VITALS: RESP 18
[2025-03-07 08:45] LABS: Basophils % (A) 1.3 %; Eosinophils % (A) 6.4 %; HCT 33.6 % (37.2-46.3); HGB 10.8 g/dL (12.0-15.0); Lymphocytes % (A) 12.1 %; MCH 27.9 pg (27.0-32.0); MCHC 32.1 g/dL (32.0-37.0); MCV 86.8 fL (80.0-97.0); Mean Platelet Volume 10.4 fL (9.5-12.2); Monocytes % (A) 9.7 %; Neutrophils # (A) 5.79 10*3/uL (1.80-7.70); Neutrophils % (A) 69.9 %; Platelet Count 433 10*3/uL (140-440); RBC 3.87 10*6/uL (4.10-5.20); RDW 14.7 % (11.5-14.5); WBC 8.28 10*3/uL (4.50-10.00)
[2025-03-07 08:46] LABS: Basophils # (A) 0.11 10*3/uL (0.00-0.10); Eosinophils # (A) 0.53 10*3/uL (0.04-0.35)
[2025-03-07 09:07] LABS: ALT 10 U/L (4-34); AST 23 U/L (14-36); African American GFR (CKD) 18 (>60 ml/min/1.73 sqM); Alkaline Phosphatase 46 U/L (38-126); Anion Gap 8 mmol/L; Blood Urea Nitrogen 21 mg/dL (7-17); Calcium 8.3 mg/dL (8.4-10.2); Carbon Dioxide 27 mmol/L (22-30); Chloride 110 mmol/L (98-107); Glucose 85 mg/dL (74-99); Non-African American GFR(CKD) 15 (>60 ml/min/1.73 sqM); Potassium 3.5 mmol/L (3.5-5.1); Sodium 145 mmol/L (137-145); Total Bilirubin 0.7 mg/dL (0.2-1.3); Total Protein 5.3 g/dL (6.3-8.2)
--- NOTE | 2025-03-07 11:29 | CDI ---
Documentation Clarification Form Date: 03/07/2025 10:47:00 AM From: Sybil Weaver RN, CCDS Phone: [phone] Admit Date: 03/02/2025 01:36:00 PM Patient Name: Opal Mccord Visit Number: [id number] Discharge Date: ATTENTION: The Clinical Documentation Specialists (CDI) and [facility] Coding Staff appreciate your assistance in clarifying documentation. Please respond to the clarification below the line at the bottom and electronically sign. The CDI & [facility] Coding staff will review the response and follow-up if needed. Please note: Queries are made part of the Legal Health Record. If you have any questions, please contact the author of this message via ITS. Doctor. Michael Briones Sepsis is documented in the Cardiology, consult and subsequent progress notes which may lack sufficient clinical evidence/support in the medical record. Additional clarification is requested. History/Risk Factors: .Acute kidney injury, Coronary Artery Disease, Last Myocardial Infarction Date: 02/19/2025 Clinical Indicators: 84-year-old female present with dog bite to right hand. 03/02 VS (11.47 82/52 72 20 97.6 97% RA, (11:52) 96/51 61 17 97% RA 03/02 Labs: 14.08, Neutrophils 10.92, BUN 39, CR 3.18, UA- Negative 03/04 Cardiology consult and progress notes: VALERIA secondary to ATN from hypotension/sepsis. 03/04 ID Progress note: Right hand dog bite cellulitis and positive blood culture with staph epi Empirically cover for dog bite cellulitis as current no other obvious focus of infection. Positive blood culture staph is more likely skin contamination blood culture has been repeated. Treatment: Rocephin 2 GM IVPG Q 24 HRS 03/03-03/07 Flagyl 500 MG PO TID 03/04-03/07 .9 NS 1,000 ML Bolus 03/02 Lactated Ringers 1,000 ML Bolus 03/02 After work up and study, please clarify which diagnosis is most appropriate? [ ] Sepsis is ruled out. The patient had a localized infection without systemic response or organ dysfunction. [ xxx] Sepsis was initially suspected, but subsequent clinical findings did not support the diagnosis, and it has been ruled out. [ ] Sepsis is clinically supported as evidenced by these additional clinical indicators: [ ] Other, please specify [ ] Unable to determine (Template Last Reviewed: September 2023) MTDD
[2025-03-07 12:17] VITALS: BP 116/59; PULSE 67; TEMP 97.2
--- NOTE | 2025-03-07 14:06 | P.DS ---
Providers Date of admission: 03/02/25 13:36 Expected date of discharge: 03/07/25 Attending physician: Michael Briones Consults: 03/02/25 14:37 Consult Physician Stat Consulting Provider: Jefry Jiménez Consult Reason/Comments: VALERIA Do you want consulting provider notified?: Yes, Notify in am 03/02/25 15:21 Consult Physician Routine Consulting Provider: Alex Reece Consult Reason/Comments: leukocytosis Do you want consulting provider notified?: Yes 03/03/25 12:35 Consult Physician Routine Consulting Provider: Pauline Whitlock Consult Reason/Comments: dog bite to hand Do you want consulting provider notified?: Yes Primary care physician: Belinda Sorto Hospital Course: Discharge diagnosis 1. Acute kidney injury 2. Dog bite to right hand patient currently on clindamycin pressure dressing in place 3. Episodes of diarrhea and poor oral intake. C. difficile negative 4. History of CVA 5. History of COPD 6. History of hyperlipidemia 7. History of pulmonary embolism 8. History of depression 9. Bacteremia Hospital course Opal Mccord, is an 84-year-old female who presented to [facility] emergency room with a chief complaint of bleeding on hand from dog bite site. Patient is on anticoagulation and reports that she is having trouble stopping the bleeding from bite He was evaluated in the emergency room vital examination on presentation revealed temp 98.6, heart rate 71, respiratory rate 18, blood pressure 109/70 with a pulse ox of 96% on room air Laboratory data reveals white blood cell 14.08, hemoglobin 13.6 creatinine 3.18 bun 39 Testing in the emergency room revealed chest x-ray showing cardiomegaly pulmonary vascular congestion and bilateral pleural effusions correlate with BNP for CHF Patient was admitted to medical floor for further evaluation and treatment for VALERIA and dog bite. Patient is on clindamycin. Dr. Reece for infectious disease and nephrology services have been consulted ultrasound of kidney bladder ordered patient started on IV fluid. Blood and urine cultures ordered Past medical history is significant for CAD, COPD, CVA, hyperlipidemia, pulmonary embolism, shingles and TIA On review of systems patient is alert and oriented x 3. Patient's dressing in place on right hand. Patient denies chest pain or shortness of breath. Patient denies nausea vomiting or diarrhea. Patient denies any urinary burning or frequency On 03/03/2025 patient is alert and oriented x 3. Renal ultrasound has been ordered UA ordered per nephrology services creatinine trending down to 3.07. Current vital signs temp 97.7, heart rate 75, respiratory rate 22, blood pressure 102/49 with pulse ox 97% on room air. Patient denies chest pain or shortness of breath. Patient denies nausea vomiting or diarrhea. Patient denies any urinary burning or frequency. On 03/04/2025 patient was seen and examined on the medical floor she is alert and oriented x 3 in no apparent distress, there is no fever or chills no headache or dizziness no chest pain no shortness of breath no cough no nausea or vomiting no abdominal pain no diarrhea no urinary symptoms. Bleeding has stopped from the right hand site of dog bite. Kidney function remains impaired, BUN at 33 creatinine 3.22 and GFR at 13 infectious disease and nephrology are following will continue to monitor closely On 03/05/2025 patient is alert and oriented x 3 patient denies chest pain or shortness of breath. Patient denies nausea vomiting or diarrhea. Patient denies any urinary burning or frequency. Creatinine improved slightly improving to 3.05. Patient remains on Rocephin and Flagyl and Flagyl per ID. Current vital signs temp 97.3, heart rate 65, respiratory rate 18, blood pressure 159/74 with pulse ox of 92% on room air On 03/06/2025 patient was seen and examined on the medical floor she is alert and oriented x 3 in no apparent distress there is no fever or chills no headache or dizziness no chest pain no shortness of breath no cough no nausea or vomiting no abdominal pain no diarrhea and no urinary symptoms. Kidney function is improving slowly. Creatinine down to 2.9 we will continue to monitor closely. On 03/07/2025 patient is alert and oriented x 3. Patient is very eager to be DC'd home. Creatinine slightly improved Olya discuss case with Dr. Thurston per nephrology patient is cleared for discharge from nephrology standpoint. Did discuss with patient and family to avoid Motrin and ibuprofen also to increase water intake patient to follow-up with PCP and consulting providers for further management. Per Dr. Barnett patient may be discharged on Ceftin and Flagyl for 1 week. Patient denies chest pain or shortness of breath. Patient denies nausea vomiting or diarrhea. Patient denies any urinary burning or frequency Patient Condition at Discharge: Stable Plan - Discharge Summary New Discharge Prescriptions: New Apixaban [Eliquis] 2.5 mg PO BID 90 Days #180 tab Cefuroxime [Ceftin] 250 mg PO BID 7 Days #14 tab metroNIDAZOLE [Flagyl] 500 mg PO TID 7 Days #14 tab Atorvastatin [Lipitor] 80 mg PO HS 30 Days #30 tab Sodium Bicarbonate Tab 650 mg PO DAILY 30 Days #30 tab Continue Citalopram Hydrobromide [CeleXA] 20 mg PO DAILY Mirtazapine [Remeron] 15 mg PO HS Ticagrelor [Brilinta] 90 mg PO BID 90 Days #180 tablet Metoprolol Tartrate [Lopressor] 25 mg PO BID #180 tab Levothyroxine Sodium [Synthroid] 100 mcg PO DAILY@30 30 Days #30 tab Isosorbide Mononitrate ER [Imdur] 30 mg PO DAILY 2 Days #90 tab Nystatin 100,000 Unit/gm Powd [Mycostatin Powder] 1 applic TOPICAL BID 10 Days #100 each Nitroglycerin Sl Tabs [Nitrostat] 0.4 mg SUBLINGUAL Q5M PRN 30 Days #25 tab PRN Reason: Chest Pain Bacitracin/Polymyx Oint [Polysporin Oint] 1 applic TOPICAL BID #22 gm Discontinued Aspirin 81 mg PO DAILY tab Apixaban [Eliquis] 5 mg PO BID 30 Days #60 tab amLODIPine [Norvasc] 5 mg PO DAILY 30 Days #30 tab clindamycin HCL 300 mg PO TID #15 cap Discharge Medication List Citalopram Hydrobromide [CeleXA] 20 mg PO DAILY 02/10/14 [History] Mirtazapine [Remeron] 15 mg PO HS 03/17/17 [History] Ticagrelor [Brilinta] 90 mg PO BID 90 Days #180 tablet 02/20/25 [Rx] Isosorbide Mononitrate ER [Imdur] 30 mg PO DAILY 2 Days #90 tab 02/22/25 [Rx] Levothyroxine Sodium [Synthroid] 100 mcg PO DAILY@0630 30 Days #30 tab 02/22/25 [Rx] Metoprolol Tartrate [Lopressor] 25 mg PO BID #180 tab 02/22/25 [Rx] Nitroglycerin Sl Tabs [Nitrostat] 0.4 mg SUBLINGUAL Q5M PRN 30 Days #25 tab 02/22/25 [Rx] Nystatin 100,000 Unit/gm Powd [Mycostatin Powder] 1 applic TOPICAL BID 10 Days #100 each 02/22/25 [Rx] Bacitracin/Polymyx Oint [Polysporin Oint] 1 applic TOPICAL BID #22 gm 02/28/25 [Rx] Apixaban [Eliquis] 2.5 mg PO BID 90 Days #180 tab 03/05/25 [Rx] Atorvastatin [Lipitor] 80 mg PO HS 30 Days #30 tab 03/07/25 [Rx] Cefuroxime [Ceftin] 250 mg PO BID 7 Days #14 tab 03/07/25 [Rx] Sodium Bicarbonate Tab 650 mg PO DAILY 30 Days #30 tab 03/07/25 [Rx] metroNIDAZOLE [Flagyl] 500 mg PO TID 7 Days #14 tab 03/07/25 [Rx] Follow up Appointment(s)/Referral(s): Mahad Chiang MD [Medical Doctor] - 1 Week Belinda Sorto MD [Primary Care Provider] - 1-2 days Pauline Whitlock [Doctor of Osteopathic Medicine] - As Needed Juliane Thurston MD [STAFF PHYSICIAN] - 1 Week Activity/Diet/Wound Care/Special Instructions: Apply Vasoline to the right hand laceration after cleansing with soap and water at least daily. no ibuprofen or Motrin Discharge Disposition: HOME SELF-CARE
--- NOTE | 2025-03-07 16:01 | P.PN ---
Subjective Patient is seen for follow-up for acute kidney injury. Renal function fairly stable with serum creatinine at 2.7 mg/dL today. Maintained on IV fluids No significant complaints. Objective - Vital Signs Vital signs: Vital Signs Temp 97.2 F L 03/07/25 12:00 Pulse 67 03/07/25 12:00 Resp 18 03/07/25 12:00 BP 116/59 03/07/25 12:00 Pulse Ox 96 03/07/25 12:00 FiO2 Intake & Output 03/06/25 03/07/25 03/07/25 18:59 06:59 18:59 Intake Total 650 Balance 650 Weight 93.2 kg Intake: Intake, IV Titration 650 Amount Lactated Ringers 1,000 ml 600 @ 75 mls/hr IV .[id number] [facility] Rx#:[id number] cefTRIAXone 2 gm In 50 Sodium Chloride 0.9% 50 ml @ 100 mls/hr IVPB Q24HR [facility] Rx#:[id number] Other: Voiding Method Toilet Toilet # Voids 2 1 # Bowel Movements 2 - Exam Patient is awake, comfortable, no acute distress. Examination of the heart S1 and S2 Examination of the lungs bilateral breath sounds are heard Abdomen soft nontender Examination lower extremity shows no significant edema - Labs CBC & Chem 7: 03/07/25 08:17 03/07/25 08:17 Labs: Abnormal Lab Results - Last 24 Hours (Table) 03/07/25 03/07/25 Range/Units 08:17 08:17 RBC 3.87 L (4.10-5.20) 10*6/uL Hgb 10.8 L (12.0-15.0) g/dL Hct 33.6 L (37.2-46.3) % Immature Gran # 0.05 H (0.00-0.04) 10*3/uL Eosinophils # 0.53 H (0.04-0.35) 10*3/uL Basophils # 0.11 H (0.00-0.10) 10*3/uL Chloride 110 H (98-107) mmol/L BUN 21 H (7-17) mg/dL Creatinine 2.77 H (0.52-1.04) mg/dL Calcium 8.3 L (8.4-10.2) mg/dL Total Protein 5.3 L (6.3-8.2) g/dL Albumin 3.0 L (3.5-5.0) g/dL Microbiology - Last 24 Hours (Table) 03/04/25 06:43 Blood Culture - Preliminary Blood 03/02/25 14:06 Blood Culture Gram Stain - Final Blood Blood Culture - Final Staphylococcus epidermidis Molecular ID Assessment and Plan Assessment: 1. Acute kidney injury secondary to ATN secondary to hypotension/severe sepsis. Creatinine 3.18 on admission and is stable at 2.7 today. Baseline creatinine 0.7-0.8. UA benign. No hydronephrosis noted on ultrasound. 2. Right hand wound from dog bite on antibiotics. Blood cultures also positive for gram-positive cocci. Infectious disease following. 3. Metabolic acidosis secondary to acute kidney injury and IV fluids. Better. On oral bicarb. 4. Coronary disease with RCA stent placed February 20, 2025. 5. Complex right renal cyst. Patient will need to see urology outpatient. 6. Hypokalemia from poor intake. Replaced. Better. Plan: Okay for discharge from nephrology standpoint. Follow-up with urology as outpatient for complex renal cyst Encourage increased oral intake Continue with antibiotics Decrease sodium bicarb. Follow-up as outpatient with nephrology
--- NOTE | 2025-03-07 16:34 | P.PN ---
Subjective Progress Note Date: 03/06/25 Principal diagnosis: Reason for follow-up is right hand dog bite/cellulitis and positive blood culture Patient is a 84-year-old female with a past medical history signif icant for coronary artery disease COPD CVA TIA hyperlipidemia PE recently discharged from this facility brought back to the hospital after the patient did have a dog bite on the right hand wrist area with significant bleeding she did have elevated white count positive blood culture prompted this consultation. On today's evaluation that is 03/06/2025, patient has been afebrile, patient is breathing comfortably and is currently on room air, patient denies having any chest pain and cough, patient denies nausea vomiting or diarrhea and no abdominal pain Patient did have a white count of 8.07. Creatinine is 2.93 Objective - Vital Signs Vital signs: Vital Signs Temp 97.6 F 03/06/25 11:27 Pulse 56 L 03/06/25 11:27 Resp 18 03/06/25 11:27 BP 122/62 03/06/25 11:27 Pulse Ox 96 03/06/25 11:27 FiO2 Intake & Output 03/05/25 03/06/25 03/06/25 18:59 06:59 18:59 Intake Total 562 Output Total 150 Balance 562 -150 Weight 93.5 kg Intake: Oral 562 Output: Urine 150 Other: Voiding Method Toilet Toilet Toilet # Voids 1 1 2 # Bowel Movements 1 2 - Exam GENERAL DESCRIPTION: An elderly male up in the room in no distress RESPIRATORY SYSTEM: Unlabored breathing , decreased breath sounds at bases HEART: S1 S2 regular rate and rhythm , ABDOMEN: Soft , no tenderness EXTREMITIES: Right hand with a bruise no purulent drainage - Labs CBC & Chem 7: 03/07/25 08:17 03/07/25 08:17 Labs: Abnormal Lab Results - Last 24 Hours (Table) 03/06/25 03/06/25 Range/Units 05:27 05:27 RBC 3.61 L (4.10-5.20) 10*6/uL Hgb 10.2 L (12.0-15.0) g/dL Hct 31.5 L (37.2-46.3) % Immature Gran # 0.06 H (0.00-0.04) 10*3/uL Eosinophils # 0.74 H (0.04-0.35) 10*3/uL Basophils # 0.13 H (0.00-0.10) 10*3/uL Chloride 110 H (98-107) mmol/L BUN 25 H (7-17) mg/dL Creatinine 2.93 H (0.52-1.04) mg/dL Total Protein 4.9 L (6.3-8.2) g/dL Albumin 2.7 L (3.5-5.0) g/dL Microbiology - Last 24 Hours (Table) 03/02/25 14:06 Blood Culture Gram Stain - Preliminary Blood Blood Culture - Preliminary Staphylococcus epidermidis Molecular ID 03/04/25 06:43 Blood Culture - Preliminary Blood Assessment and Plan (1) Laceration of right hand Current Visit: Yes Status: Acute Code(s): S61.411A - LACERATION WITHOUT FOREIGN BODY OF RIGHT HAND, INIT ENCNTR SNOMED Code(s): 70456902119056307 (2) Penicillin allergy Current Visit: Yes Status: Acute Code(s): Z88.0 - ALLERGY STATUS TO PENICILLIN SNOMED Code(s): 66721750 (3) Leukocytosis Current Visit: Yes Status: Acute Code(s): D72.829 - ELEVATED WHITE BLOOD CELL COUNT, UNSPECIFIED SNOMED Code(s): 259862382 (4) Dog bite Current Visit: No Status: Acute Code(s): W54.0XXA - BITTEN BY DOG, INITIAL ENCOUNTER SNOMED Code(s): 719356578 (5) Positive blood culture Current Visit: Yes Status: Acute Code(s): R78.81 - BACTEREMIA SNOMED Code(s): 389309486 Plan: 1patient with elevated white count which is likely multifactorial in this patient who did have right hand significant dog bite with laceration and bleeding and will empirically cover for dog bite cellulitis as current no other obvious focus of infection chest x-ray was no acute CHF urine has been negative no evidence of any abdominal tenderness 2-penicillin allergy that we will limit number of antibiotic safe to use 3positive blood culture staph is more likely skin contamination blood culture has been repeated so far negative 4patient is afebrile white count has normalized 5. Patient to continue Rocephin 2 g daily and Flagyl plan is to transition to oral antibiotic on discharge Dictation was produced using [employer] software. please excuse any grammatical, word or spelling errors.
--- NOTE | 2025-03-07 16:35 | P.PN ---
Subjective Progress Note Date: 03/07/25 Principal diagnosis: Reason for follow-up is right hand dog bite/cellulitis and positive blood culture Patient is a 84-year-old female with a past medical history signif icant for coronary artery disease COPD CVA TIA hyperlipidemia PE recently discharged from this facility brought back to the hospital after the patient did have a dog bite on the right hand wrist area with significant bleeding she did have elevated white count positive blood culture prompted this consultation. On today's evaluation that is 03/07/2025, Patient is afebrile this morning patient denies having any chest pain shortness of breath or cough, the patient is currently on room air, patient denies any abdominal pain no diarrhea no nausea no vomiting Patient white count is 8.28, creatinine is 2.77 . Objective - Vital Signs Vital signs: Vital Signs Temp 97.2 F L 03/07/25 12:00 Pulse 67 03/07/25 12:00 Resp 18 03/07/25 12:00 BP 116/59 03/07/25 12:00 Pulse Ox 96 03/07/25 12:00 FiO2 Intake & Output 03/06/25 03/07/25 03/07/25 18:59 06:59 18:59 Intake Total 650 Balance 650 Weight 93.2 kg Intake: Intake, IV Titration 650 Amount Lactated Ringers 1,000 ml 600 @ 75 mls/hr IV .[id number] [facility] Rx#:[id number] cefTRIAXone 2 gm In 50 Sodium Chloride 0.9% 50 ml @ 100 mls/hr IVPB Q24HR [facility] Rx#:[id number] Other: Voiding Method Toilet Toilet # Voids 2 1 # Bowel Movements 2 - Exam GENERAL DESCRIPTION: An elderly male up in the room in no distress RESPIRATORY SYSTEM: Unlabored breathing , decreased breath sounds at bases HEART: S1 S2 regular rate and rhythm , ABDOMEN: Soft , no tenderness EXTREMITIES: Right hand with a bruise no purulent drainage - Labs CBC & Chem 7: 03/07/25 08:17 03/07/25 08:17 Labs: Abnormal Lab Results - Last 24 Hours (Table) 03/07/25 03/07/25 Range/Units 08:17 08:17 RBC 3.87 L (4.10-5.20) 10*6/uL Hgb 10.8 L (12.0-15.0) g/dL Hct 33.6 L (37.2-46.3) % Immature Gran # 0.05 H (0.00-0.04) 10*3/uL Eosinophils # 0.53 H (0.04-0.35) 10*3/uL Basophils # 0.11 H (0.00-0.10) 10*3/uL Chloride 110 H (98-107) mmol/L BUN 21 H (7-17) mg/dL Creatinine 2.77 H (0.52-1.04) mg/dL Calcium 8.3 L (8.4-10.2) mg/dL Total Protein 5.3 L (6.3-8.2) g/dL Albumin 3.0 L (3.5-5.0) g/dL Microbiology - Last 24 Hours (Table) 03/04/25 06:43 Blood Culture - Preliminary Blood 03/02/25 14:06 Blood Culture Gram Stain - Final Blood Blood Culture - Final Staphylococcus epidermidis Molecular ID Assessment and Plan (1) Laceration of right hand Current Visit: Yes Status: Acute Code(s): S61.411A - LACERATION WITHOUT FOREIGN BODY OF RIGHT HAND, INIT ENCNTR SNOMED Code(s): 52648436815403629 (2) Penicillin allergy Current Visit: Yes Status: Acute Code(s): Z88.0 - ALLERGY STATUS TO PENICILLIN SNOMED Code(s): 10255373 (3) Leukocytosis Current Visit: Yes Status: Acute Code(s): D72.829 - ELEVATED WHITE BLOOD CELL COUNT, UNSPECIFIED SNOMED Code(s): 381646370 (4) Dog bite Current Visit: No Status: Acute Code(s): W54.0XXA - BITTEN BY DOG, INITIAL ENCOUNTER SNOMED Code(s): 710361820 (5) Positive blood culture Current Visit: Yes Status: Acute Code(s): R78.81 - BACTEREMIA SNOMED Code(s): 019423094 Plan: 1patient with elevated white count which is likely multifactorial in this patient who did have right hand significant dog bite with laceration and bleeding and will empirically cover for dog bite cellulitis as current no other obvious focus of infection chest x-ray was no acute CHF urine has been negative no evidence of any abdominal tenderness 2-penicillin allergy that we will limit number of antibiotic safe to use 3positive blood culture staph is more likely skin contamination blood culture has been repeated so far negative 4patient is afebrile white count has normalized plan is to finish therapy short course of oral Ceftin and Flagyl discussed with [employer] for admitting team working on discharge Dictation was produced using [employer] dictation software. please excuse any grammatical, word or spelling errors. Time with Patient: Less than 30
[2025-03-08] MEDS ORDERED: SODIUM BICARBONATE TAB 650 MG TAB PO SCH (09:00)
== END 2025-03-07 16:43 | disposition home or self-care (01) | DRG 682 ==
LOC: EC 11:45 → 3SCARD 13:36
PROVIDERS: ADMIT Internal Medicine; ATTEND Internal Medicine
DX: N17.0 Acute kidney failure with tubular necrosis (principal); I21.11 ST elevation (STEMI) myocardial infarction involving right coronary artery; J44.9 Chronic obstructive pulmonary disease, unspecified; F32.A Depression, unspecified; E89.0 Postprocedural hypothyroidism; E87.20 Acidosis, unspecified; L03.113 Cellulitis of right upper limb; I48.0 Paroxysmal atrial fibrillation; S61.451A Open bite of right hand, initial encounter; R19.7 Diarrhea, unspecified; E87.6 Hypokalemia; I25.10 Atherosclerotic heart disease of native coronary artery without angina pectoris; N28.1 Cyst of kidney, acquired; I95.9 Hypotension, unspecified; I51.7 Cardiomegaly; B96.89 Other specified bacterial agents as the cause of diseases classified elsewhere; E78.5 Hyperlipidemia, unspecified; Z79.01 Long term (current) use of anticoagulants; Z79.82 Long term (current) use of aspirin; Z79.02 Long term (current) use of antithrombotics/antiplatelets; Z79.890 Hormone replacement therapy; Z86.711 Personal history of pulmonary embolism; Z88.0 Allergy status to penicillin; W54.0XXA Bitten by dog, initial encounter; Z95.5 Presence of coronary angioplasty implant and graft; Z87.891 Personal history of nicotine dependence; Z79.899 Other long term (current) drug therapy; Z86.73 Personal history of transient ischemic attack (TIA), and cerebral infarction without residual deficits
CPT/HCPCS: 36415; 71046; 76770; 80048; 80053; 81003; 83605; 83735; 83880; 85025; 85610; 85730; 87040; 87077; 87186; 87205; 87324; 87493; 96361; 96374; 99285